=== PATIENT | male | born 1935 | race African-American/Black ===

== ENCOUNTER 2019-03-04 23:53 | Inpatient (IN) | payer MEDICARE, OTHER ==
[~2019-03-04] VITALS: Ht 188 cm; Wt 93.5 kg
[2019-03-05] VITALS (53 sets, daily range): BP systolic 54–185; BP diastolic 21–145
--- NOTE | 2019-03-05 00:46 | Emergency Room Report ---
History of Present Illness General Chief Complaint: Dyspnea/Respdistress Source: Patient, EMS Present Illness HPI Patient presents for respiratory distress Upon arrival patient appears in acute distress short of breath tachypneic Patient is able to provide some minimal input however limited history given the distress upon arrival patient asking for water Nursing facility reported increased short of breath prior to arrival unknown regarding fever there was no reports of vomiting or diarrhea Allergies: Coded Allergies: No Known Allergies (Unverified , 03/05/19) Patient History Past Medical History: see triage record Pertinent Family History: none Reviewed Nursing Documentation: PMH: Agreed; PSxH: Agreed Nursing Documentation-PMH Hx Cardiac Problems: Yes - AORTIC VALVE STENOSDI Hx Hypertension: Yes Review of Systems All Other Systems: limited - Other than the ones mentioned in the history of present illness all others are reviewed however they do stay limited due to the patient's mental status Physical Exam Vital Signs Date Time Temp Pulse Resp B/P (MAP) Pulse Ox O2 Delivery O2 Flow Rate FiO2 03/05/19 00:00 98.8 102 20 146/114 (125) 94 Non-Rebreather Sp02 EP Interpretation: reviewed, normal General Appearance: moderate distress - Tachypneic Head: normocephalic, atraumatic Eyes: bilateral eye PERRL, bilateral eye EOMI ENT: normal pharynx, no angioedema Neck: supple Respiratory: crackles - Bilaterally Cardiovascular #1: regular rate, rhythm Gastrointestinal: normal bowel sounds, non tender Musculoskeletal: other - No obvious focal deficit Neurologic: alert, responsive Skin: other - Large decubitus ulcer specific grading to be determined however at least 3 stage Lymphatic: no adenopathy Procedures Critical Care Time Critical Care Time 90 minutes for multiple re-evaluations critical presentation with concern for cardiac, cardiopulmonary not including any procedural time Central Line Central Line : Consent: Emergent Central Line Lumen: triple Maximal Sterile Barrier Tech: yes cap, yes mask, yes sterile gown, yes sterile gloves, yes large sterile sheet, yes hand hygiene, yes chlorhexidine prep Central Line Postion: femoral (R) Anesthesia: Lidocaine cc's of anesthesia: 4 Complications: none Central Line Post Position: sutured Attempts: One Patient Tolerated: Well Complications: None CPR/Code Blue CPR/Code Blue Narrative While receiving IV hydration and resuscitation with antibiotics, I was notified of the patient's mental status had appeared to change and patient was less responsive, upon arriving to the bedside patient has agonal respirations, heart rate appears to be decreasing and patient is unresponsive CPR is initiated, patient required airway intubation Patient did show evidence of V. fib Amiodarone and magnesium were also provided Including sodium bicarbonate Patient did regain palpable pulses And is placed on a mechanical ventilator Intubation Intubation : Consent: Emergent Intubation Method: orotracheal Tube Size (cm): 8.0 Breath Sounds after Intubation: equal Intubation Complications: no complications Post Intubation Xray: Yes Attempts: One Patient Tolerated: Well Complications: None Medical Decision Making Diagnostic Impression: Primary Impression: Septic shock Additional Impressions: Cardiopulmonary arrest Decubitus ulcer ER Course Patient presents ill multiple differentials including but not limited to sepsis , severe sepsis, septic shock considered Patient had aggressive hydration initiated extensive blood work X-ray imaging shows elevated right hemidiaphragm which appears abnormal CT imaging was obtained of the abdomen which reveals evidence of questionable small bowel traction There is also evidence of erosion and 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 from an existing sacral decubitus ulcer Radiology also felt that there was some questionable gas in the gluteal area raising concern of gas-forming bacteria During the patient's ED course patient remained ill At approximately 3:30 in the morning patient was found to be less responsive Went into a bradycardic rhythm and is found to be agonal respirations ACLS initiated patient has airway intubation And we did have return of pulses Patient remains in extremely critical with poor prognosis admitting physician notified Labs Test 03/04/19 23:59 03/05/19 00:08 03/05/19 00:34 03/05/19 02:43 Arterial Blood pH 7.344 (7.350-7.450) Arterial Blood Partial Pressure CO2 31.9 mmHg (35.0-45.0) Arterial Blood Partial Pressure O2 73.3 mmHg (75.0-100.0) Arterial Blood HCO3 17.0 mmol/L (22.0-26.0) Arterial Blood Oxygen Saturation 93.5 % (95-100) Arterial Blood Base Excess -7.6 (-2-2) Parish Test Positive White Blood Count 59.5 K/UL (4.8-10.8) Red Blood Count 3.81 M/UL (4.70-6.10) Hemoglobin 11.5 G/DL (14.2-18.0) Hematocrit 35.7 % (42.0-52.0) Mean Corpuscular Volume 94 FL (80-99) Mean Corpuscular Hemoglobin 30.1 PG (27.0-31.0) Mean Corpuscular Hemoglobin Concent 32.2 G/DL (32.0-36.0) Red Cell Distribution Width 16.8 % (11.6-14.8) Platelet Count 408 K/UL (150-450) Mean Platelet Volume 5.5 FL (6.5-10.1) Neutrophils (%) (Auto) % (45.0-75.0) Lymphocytes (%) (Auto) % (20.0-45.0) Monocytes (%) (Auto) % (1.0-10.0) Eosinophils (%) (Auto) % (0.0-3.0) Basophils (%) (Auto) % (0.0-2.0) Prothrombin Time 16.1 SEC (9.30-11.50) Prothromb Time International Ratio 1.6 (0.9-1.1) Activated Partial Thromboplast Time 51 SEC (23-33) Sodium Level 130 MMOL/L (136-145) Potassium Level 4.9 MMOL/L (3.5-5.1) Chloride Level 91 MMOL/L (98-107) Carbon Dioxide Level 21 MMOL/L (21-32) Anion Gap 18 mmol/L (5-15) Blood Urea Nitrogen 26 mg/dL (7-18) Creatinine 3.1 MG/DL (0.55-1.30) Estimat Glomerular Filtration Rate mL/min (>60) Glucose Level 72 MG/DL (74-106) Lactic Acid Level 10.70 mmol/L (0.4-2.0) 8.90 mmol/L (0.66-2.22) Calcium Level 8.8 MG/DL (8.5-10.1) Total Bilirubin 0.8 MG/DL (0.2-1.0) Aspartate Amino Transf (AST/SGOT) 1507 U/L (15-37) Alanine Aminotransferase (ALT/SGPT) 483 U/L (12-78) Alkaline Phosphatase 198 U/L (46-116) Total Creatine Kinase 742 U/L (26-308) Creatine Kinase MB 6.2 NG/ML (0.0-3.6) Creatine Kinase MB Relative Index 0.8 Troponin I 0.272 ng/mL (0.000-0.056) Pro-B-Type Natriuretic Peptide > 34303 pg/mL (0-125) Total Protein 7.3 G/DL (6.4-8.2) Albumin 2.5 G/DL (3.4-5.0) Globulin 4.8 g/dL Albumin/Globulin Ratio 0.5 (1.0-2.7) Lipase 52 U/L (73-393) Urine Color Red Urine Appearance Turbid Urine pH 5 (4.5-8.0) Urine Specific [place] 1.020 (1.005-1.035) Urine Protein 4+ (NEGATIVE) Urine Glucose (UA) Negative (NEGATIVE) Urine Ketones 1+ (NEGATIVE) Urine Blood 5+ (NEGATIVE) Urine Nitrite Negative (NEGATIVE) Urine Bilirubin Negative (NEGATIVE) Urine Urobilinogen Normal MG/DL (0.0-1.0) Urine Leukocyte Esterase 3+ (NEGATIVE) Urine RBC Tntc /HPF (0 - 0) Urine WBC Tntc /HPF (0 - 0) Urine Squamous Epithelial Cells Few /LPF (NONE/OCC) Urine Bacteria Many /HPF (NONE) EKG Diagnostic Results Rate: tachycardiac Rhythm: NSR ST Segments: other - Nonspecific ST changes Rhythm Strip Diag. Results EP Interpretation: yes Rate: 90 Rhythm: NSR, no PVC's, no ectopy Chest X-Ray Diagnostic Results Chest X-Ray Diagnostic Results #1: Chest X-Ray Ordered: Yes # of Views/Limited/Complete: 1 View Indication: Chest Pain EP Interpretation: Yes Interpretation: no consolidation, no pneumothorax, other - Small left effusion, elevated right hemidiaphragm Impression: Other - As above Chest X-Ray Diagnostic Results #2: Chest X-Ray Ordered: Yes # of Views/Limited/Complete: 1 View Indication: Other - Intubation EP Interpretation: Yes Interpretation: no consolidation, no pneumothorax, other - ET tube appropriate Impression: Other - ET tube appropriate Electronically Signed by: Lincoln Hoang DO CT/MRI/US Diagnostic Results CT/MRI/US Diagnostic Results : Impression CT abdomen pelvisIMPRESSION: Mild cardiomegalyand coronaryarterial calcifications. Right basilar Polder consolidative opacitywhich mayreflect atelectasis or possible infiltrate/pneumonia. Mild bilateral pleural thickening. Moderate gaseous and fluid distention of stomach. Mild small bowel distention with findings raising possibilityof earlyor partial small bowel obstruction. Gas distended cecumin the right upper quadrant most suggestive of hypermobile cecumas discussed in bodyof report. Cholelithiasis. Foleycatheter within decompressed urinarybladder. Large deep decubitus ulcer with findings suggestive of osteomyelitis and bonyerosion involving inferior coccygeal segments. Extension of gas and ill-defined low- densityinflammatorychanges to Last Vital Signs Date Time Temp Pulse Resp B/P (MAP) Pulse Ox O2 Delivery O2 Flow Rate FiO2 03/05/19 00:00 98.8 102 20 146/114 (125) 94 Non-Rebreather Status: worsened Disposition: ADMITTED INPATIENT Condition: Critical - poor prognosis Referrals: NON PHYSICIAN (PCP) Lincoln Hoang DO Mar 05, 2019 00:46
[2019-03-05 00:49] LABS: APPEARANCE,URINE TURBID; BILIRUBIN, URINE NEGATIVE (NEGATIVE); COLOR,URINE RED; GLUCOSE, URINE (UA) NEGATIVE (NEGATIVE); KETONES,URINE 1+ (NEGATIVE); LEUKOCYTE ESTERASE ,URINE 3+ (NEGATIVE); NITRITE,URINE NEGATIVE (NEGATIVE); PH,URINE 5 (4.5-8.0); PROTEIN,URINE 4+ (NEGATIVE); UROBILINOGEN,URINE NORMAL MG/DL (0.0-1.0)
[2019-03-05 00:54] LABS: HEMATOCRIT 35.7 % (42.0-52.0); HEMOGLOBIN 11.5 G/DL (14.2-18.0); MEAN CORPUSCULAR VOLUME 94 FL (80-99); PLATELET COUNT 408 K/UL (150-450); RED BLOOD COUNT 3.81 M/UL (4.70-6.10); RED CELL DISTRIBUTION WIDTH 16.8 % (11.6-14.8)
[2019-03-05 00:55] LABS: INR 1.6 (0.9-1.1)
[2019-03-05 00:56] LABS: WHITE BLOOD COUNT 59.5 K/UL (4.8-10.8)
[2019-03-05 00:57] LABS: ANION GAP 18 mmol/L (5-15); BLOOD UREA NITROGEN 26 mg/dL (7-18); CALCIUM 8.8 MG/DL (8.5-10.1); CARBON DIOXIDE 21 MMOL/L (21-32); CHLORIDE 91 MMOL/L (98-107); CREATININE 3.1 MG/DL (0.55-1.30); POTASSIUM 4.9 MMOL/L (3.5-5.1); SODIUM 130 MMOL/L (136-145)
[2019-03-05] MEDS ORDERED: AMIODARONE HCL400 M1 ORAL (00:59)
[2019-03-05] MEDS ORDERED: ACETAMINOPHEN325 M1 ORAL (00:59)
[2019-03-05] MEDS ORDERED: ELIQUIS2.5 MG PO (01:00)
[2019-03-05] MEDS ORDERED: CILOSTAZOL100 MG PO (01:00)
[2019-03-05] MEDS ORDERED: COLACE100 MG ORAL (01:00)
[2019-03-05] MEDS ORDERED: FERROUS SULFAT325 MG ORAL (01:02)
[2019-03-05] MEDS ORDERED: FUROSEMIDE20 M1 ORAL (01:02)
[2019-03-05] MEDS ORDERED: LACTULOSE20 GM/301 ORAL (01:03)
[2019-03-05] MEDS ORDERED: ORGANIDIN100 MG/5 M PO (01:03)
[2019-03-05] MEDS ORDERED: CITRATE OF MAG296 ML PO (01:04)
[2019-03-05] MEDS ORDERED: METOPROLOL TART25 MG ORAL (01:04)
[2019-03-05] MEDS ORDERED: MULTIVITAMINS1 EAC8 ORAL (01:05)
[2019-03-05] MEDS ORDERED: POTASSIUM CHLO20 ME1 ORAL (01:05)
[2019-03-05] MEDS ORDERED: PRO-STAT LIQUID30 ML ORAL (01:06)
[2019-03-05] MEDS ORDERED: SENNA8.6 M2 PO (01:06)
[2019-03-05] MEDS ORDERED: ZOFRAN4 M3 ORAL (01:07)
[2019-03-05 01:10] LABS: ALANINE AMINOTRANSFERASE 483 U/L (12-78); ALBUMIN 2.5 G/DL (3.4-5.0); ALBUMIN/GLOBULIN RATIO 0.5 (1.0-2.7); ALKALINE PHOSPHATASE 198 U/L (46-116); ASPARTATE AMINO TRANSFERASE 1507 U/L (15-37); BILIRUBIN,TOTAL 0.8 MG/DL (0.2-1.0); CKMB 6.2 NG/ML (0.0-3.6); CREATINE KINASE 742 U/L (26-308)
[2019-03-05] MEDS ORDERED: Vancomycin 1.5gm Premix 275 ML IVPB ONE (01:15)
[2019-03-05] MEDS ORDERED: Piperacillin/Tazobactam 3.375 GM in NS 110 ML IVPB ONE (01:15)
[2019-03-05] MEDS ORDERED: Sodium Chloride 3,300 ML IVLG ONE (01:15)
[2019-03-05] MEDS ORDERED: DOPamine 400mg/250ml 250 ML IV ONE (03:15)
[2019-03-05] MEDS ORDERED: Amiodarone 900 MG in D5W 500ml 482 ML IV ONE (04:00)
[2019-03-05] MEDS ORDERED: AMIODARONE 150 MG/100 ML IV ONE (04:02)
[2019-03-05] MEDS ORDERED: Amiodarone 150mg/3ml Amp ONE (04:19)
--- NOTE | 2019-03-05 05:08 | Diagnostic Imaging Report ---
EXAM: XR Chest, 1 View CLINICAL HISTORY: TUBE PLCMT TECHNIQUE: Frontal view of the chest. COMPARISON: Early same-day chest x-ray time stamped at 00 57 hours, and abdomen CT also of earlier the same date time stamped 01:42 hours. FINDINGS: Lungs: Persistent low lung volumes with right greater than left basilar atelectasis. Left lower lobe consolidation persists. Pulmonary vascular congestion, right greater than left is present. Pleural space: Unremarkable. No pneumothorax. Heart: Cardiomegaly redemonstrated. Mediastinum: Unremarkable. Bones/joints: Unremarkable. Tubes, lines and devices: Interval endotracheal intubation with ET tube terminating 5.7 cm above the katy. Interval placement of an enteric tube, possible diaphragms. Upper abdomen: Right diaphragmatic elevation IMPRESSION: Satisfactory endotracheal intubation and enteric tube placement with persistent findings of cardiomegaly and right lower lobe consolidation/pneumonia..
[2019-03-05] MEDS: Amiodarone 900 MG in D5W 500ml 482 ML IV SCH ×2 (06:37→13:06)
[2019-03-05 07:24] LABS: HEMATOCRIT 35.1 % (42.0-52.0); HEMOGLOBIN 11.8 G/DL (14.2-18.0); MEAN CORPUSCULAR VOLUME 92 FL (80-99); PLATELET COUNT 320 K/UL (150-450)
[2019-03-05 07:25] LABS: WHITE BLOOD COUNT 49.1 K/UL (4.8-10.8)
[2019-03-05 07:30] LABS: ANION GAP 18 mmol/L (5-15); BLOOD UREA NITROGEN 28 mg/dL (7-18); CALCIUM 8.3 MG/DL (8.5-10.1); CARBON DIOXIDE 18 MMOL/L (21-32); CHLORIDE 95 MMOL/L (98-107); CREATININE 2.9 MG/DL (0.55-1.30); PHOSPHORUS 6.7 MG/DL (2.5-4.9); POTASSIUM 3.9 MMOL/L (3.5-5.1); SODIUM 131 MMOL/L (136-145)
[2019-03-05] MEDS: DOPamine 400mg/250ml 250 ML IV SCH (07:46)
--- NOTE | 2019-03-05 08:59 | Diagnostic Imaging Report ---
EXAM: XR Chest, 1 View. CLINICAL HISTORY: SOB TECHNIQUE: Frontal view of the chest. COMPARISON: 03/05/19 at 0425 hrs. FINDINGS: Lungs: Stable appearance of the chest. Again seen is asymmetric elevation of the right hemidiaphragm and associated asymmetric volume loss within the right hemithorax. Pleural spaces: Unremarkable. No pneumothorax. Heart: Cardiac silhouette is unchanged. Mediastinum: No mediastinal widening or shift. Endotracheal and enteric tubes are stable in position. Bones: No evidence of acute osseous abnormality. Again seen is severe osteoarthritis of the left glenohumeral joint. Moderate gaseous distention of the colon seen within the upper abdomen. IMPRESSION: Stable appearance of the chest.
[2019-03-05] MEDS ORDERED: Metoprolol 25mg tab ORAL SCH (09:00)
--- NOTE | 2019-03-05 09:10 | History & Physical ---
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
[2019-03-05] MEDS ORDERED: Amikacin Rx to dose MISC PRN (10:00)
[2019-03-05] MEDS: Ferrous Sulfate 300 MG/5 ML UDC NG SCH ×3 (10:30→18:00)
[2019-03-05] MEDS: D5NS 1,000 ML IV SCH ×2 (10:30→20:45)
[2019-03-05] MEDS: Meropenem 500 MG in NS 55 ML IVPB SCH ×2 (11:28→23:33)
[2019-03-05] MEDS: Amikacin 600 MG in NS 110 ML IV SCH (12:15)
--- NOTE | 2019-03-05 12:30 | Consultation ---
DATE OF CONSULTATION: 03/05/2019 CONSULTING PHYSICIAN: Mirza Gilliland M.D. REQUESTING PHYSICIAN: ER physician. REASON FOR CONSULTATION: Decubitus ulcer and septic shock. HISTORY OF PRESENT ILLNESS: This is an 83-year-old male, resident of a [place] [facility], was brought to the emergency room for shortness of breath. The patient is intubated and cannot give any history. There is no family available and all the information was obtained from the chart and the nurses. During the evaluation, it has noticed that the patient had a very large infected decubitus ulcer at the sacral area. It is not clear how long the patient has had this and there is no mention of any fever, vomiting, or any complaints. PAST MEDICAL HISTORY: Apparently, he is not allergic to any medication and the records show that he has a history of hypertension, aortic valve stenosis, CHF, atrial fibrillation, and possible MN. PAST SURGICAL HISTORY: None. MEDICATIONS: Please see the medicine reconciliation form. SOCIAL HISTORY: This is an 83-year-old male, single, resident of the [place] [facility]. REVIEW OF SYSTEMS: Unobtainable. PHYSICAL EXAMINATION: GENERAL: The patient appeared to be a well-developed, well-nourished, 83-year-old male, lying on the bed, in the ICU, intubated and opens eyes and is moving the head. EYES: He has sluggish reaction of the pupils. Mouth, he has an ET tube in place. NECK: There is no palpable thyromegaly or adenopathy. CHEST: Clear. HEART: There is no gallop or murmur. He is tachycardic, although he has diagnosis of the aortic valve stenosis, but I cannot hear any murmur. ABDOMEN: Soft and flat. Nontender. EXTREMITIES: He has poor circulation in both lower legs. BACK: He has a very large stage IV decubitus ulcer, which is severely infected and had drainage. LABORATORY DATA: The CBC on admission shown WBC of 59,500 with left shift, 27% band. Chemistry is showing creatinine of 2.9. Lactic acid of 8.9 and almost every parameter is abnormal and troponin is 0.54. Urine has shown too numerous to count wbc and rbc. ASSESSMENT: 1. Infected decubitus ulcer. 2. Septic shock. RECOMMENDATION: The patient definitely requires debridement of the decubitus ulcer. PLAN: At this time, his condition does not allow, so I took the liberty of ordering the dressing changes and when the patient is stable enough, he will required the debridement of the wound. Mirza Gilliland M.D. DR: JONATHAN JOB#: [id number] CC:
--- NOTE | 2019-03-05 13:01 | Cardiology Report ---
APPROVED REPORT EXAM: Two-dimensional and M-mode echocardiogram with Doppler and color Doppler. INDICATION Tachycardia M-Mode DIMENSIONS IVSd2.1 (0.7-1.1cm)Left Atrium (MM)3.5 (1.6-4.0cm) LVDd3.0 (3.5-5.6cm)Aortic Root2.9 (2.0-3.7cm) PWd1.9 (0.7-1.1cm)Aortic Cusp Exc.0.9 (1.5-2.0cm) LVDs2.3 (2.5-4.0cm) PWs1.8 cm Technically difficult study due to patient on ventilator. Study quality precludes accurate assessment of regional wall motion. Normal left ventricular chamber size. Global left ventricular hypokinesis. Left ventricular ejection fraction estimated to be 30-35 %. Mild left ventricular hypertrophy. Anterior Echo-free space, may be due to pericardial fat or effusion. Mild left atrial enlargement. Right cardiac chamber sizes are within normal limits. Aortic valve calcification with decreased cusp excursion c/w aortic stenosis. Heavily thickened mitral valve leaflets with reduced excursion. Heavy mitral annulus and aortic root calcification. Pulmonic valve not well visualized. Normal tricuspid valve structure. IVC is normal in size without physiological collapse, suggestive of increased RA pressure. A color flow and spectral Doppler study was performed and revealed: Trace aortic insufficiency. Peak aortic valve gradient of 38 mmHg and a mean of 21 mmHg. Aortic valve area 1.0 cm2 calculated by continuity equation. Mild mitral regurgitation. LVOT pressure gradient underestimated due to low systolic function. Mitral P1/2 time of 35 m/s is compatible with a mitral valve area of 1.2 cm2. Peak mitral valve diastolic gradient of 9 mmHg and a mean gradient of 3 mmHg. Left ventricular diastolic function could not be determined due to arrhythmia. Mild tricuspid regurgitation. Tricuspid systolic velocities suggests peak right ventricular systolic pressure of 40 mmHg, consistent with mild pulmonary hypertension. Mild pulmonic regurgitation present.
--- NOTE | 2019-03-05 13:45 | History and Physical Report ---
DATE OF ADMISSION: 03/05/2019 REASON FOR ADMISSION: Septic shock, ventilator-dependent respiratory failure. HISTORY OF PRESENT ILLNESS: This is an elderly gentleman, who was admitted from his long-term with respiratory distress, altered mental status, hypotensive and in shock. The patient was nonverbal, unable to provide any history in the emergency room. He subsequently Coded in the emergency room, was emergently intubated, started on pressors, given 4 liters of fluid, started on broad-spectrum antibiotics. He has a stage IV decubitus ulcer, was also found to have urinary tract infection and was transferred to the intensive care unit for further care. The patient has also had significant amount of diarrhea per the staff and is on multiple cathartic agents. His Code Blue note was noted and CPR was performed. Heart monitor did show the patient was in VFib. He was started on amiodarone, magnesium, and bicarbonate. Pulses were regained and as stated, the patient was intubated. PAST MEDICAL HISTORY: Includes aortic valve stenosis, hypertension, and constipation. He has atrial fibrillation on Eliquis. SOCIAL HISTORY: Un-reportable. REVIEW OF SYSTEMS: Unobtainable. MEDICATIONS: His pre-hospital medications and present medications were reviewed, reconciled, and documented in the electronic medical record by dose, frequency, and route. FAMILY HISTORY: Unavailable due to his current intubation status. PHYSICAL EXAMINATION: GENERAL: At the time of my exam, his eyes are open. He does not follow commands. He is in restraints, on the ventilator. HEENT: He is normocephalic, atraumatic. Orally intubated. LUNGS: Bilateral rhonchi. HEART: Regular rate and rhythm with an audible murmur. ABDOMEN: Soft, nontender. Positive bowel sounds. EXTREMITIES: Positive edema. NEUROLOGIC: Does not follow commands as previously stated. LABORATORY AND DIAGNOSTIC DATA: His laboratory values, his initial ABG pre-intubation was 7.34, 31, 73. This morning, is 7.41, 30, and 247. His chest x-ray shows a dense right lower lobe infiltrate with right effusion be noted. Urinalysis shows positive leukocyte esterase and ketones. Sodium is 131, potassium 3.9, chloride 95, bicarb 18, BUN 28, creatinine 2.8, glucose is 178. His initial lactate was 10.7 and it is continued at this time. His first troponin was 0.54. His CBC initially had a white count of 59.5, now down to 49.1. 11.8, and platelets are 320. Cultures are pending at this time. CT result is not available on the paper chart, on the computer, but per the emergency room note, abdomen CT was obtained revealing evidence of small bowel traction, also evidence for erosion and likely osteomyelitis of the sacrum and questionable gas in the gluteal area, raising concern of gas-forming bacteria. ASSESSMENT AND PLAN: Cardiopulmonary arrest, ventilator-dependent respiratory failure, right lower lobe pneumonia with effusion, stage IV decubitus ulcer, suspected osteomyelitis, possible gas-forming bacteria seen on CT scan, and he has atrial fibrillation. Plan for the patient to maintain airway protection with the current vent settings. ABG is stable. We will titrate O2 for saturating %. Broad-spectrum antibiotics have been initiated. ID has been consulted. Meropenem, amikacin, and vancomycin have been ordered. Surgical evaluation for debridement when the patient is stable of his decubitus ulcer. Blood pressure supportive medications to maintain mean arterial pressure greater than 65 mmHg. Currently has been transitioned to Levophed. We will continue to monitor. IV fluids have been ordered and we will monitor. 2D echo is pending. Trending cardiac troponins and Dr. Mckinney to see for Cardiology. Urinary tract infection, awaiting cultures. He is covered with broad-spectrum antibiotics. NPO at this time and aspiration precautions. We will start tube feeding with placement of NG tube. Plan for his atrial fibrillation, continue the Eliquis. At this time, monitor for any bleeding. Greater than 50 minutes critical care time spent with the patient, discussing the case with nursing staff, consultants, and we will continue to follow the patient for remainder of his hospital stay and he is critically ill requiring intensive care therapy. Dulce Lund D.O. : CRISTAL JOB#: [id number] CC:
--- NOTE | 2019-03-05 16:00 | Infectious Diseases Prog Note ---
Assessment/Plan Assessment/Plan Full consult dictated: A) 1) sepsis, shock, uti/pyelonephritis, pna, leukocytosis 2) sacral wound infection 3) pmh noted P) 1) vancomycin, amikacin and meropenem 2) check cultures, labs and chest x-ray 3) may need CT imaging 4) thank you Subjective Allergies: Coded Allergies: No Known Allergies (Unverified , 03/05/19) Objective Vital Signs Last 24 Hour Vital Signs Date Time Temp Pulse Resp B/P (MAP) Pulse Ox O2 Delivery O2 Flow Rate FiO2 03/05/19 15:12 93 23 70 03/05/19 13:00 97 18 115/42 (66) 100 03/05/19 13:00 115/42 03/05/19 12:52 96 24 70 03/05/19 12:45 54/42 03/05/19 12:45 99 18 54/42 (46) 100 03/05/19 12:30 108/28 03/05/19 12:30 101 16 108/28 (54) 100 03/05/19 12:30 101 16 108/28 (54) 100 03/05/19 12:15 101 16 115/28 (57) 100 03/05/19 12:15 115/28 03/05/19 12:00 Mechanical Ventilator 03/05/19 12:00 107/45 03/05/19 12:00 99.1 103 16 107/45 (65) 100 03/05/19 12:00 80 03/05/19 12:00 101 03/05/19 11:45 107/45 03/05/19 11:45 103 14 107/45 (65) 100 03/05/19 11:35 117/66 03/05/19 11:33 103/87 03/05/19 11:30 124/74 03/05/19 11:30 110 18 117/66 (83) 100 03/05/19 11:00 119 20 124/74 (91) 100 03/05/19 11:00 124/74 03/05/19 10:57 118 18 80 03/05/19 10:30 118 20 96/79 (85) 100 03/05/19 10:00 99.4 117 20 89/29 (49) 100 03/05/19 10:00 95/77 03/05/19 09:30 104 17 89/29 (49) 100 03/05/19 09:00 80/53 03/05/19 09:00 104 19 80/53 (62) 100 03/05/19 08:40 105 19 80 03/05/19 08:30 103 19 125/79 (94) 100 03/05/19 08:15 115/31 03/05/19 08:00 100.4 104 20 87/56 (66) 100 03/05/19 08:00 Mechanical Ventilator 03/05/19 08:00 87/56 03/05/19 08:00 104 03/05/19 08:00 80 03/05/19 07:46 69/43 03/05/19 07:23 90 22 100 03/05/19 05:47 Endotracheal Tube 03/05/19 05:31 103 27 100 03/05/19 05:31 103 27 98 Mechanical Ventilator 100 03/05/19 05:25 98.9 88 22 91/65 100 Nasal Cannula 100 03/05/19 05:10 91/65 03/05/19 04:55 102/58 03/05/19 04:40 104/65 03/05/19 04:30 98.4 76 22 185/145 100 Nasal Cannula 3.0 100 03/05/19 04:25 84/59 03/05/19 04:10 85/65 03/05/19 03:55 185/145 03/05/19 03:40 80/28 03/05/19 03:37 88 26 Endotracheal Tube 100 03/05/19 03:37 90 22 100 03/05/19 03:24 74/51 03/05/19 02:30 98.8 93 36 87/49 95 Nasal Cannula 3.0 97 03/05/19 00:30 97 26 Nasal Cannula 3.0 97 03/05/19 00:10 98.8 102 20 146/114 94 Non-Rebreather 03/05/19 00:10 102 20 Non-Rebreather 15.0 03/05/19 00:00 98.8 102 20 146/114 (125) 94 Non-Rebreather Height (Feet): 6 Height (Inches): 2.00 Weight (Pounds): 182 Microbiology Date/Time Source Procedure Growth Status 03/05/19 00:50 Rectum Received Laboratory Tests Test 03/04/19 23:59 03/05/19 00:08 03/05/19 00:34 03/05/19 02:43 Arterial Blood pH 7.344 (7.350-7.450) Arterial Blood Partial Pressure CO2 31.9 mmHg (35.0-45.0) L Arterial Blood Partial Pressure O2 73.3 mmHg (75.0-100.0) L Arterial Blood HCO3 17.0 mmol/L (22.0-26.0) *L Arterial Blood Oxygen Saturation 93.5 % (95-100) L Arterial Blood Base Excess -7.6 (-2-2) L Parish Test Positive White Blood Count 59.5 K/UL (4.8-10.8) *H Red Blood Count 3.81 M/UL (4.70-6.10) L Hemoglobin 11.5 G/DL (14.2-18.0) L Hematocrit 35.7 % (42.0-52.0) L Mean Corpuscular Volume 94 FL (80-99) Mean Corpuscular Hemoglobin 30.1 PG (27.0-31.0) Mean Corpuscular Hemoglobin Concent 32.2 G/DL (32.0-36.0) Red Cell Distribution Width 16.8 % (11.6-14.8) H Platelet Count 408 K/UL (150-450) Mean Platelet Volume 5.5 FL (6.5-10.1) L Neutrophils (%) (Auto) % (45.0-75.0) Lymphocytes (%) (Auto) % (20.0-45.0) Monocytes (%) (Auto) % (1.0-10.0) Eosinophils (%) (Auto) % (0.0-3.0) Basophils (%) (Auto) % (0.0-2.0) Differential Total Cells Counted 100 Neutrophils % (Manual) 62 % (45-75) Lymphocytes % (Manual) 4 % (20-45) L Monocytes % (Manual) 3 % (1-10) Eosinophils % (Manual) 0 % (0-3) Basophils % (Manual) 0 % (0-2) Metamyelocytes % 3 % (0-0) H Myelocytes % 1 % (0-0) H Band Neutrophils 27 % (0-8) H Platelet Estimate Adequate Platelet Morphology Normal Anisocytosis 1+ Prothrombin Time 16.1 SEC (9.30-11.50) H Prothromb Time International Ratio 1.6 (0.9-1.1) H Activated Partial Thromboplast Time 51 SEC (23-33) H Sodium Level 130 MMOL/L (136-145) L Potassium Level 4.9 MMOL/L (3.5-5.1) Chloride Level 91 MMOL/L (98-107) L Carbon Dioxide Level 21 MMOL/L (21-32) Anion Gap 18 mmol/L (5-15) H Blood Urea Nitrogen 26 mg/dL (7-18) H Creatinine 3.1 MG/DL (0.55-1.30) H Estimat Glomerular Filtration Rate mL/min (>60) Glucose Level 72 MG/DL (74-106) L Lactic Acid Level 10.70 mmol/L (0.4-2.0) H 8.90 mmol/L (0.66-2.22) H Calcium Level 8.8 MG/DL (8.5-10.1) Total Bilirubin 0.8 MG/DL (0.2-1.0) Aspartate Amino Transf (AST/SGOT) 1507 U/L (15-37) H Alanine Aminotransferase (ALT/SGPT) 483 U/L (12-78) H Alkaline Phosphatase 198 U/L (46-116) H Total Creatine Kinase 742 U/L (26-308) H Creatine Kinase MB 6.2 NG/ML (0.0-3.6) H Creatine Kinase MB Relative Index 0.8 Troponin I 0.272 ng/mL (0.000-0.056) Pro-B-Type Natriuretic Peptide > 75044 pg/mL (0-125) H Total Protein 7.3 G/DL (6.4-8.2) Albumin 2.5 G/DL (3.4-5.0) L Globulin 4.8 g/dL Albumin/Globulin Ratio 0.5 (1.0-2.7) L Lipase 52 U/L (73-393) L Urine Color Red Urine Appearance Turbid Urine pH 5 (4.5-8.0) Urine Specific [place] 1.020 (1.005-1.035) Urine Protein 4+ (NEGATIVE) H Urine Glucose (UA) Negative (NEGATIVE) Urine Ketones 1+ (NEGATIVE) H Urine Blood 5+ (NEGATIVE) H Urine Nitrite Negative (NEGATIVE) Urine Bilirubin Negative (NEGATIVE) Urine Urobilinogen Normal MG/DL (0.0-1.0) Urine Leukocyte Esterase 3+ (NEGATIVE) H Urine RBC Tntc /HPF (0 - 0) H Urine WBC Tntc /HPF (0 - 0) H Urine Squamous Epithelial Cells Few /LPF (NONE/OCC) Urine Bacteria Many /HPF (NONE) H Test 03/05/19 07:00 03/05/19 07:44 03/05/19 09:25 03/05/19 14:45 White Blood Count 49.1 K/UL (4.8-10.8) *H Red Blood Count 3.80 M/UL (4.70-6.10) L Hemoglobin 11.8 G/DL (14.2-18.0) L Hematocrit 35.1 % (42.0-52.0) L Mean Corpuscular Volume 92 FL (80-99) Mean Corpuscular Hemoglobin 31.1 PG (27.0-31.0) H Mean Corpuscular Hemoglobin Concent 33.7 G/DL (32.0-36.0) Red Cell Distribution Width 17.0 % (11.6-14.8) H Platelet Count 320 K/UL (150-450) Mean Platelet Volume 5.7 FL (6.5-10.1) L Neutrophils (%) (Auto) % (45.0-75.0) Lymphocytes (%) (Auto) % (20.0-45.0) Monocytes (%) (Auto) % (1.0-10.0) Eosinophils (%) (Auto) % (0.0-3.0) Basophils (%) (Auto) % (0.0-2.0) Differential Total Cells Counted 100 Neutrophils % (Manual) 58 % (45-75) Lymphocytes % (Manual) 6 % (20-45) L Monocytes % (Manual) 3 % (1-10) Eosinophils % (Manual) 0 % (0-3) Basophils % (Manual) 0 % (0-2) Metamyelocytes % 2 % (0-0) H Myelocytes % 2 % (0-0) H Band Neutrophils 29 % (0-8) H Platelet Estimate Adequate Platelet Morphology Normal Anisocytosis 1+ Sodium Level 131 MMOL/L (136-145) L Potassium Level 3.9 MMOL/L (3.5-5.1) Chloride Level 95 MMOL/L (98-107) L Carbon Dioxide Level 18 MMOL/L (21-32) L Anion Gap 18 mmol/L (5-15) H Blood Urea Nitrogen 28 mg/dL (7-18) H Creatinine 2.9 MG/DL (0.55-1.30) H Estimat Glomerular Filtration Rate mL/min (>60) Glucose Level 178 MG/DL (74-106) #H Lactic Acid Level 10.70 mmol/L (0.4-2.0) H 6.60 mmol/L (0.66-2.22) H 3.10 mmol/L (0.4-2.0) H Calcium Level 8.3 MG/DL (8.5-10.1) L Phosphorus Level 6.7 MG/DL (2.5-4.9) H Magnesium Level 2.1 MG/DL (1.8-2.4) Troponin I 0.540 ng/mL (0.000-0.056) Arterial Blood pH 7.415 (7.350-7.450) Arterial Blood Partial Pressure CO2 30.3 mmHg (35.0-45.0) L Arterial Blood Partial Pressure O2 247.2 mmHg (75.0-100.0) H Arterial Blood HCO3 19.0 mmol/L (22.0-26.0) L Arterial Blood Oxygen Saturation 99.2 % (95-100) Arterial Blood Base Excess -4.6 (-2-2) L Parish Test Positive Current Medications Medications (Trade) Dose Ordered Sig/Tawny Route PRN Reason Start Time Stop Time Status Last Admin Dose Admin Amikacin Protocol (Amikacin pharmacy to dose) 1 ea DAILY PRN MISC Per rx protocol 03/05/19 10:00 04/04/19 09:59 Amikacin Sulfate 600 mg/Sodium Chloride 112.4 ml @ 112.4 mls/ hr Q24H IV 03/05/19 12:00 03/12/19 11:59 03/05/19 12:15 Amiodarone HCl 900 mg/Dextrose 500 ml @ 0 mls/hr Q24H IV 03/05/19 06:31 03/06/19 06:30 03/05/19 13:06 Chlorhexidine Gluconate (Jada-Hex 2%) 1 applic DAILY@1999 TOPIC 03/05/19 20:00 04/04/19 19:59 Dextrose (Dextrose 50%) 25 ml Q30M PRN IV Hypoglycemia 03/05/19 06:15 04/04/19 06:14 Dextrose (Dextrose 50%) 50 ml Q30M PRN IV Hypoglycemia 03/05/19 06:15 04/04/19 06:14 Dextrose/Sodium Chloride 1,000 ml @ 100 mls/hr Q10H IV 03/05/19 10:05 04/04/19 10:04 03/05/19 10:30 Dopamine HCl/ Dextrose 250 ml @ 0 mls/hr Q24H IV 03/05/19 06:32 04/04/19 06:31 03/05/19 07:46 Ferrous Sulfate (Feosol) 330 mg THREE TIMES A DAY NG 03/05/19 09:00 04/04/19 08:59 03/05/19 14:03 Lorazepam (Ativan 2mg/ml 1ml) 1 mg Q2H PRN IV For Anxiety 03/05/19 15:00 03/12/19 14:59 Meropenem 500 mg/ Sodium Chloride 55 ml @ 110 mls/hr Q12HR@1100,2300 IVPB 03/05/19 11:00 03/10/19 10:59 03/05/19 11:28 Norepinephrine Bitartrate 4 mg/ Dextrose 250 ml @ 0 mls/hr Q24H IV 03/05/19 10:05 04/04/19 10:04 03/05/19 11:33 Ondansetron HCl (Zofran) 4 mg Q6H PRN IVP Nausea & Vomiting 03/05/19 06:15 04/04/19 06:14 Vancomycin HCl (Vanco rx to dose) 1 ea DAILY PRN MISC Per rx protocol 03/05/19 06:15 04/04/19 06:14 Makenzie Galeano MD Mar 05, 2019 16:00
--- NOTE | 2019-03-05 17:30 | Consultation ---
DATE OF CONSULTATION: 03/05/2019 INFECTIOUS DISEASES CONSULTATION CONSULTING PHYSICIAN: Makenzie Galeano M.D. ATTENDING PHYSICIAN: Cedric Perez M.D. REFERRING PHYSICIANS: 1. Cedric Perez M.D. 2. Dulce Lund D.O. REASON FOR CONSULTATION: Sepsis, shock, urinary tract infection, pneumonia, sacral wound infection. CHIEF COMPLAINT: The patient's chief complaint coming into the hospital is sepsis, shock, urinary tract infection, pyelonephritis, sacral wound infection, pneumonia, respiratory failure. HISTORY OF PRESENT ILLNESS: The patient is an 83-year-old male who comes in to [facility] and was noted to be short of breath and is status post Code. He is actually alert, but is intubated. The patient has multiple infections including fevers, leukocytosis, urinary tract infection, pyelonephritis, and pneumonia. He has also sacral wound infection. The patient was seen by surgery, plan for debridement of the sacral wound which is significantly infected. Infectious consultation requested for antibiotic management. The patient has been started on meropenem, amikacin, and vancomycin. Case communicated with Dr. Dulce Lund who is covering for Dr. Cedric Perez. REVIEW OF SYSTEMS: Main issue, the patient is in respiratory failure, but he is alert. He is on pressors 12 mcg Levophed. He is orally intubated. HEAD AND NECK: He is orally intubated. CARDIAC: He is on pressors, 12 mcg Levophed. GASTROINTESTINAL: no abdominal pain. No diarrhea per nursing staff. GENITOURINARY: He has a Koenig. PULMONARY: On a vent. Some secretions. SKIN: No obvious rash. He has significant sacral wound. NEUROLOGIC: No seizures. PAST MEDICAL HISTORY: The patient's past medical history includes history of the following. The patient has a past medical history of status post code. He was in VFib. He has history of aortic valve stenosis, hypertension, history of atrial fibrillation, also he is on Eliquis. No history of diabetes mentioned. No history of cancer mentioned also. ALLERGIES: No known drug allergies. FAMILY HISTORY: Noncontributory. SOCIAL HISTORY: Negative for smoking, alcohol, or drug abuse. MEDICATIONS: Upon reviewing the MAR, the patient is on the following medications. The patient is on chlorhexidine, amikacin, meropenem vancomycin, norepinephrine, ferrous sulfate, dopamine, Zofran, amiodarone. Antibiotics, vancomycin, meropenem, amikacin. Vancomycin and amikacin dosed by pharmacy. Outside medications noted and reconciliated. PHYSICAL EXAMINATION: VITAL SIGNS: Pulse rate as high as 101, temperature as high as 100.4, respiratory rate 23 as high as 24, blood pressure 115/42. He is on 12 mcg of Levophed. Saturation 100%, FiO2 70%. GENERAL: The patient is quite alert, responsive. Eye exam, no icterus. Normocephalic. HEART: regular. No obvious gallop or murmur. Occasionally irregular. ABDOMEN: Soft. Positive bowel sounds. Does not seem to be tender. He states it is not tender. LUNGS: Bilateral rhonchi, rales, and crackles. SKIN: No rash. MUSCULOSKELETAL: No effusion. Legs are without cellulitis. PERIPHERAL VASCULAR: No cyanosis. GENITOURINARY: There is a Koenig. Urine is cloudy. LINES: Line sites without phlebitis. NEUROLOGIC: Generalized weakness, responsive. SKIN: Sacral wound was noted and looks infected with slough and possible necrosis. LABORATORY DATA: Laboratory data is as follows, white count 49.1, hemoglobin 11.8. White count has been as high as 59.5 earlier today. Creatinine is 2.9. Lactic acid is 3.1 was as high as 10.7. Urinalysis had 3+ leukocyte esterase, too many to count white blood cells, many bacteria. Cultures are pending. Chest x-ray shows the following, it shows consolidation in the right lower lobe consistent with consolidation pneumonia. ASSESSMENT: 1. The patient has sepsis and shock, elevated white count, urinary tract infection, pyelonephritis, sacral wound infection, pneumonia. Continue antibiotics, vancomycin for MRSA coverage, meropenem and amikacin for gram-negative coverage and anaerobic coverage. Most likely, he has pneumonia, it is community-acquired with possible aspiration pneumonia due to status post code. Continue meropenem, vancomycin, amikacin for sepsis, shock, urinary tract infection, pyelonephritis, pneumonia, and sacral wound infection. The patient to undergo debridement. CT scan has been ordered once the patient is stable of the abdomen and pelvis. C diff is also noted, however, he has no diarrhea. Continue antibiotics. Check followup labs and chest x-ray and cultures. 2. Acute kidney injury, elevated creatinine. 3. Anemia. 4. Atrial fibrillation. The patient has been on Eliquis. 5. Status post code. 6. Sacral wound. 7. Aortic valve stenosis. 8. Hypertension. 9. At this time, I am not clear why the patient has developed decubitus. . 10. Hypertension treatment per primary but the patient currently is on pressors. 11. No known drug allergies. No antibiotic allergies. 12. Social history is negative. 13. Family history noncontributory. 14. MAR was noted. 15. Case discussed with RN. 16. Continue treatment per primary consultants. Makenzie Galeano M.D. DR: Dee JOB#: [id number] CC: CARLOS
[2019-03-05] MEDS ORDERED: DAKIN'S473 ML TP (19:51)
[2019-03-05] MEDS ORDERED: OXISTAT30 G1 TP (19:51)
[2019-03-05] MEDS ORDERED: COLLAGENASE1 EACH TP (19:51)
[2019-03-05] MEDS ORDERED: [UNRECOGNIZED DRUG - OTHER] TP (19:51)
[2019-03-05] MEDS ORDERED: AMIODARONE HCL200 MG ORAL (19:51)
[2019-03-05] MEDS ORDERED: TRIPLE ANTIBIO1 EAC1 TP (19:51)
[2019-03-05] MEDS ORDERED: CORDRAN120 ML TP (19:51)
--- NOTE | 2019-03-05 20:00 | Consultation ---
DATE OF CONSULTATION: 03/05/2019 CARDIOLOGY CONSULTATION CONSULTING PHYSICIAN: Mejia Mckinney M.D. REFERRING PHYSICIAN: Cedric Perez M.D. REASON FOR CONSULTATION: Shock. HISTORY OF PRESENT ILLNESS: This 83-year-old male residing at a [facility] facility, was transferred to the emergency room with respiratory distress and altered mentation. He arrived hypotensive and had a Code Blue in the emergency room shortly thereafter. He was emergently intubated and given four liters of saline. He required initiation of pressors and then pancultured and started on broad-spectrum antibiotics. I have been asked to assist with hemodynamic care. During the Code Blue, the patient was noted to have VFib. He had CPR performed and with shock. He was also given magnesium and bicarbonate as well as amiodarone. PAST MEDICAL HISTORY: Obtained from records includes aortic valve stenosis, paroxysmal atrial fibrillation, hypertension, cerebrovascular disease with dementia, and osteoarthritis. MEDICATIONS: Prior to admission, reviewed and reconciled. ALLERGIES: None noted. REVIEW OF SYSTEMS: Not presently obtainable. PHYSICAL EXAMINATION: VITAL SIGNS: Blood pressure 89/47, heart rate 92, respiratory rate 20, and temperature 99.1. GENERAL: The patient is orally intubated and on full ventilator support. There is a large sacral decubitus, which has dressing in place at this time. HEENT: Orally intubated. Thin trach secretions. LUNGS: Bilateral breath sounds. Rhonchi. HEART: Regular rhythm and rate. Normal S1, S2. A 1/6 systolic murmur at base. ABDOMEN: Soft and nontender. EXTREMITIES: With decreased distal pulses. Poor capillary refill. 1+ dependent edema. LABORATORY AND DIAGNOSTIC DATA: Chest x-ray, right lower lobe infiltrate and effusion. Urinalysis with positive leukocyte esterase. Sodium 131, potassium 3.9, bicarbonate 18, BUN 28, and creatinine 2.8. Glucose 178. Lactate 10.7. Troponin 0.54. White count is almost 50,000 with hemoglobin 11.8. EKG, sinus rhythm with nonspecific ST-T wave changes. IMPRESSION: 1. Severe sepsis, shock. 2. Sacral decubitus and osteomyelitis. 3. Suspected possible ischemic bowel. 4. Acute myocardial ischemia and possible non-ST elevation myocardial infarction. 5. Aspiration pneumonia. 6. Respiratory failure, status post full arrest. 7. Paroxysmal atrial fibrillation. 8. 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 9. Critical and guarded. PLAN: 1. Ventilator support. 2. Broad spectrum antimicrobials. 3. Volume resuscitation. 4. Pressors as needed. 5. DVT and stress ulcer prophylaxes. 6. Wound care. 7. Unstable for any surgical intervention at this time. 8. Ventilatory support is ongoing. The patient not presently weanable. 9. Serial troponin levels will be obtained as well. Mejia Mckinney M.D. DR: HEATHER JOB#: [id number] CC:
[2019-03-05] MEDS: Dyna-Hex 2% Top Sol 2oz TOPIC SCH (20:45)
[2019-03-05] MEDS: LORazepam Inj 2mg/ml 1ml IV PRN (20:53)
[2019-03-05] MEDS: Norepinephrine Bitartrate 8 MG in D5W 500ml 492 ML IV SCH (22:00)
[2019-03-06] VITALS (66 sets, daily range): BP systolic 75–136; BP diastolic 46–95
[2019-03-06] MEDS: Norepinephrine Bitartrate 8 MG in D5W 500ml 492 ML IV SCH ×3 (00:25→19:00)
[2019-03-06] MEDS ORDERED: Sodium Bicarbonate 8.4% 50ml Inj ONE (03:36)
[2019-03-06] MEDS ORDERED: Amiodarone 150mg/3ml Amp ONE (03:36)
[2019-03-06] MEDS ORDERED: Magnesium Sulfate 2ml Inj ONE (03:36)
[2019-03-06] MEDS ORDERED: Atropine Inj 1mg/10ml Syr ONE (03:36)
[2019-03-06] MEDS: D5NS 1,000 ML IV SCH (06:05)
[2019-03-06] MEDS: DOPamine 400mg/250ml 250 ML IV SCH (06:32)
[2019-03-06 08:09] LABS: HEMATOCRIT 26.6 % (42.0-52.0); HEMOGLOBIN 9.2 G/DL (14.2-18.0); MEAN CORPUSCULAR VOLUME 87 FL (80-99); PLATELET COUNT 218 K/UL (150-450); RED BLOOD COUNT 3.05 M/UL (4.70-6.10); RED CELL DISTRIBUTION WIDTH 16.1 % (11.6-14.8)
[2019-03-06 08:15] LABS: WHITE BLOOD COUNT 32.1 K/UL (4.8-10.8)
[2019-03-06 08:35] LABS: ANION GAP 10 mmol/L (5-15); BLOOD UREA NITROGEN 25 mg/dL (7-18); CALCIUM 7.4 MG/DL (8.5-10.1); CARBON DIOXIDE 23 MMOL/L (21-32); CHLORIDE 98 MMOL/L (98-107); CREATININE 2.1 MG/DL (0.55-1.30); POTASSIUM 2.8 MMOL/L (3.5-5.1); SODIUM 130 MMOL/L (136-145)
[2019-03-06] MEDS ORDERED: NS 275ml ONE (09:37)
[2019-03-06] MEDS ORDERED: Tubing IV Secondary IV ONE (09:37)
[2019-03-06] MEDS ORDERED: D5NS 1000ml IV ONE (09:37)
[2019-03-06] MEDS: Ferrous Sulfate 300 MG/5 ML UDC NG SCH ×3 (09:38→18:09)
[2019-03-06] MEDS ORDERED: Vancomycin 1.25gm Premix IVPB SCH (10:00)
[2019-03-06] MEDS ORDERED: D5NS w/KCl 40mEq 1000ml 1,000 ML IV SCH (11:00)
[2019-03-06] MEDS: Meropenem 500 MG in NS 55 ML IVPB SCH ×2 (11:21→23:33)
--- NOTE | 2019-03-06 11:54 | Diagnostic Imaging Report ---
Indication: Dyspnea Comparison: None A single view chest radiograph was obtained. Findings: Mild pleural thickening versus effusion on the right noted. Heart size is stable and mildly enlarged. Endotracheal tube is in good position unchanged. NG tube is present. The proximal port is near the EG junction. The tip is in the stomach. IMPRESSION: Nasogastric tube may be advanced slightly. Slightly improved congestion compared to the previous day
[2019-03-06] MEDS: Amikacin 600 MG in NS 110 ML IV SCH (12:55)
[2019-03-06] MEDS: LORazepam Inj 2mg/ml 1ml IV PRN (13:58)
--- NOTE | 2019-03-06 14:19 | General Surgery Progress Note ---
General Surgery-Progress Note Objective Last 24 Hour Vital Signs Date Time Temp Pulse Resp B/P (MAP) Pulse Ox O2 Delivery O2 Flow Rate FiO2 03/06/19 13:30 85 30 117/61 (79) 100 03/06/19 13:00 84 18 117/63 (81) 100 03/06/19 12:30 81 19 112/67 (82) 100 03/06/19 12:00 83 03/06/19 12:00 50 03/06/19 12:00 97.5 78 18 111/55 (73) 100 03/06/19 12:00 Mechanical Ventilator 03/06/19 11:30 82 18 114/59 (77) 100 03/06/19 11:00 82 19 99/53 (68) 100 03/06/19 10:40 88 18 50 03/06/19 10:30 80 19 102/54 (70) 100 03/06/19 10:00 81 17 113/60 (77) 100 03/06/19 09:30 79 18 108/58 (75) 100 03/06/19 09:00 77 18 105/52 (69) 100 03/06/19 09:00 83 20 50 03/06/19 08:30 80 19 93/49 (64) 100 03/06/19 08:00 97.9 83 18 100/54 (69) 100 03/06/19 08:00 50 03/06/19 08:00 84 03/06/19 08:00 Mechanical Ventilator 03/06/19 07:30 84 19 98/57 (71) 100 03/06/19 07:00 117/70 03/06/19 07:00 87 18 117/70 (86) 100 03/06/19 06:55 85 21 50 03/06/19 06:30 89 18 100 03/06/19 06:15 84 18 120/69 (86) 100 03/06/19 06:00 102/70 03/06/19 06:00 99.8 85 18 120/66 (84) 100 03/06/19 05:45 85 18 113/70 (84) 100 03/06/19 05:30 85 20 114/60 (78) 100 03/06/19 05:00 87 19 106/75 (85) 100 03/06/19 05:00 106/75 6/3/19 04:56 88 19 50 03/06/19 04:45 88 18 102/70 (81) 100 03/06/19 04:30 87 20 111/66 (81) 100 03/06/19 04:15 89 17 108/60 (76) 100 03/06/19 04:00 87 20 86/53 (64) 100 03/06/19 04:00 108/60 03/06/19 04:00 50 03/06/19 04:00 Mechanical Ventilator 03/06/19 04:00 88 03/06/19 03:45 87 14 95/53 (67) 100 03/06/19 03:30 90 8 109/58 (75) 100 03/06/19 03:15 89 16 95/75 (82) 100 03/06/19 03:01 92 20 50 03/06/19 03:00 99.8 92 18 86/53 (64) 100 03/06/19 03:00 86/53 03/06/19 02:45 89 18 101/53 (69) 100 03/06/19 02:30 89 18 108/57 (74) 100 03/06/19 02:15 89 18 111/62 (78) 100 03/06/19 02:00 111/62 03/06/19 02:00 89 17 106/61 (76) 100 03/06/19 01:45 90 18 104/58 (73) 100 03/06/19 01:30 90 18 110/63 (79) 100 03/06/19 01:15 89 18 94/74 (81) 100 03/06/19 01:06 93 18 60 03/06/19 01:00 94/74 03/06/19 01:00 92 18 94/58 (70) 100 03/06/19 00:30 92 18 94/56 (69) 100 03/06/19 00:25 75/55 03/06/19 00:15 90 18 75/55 (62) 100 03/06/19 00:00 83/59 03/06/19 00:00 90 17 100/66 (77) 100 03/06/19 00:00 90 03/06/19 00:00 Mechanical Ventilator 03/06/19 00:00 50 03/05/19 23:45 89 18 88/51 (63) 100 03/05/19 23:30 90 20 96/55 (69) 100 03/05/19 23:15 91 23 92/64 (73) 100 03/05/19 23:00 91 18 106/56 (73) 99 03/05/19 23:00 106/56 03/05/19 22:45 94 18 70 03/05/19 22:30 91 19 113/49 (70) 100 03/05/19 22:30 117/58 03/05/19 22:15 96 19 100/54 (69) 100 03/05/19 22:00 97 19 88/52 (64) 100 03/05/19 22:00 88/52 03/05/19 21:45 98 18 102/72 (82) 100 03/05/19 21:30 96 18 83/51 (62) 100 03/05/19 21:28 110/49 03/05/19 21:15 88 19 110/49 (69) 100 03/05/19 21:00 69/39 03/05/19 21:00 95 18 69/39 (49) 99 03/05/19 20:49 102 18 70 03/05/19 20:45 105 28 123/47 (72) 100 03/05/19 20:30 99/54 03/05/19 20:30 95 23 99/54 (69) 100 03/05/19 20:15 94 18 80/53 (62) 100 03/05/19 20:00 70 03/05/19 20:00 80/53 03/05/19 20:00 91 03/05/19 20:00 Mechanical Ventilator 03/05/19 20:00 99.8 94 28 106/53 (70) 100 03/05/19 19:45 92 23 111/41 (64) 99 03/05/19 19:30 91 20 99/76 (84) 100 03/05/19 19:27 91 24 95/54 (68) 100 03/05/19 19:22 91 19 80/46 (57) 100 03/05/19 19:15 91 18 87/45 (59) 100 03/05/19 19:12 92 18 70 03/05/19 19:00 91 22 86/32 (50) 100 03/05/19 18:30 93 20 92/22 (45) 100 03/05/19 18:00 93 20 127/63 (84) 99 6/2/19 18:00 92/22 03/05/19 17:30 93 19 90/21 (44) 100 03/05/19 17:00 72/37 03/05/19 17:00 93 19 72/37 (49) 100 03/05/19 16:36 95 20 70 03/05/19 16:30 99.1 93 20 94/30 (51) 100 03/05/19 16:25 89/47 03/05/19 16:00 70 03/05/19 16:00 92 03/05/19 16:00 89/47 03/05/19 16:00 92 20 109/58 (75) 100 03/05/19 16:00 Mechanical Ventilator 03/05/19 15:30 91 18 89/51 (64) 100 03/05/19 15:12 93 23 70 03/05/19 15:00 80/52 03/05/19 15:00 92 19 80/52 (61) 100 03/05/19 14:30 92 19 112/45 (67) 100 I&O Intake and Output 03/05/19 03/06/19 18:59 06:59 Intake Total 1474.9 ml 2134.50 ml Output Total 1200 ml 715 ml Balance 274.9 ml 1419.50 ml Intake IV Total 1324.9 ml 2134.50 ml Other 150 ml Output Urine Total 1200 ml 715 ml # Bowel Movements 1 Extremities: other - no change in wound at sacral area Laboratory Tests Test 03/05/19 14:45 03/05/19 16:30 03/06/19 07:55 03/06/19 10:06 Lactic Acid Level 3.10 mmol/L (0.4-2.0) H 3.10 mmol/L (0.66-2.22) H 2.00 mmol/L (0.4-2.0) White Blood Count 32.1 K/UL (4.8-10.8) *H Red Blood Count 3.05 M/UL (4.70-6.10) L Hemoglobin 9.2 G/DL (14.2-18.0) L Hematocrit 26.6 % (42.0-52.0) L Mean Corpuscular Volume 87 FL (80-99) Mean Corpuscular Hemoglobin 30.1 PG (27.0-31.0) Mean Corpuscular Hemoglobin Concent 34.4 G/DL (32.0-36.0) Red Cell Distribution Width 16.1 % (11.6-14.8) H Platelet Count 218 K/UL (150-450) Mean Platelet Volume 5.8 FL (6.5-10.1) L Neutrophils (%) (Auto) % (45.0-75.0) Lymphocytes (%) (Auto) % (20.0-45.0) Monocytes (%) (Auto) % (1.0-10.0) Eosinophils (%) (Auto) % (0.0-3.0) Basophils (%) (Auto) % (0.0-2.0) Differential Total Cells Counted 100 Neutrophils % (Manual) 91 % (45-75) H Lymphocytes % (Manual) 7 % (20-45) L Monocytes % (Manual) 2 % (1-10) Eosinophils % (Manual) 0 % (0-3) Basophils % (Manual) 0 % (0-2) Band Neutrophils 0 % (0-8) Platelet Estimate Adequate Platelet Morphology Normal Hypochromasia 2+ Anisocytosis 1+ Spherocytes 1+ Sodium Level 130 MMOL/L (136-145) L Potassium Level 2.8 MMOL/L (3.5-5.1) L Chloride Level 98 MMOL/L (98-107) Carbon Dioxide Level 23 MMOL/L (21-32) Anion Gap 10 mmol/L (5-15) Blood Urea Nitrogen 25 mg/dL (7-18) H Creatinine 2.1 MG/DL (0.55-1.30) H Estimat Glomerular Filtration Rate mL/min (>60) Glucose Level 151 MG/DL (74-106) H Hemoglobin A1c 5.0 % (4.3-6.0) Calcium Level 7.4 MG/DL (8.5-10.1) L Magnesium Level 1.9 MG/DL (1.8-2.4) Troponin I 0.203 ng/mL (0.000-0.056) Pro-B-Type Natriuretic Peptide > 13325 pg/mL (0-125) H Random Vancomycin Level 9.8 ug/mL Arterial Blood pH 7.588 (7.350-7.450) Arterial Blood Partial Pressure CO2 26.5 mmHg (35.0-45.0) L Arterial Blood Partial Pressure O2 149.8 mmHg (75.0-100.0) H Arterial Blood HCO3 24.7 mmol/L (22.0-26.0) Arterial Blood Oxygen Saturation 98.3 % (95-100) Arterial Blood Base Excess 3.6 (-2-2) H Parish Test Positive Assessment Additional Comments infected decubitus ulcer Plan Additional Comments requires debridement when stable enough Mirza Gilliland MD Mar 06, 2019 14:19
--- NOTE | 2019-03-06 17:31 | Diagnostic Imaging Report ---
APPROVED REPORT CPT Code: 88234 Present Symptoms Lower Extremity Edema: LEFT LEG: Imaging reveals a patent deep venous system. There is no evidence of thrombus within the femoral, popliteal or tibial segments. The greater saphenous veins are also within normal limits. Doppler indicates normal spontaneous flow within these segments. RIGHT LEG: Imaging reveals a patent deep venous system. There is no evidence of thrombus within the common femoral vein, proximal and distal femoral veins, popliteal or tibial segments. The greater saphenous veins are also within normal limits. Doppler indicates normal spontaneous flow within these segments. Noted PICC line in right common femoral vein and right proximal femoral vein. Right mid femoral vein could not assess due to PICC line bandage.
[2019-03-06] MEDS: D5NS w/KCl 40mEq 1000ml 1,000 ML IV SCH ×2 (18:48→21:48)
[2019-03-06] MEDS: Dyna-Hex 2% Top Sol 2oz TOPIC SCH (20:45)
--- NOTE | 2019-03-06 21:00 | Consultation ---
DATE OF CONSULTATION: 03/06/2019 CONSULTING PHYSICIAN: Rishi Christy M.D. REFERRING PHYSICIAN: Cedric Perez M.D. REASON FOR CONSULTATION: Acute kidney injury. HISTORY OF PRESENT ILLNESS: The patient is a resident of an [facility]. Has a history of coronary artery disease, aortic stenosis, large decubitus. He presented with septic shock and had cardiopulmonary arrest. He is currently ventilator dependent in the ICU. Apparently, there is a history of HIV positive, prior hypertension, constipation, atrial fibrillation. There is also notes he has difficulty walking, prior myocardial infarction, sequelae following cerebral vascular disease, congestive heart failure, prior UTI, hypertension, dehydration in the past, history of falls. PRIOR TO ADMISSION MEDICATIONS: Include ferrous sulfate, flurandrenolide cream and lotion, furosemide, , lactulose, Mag citrate, metoprolol, multivitamins, oxiconazole cream, potassium, ProStat, , calcium alginate, acetaminophen, amiodarone, cilostazol, Colace, Eliquis. REVIEW OF SYSTEMS: The patient is unable at this time. PERTINENT PHYSICAL FINDINGS: VITAL SIGNS: The patient is in on a ventilator. He is asleep. Blood pressure 120/95, pulse ox 100% on a 50%, heart rate 79, respirations 18. HEAD, EYES, EARS, NOSE, AND THROAT: His eyes are closed. He is orally intubated. NECK: No adenopathy. LUNGS: Few rhonchi. HEART: Rhythm is irregular. ABDOMEN: Soft. I am unable to feel liver or spleen. EXTREMITIES: No edema. There is some ecchymoses and slight cyanosis of the toes. NEUROLOGIC: The patient is obtunded at the time my exam. He was communicating with the nurses earlier and may just be asleep. PERTINENT LABORATORY DATA: On admission, BUN 26, creatinine 3.1, most recent 25 and 2.1. Sodium 130, potassium 2.8, chloride 98, CO2 is 23, glucose 151. He has had elevated lactic acid, elevated troponin, and elevated BNP. The CK total 742 and AST 1507. Albumin 2.5. Urinalysis shows too numerous to count white cells and red cells and 4+ proteinuria. IMPRESSION: 1. Septic shock. 2. Acute kidney injury. Prior creatinine at the [facility] was 0.76, likely acute kidney injury secondary to sepsis and dehydration. 3. Gram-negative bacteremia on blood culture and UTI. 4. Respiratory failure. 5. Stage IV decubitus. 6. Moderate protein-calorie malnutrition. 7. Coronary artery disease. 8. Aortic stenosis. 9. Chronic congestive heart failure. PLAN: The patient is currently on Levophed and IV fluids. In view of his acute kidney injury and possibility of worsening renal failure, I will increase his fluids for now. At a later time, he may need to be diuresed. We will get urine electrolytes and follow his renal function closely. Replace potassium. His condition is guarded and critical. Rishi Christy M.D. DR: DULCE JOB#: [id number] CC:
[2019-03-07] VITALS (61 sets, daily range): BP systolic 80–136; BP diastolic 38–83
[2019-03-07] MEDS: LORazepam Inj 2mg/ml 1ml IV PRN (02:12)
--- NOTE | 2019-03-07 03:15 | Progress Note ---
DATE: 03/06/2019 CARDIOLOGY PROGRESS NOTE SUBJECTIVE: The patient remains in the intensive care unit. Pressors have been discontinued. Vitals have improved. OBJECTIVE: VITAL SIGNS: Blood pressure 121/69, heart rate 89, and respirations 18. No fevers. Remains on ventilator support. LUNGS: Bilateral breath sounds. Scattered rhonchi. HEART: Regular rhythm and rate. Normal S1, S2. ABDOMEN: Soft. EXTREMITIES: Trace edema. LABORATORY DATA: Gram-negative bacillus in the urine. Skin exam is pictured and described in the chart. White count 32 and hemoglobin 9.2. ABG, pH 7.58, pCO2 26, and pO2 149. Lactic acid down to 2. BUN 25 and creatinine 2.1. Sodium 130, potassium 2.8, and bicarbonate 23. Troponin 0.203. Natriuretic peptide over 35,000. IMPRESSION: 1. Respiratory failure. 2. Sepsis with shock, recovered. 3. Lactic acidosis, resolved. 4. Acute myocardial ischemia. 5. Hypokalemia. 6. Hyponatremia. 7. Acute kidney injury. 8. Acute on chronic diastolic congestive heart failure. PLAN: 1. Antimicrobials. 2. Volume support. 3. No pressors. 4. Skin care. 5. Debridement on hold as the patient is not hemodynamically stable for procedure and anesthesia. 6. Check echocardiogram. 7. Cardiovascular regimen to be titrated once volume resuscitated and hemodynamically stabilized. Mejia Mckinney M.D. DR: DASHAWN JOB#: [id number] CC:
[2019-03-07] MEDS: DOPamine 400mg/250ml 250 ML IV SCH (05:09)
[2019-03-07] MEDS: D5NS w/KCl 40mEq 1000ml 1,000 ML IV SCH ×4 (05:10→18:00)
[2019-03-07 05:36] LABS: CREATINE KINASE 390 U/L (26-308)
[2019-03-07 05:39] LABS: ALANINE AMINOTRANSFERASE 635 U/L (12-78); ALBUMIN 1.7 G/DL (3.4-5.0); ALBUMIN/GLOBULIN RATIO 0.5 (1.0-2.7); ALKALINE PHOSPHATASE 160 U/L (46-116); ANION GAP 10 mmol/L (5-15); ASPARTATE AMINO TRANSFERASE 535 U/L (15-37); BILIRUBIN,TOTAL 0.7 MG/DL (0.2-1.0); BLOOD UREA NITROGEN 18 mg/dL (7-18); CARBON DIOXIDE 22 MMOL/L (21-32); CHLORIDE 101 MMOL/L (98-107); CREATININE 1.2 MG/DL (0.55-1.30); HEMATOCRIT 26.8 % (42.0-52.0); HEMOGLOBIN 9.1 G/DL (14.2-18.0); MEAN CORPUSCULAR VOLUME 89 FL (80-99); PLATELET COUNT 180 K/UL (150-450); POTASSIUM 2.9 MMOL/L (3.5-5.1); RED BLOOD COUNT 3.01 M/UL (4.70-6.10); RED CELL DISTRIBUTION WIDTH 16.2 % (11.6-14.8); SODIUM 133 MMOL/L (136-145); WHITE BLOOD COUNT 20.7 K/UL (4.8-10.8)
[2019-03-07] MEDS ORDERED: Vancomycin 1.25gm Premix IVPB SCH ×2 (07:00→09:00)
[2019-03-07] MEDS: Ferrous Sulfate 300 MG/5 ML UDC NG SCH ×3 (09:00→18:13)
[2019-03-07] MEDS: Meropenem 1gm/NS 110ml IVPB SCH ×4 (10:46→18:12)
--- NOTE | 2019-03-07 12:23 | Diagnostic Imaging Report ---
Indication: Reason For Exam: TUBE PLCMT Technique: Supine view of the upper abdomen Comparison: 03/05/[address] scan Improving small bowel distention, since prior CT scan of 03/05/2019 Findings: There is a nasogastric tube in place, tip projecting at the level gastric antrum. Considerable gas is seen in large and small bowel loops, which are upper limits of normal in caliber. These appear much less prominent than on previous CT scan There is a right groin central venous catheter noted Impression: Satisfactory nasogastric intubation Other findings as noted Findings reported to ICU nurse at the time of interpretation
--- NOTE | 2019-03-07 12:51 | General Progress Note ---
Assessment/Plan Problem List: (1) Hypokalemia ICD Codes: E87.6 - Hypokalemia SNOMED: 63299573 (2) Pyelonephritis ICD Codes: N12 - Tubulo-interstitial nephritis, not specified as acute or chronic SNOMED: 26452777 (3) CALEB (acute kidney injury) ICD Codes: N17.9 - Acute kidney failure, unspecified SNOMED: 1179518, 30086503 (4) Septic shock ICD Codes: A41.9 - Sepsis, unspecified organism; R65.21 - Severe sepsis with septic shock SNOMED: 82371763 (5) Cardiopulmonary arrest ICD Codes: I46.9 - Cardiac arrest, cause unspecified SNOMED: 727053920 (6) Decubitus ulcer ICD Codes: L89.90 - Pressure ulcer of unspecified site, unspecified stage SNOMED: 852048401 Assessment/Plan: now off pressors, caleb improving, replace K, reduce fluids Subjective ROS Limited/Unobtainable: Yes Allergies: Coded Allergies: No Known Allergies (Unverified , 03/05/19) Objective Last 24 Hour Vital Signs Date Time Temp Pulse Resp B/P (MAP) Pulse Ox O2 Delivery O2 Flow Rate FiO2 03/07/19 12:31 88 18 35 03/07/19 12:00 98.0 82 18 110/56 (74) 100 03/07/19 12:00 Mechanical Ventilator 03/07/19 12:00 35 03/07/19 11:30 83 16 97/58 (71) 100 03/07/19 11:00 82 17 106/83 (91) 100 03/07/19 10:56 100 03/07/19 10:35 84 20 35 03/07/19 10:30 84 19 90/46 (61) 100 03/07/19 10:00 82 18 93/68 (76) 100 03/07/19 09:30 82 17 104/58 (73) 99 03/07/19 09:02 83 27 35 03/07/19 09:00 97.9 87 19 97/59 (72) 100 03/07/19 08:30 84 18 94/69 (77) 99 03/07/19 08:00 Mechanical Ventilator 03/07/19 08:00 35 03/07/19 08:00 89 03/07/19 08:00 85 17 99/59 (72) 100 03/07/19 07:30 83 18 107/64 (78) 100 03/07/19 07:00 98.8 80 18 105/64 (78) 100 03/07/19 07:00 105/64 03/07/19 06:55 83 21 35 03/07/19 06:45 81 18 104/62 (76) 100 03/07/19 06:30 85 18 106/68 (81) 100 03/07/19 06:15 86 18 89/59 (69) 100 03/07/19 06:00 89/59 03/07/19 06:00 81 18 92/54 (67) 100 03/07/19 05:45 86 15 100 03/07/19 05:30 83 19 35 03/07/19 05:30 85 19 112/63 (79) 100 03/07/19 05:15 82 16 103/58 (73) 100 03/07/19 05:00 84 18 98/55 (69) 100 03/07/19 05:00 98/55 03/07/19 04:45 82 18 99/59 (72) 100 03/07/19 04:30 83 18 110/59 (76) 100 03/07/19 04:15 81 17 109/59 (76) 100 03/07/19 04:00 Mechanical Ventilator 03/07/19 04:00 35 03/07/19 04:00 85 03/07/19 04:00 111/73 03/07/19 04:00 80 19 111/73 (86) 99 03/07/19 03:45 78 18 121/66 (84) 100 03/07/19 03:30 78 17 136/62 (86) 100 03/07/19 03:15 77 18 102/61 (75) 100 03/07/19 03:03 78 18 35 03/07/19 03:00 118/65 03/07/19 03:00 78 18 118/65 (82) 100 03/07/19 02:45 81 17 111/61 (78) 100 03/07/19 02:30 84 18 100/58 (72) 100 03/07/19 02:15 84 17 97/58 (71) 100 03/07/19 02:00 85 17 101/59 (73) 100 03/07/19 02:00 100/58 03/07/19 01:45 84 19 95/55 (68) 99 03/07/19 01:30 98.8 83 17 100/59 (73) 99 03/07/19 01:04 81 18 35 03/07/19 01:00 82 18 118/68 (85) 100 03/07/19 01:00 118/68 03/07/19 00:45 87 18 114/61 (78) 100 03/07/19 00:30 89 18 121/69 (86) 100 03/07/19 00:15 82 18 131/71 (91) 100 03/07/19 00:00 Mechanical Ventilator 03/07/19 00:00 82 03/07/19 00:00 131/73 03/07/19 00:00 82 18 131/73 (92) 100 03/07/19 00:00 35 03/06/19 23:45 82 18 136/72 (93) 100 03/06/19 23:30 83 18 35 03/06/19 23:30 80 18 124/67 (86) 100 03/06/19 23:15 78 18 131/69 (89) 100 03/06/19 23:00 79 17 127/68 (87) 100 03/06/19 23:00 127/68 03/06/19 22:45 79 19 126/69 (88) 100 03/06/19 22:30 79 17 127/66 (86) 100 03/06/19 22:15 79 18 125/70 (88) 100 03/06/19 22:00 84 18 122/66 (84) 100 03/06/19 22:00 122/66 03/06/19 21:45 79 17 128/67 (87) 100 03/06/19 21:30 80 19 126/62 (83) 100 03/06/19 21:15 78 21 121/64 (83) 99 03/06/19 21:03 82 19 35 03/06/19 21:00 111/72 03/06/19 21:00 81 18 111/72 (85) 100 03/06/19 20:45 79 18 125/69 (87) 100 03/06/19 20:30 80 17 118/64 (82) 100 03/06/19 20:15 83 18 104/85 (91) 100 03/06/19 20:00 117/60 03/06/19 20:00 Mechanical Ventilator 03/06/19 20:00 98.8 82 19 117/60 (79) 100 03/06/19 20:00 35 03/06/19 20:00 80 03/06/19 19:30 82 16 119/84 (96) 100 03/06/19 19:06 83 23 35 03/06/19 19:01 118/73 03/06/19 19:00 88 19 118/73 (88) 98 03/06/19 19:00 118/66 03/06/19 18:30 89 18 127/70 (89) 100 03/06/19 18:00 90/46 03/06/19 18:00 78 18 90/46 (61) 100 03/06/19 17:30 86 18 91/55 (67) 100 03/06/19 17:00 81 18 118/60 (79) 100 03/06/19 17:00 118/60 03/06/19 16:33 80 18 35 03/06/19 16:30 78 18 116/59 (78) 100 03/06/19 16:00 77 03/06/19 16:00 Mechanical Ventilator 03/06/19 16:00 120/95 03/06/19 16:00 50 03/06/19 16:00 97.7 79 18 120/95 (103) 100 03/06/19 15:30 77 19 117/60 (79) 100 03/06/19 15:14 80 22 50 03/06/19 15:00 107/88 03/06/19 15:00 79 17 107/88 (94) 100 03/06/19 14:30 76 18 96/53 (67) 100 03/06/19 14:00 83 18 125/58 (80) 100 03/06/19 14:00 125/58 03/06/19 13:55 99 03/06/19 13:30 85 30 117/61 (79) 100 03/06/19 13:00 117/63 03/06/19 13:00 84 18 117/63 (81) 100 Intake and Output 03/06/19 03/07/19 18:59 06:59 Intake Total 1657.4 ml 2042.5 ml Output Total 625 ml 540 ml Balance 1032.4 ml 1502.5 ml Intake IV Total 1657.4 ml 2042.5 ml Output Urine Total 625 ml 540 ml Laboratory Tests 03/07/19 04:10: White Blood Count 20.7H, Red Blood Count 3.01L, Hemoglobin 9.1L, Hematocrit 26.8L, Mean Corpuscular Volume 89, Mean Corpuscular Hemoglobin 30.3, Mean Corpuscular Hemoglobin Concent 34.0, Red Cell Distribution Width 16.2H, Platelet Count 180, Mean Platelet Volume 5.7L, Neutrophils (%) (Auto) , Lymphocytes (%) (Auto) , Monocytes (%) (Auto) , Eosinophils (%) (Auto) , Basophils (%) (Auto) , Differential Total Cells Counted 100, Neutrophils % ( Manual) 96H, Lymphocytes % (Manual) 3L, Monocytes % (Manual) 1, Eosinophils % ( Manual) 0, Basophils % (Manual) 0, Band Neutrophils 0, Platelet Estimate Adequate, Platelet Morphology Normal, Hypochromasia 2+, Anisocytosis 1+, Spherocytes 2+, Sodium Level 133L, Potassium Level 2.9L, Chloride Level 101, Carbon Dioxide Level 22, Anion Gap 10, Blood Urea Nitrogen 18, Creatinine 1.2, Estimat Glomerular Filtration Rate , Glucose Level 141H, Calcium Level 7.0L, Total Bilirubin 0.7, Aspartate Amino Transf (AST/SGOT) 535H, Alanine Aminotransferase (ALT/SGPT) 635H, Alkaline Phosphatase 160H, Total Creatine Kinase 390H, Total Protein 5.3L, Albumin 1.7L, Globulin 3.6, Albumin/Globulin Ratio 0.5L, Random Vancomycin Level 11.1 03/07/19 05:15: Urine Random Sodium 79, Urine Creatinine 42.9 Height (Feet): 6 Height (Inches): 2.00 Weight (Pounds): 180 General Appearance: mild distress EENT: other - intubated Neck: normal alignment Cardiovascular: regular rhythm Respiratory/Chest: rhonchi - bilaterally Abdomen: non tender, soft Edema: no edema noted Arm (L), no edema noted Arm (R), no edema noted Leg (L), no edema noted Leg (R), no edema noted Pedal (L), no edema noted Pedal (R), no edema noted Generalized Skin: other - southub[place] Rishi Christy MD Mar 07, 2019 12:51
[2019-03-07] MEDS: Amikacin 1,200 MG in NS 275 ML IV SCH (13:36)
--- NOTE | 2019-03-07 14:41 | Infectious Diseases Prog Note ---
Assessment/Plan Assessment/Plan ASSESSMENT: 1. sepsis, shock, gram neg bacteremia, enterobacter uti, pna, sacral wound infection, leukocytosis, fevers - vancomycin, meropenem, amikacin - check cultures, labs and chest x-ray - wound care per surgery/protocol - wean off pressors and vent as tolerated - icu care - clinically improved 2. Acute kidney injury, elevated creatinine. 3. Anemia. 4. Atrial fibrillation. The patient has been on Eliquis. 5. Status post code. 6. Sacral wound. 7. Aortic valve stenosis. 8. Hypertension. 9. icu care 10. Hypertension treatment per primary but the patient currently is on pressors. 11. No known drug allergies. No antibiotic allergies. 12. Social history is negative. 13. Family history noncontributory. 14. MAR was noted. 15. Case discussed with RN. 16. Continue treatment per primary consultants. 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 Subjective Constitutional: Denies: fever HEENT: Reports: congestion Respiratory: Reports: shortness of breath Gastrointestinal/Abdominal: Denies: nausea, vomiting, diarrhea Genitourinary: Reports: other - + lemus - urine clearer Neurologic: Reports: weakness Psychiatric: Reports: other - na Skin: Denies: rash Hematologic: Denies: bleeding Musculoskeletal: Reports: other - na Allergies: Coded Allergies: No Known Allergies (Unverified , 03/05/19) Objective Vital Signs Last 24 Hour Vital Signs Date Time Temp Pulse Resp B/P (MAP) Pulse Ox O2 Delivery O2 Flow Rate FiO2 03/07/19 14:00 86 23 128/64 (85) 100 03/07/19 13:45 80 15 89/49 (62) 100 03/07/19 13:30 82 18 98/57 (71) 100 03/07/19 13:00 82 19 96/42 (60) 100 03/07/19 12:31 88 18 35 03/07/19 12:30 83 22 98/62 (74) 100 03/07/19 12:00 98.0 82 18 110/56 (74) 100 03/07/19 12:00 Mechanical Ventilator 03/07/19 12:00 35 03/07/19 12:00 85 03/07/19 11:30 83 16 97/58 (71) 100 03/07/19 11:00 82 17 106/83 (91) 100 03/07/19 10:56 100 03/07/19 10:35 84 20 35 03/07/19 10:30 84 19 90/46 (61) 100 03/07/19 10:00 82 18 93/68 (76) 100 03/07/19 09:30 82 17 104/58 (73) 99 03/07/19 09:02 83 27 35 03/07/19 09:00 97.9 87 19 97/59 (72) 100 03/07/19 08:30 84 18 94/69 (77) 99 03/07/19 08:00 Mechanical Ventilator 03/07/19 08:00 35 03/07/19 08:00 89 03/07/19 08:00 85 17 99/59 (72) 100 03/07/19 07:30 83 18 107/64 (78) 100 03/07/19 07:00 98.8 80 18 105/64 (78) 100 03/07/19 07:00 105/64 03/07/19 06:55 83 21 35 03/07/19 06:45 81 18 104/62 (76) 100 03/07/19 06:30 85 18 106/68 (81) 100 03/07/19 06:15 86 18 89/59 (69) 100 03/07/19 06:00 89/59 03/07/19 06:00 81 18 92/54 (67) 100 03/07/19 05:45 86 15 100 03/07/19 05:30 83 19 35 03/07/19 05:30 85 19 112/63 (79) 100 03/07/19 05:15 82 16 103/58 (73) 100 03/07/19 05:00 84 18 98/55 (69) 100 03/07/19 05:00 98/55 03/07/19 04:45 82 18 99/59 (72) 100 03/07/19 04:30 83 18 110/59 (76) 100 03/07/19 04:15 81 17 109/59 (76) 100 03/07/19 04:00 Mechanical Ventilator 03/07/19 04:00 35 03/07/19 04:00 85 03/07/19 04:00 111/73 03/07/19 04:00 80 19 111/73 (86) 99 03/07/19 03:45 78 18 121/66 (84) 100 03/07/19 03:30 78 17 136/62 (86) 100 03/07/19 03:15 77 18 102/61 (75) 100 03/07/19 03:03 78 18 35 03/07/19 03:00 118/65 03/07/19 03:00 78 18 118/65 (82) 100 03/07/19 02:45 81 17 111/61 (78) 100 03/07/19 02:30 84 18 100/58 (72) 100 03/07/19 02:15 84 17 97/58 (71) 100 03/07/19 02:00 85 17 101/59 (73) 100 03/07/19 02:00 100/58 03/07/19 01:45 84 19 95/55 (68) 99 03/07/19 01:30 98.8 83 17 100/59 (73) 99 03/07/19 01:04 81 18 35 03/07/19 01:00 82 18 118/68 (85) 100 03/07/19 01:00 118/68 03/07/19 00:45 87 18 114/61 (78) 100 03/07/19 00:30 89 18 121/69 (86) 100 03/07/19 00:15 82 18 131/71 (91) 100 03/07/19 00:00 Mechanical Ventilator 03/07/19 00:00 82 03/07/19 00:00 131/73 03/07/19 00:00 82 18 131/73 (92) 100 03/07/19 00:00 35 03/06/19 23:45 82 18 136/72 (93) 100 03/06/19 23:30 83 18 35 03/06/19 23:30 80 18 124/67 (86) 100 03/06/19 23:15 78 18 131/69 (89) 100 03/06/19 23:00 79 17 127/68 (87) 100 03/06/19 23:00 127/68 03/06/19 22:45 79 19 126/69 (88) 100 03/06/19 22:30 79 17 127/66 (86) 100 03/06/19 22:15 79 18 125/70 (88) 100 03/06/19 22:00 84 18 122/66 (84) 100 03/06/19 22:00 122/66 03/06/19 21:45 79 17 128/67 (87) 100 03/06/19 21:30 80 19 126/62 (83) 100 03/06/19 21:15 78 21 121/64 (83) 99 03/06/19 21:03 82 19 35 03/06/19 21:00 111/72 03/06/19 21:00 81 18 111/72 (85) 100 03/06/19 20:45 79 18 125/69 (87) 100 03/06/19 20:30 80 17 118/64 (82) 100 03/06/19 20:15 83 18 104/85 (91) 100 03/06/19 20:00 117/60 03/06/19 20:00 Mechanical Ventilator 03/06/19 20:00 98.8 82 19 117/60 (79) 100 03/06/19 20:00 35 03/06/19 20:00 80 03/06/19 19:30 82 16 119/84 (96) 100 03/06/19 19:06 83 23 35 03/06/19 19:01 118/73 03/06/19 19:00 88 19 118/73 (88) 98 03/06/19 19:00 118/66 03/06/19 18:30 89 18 127/70 (89) 100 03/06/19 18:00 90/46 03/06/19 18:00 78 18 90/46 (61) 100 03/06/19 17:30 86 18 91/55 (67) 100 03/06/19 17:00 81 18 118/60 (79) 100 03/06/19 17:00 118/60 03/06/19 16:33 80 18 35 03/06/19 16:30 78 18 116/59 (78) 100 03/06/19 16:00 77 03/06/19 16:00 Mechanical Ventilator 03/06/19 16:00 120/95 03/06/19 16:00 50 03/06/19 16:00 97.7 79 18 120/95 (103) 100 03/06/19 15:30 77 19 117/60 (79) 100 03/06/19 15:14 80 22 50 03/06/19 15:00 107/88 03/06/19 15:00 79 17 107/88 (94) 100 03/06/19 14:30 76 18 96/53 (67) 100 Height (Feet): 6 Height (Inches): 2.00 Weight (Pounds): 180 General Appearance: no acute distress, other - on vent, responsive HEENT: normocephalic, atraumatic, anicteric, no JVD, other - oral - intubated Respiratory/Chest: crackles/rales, rhonchi - bilaterally Cardiovascular: normal rate, regular rhythm, no gallop/murmur, no JVD Abdomen: normal bowel sounds, soft, non tender, no organomegaly, non distended Genitourinary: other - + lemus - urine slt cloudy Extremities: no cyanosis Skin: no rash Neurologic/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 Chest x-ray - 03/06/19 - Findings: Mild pleural thickening versus effusion on the right noted. Heart size is stable and mildly enlarged. Endotracheal tube is in good position unchanged. NG tube is present. The proximal port is near the EG junction. The tip is in the stomach. IMPRESSION: Nasogastric tube may be advanced slightly. Slightly improved congestion compared to the previous day Microbiology Date/Time Source Procedure Growth Status 03/05/19 00:08 Blood Blood Culture - Preliminary Gram Negative Bacillus 1 Resulted 03/04/19 23:50 Blood Blood Culture - Preliminary Gram Negative Bacillus 1 Resulted 03/05/19 00:50 Nasal Nares MRSA Culture - Final Staphylococcus Aureus - Mrsa Complete 03/05/19 00:34 Urine,Clean Catch Urine Culture - Preliminary Enterobacter Cloacae Complex Resulted 03/05/19 00:50 Rectum VRE Culture - Final NO VANCOMYCIN RESISTANT ENTEROCOCCUS ... Complete 03/05/19 00:50 Rectum - Final NO CARBAPENEM-RESISTANT ENTEROBACTERI... Complete Laboratory Tests Test 03/07/19 04:10 03/07/19 05:15 White Blood Count 20.7 K/UL (4.8-10.8) H Red Blood Count 3.01 M/UL (4.70-6.10) L Hemoglobin 9.1 G/DL (14.2-18.0) L Hematocrit 26.8 % (42.0-52.0) L Mean Corpuscular Volume 89 FL (80-99) Mean Corpuscular Hemoglobin 30.3 PG (27.0-31.0) Mean Corpuscular Hemoglobin Concent 34.0 G/DL (32.0-36.0) Red Cell Distribution Width 16.2 % (11.6-14.8) H Platelet Count 180 K/UL (150-450) Mean Platelet Volume 5.7 FL (6.5-10.1) L Neutrophils (%) (Auto) % (45.0-75.0) Lymphocytes (%) (Auto) % (20.0-45.0) Monocytes (%) (Auto) % (1.0-10.0) Eosinophils (%) (Auto) % (0.0-3.0) Basophils (%) (Auto) % (0.0-2.0) Differential Total Cells Counted 100 Neutrophils % (Manual) 96 % (45-75) H Lymphocytes % (Manual) 3 % (20-45) L Monocytes % (Manual) 1 % (1-10) Eosinophils % (Manual) 0 % (0-3) Basophils % (Manual) 0 % (0-2) Band Neutrophils 0 % (0-8) Platelet Estimate Adequate Platelet Morphology Normal Hypochromasia 2+ Anisocytosis 1+ Spherocytes 2+ Sodium Level 133 MMOL/L (136-145) L Potassium Level 2.9 MMOL/L (3.5-5.1) L Chloride Level 101 MMOL/L (98-107) Carbon Dioxide Level 22 MMOL/L (21-32) Anion Gap 10 mmol/L (5-15) Blood Urea Nitrogen 18 mg/dL (7-18) Creatinine 1.2 MG/DL (0.55-1.30) Estimat Glomerular Filtration Rate mL/min (>60) Glucose Level 141 MG/DL (74-106) H Calcium Level 7.0 MG/DL (8.5-10.1) L Total Bilirubin 0.7 MG/DL (0.2-1.0) Aspartate Amino Transf (AST/SGOT) 535 U/L (15-37) H Alanine Aminotransferase (ALT/SGPT) 635 U/L (12-78) H Alkaline Phosphatase 160 U/L (46-116) H Total Creatine Kinase 390 U/L (26-308) H Total Protein 5.3 G/DL (6.4-8.2) L Albumin 1.7 G/DL (3.4-5.0) L Globulin 3.6 g/dL Albumin/Globulin Ratio 0.5 (1.0-2.7) L Random Vancomycin Level 11.1 ug/mL Urine Random Sodium 79 mmol/L (20-110) Urine Creatinine 42.9 MG/DL (30.0-125.0) Current Medications Medications (Trade) Dose Ordered Sig/Tawny Route PRN Reason Start Time Stop Time Status Last Admin Dose Admin Amikacin Protocol (Amikacin pharmacy to dose) 1 ea DAILY PRN MISC Per rx protocol 03/05/19 10:00 04/04/19 09:59 Amikacin Sulfate 1200 mg/Sodium Chloride 279.8 ml @ 279.8 mls/ hr Q36H IV 03/07/19 13:00 03/14/19 12:59 03/07/19 13:36 Chlorhexidine Gluconate (Jada-Hex 2%) 1 applic DAILY@2000 TOPIC 03/05/19 20:00 04/04/19 19:59 03/06/19 20:45 Dextrose (Dextrose 50%) 25 ml Q30M PRN IV Hypoglycemia 03/05/19 06:15 04/04/19 06:14 Dextrose (Dextrose 50%) 50 ml Q30M PRN IV Hypoglycemia 03/05/19 06:15 04/04/19 06:14 Dextrose/ Electrolytes 1,000 ml @ 100 mls/hr Q10H IV 03/07/19 13:00 04/06/19 12:59 Dopamine HCl/ Dextrose 250 ml @ 0 mls/hr Q24H IV 03/05/19 06:32 04/04/19 06:31 03/05/19 07:46 Ferrous Sulfate (Feosol) 330 mg THREE TIMES A DAY NG 03/05/19 09:00 04/04/19 08:59 03/07/19 13:36 Lansoprazole (Prevacid) 30 mg DAILY NG 03/08/19 09:00 04/07/19 08:59 Lorazepam (Ativan 2mg/ml 1ml) 1 mg Q2H PRN IV For Anxiety 03/05/19 15:00 03/12/19 14:59 03/07/19 02:12 Meropenem 1 gm/ Sodium Chloride 110 ml @ 220 mls/hr Q8HR@0200,1000,1800 IVPB 03/07/19 10:00 03/12/19 09:59 03/07/19 10:46 Norepinephrine Bitartrate 8 mg/ Dextrose 500 ml @ 0 mls/hr Q24H IV 03/05/19 22:00 04/04/19 21:59 03/06/19 19:00 Ondansetron HCl (Zofran) 4 mg Q6H PRN IVP Nausea & Vomiting 03/05/19 06:15 04/04/19 06:14 Potassium Chloride (K-Dur) 40 meq ONCE NG 03/07/19 14:00 03/07/19 15:00 03/07/19 13:38 Potassium Chloride (K-Dur) 40 meq Q4HR NG 03/07/19 13:00 03/07/19 17:00 03/07/19 13:37 Vancomycin HCl (Vanco rx to dose) 1 ea DAILY PRN MISC Per rx protocol 03/05/19 06:15 04/04/19 06:14 Vancomycin HCl 750 mg/Sodium Chloride 275 ml @ 183.333 mls/hr Q12HR IVPB 03/07/19 21:00 03/12/19 20:59 Makenzie Galeano MD Mar 07, 2019 14:41
--- NOTE | 2019-03-07 15:26 | Pulmonology Progress Note ---
Assessment/Plan Assessment/Plan 1. Severe sepsis, shock 2. Sacral decubitus and osteomyelitis. 3. Gram negative bacteremia 4. Acute myocardial ischemia, possible non-ST elevation myocardial infarction. 5. Aspiration pneumonia. 6. Respiratory failure, status post full arrest. 7. Paroxysmal atrial fibrillation. 8. 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 PLAN: 1. Ventilator support. 2. Broad spectrum antimicrobials per ID 3. The patient not presently weanable. 4. Pressors, taper as tolerated 5. DVT and stress ulcer prophylaxes. 6. Wound care, surgical consult 7. Unstable for any surgical intervention at this time. 8. Prognosis guarded Subjective ROS Limited/Unobtainable: Yes Allergies: Coded Allergies: No Known Allergies (Unverified , 03/05/19) Objective Last 24 Hour Vital Signs Date Time Temp Pulse Resp B/P (MAP) Pulse Ox O2 Delivery O2 Flow Rate FiO2 03/07/19 14:51 87 18 35 03/07/19 14:30 88 18 106/57 (73) 100 03/07/19 14:00 86 23 128/64 (85) 100 03/07/19 13:45 80 15 89/49 (62) 100 03/07/19 13:30 82 18 98/57 (71) 100 03/07/19 13:00 82 19 96/42 (60) 100 03/07/19 12:31 88 18 35 03/07/19 12:30 83 22 98/62 (74) 100 03/07/19 12:00 98.0 82 18 110/56 (74) 100 03/07/19 12:00 Mechanical Ventilator 03/07/19 12:00 35 03/07/19 12:00 85 03/07/19 11:30 83 16 97/58 (71) 100 03/07/19 11:00 82 17 106/83 (91) 100 03/07/19 10:56 100 03/07/19 10:35 84 20 35 03/07/19 10:30 84 19 90/46 (61) 100 03/07/19 10:00 82 18 93/68 (76) 100 03/07/19 09:30 82 17 104/58 (73) 99 03/07/19 09:02 83 27 35 03/07/19 09:00 97.9 87 19 97/59 (72) 100 03/07/19 08:30 84 18 94/69 (77) 99 03/07/19 08:00 Mechanical Ventilator 03/07/19 08:00 35 03/07/19 08:00 89 03/07/19 08:00 85 17 99/59 (72) 100 03/07/19 07:30 83 18 107/64 (78) 100 03/07/19 07:00 98.8 80 18 105/64 (78) 100 03/07/19 07:00 105/64 03/07/19 06:55 83 21 35 03/07/19 06:45 81 18 104/62 (76) 100 03/07/19 06:30 85 18 106/68 (81) 100 03/07/19 06:15 86 18 89/59 (69) 100 03/07/19 06:00 89/59 03/07/19 06:00 81 18 92/54 (67) 100 03/07/19 05:45 86 15 100 03/07/19 05:30 83 19 35 03/07/19 05:30 85 19 112/63 (79) 100 03/07/19 05:15 82 16 103/58 (73) 100 03/07/19 05:00 84 18 98/55 (69) 100 03/07/19 05:00 98/55 03/07/19 04:45 82 18 99/59 (72) 100 03/07/19 04:30 83 18 110/59 (76) 100 03/07/19 04:15 81 17 109/59 (76) 100 03/07/19 04:00 Mechanical Ventilator 03/07/19 04:00 35 03/07/19 04:00 85 03/07/19 04:00 111/73 03/07/19 04:00 80 19 111/73 (86) 99 03/07/19 03:45 78 18 121/66 (84) 100 03/07/19 03:30 78 17 136/62 (86) 100 03/07/19 03:15 77 18 102/61 (75) 100 03/07/19 03:03 78 18 35 03/07/19 03:00 118/65 03/07/19 03:00 78 18 118/65 (82) 100 03/07/19 02:45 81 17 111/61 (78) 100 03/07/19 02:30 84 18 100/58 (72) 100 03/07/19 02:15 84 17 97/58 (71) 100 03/07/19 02:00 85 17 101/59 (73) 100 03/07/19 02:00 100/58 03/07/19 01:45 84 19 95/55 (68) 99 03/07/19 01:30 98.8 83 17 100/59 (73) 99 03/07/19 01:04 81 18 35 03/07/19 01:00 82 18 118/68 (85) 100 03/07/19 01:00 118/68 03/07/19 00:45 87 18 114/61 (78) 100 03/07/19 00:30 89 18 121/69 (86) 100 03/07/19 00:15 82 18 131/71 (91) 100 03/07/19 00:00 Mechanical Ventilator 03/07/19 00:00 82 03/07/19 00:00 131/73 03/07/19 00:00 82 18 131/73 (92) 100 03/07/19 00:00 35 03/06/19 23:45 82 18 136/72 (93) 100 03/06/19 23:30 83 18 35 03/06/19 23:30 80 18 124/67 (86) 100 03/06/19 23:15 78 18 131/69 (89) 100 03/06/19 23:00 79 17 127/68 (87) 100 03/06/19 23:00 127/68 03/06/19 22:45 79 19 126/69 (88) 100 03/06/19 22:30 79 17 127/66 (86) 100 03/06/19 22:15 79 18 125/70 (88) 100 03/06/19 22:00 84 18 122/66 (84) 100 03/06/19 22:00 122/66 03/06/19 21:45 79 17 128/67 (87) 100 03/06/19 21:30 80 19 126/62 (83) 100 03/06/19 21:15 78 21 121/64 (83) 99 03/06/19 21:03 82 19 35 03/06/19 21:00 111/72 03/06/19 21:00 81 18 111/72 (85) 100 03/06/19 20:45 79 18 125/69 (87) 100 03/06/19 20:30 80 17 118/64 (82) 100 03/06/19 20:15 83 18 104/85 (91) 100 03/06/19 20:00 117/60 03/06/19 20:00 Mechanical Ventilator 03/06/19 20:00 98.8 82 19 117/60 (79) 100 03/06/19 20:00 35 03/06/19 20:00 80 03/06/19 19:30 82 16 119/84 (96) 100 03/06/19 19:06 83 23 35 03/06/19 19:01 118/73 03/06/19 19:00 88 19 118/73 (88) 98 03/06/19 19:00 118/66 03/06/19 18:30 89 18 127/70 (89) 100 03/06/19 18:00 90/46 03/06/19 18:00 78 18 90/46 (61) 100 03/06/19 17:30 86 18 91/55 (67) 100 03/06/19 17:00 81 18 118/60 (79) 100 03/06/19 17:00 118/60 03/06/19 16:33 80 18 35 03/06/19 16:30 78 18 116/59 (78) 100 03/06/19 16:00 77 03/06/19 16:00 Mechanical Ventilator 03/06/19 16:00 120/95 03/06/19 16:00 50 03/06/19 16:00 97.7 79 18 120/95 (103) 100 03/06/19 15:30 77 19 117/60 (79) 100 Intake and Output 03/06/19 03/07/19 18:59 06:59 Intake Total 1657.4 ml 2042.5 ml Output Total 625 ml 540 ml Balance 1032.4 ml 1502.5 ml Intake IV Total 1657.4 ml 2042.5 ml Output Urine Total 625 ml 540 ml General Appearance: no acute distress Respiratory/Chest: lungs clear Cardiovascular: normal rate Microbiology Date/Time Source Procedure Growth Status 03/05/19 00:08 Blood Blood Culture - Preliminary Gram Negative Bacillus 1 Resulted 03/04/19 23:50 Blood Blood Culture - Preliminary Gram Negative Bacillus 1 Resulted 03/05/19 00:50 Nasal Nares MRSA Culture - Final Staphylococcus Aureus - Mrsa Complete 03/05/19 00:34 Urine,Clean Catch Urine Culture - Preliminary Enterobacter Cloacae Complex Resulted 03/05/19 00:50 Rectum VRE Culture - Final NO VANCOMYCIN RESISTANT ENTEROCOCCUS ... Complete 03/05/19 00:50 Rectum - Final NO CARBAPENEM-RESISTANT ENTEROBACTERI... Complete Laboratory Tests 03/07/19 04:10: White Blood Count 20.7H, Red Blood Count 3.01L, Hemoglobin 9.1L, Hematocrit 26.8L, Mean Corpuscular Volume 89, Mean Corpuscular Hemoglobin 30.3, Mean Corpuscular Hemoglobin Concent 34.0, Red Cell Distribution Width 16.2H, Platelet Count 180, Mean Platelet Volume 5.7L, Neutrophils (%) (Auto) , Lymphocytes (%) (Auto) , Monocytes (%) (Auto) , Eosinophils (%) (Auto) , Basophils (%) (Auto) , Differential Total Cells Counted 100, Neutrophils % ( Manual) 96H, Lymphocytes % (Manual) 3L, Monocytes % (Manual) 1, Eosinophils % ( Manual) 0, Basophils % (Manual) 0, Band Neutrophils 0, Platelet Estimate Adequate, Platelet Morphology Normal, Hypochromasia 2+, Anisocytosis 1+, Spherocytes 2+, Sodium Level 133L, Potassium Level 2.9L, Chloride Level 101, Carbon Dioxide Level 22, Anion Gap 10, Blood Urea Nitrogen 18, Creatinine 1.2, Estimat Glomerular Filtration Rate , Glucose Level 141H, Calcium Level 7.0L, Total Bilirubin 0.7, Aspartate Amino Transf (AST/SGOT) 535H, Alanine Aminotransferase (ALT/SGPT) 635H, Alkaline Phosphatase 160H, Total Creatine Kinase 390H, Total Protein 5.3L, Albumin 1.7L, Globulin 3.6, Albumin/Globulin Ratio 0.5L, Random Vancomycin Level 11.1 03/07/19 05:15: Urine Random Sodium 79, Urine Creatinine 42.9 Current Medications Medications (Trade) Dose Ordered Sig/Tawny Route PRN Reason Start Time Stop Time Status Last Admin Dose Admin Amikacin Protocol (Amikacin pharmacy to dose) 1 ea DAILY PRN MISC Per rx protocol 03/05/19 10:00 04/04/19 09:59 Amikacin Sulfate 1200 mg/Sodium Chloride 279.8 ml @ 279.8 mls/ hr Q36H IV 03/07/19 13:00 03/14/19 12:59 03/07/19 13:36 Chlorhexidine Gluconate (Jada-Hex 2%) 1 applic DAILY@2000 TOPIC 03/05/19 20:00 04/04/19 19:59 03/06/19 20:45 Dextrose (Dextrose 50%) 25 ml Q30M PRN IV Hypoglycemia 03/05/19 06:15 04/04/19 06:14 Dextrose (Dextrose 50%) 50 ml Q30M PRN IV Hypoglycemia 03/05/19 06:15 04/04/19 06:14 Dextrose/ Electrolytes 1,000 ml @ 100 mls/hr Q10H IV 03/07/19 13:00 04/06/19 12:59 Dopamine HCl/ Dextrose 250 ml @ 0 mls/hr Q24H IV 03/05/19 06:32 04/04/19 06:31 03/05/19 07:46 Ferrous Sulfate (Feosol) 330 mg THREE TIMES A DAY NG 03/05/19 09:00 04/04/19 08:59 03/07/19 13:36 Lansoprazole (Prevacid) 30 mg DAILY NG 03/08/19 09:00 04/07/19 08:59 Lorazepam (Ativan 2mg/ml 1ml) 1 mg Q2H PRN IV For Anxiety 03/05/19 15:00 03/12/19 14:59 03/07/19 02:12 Meropenem 1 gm/ Sodium Chloride 110 ml @ 220 mls/hr Q8HR@0200,1000,1800 IVPB 03/07/19 10:00 03/12/19 09:59 03/07/19 10:46 Norepinephrine Bitartrate 8 mg/ Dextrose 500 ml @ 0 mls/hr Q24H IV 03/05/19 22:00 04/04/19 21:59 03/06/19 19:00 Ondansetron HCl (Zofran) 4 mg Q6H PRN IVP Nausea & Vomiting 03/05/19 06:15 04/04/19 06:14 Potassium Chloride (K-Dur) 40 meq Q4HR NG 03/07/19 13:00 03/07/19 17:00 03/07/19 13:37 Vancomycin HCl (Vanco rx to dose) 1 ea DAILY PRN MISC Per rx protocol 03/05/19 06:15 04/04/19 06:14 Vancomycin HCl 750 mg/Sodium Chloride 275 ml @ 183.333 mls/hr Q12HR IVPB 03/07/19 21:00 03/12/19 20:59 Cedric Perez MD Mar 07, 2019 15:26
--- NOTE | 2019-03-07 15:28 | General Surgery Progress Note ---
General Surgery-Progress Note Objective Last 24 Hour Vital Signs Date Time Temp Pulse Resp B/P (MAP) Pulse Ox O2 Delivery O2 Flow Rate FiO2 03/07/19 14:51 87 18 35 03/07/19 14:30 88 18 106/57 (73) 100 03/07/19 14:00 86 23 128/64 (85) 100 03/07/19 13:45 80 15 89/49 (62) 100 03/07/19 13:30 82 18 98/57 (71) 100 03/07/19 13:00 82 19 96/42 (60) 100 03/07/19 12:31 88 18 35 03/07/19 12:30 83 22 98/62 (74) 100 03/07/19 12:00 98.0 82 18 110/56 (74) 100 03/07/19 12:00 Mechanical Ventilator 03/07/19 12:00 35 03/07/19 12:00 85 03/07/19 11:30 83 16 97/58 (71) 100 03/07/19 11:00 82 17 106/83 (91) 100 03/07/19 10:56 100 03/07/19 10:35 84 20 35 03/07/19 10:30 84 19 90/46 (61) 100 03/07/19 10:00 82 18 93/68 (76) 100 03/07/19 09:30 82 17 104/58 (73) 99 03/07/19 09:02 83 27 35 03/07/19 09:00 97.9 87 19 97/59 (72) 100 03/07/19 08:30 84 18 94/69 (77) 99 03/07/19 08:00 Mechanical Ventilator 03/07/19 08:00 35 03/07/19 08:00 89 03/07/19 08:00 85 17 99/59 (72) 100 03/07/19 07:30 83 18 107/64 (78) 100 03/07/19 07:00 98.8 80 18 105/64 (78) 100 03/07/19 07:00 105/64 03/07/19 06:55 83 21 35 03/07/19 06:45 81 18 104/62 (76) 100 03/07/19 06:30 85 18 106/68 (81) 100 03/07/19 06:15 86 18 89/59 (69) 100 03/07/19 06:00 89/59 03/07/19 06:00 81 18 92/54 (67) 100 03/07/19 05:45 86 15 100 03/07/19 05:30 83 19 35 03/07/19 05:30 85 19 112/63 (79) 100 03/07/19 05:15 82 16 103/58 (73) 100 03/07/19 05:00 84 18 98/55 (69) 100 03/07/19 05:00 98/55 03/07/19 04:45 82 18 99/59 (72) 100 03/07/19 04:30 83 18 110/59 (76) 100 03/07/19 04:15 81 17 109/59 (76) 100 03/07/19 04:00 Mechanical Ventilator 03/07/19 04:00 35 03/07/19 04:00 85 03/07/19 04:00 111/73 03/07/19 04:00 80 19 111/73 (86) 99 03/07/19 03:45 78 18 121/66 (84) 100 03/07/19 03:30 78 17 136/62 (86) 100 03/07/19 03:15 77 18 102/61 (75) 100 03/07/19 03:03 78 18 35 03/07/19 03:00 118/65 03/07/19 03:00 78 18 118/65 (82) 100 03/07/19 02:45 81 17 111/61 (78) 100 03/07/19 02:30 84 18 100/58 (72) 100 03/07/19 02:15 84 17 97/58 (71) 100 03/07/19 02:00 85 17 101/59 (73) 100 03/07/19 02:00 100/58 03/07/19 01:45 84 19 95/55 (68) 99 03/07/19 01:30 98.8 83 17 100/59 (73) 99 03/07/19 01:04 81 18 35 03/07/19 01:00 82 18 118/68 (85) 100 03/07/19 01:00 118/68 03/07/19 00:45 87 18 114/61 (78) 100 03/07/19 00:30 89 18 121/69 (86) 100 03/07/19 00:15 82 18 131/71 (91) 100 03/07/19 00:00 Mechanical Ventilator 03/07/19 00:00 82 03/07/19 00:00 131/73 03/07/19 00:00 82 18 131/73 (92) 100 03/07/19 00:00 35 03/06/19 23:45 82 18 136/72 (93) 100 03/06/19 23:30 83 18 35 03/06/19 23:30 80 18 124/67 (86) 100 03/06/19 23:15 78 18 131/69 (89) 100 03/06/19 23:00 79 17 127/68 (87) 100 03/06/19 23:00 127/68 03/06/19 22:45 79 19 126/69 (88) 100 03/06/19 22:30 79 17 127/66 (86) 100 03/06/19 22:15 79 18 125/70 (88) 100 03/06/19 22:00 84 18 122/66 (84) 100 03/06/19 22:00 122/66 03/06/19 21:45 79 17 128/67 (87) 100 03/06/19 21:30 80 19 126/62 (83) 100 03/06/19 21:15 78 21 121/64 (83) 99 03/06/19 21:03 82 19 35 03/06/19 21:00 111/72 03/06/19 21:00 81 18 111/72 (85) 100 03/06/19 20:45 79 18 125/69 (87) 100 03/06/19 20:30 80 17 118/64 (82) 100 03/06/19 20:15 83 18 104/85 (91) 100 03/06/19 20:00 117/60 03/06/19 20:00 Mechanical Ventilator 03/06/19 20:00 98.8 82 19 117/60 (79) 100 03/06/19 20:00 35 03/06/19 20:00 80 03/06/19 19:30 82 16 119/84 (96) 100 03/06/19 19:06 83 23 35 03/06/19 19:01 118/73 03/06/19 19:00 88 19 118/73 (88) 98 03/06/19 19:00 118/66 03/06/19 18:30 89 18 127/70 (89) 100 03/06/19 18:00 90/46 03/06/19 18:00 78 18 90/46 (61) 100 03/06/19 17:30 86 18 91/55 (67) 100 03/06/19 17:00 81 18 118/60 (79) 100 03/06/19 17:00 118/60 03/06/19 16:33 80 18 35 03/06/19 16:30 78 18 116/59 (78) 100 03/06/19 16:00 77 03/06/19 16:00 Mechanical Ventilator 03/06/19 16:00 120/95 03/06/19 16:00 50 03/06/19 16:00 97.7 79 18 120/95 (103) 100 03/06/19 15:30 77 19 117/60 (79) 100 I&O Intake and Output 03/06/19 03/07/19 18:59 06:59 Intake Total 1657.4 ml 2042.5 ml Output Total 625 ml 540 ml Balance 1032.4 ml 1502.5 ml Intake IV Total 1657.4 ml 2042.5 ml Output Urine Total 625 ml 540 ml Extremities: other - wound at sacrom severe infected necrotic tissue Laboratory Tests Test 03/07/19 04:10 03/07/19 05:15 White Blood Count 20.7 K/UL (4.8-10.8) H Red Blood Count 3.01 M/UL (4.70-6.10) L Hemoglobin 9.1 G/DL (14.2-18.0) L Hematocrit 26.8 % (42.0-52.0) L Mean Corpuscular Volume 89 FL (80-99) Mean Corpuscular Hemoglobin 30.3 PG (27.0-31.0) Mean Corpuscular Hemoglobin Concent 34.0 G/DL (32.0-36.0) Red Cell Distribution Width 16.2 % (11.6-14.8) H Platelet Count 180 K/UL (150-450) Mean Platelet Volume 5.7 FL (6.5-10.1) L Neutrophils (%) (Auto) % (45.0-75.0) Lymphocytes (%) (Auto) % (20.0-45.0) Monocytes (%) (Auto) % (1.0-10.0) Eosinophils (%) (Auto) % (0.0-3.0) Basophils (%) (Auto) % (0.0-2.0) Differential Total Cells Counted 100 Neutrophils % (Manual) 96 % (45-75) H Lymphocytes % (Manual) 3 % (20-45) L Monocytes % (Manual) 1 % (1-10) Eosinophils % (Manual) 0 % (0-3) Basophils % (Manual) 0 % (0-2) Band Neutrophils 0 % (0-8) Platelet Estimate Adequate Platelet Morphology Normal Hypochromasia 2+ Anisocytosis 1+ Spherocytes 2+ Sodium Level 133 MMOL/L (136-145) L Potassium Level 2.9 MMOL/L (3.5-5.1) L Chloride Level 101 MMOL/L (98-107) Carbon Dioxide Level 22 MMOL/L (21-32) Anion Gap 10 mmol/L (5-15) Blood Urea Nitrogen 18 mg/dL (7-18) Creatinine 1.2 MG/DL (0.55-1.30) Estimat Glomerular Filtration Rate mL/min (>60) Glucose Level 141 MG/DL (74-106) H Calcium Level 7.0 MG/DL (8.5-10.1) L Total Bilirubin 0.7 MG/DL (0.2-1.0) Aspartate Amino Transf (AST/SGOT) 535 U/L (15-37) H Alanine Aminotransferase (ALT/SGPT) 635 U/L (12-78) H Alkaline Phosphatase 160 U/L (46-116) H Total Creatine Kinase 390 U/L (26-308) H Total Protein 5.3 G/DL (6.4-8.2) L Albumin 1.7 G/DL (3.4-5.0) L Globulin 3.6 g/dL Albumin/Globulin Ratio 0.5 (1.0-2.7) L Random Vancomycin Level 11.1 ug/mL Urine Random Sodium 79 mmol/L (20-110) Urine Creatinine 42.9 MG/DL (30.0-125.0) Assessment Additional Comments decubitus ulcer infected Plan Additional Comments scheduled for debridement tomorrow Mirza Gilliland MD Mar 07, 2019 15:28
--- NOTE | 2019-03-07 17:59 | Anethesia Preoperative Eval ---
Anesthesia Pre-op PMH/ROS General Date of Evaluation: Mar 07, 2019 Time of Evaluation: 17:51 Anesthesiologist: Lori ASA Score: ASA 4 Mallampati Score Class I : Soft palate, uvula, fauces, pillars visible Class II: Soft palate, uvula, fauces visible Class III: Soft palate, base of uvula visible Class IV: Only hard plate visible Mallampati Classification: Class III - Intubated on vent Surgeon: Darshana Diagnosis: St 4 decubitus ulcer Surgical Procedure: Debridement of decubitus ulcer Anesthesia History: none Family History: no anesthesia problems Allergies: Coded Allergies: No Known Allergies (Unverified , 03/05/19) Medications: see eMAR Patient NPO?: Yes Past Medical History Cardiovascular: Reports: HTN, CAD, valve dz - possible aortic stenosis, arrhythmia - A fib. Pulmonary: Reports: other - respiratory failure on vent; Denies: asthma, COPD, FITO Gastrointestinal/Genitourinary: Reports: GERD, CRI, other - H/o recurrent UTI; Denies: ESRD Neurologic/Psychiatric: Reports: dementia, CVA; Denies: depression/anxiety, TIA, other Endocrine: Reports: hypothyroidism; Denies: DM, steroids, other HEENT: Denies: cataract (L), cataract (R), glaucoma, [place] (L), [place] (R), other Hematology/Immune: Reports: anemia; Denies: DVT, bleeding disorder, other Musculoskeletal/Integumentary: Reports: DJD, other - contracted; Denies: OA, RA, DDD, edema Other: other - malnourished PMH Narrative: as above PSxH Narrative: see H&P Anesthesia Pre-op Phys. Exam Physician Exam Last Vital Signs Date Time Temp Pulse Resp B/P (MAP) Pulse Ox O2 Delivery O2 Flow Rate FiO2 03/07/19 16:42 83 18 35 03/07/19 16:00 Mechanical Ventilator 03/07/19 16:00 97.9 100/62 (75) 100 03/05/19 04:30 3.0 Constitutional: NAD Neurologic: other - unable to obtaine Cardiovascular: other - IIR Respiratory: other - diminished breath sounnds bilaterally, some rhonchi Gastrointestinal: S/NT/ND Airway Exam Mallampati Score: Class III MO: limited Neck: stiff ROM: limited Teeth: missing Dentures: no upper, no lower Anesthesia Pre-op A/P Labs Hematology Test 03/07/19 04:10 White Blood Count 20.7 K/UL (4.8-10.8) H Red Blood Count 3.01 M/UL (4.70-6.10) L Hemoglobin 9.1 G/DL (14.2-18.0) L Hematocrit 26.8 % (42.0-52.0) L Mean Corpuscular Volume 89 FL (80-99) Mean Corpuscular Hemoglobin 30.3 PG (27.0-31.0) Mean Corpuscular Hemoglobin Concent 34.0 G/DL (32.0-36.0) Red Cell Distribution Width 16.2 % (11.6-14.8) H Platelet Count 180 K/UL (150-450) Mean Platelet Volume 5.7 FL (6.5-10.1) L Neutrophils (%) (Auto) % (45.0-75.0) Lymphocytes (%) (Auto) % (20.0-45.0) Monocytes (%) (Auto) % (1.0-10.0) Eosinophils (%) (Auto) % (0.0-3.0) Basophils (%) (Auto) % (0.0-2.0) Differential Total Cells Counted 100 Neutrophils % (Manual) 96 % (45-75) H Lymphocytes % (Manual) 3 % (20-45) L Monocytes % (Manual) 1 % (1-10) Eosinophils % (Manual) 0 % (0-3) Basophils % (Manual) 0 % (0-2) Band Neutrophils 0 % (0-8) Platelet Estimate Adequate Platelet Morphology Normal Hypochromasia 2+ Anisocytosis 1+ Spherocytes 2+ Chemistry Test 03/07/19 04:10 Sodium Level 133 MMOL/L (136-145) L Potassium Level 2.9 MMOL/L (3.5-5.1) L Chloride Level 101 MMOL/L (98-107) Carbon Dioxide Level 22 MMOL/L (21-32) Anion Gap 10 mmol/L (5-15) Blood Urea Nitrogen 18 mg/dL (7-18) Creatinine 1.2 MG/DL (0.55-1.30) Estimat Glomerular Filtration Rate mL/min (>60) Glucose Level 141 MG/DL (74-106) H Calcium Level 7.0 MG/DL (8.5-10.1) L Total Bilirubin 0.7 MG/DL (0.2-1.0) Aspartate Amino Transf (AST/SGOT) 535 U/L (15-37) H Alanine Aminotransferase (ALT/SGPT) 635 U/L (12-78) H Alkaline Phosphatase 160 U/L (46-116) H Total Creatine Kinase 390 U/L (26-308) H Total Protein 5.3 G/DL (6.4-8.2) L Albumin 1.7 G/DL (3.4-5.0) L Globulin 3.6 g/dL Albumin/Globulin Ratio 0.5 (1.0-2.7) L Risk Assessment & Plan Assessment: ASA 4 Plan: GA with ETT lateral position, argueta bag Pre-Antibiotics Drug: as scheduled Don Sandoval MD Mar 07, 2019 17:59
[2019-03-07] MEDS: Vancomycin 750mg/NS 275ml IVPB SCH ×2 (20:54)
[2019-03-07] MEDS: Dyna-Hex 2% Top Sol 2oz TOPIC SCH (20:54)
[2019-03-08] VITALS (50 sets, daily range): BP systolic 82–122; BP diastolic 49–78
--- NOTE | 2019-03-08 00:01 | Progress Note ---
DATE: 03/07/2019 CARDIOLOGY PROGRESS NOTE SUBJECTIVE: The patient's condition remains critical. Prognosis guarded. He is in the intensive care unit. He is to undergo wound debridement of the sacrum. Monitored rhythm, sinus. OBJECTIVE: VITAL SIGNS: Blood pressure 106/57, heart rate 88, and respirations 18. HEENT: Orally intubated. Mechanically ventilated. LUNGS: Bilateral breath sounds with rhonchi. Thin secretions from endotracheal tube. HEART: Regular rhythm and rate. Normal S1, S2 with a fourth heart sound. ABDOMEN: Soft. EXTREMITIES: No edema. LABORATORY DATA: White count 20.7 and hemoglobin 9.1. Potassium 2.9. BUN 18 and creatinine 1.2. Liver function tests remained elevated. Albumin 1.7. CK 390. IMPRESSION: 1. Severe sepsis. 2. Recovering shock. 3. Respiratory failure. 4. Sacral decubitus. 5. Osteomyelitis. 6. Gram-negative bacteremia. 7. Acute myocardial ischemia. 8. Respiratory failure status post full arrest. 9. Paroxysmal atrial fibrillation. 10. Degenerative aortic valve stenosis. PLAN: 1. Wound care. 2. Antimicrobials. 3. DVT and stress ulcer prophylaxis. 4. Volume resuscitation. 5. Taper off and maintain off pressors. 6. Ventilator support with weaning as able. 7. Remains high risk. Mejia Mckinney M.D. DR: DASHAWN JOB#: [id number] CC:
[2019-03-08] MEDS: Meropenem 1gm/NS 110ml IVPB SCH ×4 (04:17→09:48)
[2019-03-08] MEDS: Norepinephrine Bitartrate 8 MG in D5W 500ml 492 ML IV SCH ×2 (04:17→22:00)
[2019-03-08] MEDS: D5NS w/KCl 40mEq 1000ml 1,000 ML IV SCH (04:18)
[2019-03-08 04:29] LABS: HEMATOCRIT 26.5 % (42.0-52.0); MEAN CORPUSCULAR VOLUME 90 FL (80-99); PLATELET COUNT 148 K/UL (150-450); RED BLOOD COUNT 2.96 M/UL (4.70-6.10); RED CELL DISTRIBUTION WIDTH 16.3 % (11.6-14.8); WHITE BLOOD COUNT 14.2 K/UL (4.8-10.8)
[2019-03-08 04:59] LABS: ANION GAP 8 mmol/L (5-15); BLOOD UREA NITROGEN 12 mg/dL (7-18); CALCIUM 7.2 MG/DL (8.5-10.1); CARBON DIOXIDE 23 MMOL/L (21-32); CHLORIDE 106 MMOL/L (98-107); CREATININE 0.8 MG/DL (0.55-1.30); PHOSPHORUS 1.8 MG/DL (2.5-4.9); POTASSIUM 4.1 MMOL/L (3.5-5.1); SODIUM 136 MMOL/L (136-145)
[2019-03-08] MEDS: DOPamine 400mg/250ml 250 ML IV SCH (05:56)
[2019-03-08] MEDS ORDERED: NS 250 ML IVPB ONE (06:30)
[2019-03-08] MEDS: Ferrous Sulfate 300 MG/5 ML UDC NG SCH ×3 (08:12→17:49)
[2019-03-08] MEDS: Vancomycin 750mg/NS 275ml IVPB SCH ×4 (08:12→21:10)
--- NOTE | 2019-03-08 14:01 | Pulmonology Progress Note ---
Assessment/Plan Assessment/Plan 1. Severe sepsis, shock 2. Sacral decubitus and osteomyelitis. 3. Gram negative bacteremia 4. Acute myocardial ischemia, possible non-ST elevation myocardial infarction. 5. Aspiration pneumonia. 6. Respiratory failure, status post full arrest. 7. Paroxysmal atrial fibrillation. 8. 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 PLAN: 1. Ventilator support. 2. Broad spectrum antimicrobials per ID; note mold in sputum 3. The patient not presently weanable. 4. Pressors, taper as tolerated 5. DVT and stress ulcer prophylaxes. 6. Wound care, surgical consult 7. Planned surgical intervention today 8. Prognosis guarded Subjective ROS Limited/Unobtainable: Yes Allergies: Coded Allergies: No Known Allergies (Unverified , 03/05/19) Objective Last 24 Hour Vital Signs Date Time Temp Pulse Resp B/P (MAP) Pulse Ox O2 Delivery O2 Flow Rate FiO2 03/08/19 12:31 89 24 30 35 03/08/19 12:00 79 03/08/19 12:00 Mechanical Ventilator 03/08/19 12:00 35 03/08/19 11:00 83 17 98/51 (67) 100 03/08/19 10:33 91 21 30 35 03/08/19 10:30 83 17 90/54 (66) 100 03/08/19 10:00 82 17 108/64 (79) 100 03/08/19 09:30 80 17 88/52 (64) 100 03/08/19 09:20 88 20 30 35 03/08/19 09:00 81 17 90/50 (63) 98 03/08/19 08:30 81 17 88/51 (63) 100 03/08/19 08:00 87 17 91/54 (66) 100 03/08/19 08:00 Mechanical Ventilator 03/08/19 08:00 74 03/08/19 08:00 35 03/08/19 07:47 92 23 30 35 03/08/19 07:30 100.0 84 18 96/53 (67) 100 03/08/19 07:00 87 17 82/68 (73) 100 03/08/19 06:46 94/46 03/08/19 06:30 87 17 82/68 (73) 100 03/08/19 06:00 90 19 98/54 (69) 99 6/5/19 05:56 96/50 03/08/19 05:30 87 18 99/54 (69) 100 03/08/19 05:13 91 22 30 35 03/08/19 05:00 98.0 82 18 107/60 (76) 100 03/08/19 05:00 96/58 03/08/19 04:32 35 03/08/19 04:30 85 18 100/59 (73) 100 03/08/19 04:17 90/56 03/08/19 04:00 86 18 98/56 (70) 100 03/08/19 04:00 82 03/08/19 04:00 Mechanical Ventilator 03/08/19 03:30 86 18 100/63 (75) 100 03/08/19 03:00 82 18 94/49 (64) 100 03/08/19 03:00 83 18 30 35 03/08/19 02:30 85 18 96/60 (72) 99 03/08/19 02:10 95/56 03/08/19 02:00 89 18 95/56 (69) 99 03/08/19 01:45 91 18 95/55 (68) 100 03/08/19 01:30 87 18 95/57 (70) 99 03/08/19 01:00 87 18 97/56 (70) 100 03/08/19 01:00 97/56 03/08/19 00:52 84 18 30 35 03/08/19 00:30 82 18 102/55 (71) 100 03/08/19 00:30 Mechanical Ventilator 03/08/19 00:00 98.1 85 18 91/55 (67) 100 03/08/19 00:00 91/55 03/08/19 00:00 35 03/08/19 00:00 90 03/07/19 23:30 90 18 90/54 (66) 100 03/07/19 23:00 82 18 80/38 (52) 100 03/07/19 23:00 80/38 03/07/19 22:52 85 18 30 35 03/07/19 22:30 84 19 90/53 (65) 100 03/07/19 22:00 88 20 87/50 (62) 100 03/07/19 22:00 87/52 03/07/19 21:30 85 18 81/44 (56) 100 03/07/19 21:10 82 18 30 35 03/07/19 21:00 82 18 80/46 (57) 100 03/07/19 21:00 80/46 03/07/19 20:30 88 18 81/50 (60) 100 03/07/19 20:00 98.5 84 18 90/51 (64) 100 03/07/19 20:00 85 03/07/19 20:00 90/51 03/07/19 20:00 35 03/07/19 20:00 Mechanical Ventilator 03/07/19 19:30 82 18 90/54 (66) 100 03/07/19 19:00 93/54 03/07/19 19:00 84 17 88/49 (62) 100 03/07/19 18:54 83 18 30 35 03/07/19 18:30 85 20 94/51 (65) 100 03/07/19 18:00 81 18 101/53 (69) 100 03/07/19 18:00 89/55 03/07/19 17:30 80 17 96/56 (69) 100 03/07/19 17:00 95/57 03/07/19 17:00 88 18 92/54 (67) 100 03/07/19 16:42 83 18 35 03/07/19 16:30 83 22 93/60 (71) 100 03/07/19 16:00 Mechanical Ventilator 03/07/19 16:00 79 03/07/19 16:00 126/72 03/07/19 16:00 97.9 86 17 100/62 (75) 100 03/07/19 16:00 35 03/07/19 15:30 82 20 98/53 (68) 100 03/07/19 15:00 84 18 99/55 (70) 100 03/07/19 15:00 90/58 03/07/19 14:51 87 18 35 03/07/19 14:30 88 18 106/57 (73) 100 Intake and Output 03/07/19 03/08/19 19:00 07:00 Intake Total 1826.466 ml 1542.500 ml Output Total 510 ml 690 ml Balance 1316.466 ml 852.500 ml IV Total 1826.466 ml 1542.500 ml Output Urine Total 510 ml 690 ml General Appearance: no acute distress HEENT: atraumatic Respiratory/Chest: lungs clear, decreased breath sounds Cardiovascular: normal rate Abdomen: soft, non tender Microbiology Date/Time Source Procedure Growth Status 03/06/19 05:00 Sputum Induced Gram Stain - Final Resulted 03/06/19 05:00 Sputum Culture - Preliminary MOLD Resulted Laboratory Tests 03/08/19 00:50: Random Amikacin Level 11.2 03/08/19 03:50: White Blood Count 14.2H, Red Blood Count 2.96L, Hemoglobin 9.0L, Hematocrit 26.5L, Mean Corpuscular Volume 90, Mean Corpuscular Hemoglobin 30.3, Mean Corpuscular Hemoglobin Concent 33.8, Red Cell Distribution Width 16.3H, Platelet Count 148L, Mean Platelet Volume 6.1L, Neutrophils (%) (Auto) , Lymphocytes (%) (Auto) , Monocytes (%) (Auto) , Eosinophils (%) (Auto) , Basophils (%) (Auto) , Sodium Level 136, Potassium Level 4.1, Chloride Level 106 , Carbon Dioxide Level 23, Anion Gap 8, Blood Urea Nitrogen 12, Creatinine 0.8, Estimat Glomerular Filtration Rate , Glucose Level 118H, Calcium Level 7.2L, Phosphorus Level 1.8L, Magnesium Level 1.4L Current Medications Medications (Trade) Dose Ordered Sig/Tawny Route PRN Reason Start Time Stop Time Status Last Admin Dose Admin Amikacin Protocol (Amikacin pharmacy to dose) 1 ea DAILY PRN MISC Per rx protocol 03/05/19 10:00 04/04/19 09:59 Amikacin Sulfate 1200 mg/Sodium Chloride 279.8 ml @ 279.8 mls/ hr Q36H IV 03/07/19 13:00 03/14/19 12:59 03/07/19 13:36 Chlorhexidine Gluconate (Jada-Hex 2%) 1 applic DAILY@2000 TOPIC 03/05/19 20:00 04/04/19 19:59 03/07/19 20:54 Ciprofloxacin 200 ml @ 200 mls/hr Q12HR IV 03/08/19 18:00 03/15/19 17:59 Dextrose (Dextrose 50%) 25 ml Q30M PRN IV Hypoglycemia 03/05/19 06:15 04/04/19 06:14 Dextrose (Dextrose 50%) 50 ml Q30M PRN IV Hypoglycemia 03/05/19 06:15 04/04/19 06:14 Dextrose/ Electrolytes 1,000 ml @ 100 mls/hr Q10H IV 03/07/19 13:00 04/06/19 12:59 03/08/19 04:18 Dopamine HCl/ Dextrose 250 ml @ 0 mls/hr Q24H IV 03/05/19 06:32 04/04/19 06:31 03/05/19 07:46 Ferrous Sulfate (Feosol) 330 mg THREE TIMES A DAY NG 03/05/19 09:00 04/04/19 08:59 03/08/19 13:43 Lansoprazole (Prevacid) 30 mg DAILY NG 03/08/19 09:00 04/07/19 08:59 03/08/19 08:12 Lorazepam (Ativan 2mg/ml 1ml) 1 mg Q2H PRN IV For Anxiety 03/05/19 15:00 03/12/19 14:59 03/07/19 02:12 Metronidazole 100 ml @ 100 mls/hr Q8HR IVPB 03/08/19 14:00 03/15/19 13:59 03/08/19 13:43 Norepinephrine Bitartrate 8 mg/ Dextrose 500 ml @ 0 mls/hr Q24H IV 03/05/19 22:00 04/04/19 21:59 03/08/19 04:17 Ondansetron HCl (Zofran) 4 mg Q6H PRN IVP Nausea & Vomiting 03/05/19 06:15 04/04/19 06:14 Vancomycin HCl (Vanco rx to dose) 1 ea DAILY PRN MISC Per rx protocol 03/05/19 06:15 04/04/19 06:14 Vancomycin HCl 750 mg/Sodium Chloride 275 ml @ 183.333 mls/hr Q12HR IVPB 03/07/19 21:00 03/12/19 20:59 03/08/19 08:12 Cedric Perez MD Mar 08, 2019 14:01
--- NOTE | 2019-03-08 15:30 | Consultation ---
Consult Note Assessment/Plan the patient has no family to consent and is not able to give informed consent to surgery for debridement of his infected sacral wound which is a critical, life-saving procedure. Cedric Perez MD Mar 08, 2019 15:30
[2019-03-08] MEDS ORDERED: Tubing IV Secondary IV ONE (15:31)
[2019-03-08] MEDS ORDERED: NS 500ML ONE (15:31)
--- NOTE | 2019-03-08 16:24 | Nephrology Progress Note ---
Assessment/Plan Problem List: (1) Hypokalemia (2) Pyelonephritis (3) CALEB (acute kidney injury) (4) Septic shock (5) Cardiopulmonary arrest (6) Decubitus ulcer (7) Hypomagnesemia (8) Hypophosphatemia Assessment replace mg, phos, avoid fluid overload Subjective ROS Limited/Unobtainable: Yes Objective Objective Last 24 Hour Vital Signs Date Time Temp Pulse Resp B/P (MAP) Pulse Ox O2 Delivery O2 Flow Rate FiO2 03/08/19 15:30 81 17 109/78 (88) 100 03/08/19 15:00 83 17 92/53 (66) 100 03/08/19 14:32 90 22 30 35 03/08/19 14:30 78 17 92/53 (66) 100 03/08/19 14:00 80 17 95/57 (70) 100 03/08/19 13:30 83 17 102/55 (71) 100 03/08/19 13:00 79 18 92/53 (66) 100 03/08/19 12:31 89 24 30 35 03/08/19 12:30 81 17 92/54 (67) 100 03/08/19 12:00 99.6 80 18 87/50 (62) 100 03/08/19 12:00 79 03/08/19 12:00 Mechanical Ventilator 03/08/19 12:00 35 03/08/19 11:30 83 17 98/51 (67) 100 03/08/19 11:00 83 17 98/51 (67) 100 03/08/19 10:33 91 21 30 35 03/08/19 10:30 83 17 90/54 (66) 100 03/08/19 10:00 82 17 108/64 (79) 100 03/08/19 09:30 80 17 88/52 (64) 100 03/08/19 09:20 88 20 30 35 03/08/19 09:00 81 17 90/50 (63) 98 03/08/19 08:30 81 17 88/51 (63) 100 03/08/19 08:00 87 17 91/54 (66) 100 03/08/19 08:00 Mechanical Ventilator 03/08/19 08:00 74 03/08/19 08:00 35 03/08/19 07:47 92 23 30 35 03/08/19 07:30 100.0 84 18 96/53 (67) 100 03/08/19 07:00 87 17 82/68 (73) 100 03/08/19 06:46 94/46 03/08/19 06:30 87 17 82/68 (73) 100 03/08/19 06:00 90 19 98/54 (69) 99 03/08/19 05:56 96/50 03/08/19 05:30 87 18 99/54 (69) 100 03/08/19 05:13 91 22 30 35 03/08/19 05:00 98.0 82 18 107/60 (76) 100 03/08/19 05:00 96/58 03/08/19 04:32 35 03/08/19 04:30 85 18 100/59 (73) 100 03/08/19 04:17 90/56 03/08/19 04:00 86 18 98/56 (70) 100 03/08/19 04:00 82 03/08/19 04:00 Mechanical Ventilator 03/08/19 03:30 86 18 100/63 (75) 100 03/08/19 03:00 82 18 94/49 (64) 100 03/08/19 03:00 83 18 30 35 03/08/19 02:30 85 18 96/60 (72) 99 03/08/19 02:10 95/56 03/08/19 02:00 89 18 95/56 (69) 99 03/08/19 01:45 91 18 95/55 (68) 100 03/08/19 01:30 87 18 95/57 (70) 99 03/08/19 01:00 87 18 97/56 (70) 100 03/08/19 01:00 97/56 03/08/19 00:52 84 18 30 35 03/08/19 00:30 82 18 102/55 (71) 100 03/08/19 00:30 Mechanical Ventilator 03/08/19 00:00 98.1 85 18 91/55 (67) 100 03/08/19 00:00 91/55 03/08/19 00:00 35 03/08/19 00:00 90 03/07/19 23:30 90 18 90/54 (66) 100 03/07/19 23:00 82 18 80/38 (52) 100 03/07/19 23:00 80/38 03/07/19 22:52 85 18 30 35 03/07/19 22:30 84 19 90/53 (65) 100 03/07/19 22:00 88 20 87/50 (62) 100 03/07/19 22:00 87/52 03/07/19 21:30 85 18 81/44 (56) 100 03/07/19 21:10 82 18 30 35 03/07/19 21:00 82 18 80/46 (57) 100 03/07/19 21:00 80/46 03/07/19 20:30 88 18 81/50 (60) 100 03/07/19 20:00 98.5 84 18 90/51 (64) 100 03/07/19 20:00 85 03/07/19 20:00 90/51 03/07/19 20:00 35 03/07/19 20:00 Mechanical Ventilator 03/07/19 19:30 82 18 90/54 (66) 100 03/07/19 19:00 93/54 03/07/19 19:00 84 17 88/49 (62) 100 03/07/19 18:54 83 18 30 35 03/07/19 18:30 85 20 94/51 (65) 100 03/07/19 18:00 81 18 101/53 (69) 100 03/07/19 18:00 89/55 03/07/19 17:30 80 17 96/56 (69) 100 03/07/19 17:00 95/57 03/07/19 17:00 88 18 92/54 (67) 100 03/07/19 16:42 83 18 35 03/07/19 16:30 83 22 93/60 (71) 100 Intake and Output 03/07/19 03/08/19 18:59 06:59 Intake Total 1876.466 ml 1650.000 ml Output Total 515 ml 670 ml Balance 1361.466 ml 980.000 ml IV Total 1876.466 ml 1650.000 ml Output Urine Total 515 ml 670 ml Laboratory Tests 03/08/19 00:50: Random Amikacin Level 11.2 03/08/19 03:50: White Blood Count 14.2H, Red Blood Count 2.96L, Hemoglobin 9.0L, Hematocrit 26.5L, Mean Corpuscular Volume 90, Mean Corpuscular Hemoglobin 30.3, Mean Corpuscular Hemoglobin Concent 33.8, Red Cell Distribution Width 16.3H, Platelet Count 148L, Mean Platelet Volume 6.1L, Neutrophils (%) (Auto) , Lymphocytes (%) (Auto) , Monocytes (%) (Auto) , Eosinophils (%) (Auto) , Basophils (%) (Auto) , Sodium Level 136, Potassium Level 4.1, Chloride Level 106 , Carbon Dioxide Level 23, Anion Gap 8, Blood Urea Nitrogen 12, Creatinine 0.8, Estimat Glomerular Filtration Rate , Glucose Level 118H, Calcium Level 7.2L, Phosphorus Level 1.8L, Magnesium Level 1.4L Height (Feet): 6 Height (Inches): 2.00 Weight (Pounds): 182 General Appearance: other - intubated EENT: normal ENT inspection Neck: normal alignment Cardiovascular: normal rate, regular rhythm Respiratory/Chest: rhonchi - bilaterally Abdomen: non tender, soft Extremities: other - no edema Neurologic: loan assistant II-XII grossly normal Rishi Christy MD Mar 08, 2019 16:24
--- NOTE | 2019-03-08 17:25 | General Surgery Progress Note ---
General Surgery-Progress Note Subjective Symptoms: improved Objective Last 24 Hour Vital Signs Date Time Temp Pulse Resp B/P (MAP) Pulse Ox O2 Delivery O2 Flow Rate FiO2 03/08/19 16:42 88 20 30 35 03/08/19 16:00 Mechanical Ventilator 03/08/19 15:30 81 17 109/78 (88) 100 03/08/19 15:00 83 17 92/53 (66) 100 03/08/19 14:32 90 22 30 35 03/08/19 14:30 78 17 92/53 (66) 100 03/08/19 14:00 80 17 95/57 (70) 100 03/08/19 13:30 83 17 102/55 (71) 100 03/08/19 13:00 79 18 92/53 (66) 100 03/08/19 12:31 89 24 30 35 03/08/19 12:30 81 17 92/54 (67) 100 03/08/19 12:00 99.6 80 18 87/50 (62) 100 03/08/19 12:00 79 03/08/19 12:00 Mechanical Ventilator 03/08/19 12:00 35 03/08/19 11:30 83 17 98/51 (67) 100 03/08/19 11:00 83 17 98/51 (67) 100 03/08/19 10:33 91 21 30 35 03/08/19 10:30 83 17 90/54 (66) 100 03/08/19 10:00 82 17 108/64 (79) 100 03/08/19 09:30 80 17 88/52 (64) 100 03/08/19 09:20 88 20 30 35 03/08/19 09:00 81 17 90/50 (63) 98 03/08/19 08:30 81 17 88/51 (63) 100 03/08/19 08:00 87 17 91/54 (66) 100 03/08/19 08:00 Mechanical Ventilator 03/08/19 08:00 74 03/08/19 08:00 35 03/08/19 07:47 92 23 30 35 03/08/19 07:30 100.0 84 18 96/53 (67) 100 03/08/19 07:00 87 17 82/68 (73) 100 03/08/19 06:46 94/46 6/5/19 06:30 87 17 82/68 (73) 100 03/08/19 06:00 90 19 98/54 (69) 99 03/08/19 05:56 96/50 03/08/19 05:30 87 18 99/54 (69) 100 03/08/19 05:13 91 22 30 35 03/08/19 05:00 98.0 82 18 107/60 (76) 100 03/08/19 05:00 96/58 03/08/19 04:32 35 03/08/19 04:30 85 18 100/59 (73) 100 03/08/19 04:17 90/56 03/08/19 04:00 86 18 98/56 (70) 100 03/08/19 04:00 82 03/08/19 04:00 Mechanical Ventilator 03/08/19 03:30 86 18 100/63 (75) 100 03/08/19 03:00 82 18 94/49 (64) 100 03/08/19 03:00 83 18 30 35 03/08/19 02:30 85 18 96/60 (72) 99 03/08/19 02:10 95/56 03/08/19 02:00 89 18 95/56 (69) 99 03/08/19 01:45 91 18 95/55 (68) 100 03/08/19 01:30 87 18 95/57 (70) 99 03/08/19 01:00 87 18 97/56 (70) 100 03/08/19 01:00 97/56 03/08/19 00:52 84 18 30 35 03/08/19 00:30 82 18 102/55 (71) 100 03/08/19 00:30 Mechanical Ventilator 03/08/19 00:00 98.1 85 18 91/55 (67) 100 03/08/19 00:00 91/55 03/08/19 00:00 35 03/08/19 00:00 90 03/07/19 23:30 90 18 90/54 (66) 100 03/07/19 23:00 82 18 80/38 (52) 100 03/07/19 23:00 80/38 03/07/19 22:52 85 18 30 35 03/07/19 22:30 84 19 90/53 (65) 100 03/07/19 22:00 88 20 87/50 (62) 100 03/07/19 22:00 87/52 03/07/19 21:30 85 18 81/44 (56) 100 03/07/19 21:10 82 18 30 35 03/07/19 21:00 82 18 80/46 (57) 100 03/07/19 21:00 80/46 03/07/19 20:30 88 18 81/50 (60) 100 03/07/19 20:00 98.5 84 18 90/51 (64) 100 03/07/19 20:00 85 03/07/19 20:00 90/51 03/07/19 20:00 35 03/07/19 20:00 Mechanical Ventilator 03/07/19 19:30 82 18 90/54 (66) 100 03/07/19 19:00 93/54 03/07/19 19:00 84 17 88/49 (62) 100 03/07/19 18:54 83 18 30 35 03/07/19 18:30 85 20 94/51 (65) 100 03/07/19 18:00 81 18 101/53 (69) 100 03/07/19 18:00 89/55 03/07/19 17:30 80 17 96/56 (69) 100 I&O Intake and Output 03/07/19 03/08/19 19:00 07:00 Intake Total 1826.466 ml 1550.000 ml Output Total 510 ml 690 ml Balance 1316.466 ml 860.000 ml IV Total 1826.466 ml 1550.000 ml Output Urine Total 510 ml 690 ml Extremities: other - sacral wound is the same Laboratory Tests Test 03/08/19 00:50 03/08/19 03:50 Random Amikacin Level 11.2 ug/mL White Blood Count 14.2 K/UL (4.8-10.8) H Red Blood Count 2.96 M/UL (4.70-6.10) L Hemoglobin 9.0 G/DL (14.2-18.0) L Hematocrit 26.5 % (42.0-52.0) L Mean Corpuscular Volume 90 FL (80-99) Mean Corpuscular Hemoglobin 30.3 PG (27.0-31.0) Mean Corpuscular Hemoglobin Concent 33.8 G/DL (32.0-36.0) Red Cell Distribution Width 16.3 % (11.6-14.8) H Platelet Count 148 K/UL (150-450) L Mean Platelet Volume 6.1 FL (6.5-10.1) L Neutrophils (%) (Auto) % (45.0-75.0) Lymphocytes (%) (Auto) % (20.0-45.0) Monocytes (%) (Auto) % (1.0-10.0) Eosinophils (%) (Auto) % (0.0-3.0) Basophils (%) (Auto) % (0.0-2.0) Sodium Level 136 MMOL/L (136-145) Potassium Level 4.1 MMOL/L (3.5-5.1) Chloride Level 106 MMOL/L (98-107) Carbon Dioxide Level 23 MMOL/L (21-32) Anion Gap 8 mmol/L (5-15) Blood Urea Nitrogen 12 mg/dL (7-18) Creatinine 0.8 MG/DL (0.55-1.30) Estimat Glomerular Filtration Rate mL/min (>60) Glucose Level 118 MG/DL (74-106) H Calcium Level 7.2 MG/DL (8.5-10.1) L Phosphorus Level 1.8 MG/DL (2.5-4.9) L Magnesium Level 1.4 MG/DL (1.8-2.4) L Assessment Additional Comments infected decubitus ulcer Plan Additional Comments anesenthesiologist recommended to perform debridement when patient is of the pressors Mirza Gilliland MD Mar 08, 2019 17:25
[2019-03-08] MEDS: D5W IV SCH (17:30)
[2019-03-08] MEDS: POTASSIUM PHOSPHATE IV SCH (17:30)
[2019-03-08] MEDS: Dyna-Hex 2% Top Sol 2oz TOPIC SCH (20:10)
[2019-03-09] VITALS (41 sets, daily range): BP systolic 62–118; BP diastolic 32–67
[2019-03-09] MEDS: Amikacin 1,200 MG in NS 275 ML IV SCH (01:12)
--- NOTE | 2019-03-09 04:30 | Progress Note ---
DATE: 03/08/2019 SUBJECTIVE: The patient remains in the intensive care unit. He continues on pressor support. Monitored rhythm, sinus with ectopics nonsustained. Full ventilator support ongoing. OBJECTIVE: LUNGS: Bilateral breath sounds. CARDIAC: Regular rhythm and rate. Normal S1 and S2. ABDOMEN: Soft. EXTREMITIES: No edema. LABORATORY DATA: White count 14 and hemoglobin 9. Potassium 4.1, BUN 12, and creatinine 0.8. Magnesium 1.4. IMPRESSION: 1. Sepsis with shock. 2. Hypomagnesemia. 3. Acute renal failure. 4. Sacral decubitus with osteomyelitis. 5. Bacteremia with gram-negative pathogen. 6. Myocardial ischemia, recovered. 7. Degenerative aortic valve disease with stenosis. 8. Paroxysmal atrial fibrillation. 9. Respiratory failure. PLAN: 1. Antimicrobials. 2. Wound care. 3. Volume resuscitation with IV fluids. 4. Taper pressors as able. 5. Monitor for atrial arrhythmias p.r.n., antiarrhythmics will be considered. 6. We will continue DVT and stress ulcer prophylaxis. Wean as able. Mejia Mckinney M.D. DR: VINNIE JOB#: [id number] CC:
[2019-03-09 05:50] LABS: ALANINE AMINOTRANSFERASE 267 U/L (12-78); ALBUMIN 1.7 G/DL (3.4-5.0); ALBUMIN/GLOBULIN RATIO 0.5 (1.0-2.7); ALKALINE PHOSPHATASE 143 U/L (46-116); ANION GAP 10 mmol/L (5-15); ASPARTATE AMINO TRANSFERASE 86 U/L (15-37); BILIRUBIN,TOTAL 0.9 MG/DL (0.2-1.0); BLOOD UREA NITROGEN 7 mg/dL (7-18); CALCIUM 7.6 MG/DL (8.5-10.1); CARBON DIOXIDE 20 MMOL/L (21-32); CHLORIDE 103 MMOL/L (98-107); CREATININE 0.7 MG/DL (0.55-1.30); POTASSIUM 3.5 MMOL/L (3.5-5.1); SODIUM 133 MMOL/L (136-145)
[2019-03-09 05:56] LABS: BASOPHILS % (AUTO) 1.5 % (0.0-2.0); EOSINOPHILS % (AUTO) 1.6 % (0.0-3.0); HEMATOCRIT 28.8 % (42.0-52.0); HEMOGLOBIN 9.6 G/DL (14.2-18.0); LYMPHOCYTES % (AUTO) 6.5 % (20.0-45.0); MEAN CORPUSCULAR VOLUME 91 FL (80-99); MONOCYTES % (AUTO) 5.9 % (1.0-10.0); NEUTROPHILS % (AUTO) 84.5 % (45.0-75.0); PLATELET COUNT 123 K/UL (150-450); RED BLOOD COUNT 3.16 M/UL (4.70-6.10); RED CELL DISTRIBUTION WIDTH 16.5 % (11.6-14.8); WHITE BLOOD COUNT 11.1 K/UL (4.8-10.8)
[2019-03-09] MEDS: D5W IV SCH ×2 (06:00→19:40)
[2019-03-09] MEDS: POTASSIUM PHOSPHATE IV SCH ×2 (06:00→19:40)
[2019-03-09] MEDS: DOPamine 400mg/250ml 250 ML IV SCH (06:07)
[2019-03-09] MEDS: Norepinephrine Bitartrate 8 MG in D5W 500ml 492 ML IV SCH (06:46)
[2019-03-09] MEDS: Vancomycin 750mg/NS 275ml IVPB SCH ×4 (08:11→20:51)
[2019-03-09] MEDS: Ferrous Sulfate 300 MG/5 ML UDC NG SCH ×3 (08:12→18:35)
--- NOTE | 2019-03-09 14:57 | Nephrology Progress Note ---
Assessment/Plan Problem List: (1) Hypokalemia (2) Pyelonephritis (3) CALEB (acute kidney injury) (4) Septic shock (5) Cardiopulmonary arrest (6) Decubitus ulcer (7) Hypomagnesemia (8) Hypophosphatemia Assessment replace mg, phos, avoid fluid overload Subjective ROS Limited/Unobtainable: Yes Objective Objective Last 24 Hour Vital Signs Date Time Temp Pulse Resp B/P (MAP) Pulse Ox O2 Delivery O2 Flow Rate FiO2 03/09/19 14:00 78 18 105/54 (71) 99 03/09/19 13:24 78 18 30 03/09/19 13:00 78 18 97/67 (77) 99 03/09/19 12:00 Mechanical Ventilator 03/09/19 12:00 101/53 03/09/19 12:00 80 03/09/19 12:00 35 03/09/19 12:00 98.8 81 18 101/53 (69) 99 03/09/19 11:25 86 19 30 03/09/19 11:00 104/56 03/09/19 11:00 83 19 104/56 (72) 100 03/09/19 10:00 82 18 103/53 (70) 99 03/09/19 10:00 103/53 03/09/19 09:00 91/54 03/09/19 09:00 Mechanical Ventilator 03/09/19 09:00 86 24 98/52 (67) 100 03/09/19 08:55 100 03/09/19 08:50 89 21 30 03/09/19 08:00 98/54 03/09/19 08:00 35 03/09/19 08:00 98.5 86 19 98/58 (71) 100 03/09/19 08:00 88 03/09/19 06:46 65 24 62/32 (42) 100 03/09/19 06:46 62/39 03/09/19 06:33 87 18 30 03/09/19 06:30 75 22 65/38 (47) 100 03/09/19 06:15 85 18 75/48 (57) 100 03/09/19 06:00 91 16 80/51 (61) 100 03/09/19 05:27 100 21 30 03/09/19 05:00 94 18 88/49 (62) 100 03/09/19 04:00 35 03/09/19 04:00 96 03/09/19 04:00 94 18 101/42 (61) 100 03/09/19 04:00 Mechanical Ventilator 03/09/19 03:30 83 20 30 03/09/19 03:00 84 17 103/56 (72) 98 03/09/19 02:00 84 18 94/58 (70) 96 03/09/19 01:10 89 19 30 03/09/19 01:00 85 18 102/58 (73) 99 03/09/19 00:00 99.4 91 18 106/61 (76) 99 03/09/19 00:00 Mechanical Ventilator 03/08/19 23:30 87 18 97/57 (70) 100 03/08/19 23:10 86 18 30 03/08/19 23:00 97 20 119/61 (80) 80 03/08/19 22:45 77 19 104/58 (73) 99 03/08/19 22:30 81 23 105/66 (79) 83 03/08/19 22:15 77 18 102/55 (71) 88 03/08/19 22:00 98.6 78 18 114/69 (84) 92 03/08/19 22:00 104/58 03/08/19 22:00 76 19 106/58 (74) 89 03/08/19 21:30 98.6 78 18 114/69 (84) 92 03/08/19 21:16 77 18 30 03/08/19 21:00 79 16 105/59 (74) 100 03/08/19 20:30 79 17 100/56 (71) 100 03/08/19 20:00 80 03/08/19 20:00 77 17 102/67 (79) 96 03/08/19 20:00 Mechanical Ventilator 03/08/19 20:00 35 03/08/19 19:05 81 18 30 03/08/19 19:00 77 18 122/58 (79) 100 03/08/19 18:30 75 18 110/58 (75) 100 03/08/19 18:00 77 18 112/58 (76) 100 03/08/19 17:30 82 17 109/60 (76) 100 03/08/19 17:00 76 17 106/58 (74) 100 03/08/19 16:42 88 20 30 35 03/08/19 16:30 75 17 100/54 (69) 100 03/08/19 16:00 35 03/08/19 16:00 99.2 76 18 96/52 (67) 100 03/08/19 16:00 75 03/08/19 16:00 Mechanical Ventilator 03/08/19 15:30 81 17 109/78 (88) 100 03/08/19 15:00 83 17 92/53 (66) 100 Intake and Output 03/08/19 03/09/19 19:00 07:00 Intake Total 255.0 ml 1982.3 ml Output Total 1110 ml 1105 ml Balance -855.0 ml 877.3 ml Intake Free Water 180 ml 180 ml IV Total 75.0 ml 1802.3 ml Output Urine Total 1110 ml 1105 ml # Bowel Movements 2 1 Laboratory Tests 03/08/19 19:50: Vancomycin Level Trough 13.9H 03/09/19 04:30: White Blood Count 11.1H, Red Blood Count 3.16L, Hemoglobin 9.6L, Hematocrit 28.8L, Mean Corpuscular Volume 91, Mean Corpuscular Hemoglobin 30.4, Mean Corpuscular Hemoglobin Concent 33.4, Red Cell Distribution Width 16.5H, Platelet Count 123L, Mean Platelet Volume 6.1L, Neutrophils (%) (Auto) 84.5H, Lymphocytes (%) (Auto) 6.5L, Monocytes (%) (Auto) 5.9, Eosinophils (%) (Auto) 1.6, Basophils (%) (Auto) 1.5, Sodium Level 133L, Potassium Level 3.5, Chloride Level 103, Carbon Dioxide Level 20L, Anion Gap 10, Blood Urea Nitrogen 7, Creatinine 0.7, Estimat Glomerular Filtration Rate , Glucose Level 102, Calcium Level 7.6L, Phosphorus Level 2.7, Total Bilirubin 0.9, Aspartate Amino Transf ( AST/SGOT) 86H, Alanine Aminotransferase (ALT/SGPT) 267H, Alkaline Phosphatase 143H, Total Protein 5.4L, Albumin 1.7L, Globulin 3.7, Albumin/Globulin Ratio 0.5L Height (Feet): 6 Height (Inches): 2.00 Weight (Pounds): 172 General Appearance: other - intubated EENT: normal ENT inspection Neck: supple Cardiovascular: regular rhythm Respiratory/Chest: rhonchi - bilaterally Abdomen: non tender Extremities: moderate edema Rishi Christy MD Mar 09, 2019 14:57
--- NOTE | 2019-03-09 16:12 | Infectious Diseases Prog Note ---
Assessment/Plan Assessment/Plan ASSESSMENT: 1. sepsis, shock, enterobacter and streptococcus bacteremia, enterobacter uti, pna, sacral wound infection, leukocytosis, fevers - vancomycin, cipro and flagyl - check cultures, labs and chest x-ray - wound care per surgery/protocol - possible debridement - wean off pressors and vent as tolerated - icu care - clinically improved, leukocytosis much improved - d/w surgery 2. Acute kidney injury, elevated creatinine. 3. Anemia. 4. Atrial fibrillation. The patient has been on Eliquis. 5. Status post code. 6. Sacral wound. 7. Aortic valve stenosis. 8. Hypertension. 9. icu care 10. Hypertension treatment per primary but the patient currently is on pressors. 11. No known drug allergies. No antibiotic allergies. 12. Social history is negative. 13. Family history noncontributory. 14. MAR was noted. 15. Case discussed with RN. 16. Continue treatment per primary consultants. 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 Subjective Constitutional: Denies: fever HEENT: Reports: congestion Respiratory: Reports: shortness of breath Cardiovascular: Denies: chest pain Gastrointestinal/Abdominal: Denies: nausea, vomiting Genitourinary: Reports: other - + lemus Neurologic: Denies: headache Psychiatric: Denies: depression Skin: Denies: rash Hematologic: Denies: bleeding Musculoskeletal: Denies: pain Allergies: Coded Allergies: No Known Allergies (Unverified , 03/05/19) Objective Vital Signs Last 24 Hour Vital Signs Date Time Temp Pulse Resp B/P (MAP) Pulse Ox O2 Delivery O2 Flow Rate FiO2 03/09/19 15:08 80 19 30 03/09/19 14:00 78 18 105/54 (71) 99 03/09/19 13:24 78 18 30 03/09/19 13:00 78 18 97/67 (77) 99 03/09/19 12:00 Mechanical Ventilator 03/09/19 12:00 101/53 03/09/19 12:00 80 03/09/19 12:00 35 03/09/19 12:00 98.8 81 18 101/53 (69) 99 03/09/19 11:25 86 19 30 03/09/19 11:00 104/56 03/09/19 11:00 83 19 104/56 (72) 100 03/09/19 10:00 82 18 103/53 (70) 99 03/09/19 10:00 103/53 03/09/19 09:00 91/54 03/09/19 09:00 Mechanical Ventilator 03/09/19 09:00 86 24 98/52 (67) 100 03/09/19 08:55 100 03/09/19 08:50 89 21 30 03/09/19 08:00 98/54 03/09/19 08:00 35 03/09/19 08:00 98.5 86 19 98/58 (71) 100 03/09/19 08:00 88 03/09/19 06:46 65 24 62/32 (42) 100 03/09/19 06:46 62/39 03/09/19 06:33 87 18 30 03/09/19 06:30 75 22 65/38 (47) 100 03/09/19 06:15 85 18 75/48 (57) 100 03/09/19 06:00 91 16 80/51 (61) 100 03/09/19 05:27 100 21 30 03/09/19 05:00 94 18 88/49 (62) 100 03/09/19 04:00 35 03/09/19 04:00 96 03/09/19 04:00 94 18 101/42 (61) 100 03/09/19 04:00 Mechanical Ventilator 03/09/19 03:30 83 20 30 03/09/19 03:00 84 17 103/56 (72) 98 03/09/19 02:00 84 18 94/58 (70) 96 03/09/19 01:10 89 19 30 03/09/19 01:00 85 18 102/58 (73) 99 03/09/19 00:00 99.4 91 18 106/61 (76) 99 03/09/19 00:00 Mechanical Ventilator 03/08/19 23:30 87 18 97/57 (70) 100 03/08/19 23:10 86 18 30 03/08/19 23:00 97 20 119/61 (80) 80 03/08/19 22:45 77 19 104/58 (73) 99 03/08/19 22:30 81 23 105/66 (79) 83 03/08/19 22:15 77 18 102/55 (71) 88 03/08/19 22:00 98.6 78 18 114/69 (84) 92 6/5/19 22:00 104/58 03/08/19 22:00 76 19 106/58 (74) 89 03/08/19 21:30 98.6 78 18 114/69 (84) 92 03/08/19 21:16 77 18 30 03/08/19 21:00 79 16 105/59 (74) 100 03/08/19 20:30 79 17 100/56 (71) 100 03/08/19 20:00 80 03/08/19 20:00 77 17 102/67 (79) 96 03/08/19 20:00 Mechanical Ventilator 03/08/19 20:00 35 03/08/19 19:05 81 18 30 03/08/19 19:00 77 18 122/58 (79) 100 03/08/19 18:30 75 18 110/58 (75) 100 03/08/19 18:00 77 18 112/58 (76) 100 03/08/19 17:30 82 17 109/60 (76) 100 03/08/19 17:00 76 17 106/58 (74) 100 03/08/19 16:42 88 20 30 35 03/08/19 16:30 75 17 100/54 (69) 100 Height (Feet): 6 Height (Inches): 2.00 Weight (Pounds): 172 General Appearance: other - on vent HEENT: normocephalic, atraumatic, anicteric Respiratory/Chest: crackles/rales, rhonchi - bilaterally Cardiovascular: normal rate, regular rhythm, no gallop/murmur, no JVD Abdomen: normal bowel sounds, soft, non tender, no organomegaly, non distended Genitourinary: other - + lemus - urine clear Extremities: no cyanosis Skin: no rash 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 Chest x-ray - 03/06/19 - Findings: Mild pleural thickening versus effusion on the right noted. Heart size is stable and mildly enlarged. Endotracheal tube is in good position unchanged. NG tube is present. The proximal port is near the EG junction. The tip is in the stomach. IMPRESSION: Nasogastric tube may be advanced slightly. Slightly improved congestion compared to the previous day Microbiology Date/Time Source Procedure Growth Status 03/08/19 05:00 Blood Blood Culture - Preliminary NO GROWTH AFTER 24 HOURS Resulted 03/06/19 05:00 Sputum Induced Gram Stain - Final Resulted 03/06/19 05:00 Sputum Culture - Preliminary MOLD Resulted 03/05/19 00:34 Urine,Clean Catch Urine Culture - Final Enterobacter Cloacae Complex Complete 03/05/19 00:50 Rectum VRE Culture - Final NO VANCOMYCIN RESISTANT ENTEROCOCCUS ... Complete Microbiology Date/Time Source Procedure Growth Status 03/08/19 05:00 Blood Blood Culture - Preliminary NO GROWTH AFTER 24 HOURS Resulted 03/08/19 04:50 Blood Blood Culture - Preliminary NO GROWTH AFTER 24 HOURS Resulted Laboratory Tests Test 03/08/19 19:50 03/09/19 04:30 Vancomycin Level Trough 13.9 ug/mL (5.0-12.0) H White Blood Count 11.1 K/UL (4.8-10.8) H Red Blood Count 3.16 M/UL (4.70-6.10) L Hemoglobin 9.6 G/DL (14.2-18.0) L Hematocrit 28.8 % (42.0-52.0) L Mean Corpuscular Volume 91 FL (80-99) Mean Corpuscular Hemoglobin 30.4 PG (27.0-31.0) Mean Corpuscular Hemoglobin Concent 33.4 G/DL (32.0-36.0) Red Cell Distribution Width 16.5 % (11.6-14.8) H Platelet Count 123 K/UL (150-450) L Mean Platelet Volume 6.1 FL (6.5-10.1) L Neutrophils (%) (Auto) 84.5 % (45.0-75.0) H Lymphocytes (%) (Auto) 6.5 % (20.0-45.0) L Monocytes (%) (Auto) 5.9 % (1.0-10.0) Eosinophils (%) (Auto) 1.6 % (0.0-3.0) Basophils (%) (Auto) 1.5 % (0.0-2.0) Sodium Level 133 MMOL/L (136-145) L Potassium Level 3.5 MMOL/L (3.5-5.1) Chloride Level 103 MMOL/L (98-107) Carbon Dioxide Level 20 MMOL/L (21-32) L Anion Gap 10 mmol/L (5-15) Blood Urea Nitrogen 7 mg/dL (7-18) Creatinine 0.7 MG/DL (0.55-1.30) Estimat Glomerular Filtration Rate mL/min (>60) Glucose Level 102 MG/DL (74-106) Calcium Level 7.6 MG/DL (8.5-10.1) L Phosphorus Level 2.7 MG/DL (2.5-4.9) Total Bilirubin 0.9 MG/DL (0.2-1.0) Aspartate Amino Transf (AST/SGOT) 86 U/L (15-37) H Alanine Aminotransferase (ALT/SGPT) 267 U/L (12-78) H Alkaline Phosphatase 143 U/L (46-116) H Total Protein 5.4 G/DL (6.4-8.2) L Albumin 1.7 G/DL (3.4-5.0) L Globulin 3.7 g/dL Albumin/Globulin Ratio 0.5 (1.0-2.7) L Current Medications Medications (Trade) Dose Ordered Sig/Tawny Route PRN Reason Start Time Stop Time Status Last Admin Dose Admin Amikacin Protocol (Amikacin pharmacy to dose) 1 ea DAILY PRN MISC Per rx protocol 03/05/19 10:00 04/04/19 09:59 Amikacin Sulfate 1200 mg/Sodium Chloride 279.8 ml @ 279.8 mls/ hr Q36H IV 03/07/19 13:00 03/14/19 12:59 03/09/19 01:12 Chlorhexidine Gluconate (Jada-Hex 2%) 1 applic DAILY@2000 TOPIC 03/05/19 20:00 04/04/19 19:59 03/08/19 20:10 Ciprofloxacin 200 ml @ 200 mls/hr Q12HR IV 03/08/19 18:00 03/15/19 17:59 03/09/19 08:11 Dextrose (Dextrose 50%) 25 ml Q30M PRN IV Hypoglycemia 03/05/19 06:15 04/04/19 06:14 Dextrose (Dextrose 50%) 50 ml Q30M PRN IV Hypoglycemia 03/05/19 06:15 04/04/19 06:14 Dopamine HCl/ Dextrose 250 ml @ 0 mls/hr Q24H IV 03/05/19 06:32 04/04/19 06:31 03/05/19 07:46 Ferrous Sulfate (Feosol) 330 mg THREE TIMES A DAY NG 03/05/19 09:00 04/04/19 08:59 03/09/19 14:33 Lansoprazole (Prevacid) 30 mg DAILY NG 03/08/19 09:00 04/07/19 08:59 03/09/19 08:11 Lorazepam (Ativan 2mg/ml 1ml) 1 mg Q2H PRN IV For Anxiety 03/05/19 15:00 03/12/19 14:59 03/07/19 02:12 Magnesium Oxide (Mag-Ox 400mg) 400 mg THREE TIMES A DAY NG 03/09/19 18:00 04/08/19 17:59 Metronidazole 100 ml @ 100 mls/hr Q8HR IVPB 03/08/19 14:00 03/15/19 13:59 03/09/19 14:31 Norepinephrine Bitartrate 8 mg/ Dextrose 500 ml @ 0 mls/hr Q24H IV 03/05/19 22:00 04/04/19 21:59 03/09/19 06:46 Ondansetron HCl (Zofran) 4 mg Q6H PRN IVP Nausea & Vomiting 03/05/19 06:15 04/04/19 06:14 Potassium Phosphate 20 meq/ Dextrose 1,004.5455 ml @ 75 mls/hr [id number] IV 03/08/19 17:30 04/07/19 17:29 03/09/19 06:00 Vancomycin HCl (Vanco rx to dose) 1 ea DAILY PRN MISC Per rx protocol 03/05/19 06:15 04/04/19 06:14 Vancomycin HCl 750 mg/Sodium Chloride 275 ml @ 183.333 mls/hr Q12HR IVPB 03/07/19 21:00 03/12/19 20:59 03/09/19 08:11 Makenzie Galeano MD Mar 09, 2019 16:12
--- NOTE | 2019-03-09 16:41 | Pulmonology Progress Note ---
Assessment/Plan Assessment/Plan 1. Severe sepsis, shock due to enterobacter and streptococcus bacteremia 2. Sacral decubitus and osteomyelitis. 3. CALEB, improving 4. Acute myocardial ischemia, possible non-ST elevation myocardial infarction. 5. Aspiration pneumonia. 6. Respiratory failure, status post full arrest. 7. Paroxysmal atrial fibrillation. 8. 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 9. Acute liver failure, improving PLAN: 1. Ventilator support. 2. Broad spectrum antimicrobials per ID; mold in sputum (?colonized) 3. The patient not presently weanable. 4. Pressors, taper as tolerated 5. DVT and stress ulcer prophylaxes. 6. Wound care, surgical consult 7. Planned surgical intervention when off pressors 8. Prognosis guarded but improving Subjective Allergies: Coded Allergies: No Known Allergies (Unverified , 03/05/19) Objective Last 24 Hour Vital Signs Date Time Temp Pulse Resp B/P (MAP) Pulse Ox O2 Delivery O2 Flow Rate FiO2 03/09/19 16:00 35 03/09/19 16:00 78 18 92/46 (61) 97 03/09/19 16:00 84 03/09/19 15:08 80 19 30 03/09/19 15:00 78 19 86/46 (59) 99 03/09/19 14:00 78 18 105/54 (71) 99 03/09/19 13:24 78 18 30 03/09/19 13:00 78 18 97/67 (77) 99 03/09/19 12:00 Mechanical Ventilator 03/09/19 12:00 101/53 03/09/19 12:00 80 03/09/19 12:00 35 03/09/19 12:00 98.8 81 18 101/53 (69) 99 03/09/19 11:25 86 19 30 03/09/19 11:00 104/56 03/09/19 11:00 83 19 104/56 (72) 100 03/09/19 10:00 82 18 103/53 (70) 99 03/09/19 10:00 103/53 03/09/19 09:00 91/54 03/09/19 09:00 Mechanical Ventilator 03/09/19 09:00 86 24 98/52 (67) 100 03/09/19 08:55 100 03/09/19 08:50 89 21 30 03/09/19 08:00 98/54 03/09/19 08:00 35 03/09/19 08:00 98.5 86 19 98/58 (71) 100 03/09/19 08:00 88 03/09/19 06:46 65 24 62/32 (42) 100 03/09/19 06:46 62/39 03/09/19 06:33 87 18 30 03/09/19 06:30 75 22 65/38 (47) 100 03/09/19 06:15 85 18 75/48 (57) 100 03/09/19 06:00 91 16 80/51 (61) 100 03/09/19 05:27 100 21 30 03/09/19 05:00 94 18 88/49 (62) 100 03/09/19 04:00 35 03/09/19 04:00 96 03/09/19 04:00 94 18 101/42 (61) 100 03/09/19 04:00 Mechanical Ventilator 03/09/19 03:30 83 20 30 03/09/19 03:00 84 17 103/56 (72) 98 03/09/19 02:00 84 18 94/58 (70) 96 03/09/19 01:10 89 19 30 03/09/19 01:00 85 18 102/58 (73) 99 03/09/19 00:00 99.4 91 18 106/61 (76) 99 03/09/19 00:00 Mechanical Ventilator 03/08/19 23:30 87 18 97/57 (70) 100 03/08/19 23:10 86 18 30 03/08/19 23:00 97 20 119/61 (80) 80 03/08/19 22:45 77 19 104/58 (73) 99 03/08/19 22:30 81 23 105/66 (79) 83 03/08/19 22:15 77 18 102/55 (71) 88 03/08/19 22:00 98.6 78 18 114/69 (84) 92 03/08/19 22:00 104/58 03/08/19 22:00 76 19 106/58 (74) 89 03/08/19 21:30 98.6 78 18 114/69 (84) 92 03/08/19 21:16 77 18 30 03/08/19 21:00 79 16 105/59 (74) 100 03/08/19 20:30 79 17 100/56 (71) 100 03/08/19 20:00 80 03/08/19 20:00 77 17 102/67 (79) 96 03/08/19 20:00 Mechanical Ventilator 03/08/19 20:00 35 03/08/19 19:05 81 18 30 03/08/19 19:00 77 18 122/58 (79) 100 03/08/19 18:30 75 18 110/58 (75) 100 03/08/19 18:00 77 18 112/58 (76) 100 03/08/19 17:30 82 17 109/60 (76) 100 03/08/19 17:00 76 17 106/58 (74) 100 03/08/19 16:42 88 20 30 35 Intake and Output 03/08/19 03/09/19 19:00 07:00 Intake Total 255.0 ml 1982.3 ml Output Total 1110 ml 1105 ml Balance -855.0 ml 877.3 ml Intake Free Water 180 ml 180 ml IV Total 75.0 ml 1802.3 ml Output Urine Total 1110 ml 1105 ml # Bowel Movements 2 1 General Appearance: no acute distress Cardiovascular: normal rate Abdomen: non distended Microbiology Date/Time Source Procedure Growth Status 03/08/19 05:00 Blood Blood Culture - Preliminary NO GROWTH AFTER 24 HOURS Resulted 03/08/19 04:50 Blood Blood Culture - Preliminary NO GROWTH AFTER 24 HOURS Resulted Laboratory Tests 03/08/19 19:50: Vancomycin Level Trough 13.9H 03/09/19 04:30: White Blood Count 11.1H, Red Blood Count 3.16L, Hemoglobin 9.6L, Hematocrit 28.8L, Mean Corpuscular Volume 91, Mean Corpuscular Hemoglobin 30.4, Mean Corpuscular Hemoglobin Concent 33.4, Red Cell Distribution Width 16.5H, Platelet Count 123L, Mean Platelet Volume 6.1L, Neutrophils (%) (Auto) 84.5H, Lymphocytes (%) (Auto) 6.5L, Monocytes (%) (Auto) 5.9, Eosinophils (%) (Auto) 1.6, Basophils (%) (Auto) 1.5, Sodium Level 133L, Potassium Level 3.5, Chloride Level 103, Carbon Dioxide Level 20L, Anion Gap 10, Blood Urea Nitrogen 7, Creatinine 0.7, Estimat Glomerular Filtration Rate , Glucose Level 102, Calcium Level 7.6L, Phosphorus Level 2.7, Total Bilirubin 0.9, Aspartate Amino Transf ( AST/SGOT) 86H, Alanine Aminotransferase (ALT/SGPT) 267H, Alkaline Phosphatase 143H, Total Protein 5.4L, Albumin 1.7L, Globulin 3.7, Albumin/Globulin Ratio 0.5L Current Medications Medications (Trade) Dose Ordered Sig/Tawny Route PRN Reason Start Time Stop Time Status Last Admin Dose Admin Chlorhexidine Gluconate (Jada-Hex 2%) 1 applic DAILY@2000 TOPIC 03/05/19 20:00 04/04/19 19:59 03/08/19 20:10 Ciprofloxacin 200 ml @ 200 mls/hr Q12HR IV 03/08/19 18:00 03/15/19 17:59 03/09/19 08:11 Dextrose (Dextrose 50%) 25 ml Q30M PRN IV Hypoglycemia 03/05/19 06:15 04/04/19 06:14 Dextrose (Dextrose 50%) 50 ml Q30M PRN IV Hypoglycemia 03/05/19 06:15 04/04/19 06:14 Dopamine HCl/ Dextrose 250 ml @ 0 mls/hr Q24H IV 03/05/19 06:32 04/04/19 06:31 03/05/19 07:46 Ferrous Sulfate (Feosol) 330 mg THREE TIMES A DAY NG 03/05/19 09:00 04/04/19 08:59 03/09/19 14:33 Lansoprazole (Prevacid) 30 mg DAILY NG 03/08/19 09:00 04/07/19 08:59 03/09/19 08:11 Lorazepam (Ativan 2mg/ml 1ml) 1 mg Q2H PRN IV For Anxiety 03/05/19 15:00 03/12/19 14:59 03/07/19 02:12 Magnesium Oxide (Mag-Ox 400mg) 400 mg THREE TIMES A DAY NG 03/09/19 18:00 04/08/19 17:59 Metronidazole 100 ml @ 100 mls/hr Q8HR IVPB 03/08/19 14:00 03/15/19 13:59 03/09/19 14:31 Norepinephrine Bitartrate 8 mg/ Dextrose 500 ml @ 0 mls/hr Q24H IV 03/05/19 22:00 04/04/19 21:59 03/09/19 06:46 Ondansetron HCl (Zofran) 4 mg Q6H PRN IVP Nausea & Vomiting 03/05/19 06:15 04/04/19 06:14 Potassium Phosphate 20 meq/ Dextrose 1,004.5455 ml @ 75 mls/hr [id number] IV 03/08/19 17:30 04/07/19 17:29 03/09/19 06:00 Vancomycin HCl (Vanco rx to dose) 1 ea DAILY PRN MISC Per rx protocol 03/05/19 06:15 04/04/19 06:14 Vancomycin HCl 750 mg/Sodium Chloride 275 ml @ 183.333 mls/hr Q12HR IVPB 03/07/19 21:00 03/12/19 20:59 03/09/19 08:11 Cedric Perez MD Mar 09, 2019 16:41
[2019-03-09] MEDS: Magnesium Oxide 400mg tab NG SCH (18:35)
[2019-03-09] MEDS: Dyna-Hex 2% Top Sol 2oz TOPIC SCH (19:43)
[2019-03-10] VITALS (54 sets, daily range): BP systolic 84–132; BP diastolic 42–66
[2019-03-10 04:55] LABS: BASOPHILS % (AUTO) 0.4 % (0.0-2.0); EOSINOPHILS % (AUTO) 2.7 % (0.0-3.0); HEMATOCRIT 26.8 % (42.0-52.0); HEMOGLOBIN 9.1 G/DL (14.2-18.0); LYMPHOCYTES % (AUTO) 9.7 % (20.0-45.0); MEAN CORPUSCULAR VOLUME 90 FL (80-99); NEUTROPHILS % (AUTO) 80.2 % (45.0-75.0); PLATELET COUNT 141 K/UL (150-450); RED BLOOD COUNT 2.99 M/UL (4.70-6.10); RED CELL DISTRIBUTION WIDTH 15.7 % (11.6-14.8); WHITE BLOOD COUNT 10.4 K/UL (4.8-10.8)
[2019-03-10 05:26] LABS: ANION GAP 9 mmol/L (5-15); BLOOD UREA NITROGEN 5 mg/dL (7-18); CALCIUM 7.2 MG/DL (8.5-10.1); CARBON DIOXIDE 21 MMOL/L (21-32); CHLORIDE 99 MMOL/L (98-107); CREATININE 0.7 MG/DL (0.55-1.30); PHOSPHORUS 4.2 MG/DL (2.5-4.9); POTASSIUM 2.9 MMOL/L (3.5-5.1); SODIUM 129 MMOL/L (136-145)
[2019-03-10] MEDS: DOPamine 400mg/250ml 250 ML IV SCH (06:08)
[2019-03-10] MEDS ORDERED: NS 275ml ONE (06:18)
[2019-03-10] MEDS: Ferrous Sulfate 300 MG/5 ML UDC NG SCH ×3 (08:29→17:37)
[2019-03-10] MEDS: Magnesium Oxide 400mg tab NG SCH ×3 (08:39→17:37)
[2019-03-10] MEDS: Vancomycin 750mg/NS 275ml IVPB SCH ×4 (08:40→20:36)
--- NOTE | 2019-03-10 08:54 | Nephrology Progress Note ---
Assessment/Plan Problem List: (1) Hypokalemia (2) Pyelonephritis (3) CALEB (acute kidney injury) (4) Septic shock (5) Cardiopulmonary arrest (6) Decubitus ulcer (7) Hypomagnesemia (8) Hypophosphatemia (9) Hyponatremia Assessment replace mg, phos,K avoid fluid overload but still on levophed needs fluids Subjective ROS Limited/Unobtainable: Yes Objective Objective Last 24 Hour Vital Signs Date Time Temp Pulse Resp B/P (MAP) Pulse Ox O2 Delivery O2 Flow Rate FiO2 03/10/19 08:00 Mechanical Ventilator Mechanical Ventilator Mechanical Ventilator 03/10/19 08:00 30 03/10/19 08:00 98.0 79 18 90/56 (67) 98 03/10/19 07:33 80 20 30 03/10/19 07:00 79 18 85/47 (60) 98 03/10/19 07:00 85/50 03/10/19 06:45 79 18 86/46 (59) 98 03/10/19 06:30 79 18 98/47 (64) 100 03/10/19 06:15 81 18 95/54 (68) 100 03/10/19 06:08 90/48 03/10/19 06:00 83 18 90/46 (61) 98 03/10/19 06:00 95/54 03/10/19 05:45 80 18 93/46 (62) 99 03/10/19 05:30 83 17 103/53 (70) 99 03/10/19 05:15 87 19 104/54 (71) 99 03/10/19 05:00 104/54 03/10/19 05:00 88 19 113/55 (74) 100 03/10/19 04:46 89 20 30 03/10/19 04:45 77 21 132/49 (76) 98 03/10/19 04:30 74 18 94/50 (65) 100 03/10/19 04:15 77 19 95/50 (65) 99 03/10/19 04:00 75 03/10/19 04:00 98.3 76 18 98/51 (67) 100 03/10/19 04:00 95/49 03/10/19 04:00 Mechanical Ventilator Mechanical Ventilator Mechanical Ventilator 03/10/19 04:00 30 03/10/19 03:45 78 18 85/43 (57) 100 03/10/19 03:30 74 17 105/51 (69) 100 03/10/19 03:00 109/54 03/10/19 03:00 77 18 88/47 (61) 100 03/10/19 02:46 77 18 30 03/10/19 02:30 78 20 100/52 (68) 100 03/10/19 02:00 77 18 90/47 (61) 100 03/10/19 02:00 101/52 03/10/19 01:30 80 20 84/47 (59) 100 03/10/19 01:12 81 18 30 03/10/19 01:00 81 21 120/56 (77) 100 03/10/19 01:00 120/56 03/10/19 00:30 94 25 112/54 (73) 98 03/10/19 00:00 98.6 79 20 104/66 (79) 99 03/10/19 00:00 104/66 03/10/19 00:00 30 03/10/19 00:00 78 03/10/19 00:00 Mechanical Ventilator Mechanical Ventilator Mechanical Ventilator 03/09/19 23:45 76 18 91/50 (64) 100 03/09/19 23:30 76 18 92/51 (65) 99 03/09/19 23:15 76 18 99/49 (66) 100 03/09/19 23:00 78 18 97/51 (66) 100 03/09/19 23:00 99/49 03/09/19 22:45 79 18 93/50 (64) 99 03/09/19 22:30 80 21 104/53 (70) 100 03/09/19 22:30 86 20 30 03/09/19 22:15 72 18 99/50 (66) 100 03/09/19 22:00 73 18 91/47 (62) 100 03/09/19 22:00 91/47 03/09/19 21:45 75 18 102/54 (70) 100 03/09/19 21:30 84 23 116/59 (78) 100 03/09/19 21:20 75 18 30 03/09/19 21:15 76 18 103/54 (70) 100 03/09/19 21:00 76 18 104/56 (72) 100 03/09/19 21:00 103/54 03/09/19 20:45 80 18 104/53 (70) 99 03/09/19 20:30 82 19 102/53 (69) 97 03/09/19 20:19 86 19 30 03/09/19 20:15 81 21 101/56 (71) 100 03/09/19 20:00 98.2 75 18 112/63 (79) 100 03/09/19 20:00 Mechanical Ventilator Mechanical Ventilator Mechanical Ventilator 03/09/19 20:00 102/53 03/09/19 20:00 79 03/09/19 20:00 30 03/09/19 19:45 79 22 102/64 (77) 100 03/09/19 19:30 80 18 118/61 (80) 100 03/09/19 19:15 80 19 100/53 (69) 100 03/09/19 19:00 86/51 03/09/19 19:00 81 18 86/51 (63) 100 03/09/19 18:00 98.2 79 20 86/51 (63) 100 03/09/19 17:07 84 19 30 03/09/19 17:00 78 18 85/46 (59) 99 03/09/19 16:00 35 03/09/19 16:00 92/49 03/09/19 16:00 78 18 92/46 (61) 97 03/09/19 16:00 84 03/09/19 16:00 Mechanical Ventilator 03/09/19 15:08 80 19 30 03/09/19 15:00 78 19 86/46 (59) 99 03/09/19 15:00 86/46 03/09/19 14:00 111/56 03/09/19 14:00 78 18 105/54 (71) 99 03/09/19 13:24 78 18 30 03/09/19 13:00 105/54 03/09/19 13:00 78 18 97/67 (77) 99 03/09/19 12:00 Mechanical Ventilator 03/09/19 12:00 101/53 03/09/19 12:00 80 03/09/19 12:00 35 03/09/19 12:00 98.8 81 18 101/53 (69) 99 03/09/19 11:25 86 19 30 03/09/19 11:00 104/56 03/09/19 11:00 83 19 104/56 (72) 100 03/09/19 10:00 82 18 103/53 (70) 99 03/09/19 10:00 103/53 03/09/19 09:00 91/54 03/09/19 09:00 Mechanical Ventilator 03/09/19 09:00 86 24 98/52 (67) 100 03/09/19 08:55 100 Intake and Output 03/09/19 03/10/19 19:00 07:00 Intake Total 1641.666 ml 1665.000 ml Output Total 955 ml 1325 ml Balance 686.666 ml 340.000 ml IV Total 1641.666 ml 1665.000 ml Output Urine Total 755 ml 1325 ml Stool Total 200 ml 0 ml Laboratory Tests 03/10/19 03:30: White Blood Count 10.4, Red Blood Count 2.99L, Hemoglobin 9.1L, Hematocrit 26.8L , Mean Corpuscular Volume 90, Mean Corpuscular Hemoglobin 30.5, Mean Corpuscular Hemoglobin Concent 34.0, Red Cell Distribution Width 15.7H, Platelet Count 141L, Mean Platelet Volume 6.4L, Neutrophils (%) (Auto) 80.2H, Lymphocytes (%) (Auto) 9.7L, Monocytes (%) (Auto) 7.0, Eosinophils (%) (Auto) 2.7, Basophils (%) (Auto) 0.4, Sodium Level 129L, Potassium Level 2.9L, Chloride Level 99, Carbon Dioxide Level 21, Anion Gap 9, Blood Urea Nitrogen 5L , Creatinine 0.7, Estimat Glomerular Filtration Rate , Glucose Level 110H, Calcium Level 7.2L, Phosphorus Level 4.2, Magnesium Level 1.4L Height (Feet): 6 Height (Inches): 2.00 Weight (Pounds): 200 General Appearance: other - intubated EENT: normal ENT inspection Neck: normal alignment Cardiovascular: regular rhythm Respiratory/Chest: rhonchi - bilaterally Abdomen: non tender Extremities: moderate edema Rishi Christy MD Mar 10, 2019 08:54
[2019-03-10] MEDS: SODIUM CHLORIDE IV SCH ×2 (10:58→23:52)
[2019-03-10] MEDS: POTASSIUM PHOSPHATE IV SCH ×2 (10:58→23:52)
--- NOTE | 2019-03-10 13:15 | Pulmonology Progress Note ---
Assessment/Plan Assessment/Plan 1. Severe sepsis, shock due to enterobacter and streptococcus bacteremia 2. Sacral decubitus and osteomyelitis. 3. CALEB, improving 4. Acute myocardial ischemia, possible non-ST elevation myocardial infarction. 5. Aspiration pneumonia. 6. Respiratory failure, status post full arrest. 7. Paroxysmal atrial fibrillation. 8. 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 9. Acute liver failure, improving PLAN: 1. Ventilator support. 2. Broad spectrum antimicrobials per ID; mold in sputum (?colonized) 3. Not tolerating weaning; stop weaning trials until off pressors and post op 4. Pressors, taper as tolerated 5. DVT and stress ulcer prophylaxes. 6. Wound care, surgery following 7. Planned surgical intervention when off pressors 8. Prognosis guarded but improving Subjective ROS Limited/Unobtainable: Yes Allergies: Coded Allergies: No Known Allergies (Unverified , 03/05/19) Objective Last 24 Hour Vital Signs Date Time Temp Pulse Resp B/P (MAP) Pulse Ox O2 Delivery O2 Flow Rate FiO2 03/10/19 12:00 30 03/10/19 12:00 70 03/10/19 12:00 98.4 76 18 98/51 (67) 98 03/10/19 12:00 Mechanical Ventilator Mechanical Ventilator Mechanical Ventilator 03/10/19 11:00 75 18 98/49 (65) 98 03/10/19 10:57 73 18 30 03/10/19 10:00 79 18 90/47 (61) 98 03/10/19 09:00 79 18 100/62 (75) 98 03/10/19 08:54 79 18 30 03/10/19 08:00 Mechanical Ventilator Mechanical Ventilator Mechanical Ventilator 03/10/19 08:00 79 03/10/19 08:00 30 03/10/19 08:00 98.0 79 18 90/56 (67) 98 03/10/19 07:33 80 20 30 03/10/19 07:00 79 18 85/47 (60) 98 03/10/19 07:00 85/50 03/10/19 06:45 79 18 86/46 (59) 98 03/10/19 06:30 79 18 98/47 (64) 100 03/10/19 06:15 81 18 95/54 (68) 100 03/10/19 06:08 90/48 03/10/19 06:00 83 18 90/46 (61) 98 03/10/19 06:00 95/54 03/10/19 05:45 80 18 93/46 (62) 99 03/10/19 05:30 83 17 103/53 (70) 99 03/10/19 05:15 87 19 104/54 (71) 99 03/10/19 05:00 104/54 03/10/19 05:00 88 19 113/55 (74) 100 03/10/19 04:46 89 20 30 03/10/19 04:45 77 21 132/49 (76) 98 03/10/19 04:30 74 18 94/50 (65) 100 03/10/19 04:15 77 19 95/50 (65) 99 03/10/19 04:00 75 03/10/19 04:00 98.3 76 18 98/51 (67) 100 03/10/19 04:00 95/49 03/10/19 04:00 Mechanical Ventilator Mechanical Ventilator Mechanical Ventilator 03/10/19 04:00 30 03/10/19 03:45 78 18 85/43 (57) 100 03/10/19 03:30 74 17 105/51 (69) 100 03/10/19 03:00 109/54 03/10/19 03:00 77 18 88/47 (61) 100 03/10/19 02:46 77 18 30 03/10/19 02:30 78 20 100/52 (68) 100 03/10/19 02:00 77 18 90/47 (61) 100 03/10/19 02:00 101/52 03/10/19 01:30 80 20 84/47 (59) 100 03/10/19 01:12 81 18 30 03/10/19 01:00 81 21 120/56 (77) 100 03/10/19 01:00 120/56 03/10/19 00:30 94 25 112/54 (73) 98 03/10/19 00:00 98.6 79 20 104/66 (79) 99 03/10/19 00:00 104/66 03/10/19 00:00 30 03/10/19 00:00 78 03/10/19 00:00 Mechanical Ventilator Mechanical Ventilator Mechanical Ventilator 03/09/19 23:45 76 18 91/50 (64) 100 03/09/19 23:30 76 18 92/51 (65) 99 03/09/19 23:15 76 18 99/49 (66) 100 03/09/19 23:00 78 18 97/51 (66) 100 03/09/19 23:00 99/49 03/09/19 22:45 79 18 93/50 (64) 99 03/09/19 22:30 80 21 104/53 (70) 100 03/09/19 22:30 86 20 30 03/09/19 22:15 72 18 99/50 (66) 100 03/09/19 22:00 73 18 91/47 (62) 100 03/09/19 22:00 91/47 03/09/19 21:45 75 18 102/54 (70) 100 03/09/19 21:30 84 23 116/59 (78) 100 03/09/19 21:20 75 18 30 03/09/19 21:15 76 18 103/54 (70) 100 03/09/19 21:00 76 18 104/56 (72) 100 03/09/19 21:00 103/54 03/09/19 20:45 80 18 104/53 (70) 99 03/09/19 20:30 82 19 102/53 (69) 97 03/09/19 20:19 86 19 30 03/09/19 20:15 81 21 101/56 (71) 100 03/09/19 20:00 98.2 75 18 112/63 (79) 100 03/09/19 20:00 Mechanical Ventilator Mechanical Ventilator Mechanical Ventilator 03/09/19 20:00 102/53 03/09/19 20:00 79 03/09/19 20:00 30 03/09/19 19:45 79 22 102/64 (77) 100 03/09/19 19:30 80 18 118/61 (80) 100 03/09/19 19:15 80 19 100/53 (69) 100 03/09/19 19:00 86/51 03/09/19 19:00 81 18 86/51 (63) 100 03/09/19 18:00 98.2 79 20 86/51 (63) 100 03/09/19 17:07 84 19 30 03/09/19 17:00 78 18 85/46 (59) 99 03/09/19 16:00 35 03/09/19 16:00 92/49 03/09/19 16:00 78 18 92/46 (61) 97 03/09/19 16:00 84 03/09/19 16:00 Mechanical Ventilator 03/09/19 15:08 80 19 30 03/09/19 15:00 78 19 86/46 (59) 99 03/09/19 15:00 86/46 03/09/19 14:00 111/56 03/09/19 14:00 78 18 105/54 (71) 99 03/09/19 13:24 78 18 30 Intake and Output 03/09/19 03/10/19 19:00 07:00 Intake Total 1641.666 ml 1665.000 ml Output Total 955 ml 1325 ml Balance 686.666 ml 340.000 ml IV Total 1641.666 ml 1665.000 ml Output Urine Total 755 ml 1325 ml Stool Total 200 ml 0 ml General Appearance: no acute distress Respiratory/Chest: lungs clear Cardiovascular: normal rate Microbiology Date/Time Source Procedure Growth Status 03/08/19 05:00 Blood Blood Culture - Preliminary NO GROWTH AFTER 24 HOURS Resulted 03/08/19 04:50 Blood Blood Culture - Preliminary NO GROWTH AFTER 24 HOURS Resulted 03/09/19 17:00 Stool Clostridium difficile Toxin Assay - Final Complete Laboratory Tests 03/10/19 03:30: White Blood Count 10.4, Red Blood Count 2.99L, Hemoglobin 9.1L, Hematocrit 26.8L , Mean Corpuscular Volume 90, Mean Corpuscular Hemoglobin 30.5, Mean Corpuscular Hemoglobin Concent 34.0, Red Cell Distribution Width 15.7H, Platelet Count 141L, Mean Platelet Volume 6.4L, Neutrophils (%) (Auto) 80.2H, Lymphocytes (%) (Auto) 9.7L, Monocytes (%) (Auto) 7.0, Eosinophils (%) (Auto) 2.7, Basophils (%) (Auto) 0.4, Sodium Level 129L, Potassium Level 2.9L, Chloride Level 99, Carbon Dioxide Level 21, Anion Gap 9, Blood Urea Nitrogen 5L , Creatinine 0.7, Estimat Glomerular Filtration Rate , Glucose Level 110H, Calcium Level 7.2L, Phosphorus Level 4.2, Magnesium Level 1.4L Current Medications Medications (Trade) Dose Ordered Sig/Tawny Route PRN Reason Start Time Stop Time Status Last Admin Dose Admin Chlorhexidine Gluconate (Jada-Hex 2%) 1 applic DAILY@2000 TOPIC 03/05/19 20:00 04/04/19 19:59 03/09/19 19:43 Ciprofloxacin 200 ml @ 200 mls/hr Q12HR IV 03/08/19 18:00 03/15/19 17:59 03/10/19 08:29 Dextrose (Dextrose 50%) 25 ml Q30M PRN IV Hypoglycemia 03/05/19 06:15 04/04/19 06:14 Dextrose (Dextrose 50%) 50 ml Q30M PRN IV Hypoglycemia 03/05/19 06:15 04/04/19 06:14 Dopamine HCl/ Dextrose 250 ml @ 0 mls/hr Q24H IV 03/05/19 06:32 04/04/19 06:31 03/05/19 07:46 Ferrous Sulfate (Feosol) 330 mg THREE TIMES A DAY NG 03/05/19 09:00 04/04/19 08:59 03/10/19 12:40 Lansoprazole (Prevacid) 30 mg DAILY NG 03/08/19 09:00 04/07/19 08:59 03/10/19 08:40 Lorazepam (Ativan 2mg/ml 1ml) 1 mg Q2H PRN IV For Anxiety 03/05/19 15:00 03/12/19 14:59 03/07/19 02:12 Magnesium Oxide (Mag-Ox 400mg) 400 mg THREE TIMES A DAY NG 03/09/19 18:00 04/08/19 17:59 03/10/19 12:40 Metronidazole 100 ml @ 100 mls/hr Q8HR IVPB 03/08/19 14:00 03/15/19 13:59 03/10/19 12:43 Norepinephrine Bitartrate 8 mg/ Dextrose 500 ml @ 0 mls/hr Q24H IV 03/05/19 22:00 04/04/19 21:59 03/09/19 06:46 Ondansetron HCl (Zofran) 4 mg Q6H PRN IVP Nausea & Vomiting 03/05/19 06:15 04/04/19 06:14 Potassium Phosphate 20 meq/ Sodium Chloride 1,004.5455 ml @ 75 mls/hr [id number] IV 03/10/19 10:00 04/09/19 09:59 03/10/19 10:58 Potassium Chloride (K-Dur) 40 meq TWICE A DAY NG 03/10/19 09:00 04/09/19 08:59 03/10/19 10:38 Vancomycin HCl (Vanco rx to dose) 1 ea DAILY PRN MISC Per rx protocol 03/05/19 06:15 04/04/19 06:14 Vancomycin HCl 750 mg/Sodium Chloride 275 ml @ 183.333 mls/hr Q12HR IVPB 03/07/19 21:00 03/12/19 20:59 03/10/19 08:40 Cedric Perez MD Mar 10, 2019 13:15
--- NOTE | 2019-03-10 17:45 | Diagnostic Imaging Report ---
Indication: Dyspnea Comparison: 03/06/2019 A single view chest radiograph was obtained. Findings: Basilar densities likely atelectasis noted. Cardiac size is stable. Endotracheal tube position is stable and satisfactory. IMPRESSION: No significant change.
[2019-03-10] MEDS: Dyna-Hex 2% Top Sol 2oz TOPIC SCH (19:43)
[2019-03-10] MEDS: Dakin's 0.25% (Half Strength) 16oz TOPIC SCH (20:10)
[2019-03-10] MEDS: Norepinephrine Bitartrate 8 MG in D5W 500ml 492 ML IV SCH (21:43)
[2019-03-11] VITALS (75 sets, daily range): BP systolic 82–124; BP diastolic 40–74
--- NOTE | 2019-03-11 04:30 | Progress Note ---
DATE: 03/09/2019 CARDIOLOGY PROGRESS NOTE Late entry for 03/09/2019. SUBJECTIVE: The patient is seen and evaluated. Discussed case with primary care physician. The patient remains in the intensive care unit on ventilator support. OBJECTIVE: VITAL SIGNS: Blood pressure 86/46, pulse 78, and respirations 19. HEENT: Orally intubated. LUNGS: Bilateral rhonchi. HEART: Regular rhythm and rate. Normal S1, S2. ABDOMEN: Soft. EXTREMITIES: Trace edema. LABORATORY DATA: White count 11 and hemoglobin 9.6. Sodium 133, potassium 3.5, bicarbonate 20, BUN 7, and creatinine 0.7. Albumin 1.7. IMPRESSION: 1. Sepsis with shock. 2. Hypokalemia. 3. Hypomagnesemia. 4. Myocardial ischemia. 5. Paroxysmal atrial fibrillation. 6. Degenerative aortic valve stenosis. PLAN: 1. Replace electrolytes. 2. Ventilator support. 3. Weaning efforts. 4. Taper pressors as able. 5. Volume resuscitation. 6. Antimicrobials. Mejia Mckinney M.D. DR: DASHAWN JOB#: [id number] CC:
--- NOTE | 2019-03-11 04:30 | Progress Note ---
DATE: 03/10/2019 CARDIOLOGY PROGRESS NOTE SUBJECTIVE: Blood pressure remains tenuous. He remains on ventilator support. Intensive care unit care ongoing. OBJECTIVE: LUNGS: Coarse breath sounds. Few rales. HEART: Regular rhythm and rate. Normal S1, S2. A 1/6 systolic murmur at the base. ABDOMEN: Soft. EXTREMITIES: Trace edema. LABORATORY DATA: Sodium 129, potassium 2.9, bicarb 21, BUN 5, creatinine 0.7, and magnesium 1.4. White count 10 and hemoglobin 9.1. IMPRESSION: Remains critical with guarded prognosis. PLAN: 1. Taper pressors. 2. Volume support. 3. Replace magnesium and potassium. 4. Wean off ventilator as able. 5. Antimicrobials per Infectious Disease staff consultant. Mejia Mckinney M.D. DR: DASHAWN JOB#: [id number] CC:
[2019-03-11] MEDS: DOPamine 400mg/250ml 250 ML IV SCH (06:20)
[2019-03-11 06:55] LABS: ANION GAP 6 mmol/L (5-15); BLOOD UREA NITROGEN 3 mg/dL (7-18); CALCIUM 7.5 MG/DL (8.5-10.1); CARBON DIOXIDE 24 MMOL/L (21-32); CHLORIDE 104 MMOL/L (98-107); CREATININE 0.7 MG/DL (0.55-1.30); PHOSPHORUS 3.4 MG/DL (2.5-4.9); POTASSIUM 3.3 MMOL/L (3.5-5.1); SODIUM 134 MMOL/L (136-145)
[2019-03-11 07:02] LABS: BASOPHILS % (AUTO) 0.5 % (0.0-2.0); EOSINOPHILS % (AUTO) 2.5 % (0.0-3.0); HEMATOCRIT 27.4 % (42.0-52.0); HEMOGLOBIN 9.1 G/DL (14.2-18.0); LYMPHOCYTES % (AUTO) 11.5 % (20.0-45.0); MEAN CORPUSCULAR VOLUME 91 FL (80-99); MONOCYTES % (AUTO) 7.1 % (1.0-10.0); NEUTROPHILS % (AUTO) 78.3 % (45.0-75.0); PLATELET COUNT 172 K/UL (150-450); RED CELL DISTRIBUTION WIDTH 16.3 % (11.6-14.8); WHITE BLOOD COUNT 9.1 K/UL (4.8-10.8)
[2019-03-11] MEDS: Magnesium Oxide 400mg tab NG SCH ×3 (08:20→18:31)
[2019-03-11] MEDS: Ferrous Sulfate 300 MG/5 ML UDC NG SCH ×3 (08:20→18:31)
[2019-03-11] MEDS: Vancomycin 750mg/NS 275ml IVPB SCH ×4 (08:20→21:11)
[2019-03-11] MEDS: Dakin's 0.25% (Half Strength) 16oz TOPIC SCH (09:10)
--- NOTE | 2019-03-11 10:04 | Nephrology Progress Note ---
Assessment/Plan Problem List: (1) Hypokalemia (2) Pyelonephritis (3) CALEB (acute kidney injury) (4) Septic shock (5) Cardiopulmonary arrest (6) Decubitus ulcer (7) Hypomagnesemia (8) Hypophosphatemia (9) Hyponatremia Assessment replace mg, phos,K avoid fluid overload but still on levophed needs fluids Subjective ROS Limited/Unobtainable: Yes Objective Objective Last 24 Hour Vital Signs Date Time Temp Pulse Resp B/P (MAP) Pulse Ox O2 Delivery O2 Flow Rate FiO2 03/11/19 09:00 82 20 102/50 (67) 100 03/11/19 08:48 84 21 30 03/11/19 08:45 84 17 104/48 (66) 99 03/11/19 08:30 85 18 101/47 (65) 98 03/11/19 08:15 84 16 111/61 (78) 100 03/11/19 08:00 Mechanical Ventilator Mechanical Ventilator Mechanical Ventilator 03/11/19 08:00 99.4 81 17 99/47 (64) 99 03/11/19 08:00 84 03/11/19 08:00 30 03/11/19 07:00 95/41 03/11/19 06:47 18 30 03/11/19 06:45 80 17 95/41 (59) 100 03/11/19 06:30 83 18 102/46 (64) 100 03/11/19 06:20 99/47 03/11/19 06:15 83 17 99/47 (64) 100 03/11/19 06:00 82 18 99/44 (62) 100 03/11/19 06:00 99/44 03/11/19 05:45 82 17 97/47 (64) 99 03/11/19 05:30 82 18 93/44 (60) 97 03/11/19 05:15 83 17 94/46 (62) 99 03/11/19 05:01 84 18 30 03/11/19 05:00 94/48 03/11/19 05:00 85 16 95/43 (60) 100 03/11/19 04:45 84 18 82/46 (58) 100 03/11/19 04:45 82/46 03/11/19 04:39 86 18 89/45 (60) 100 03/11/19 04:30 86 18 83/40 (54) 99 03/11/19 04:15 92 19 97/47 (64) 100 03/11/19 04:00 99.5 97 19 115/52 (73) 100 03/11/19 04:00 97/47 03/11/19 04:00 30 03/11/19 04:00 Mechanical Ventilator Mechanical Ventilator Mechanical Ventilator 03/11/19 04:00 96 03/11/19 03:45 90 18 118/69 (85) 100 03/11/19 03:30 85 18 116/62 (80) 99 03/11/19 03:15 87 18 100/59 (73) 100 03/11/19 03:00 81 18 90/43 (59) 100 03/11/19 03:00 100/59 03/11/19 02:56 81 18 30 03/11/19 02:45 81 18 90/47 (61) 100 03/11/19 02:30 84 18 100/47 (64) 98 03/11/19 02:15 84 18 91/50 (64) 100 03/11/19 02:00 91/50 03/11/19 02:00 88 19 105/48 (67) 98 03/11/19 01:45 87 18 111/51 (71) 100 03/11/19 01:30 92 20 111/63 (79) 99 03/11/19 01:15 98 21 116/64 (81) 100 03/11/19 01:11 79 18 30 03/11/19 01:00 84 16 108/55 (72) 100 03/11/19 01:00 116/64 03/11/19 00:45 77 18 96/45 (62) 99 03/11/19 00:30 79 18 104/45 (64) 100 03/11/19 00:15 77 21 106/60 (75) 100 03/11/19 00:00 78 03/11/19 00:00 Mechanical Ventilator Mechanical Ventilator Mechanical Ventilator 03/11/19 00:00 103/50 03/11/19 00:00 30 03/11/19 00:00 98.6 78 15 103/50 (67) 100 03/10/19 23:45 78 15 107/48 (67) 99 03/10/19 23:30 74 12 100/47 (64) 100 03/10/19 23:15 77 18 99/50 (66) 100 03/10/19 23:00 77 16 95/48 (64) 100 03/10/19 23:00 99/50 03/10/19 22:47 77 18 30 03/10/19 22:45 75 17 91/42 (58) 100 03/10/19 22:30 76 18 96/42 (60) 100 03/10/19 22:15 78 18 95/43 (60) 100 03/10/19 22:00 96/43 03/10/19 22:00 80 18 96/43 (60) 100 03/10/19 21:45 78 18 102/50 (67) 100 03/10/19 21:43 96/46 03/10/19 21:30 77 17 96/46 (63) 99 03/10/19 21:30 97/46 03/10/19 21:15 78 18 97/46 (63) 99 03/10/19 21:08 79 18 30 03/10/19 21:04 79 10 84/45 (58) 99 03/10/19 21:00 84/45 03/10/19 21:00 78 19 88/42 (57) 99 03/10/19 20:45 81 18 93/44 (60) 99 03/10/19 20:30 84 16 93/45 (61) 99 03/10/19 20:15 84 18 99/47 (64) 99 03/10/19 20:00 78 03/10/19 20:00 115/54 03/10/19 20:00 Mechanical Ventilator Mechanical Ventilator Mechanical Ventilator 03/10/19 20:00 30 03/10/19 20:00 98.6 78 18 115/54 (74) 100 03/10/19 19:45 80 18 111/54 (73) 98 03/10/19 19:30 78 18 108/53 (71) 100 03/10/19 19:15 77 17 102/57 (72) 100 03/10/19 19:00 106/52 03/10/19 19:00 76 18 106/52 (70) 99 03/10/19 18:55 77 18 30 03/10/19 18:00 101/51 03/10/19 18:00 80 18 101/51 (68) 99 03/10/19 17:24 79 19 30 03/10/19 17:00 94/58 03/10/19 17:00 98.2 76 19 94/48 (63) 99 03/10/19 16:00 78 03/10/19 16:00 30 03/10/19 16:00 89 18 100/52 (68) 98 03/10/19 16:00 Mechanical Ventilator Mechanical Ventilator Mechanical Ventilator 03/10/19 15:02 80 18 30 03/10/19 15:00 84 18 108/52 (70) 98 03/10/19 14:00 79 18 103/51 (68) 98 03/10/19 14:00 103/51 03/10/19 13:00 97/49 03/10/19 13:00 74 18 97/49 (65) 98 03/10/19 12:43 74 22 30 03/10/19 12:00 30 03/10/19 12:00 96/52 03/10/19 12:00 70 03/10/19 12:00 98.4 76 18 98/51 (67) 98 03/10/19 12:00 Mechanical Ventilator Mechanical Ventilator Mechanical Ventilator 03/10/19 11:00 98/49 03/10/19 11:00 75 18 98/49 (65) 98 03/10/19 10:57 73 18 30 Intake and Output 03/10/19 03/11/19 19:00 07:00 Intake Total 1806.666 ml 2153.750 ml Output Total 1300 ml 1440 ml Balance 506.666 ml 713.750 ml IV Total 1806.666 ml 1913.750 ml Tube Feeding 240 ml Output Urine Total 1200 ml 1240 ml Stool Total 100 ml 200 ml Laboratory Tests 03/11/19 06:24: White Blood Count 9.1, Red Blood Count 3.00L, Hemoglobin 9.1L, Hematocrit 27.4L , Mean Corpuscular Volume 91, Mean Corpuscular Hemoglobin 30.4, Mean Corpuscular Hemoglobin Concent 33.3, Red Cell Distribution Width 16.3H, Platelet Count 172, Mean Platelet Volume 6.2L, Neutrophils (%) (Auto) 78.3H, Lymphocytes (%) (Auto) 11.5L, Monocytes (%) (Auto) 7.1, Eosinophils (%) (Auto) 2.5, Basophils (%) (Auto) 0.5, Sodium Level 134L, Potassium Level 3.3L, Chloride Level 104, Carbon Dioxide Level 24, Anion Gap 6, Blood Urea Nitrogen 3L , Creatinine 0.7, Estimat Glomerular Filtration Rate , Glucose Level 116H, Calcium Level 7.5L, Phosphorus Level 3.4, Magnesium Level 2.1 Height (Feet): 6 Height (Inches): 2.00 Weight (Pounds): 200 General Appearance: mild distress EENT: other - intubated Neck: normal alignment Cardiovascular: normal rate Respiratory/Chest: rhonchi - bilaterally Abdomen: non tender Extremities: moderate edema 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
[2019-03-11] MEDS: SODIUM CHLORIDE IV SCH (13:09)
[2019-03-11] MEDS: POTASSIUM PHOSPHATE IV SCH (13:09)
--- NOTE | 2019-03-11 14:37 | Infectious Diseases Prog Note ---
Assessment/Plan Assessment/Plan ASSESSMENT: 1. sepsis, shock, enterobacter and streptococcus bacteremia, enterobacter uti, pna, sacral wound infection, leukocytosis, fevers - vancomycin, cipro and flagyl - check cultures, labs and chest x-ray - wound care per surgery/protocol - possible debridement - wean off pressors and vent as tolerated - icu care - clinically improved, leukocytosis much improved - d/w surgery 2. Acute kidney injury, elevated creatinine. 3. Anemia. 4. Atrial fibrillation. The patient has been on Eliquis. 5. Status post code. 6. Sacral wound. 7. Aortic valve stenosis. 8. Hypertension. 9. icu care 10. Hypertension treatment per primary but the patient currently is on pressors. 11. No known drug allergies. No antibiotic allergies. 12. Social history is negative. 13. Family history noncontributory. 14. MAR was noted. 15. Case discussed with RN. 16. Continue treatment per primary consultants. 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 Subjective Constitutional: Reports: fever - lgt, other - on vennt, no pressors HEENT: Reports: congestion Respiratory: Reports: shortness of breath Cardiovascular: Denies: chest pain Gastrointestinal/Abdominal: Denies: nausea, vomiting, diarrhea Genitourinary: Reports: other - + lemus Neurologic: Reports: other - weak, on vent Psychiatric: Reports: other - na Skin: Denies: rash Hematologic: Denies: bleeding Musculoskeletal: Reports: pain - na Allergies: Coded Allergies: No Known Allergies (Unverified , 03/05/19) Objective Vital Signs Last 24 Hour Vital Signs Date Time Temp Pulse Resp B/P (MAP) Pulse Ox O2 Delivery O2 Flow Rate FiO2 03/11/19 13:30 99.6 80 17 94/44 (61) 99 03/11/19 13:15 79 18 82/51 (61) 99 03/11/19 13:04 80 18 30 03/11/19 13:00 93/42 03/11/19 13:00 99.1 80 18 93/42 (59) 100 03/11/19 12:00 30 03/11/19 12:00 79 03/11/19 12:00 91/44 03/11/19 12:00 Mechanical Ventilator Mechanical Ventilator Mechanical Ventilator 03/11/19 12:00 99.7 81 18 91/44 (60) 98 03/11/19 11:00 96/44 03/11/19 11:00 81 16 96/44 (61) 99 03/11/19 10:39 80 18 30 03/11/19 10:15 80 18 90/43 (59) 99 03/11/19 10:00 80 17 85/43 (57) 100 03/11/19 10:00 87/42 03/11/19 09:00 82 20 102/50 (67) 100 03/11/19 09:00 98/46 03/11/19 08:48 84 21 30 03/11/19 08:45 84 17 104/48 (66) 99 03/11/19 08:30 85 18 101/47 (65) 98 03/11/19 08:15 84 16 111/61 (78) 100 03/11/19 08:00 Mechanical Ventilator Mechanical Ventilator Mechanical Ventilator 03/11/19 08:00 99.4 81 17 99/47 (64) 99 03/11/19 08:00 84 03/11/19 08:00 30 03/11/19 08:00 111/61 03/11/19 07:00 95/41 03/11/19 06:47 18 30 03/11/19 06:45 80 17 95/41 (59) 100 03/11/19 06:30 83 18 102/46 (64) 100 03/11/19 06:20 99/47 03/11/19 06:15 83 17 99/47 (64) 100 03/11/19 06:00 82 18 99/44 (62) 100 03/11/19 06:00 99/44 03/11/19 05:45 82 17 97/47 (64) 99 03/11/19 05:30 82 18 93/44 (60) 97 03/11/19 05:15 83 17 94/46 (62) 99 03/11/19 05:01 84 18 30 03/11/19 05:00 94/48 03/11/19 05:00 85 16 95/43 (60) 100 03/11/19 04:45 84 18 82/46 (58) 100 03/11/19 04:45 82/46 03/11/19 04:39 86 18 89/45 (60) 100 03/11/19 04:30 86 18 83/40 (54) 99 03/11/19 04:15 92 19 97/47 (64) 100 03/11/19 04:00 99.5 97 19 115/52 (73) 100 03/11/19 04:00 97/47 03/11/19 04:00 30 03/11/19 04:00 Mechanical Ventilator Mechanical Ventilator Mechanical Ventilator 03/11/19 04:00 96 03/11/19 03:45 90 18 118/69 (85) 100 03/11/19 03:30 85 18 116/62 (80) 99 03/11/19 03:15 87 18 100/59 (73) 100 03/11/19 03:00 81 18 90/43 (59) 100 03/11/19 03:00 100/59 03/11/19 02:56 81 18 30 03/11/19 02:45 81 18 90/47 (61) 100 03/11/19 02:30 84 18 100/47 (64) 98 03/11/19 02:15 84 18 91/50 (64) 100 03/11/19 02:00 91/50 03/11/19 02:00 88 19 105/48 (67) 98 03/11/19 01:45 87 18 111/51 (71) 100 03/11/19 01:30 92 20 111/63 (79) 99 03/11/19 01:15 98 21 116/64 (81) 100 03/11/19 01:11 79 18 30 03/11/19 01:00 84 16 108/55 (72) 100 03/11/19 01:00 116/64 03/11/19 00:45 77 18 96/45 (62) 99 03/11/19 00:30 79 18 104/45 (64) 100 03/11/19 00:15 77 21 106/60 (75) 100 03/11/19 00:00 78 03/11/19 00:00 Mechanical Ventilator Mechanical Ventilator Mechanical Ventilator 03/11/19 00:00 103/50 03/11/19 00:00 30 03/11/19 00:00 98.6 78 15 103/50 (67) 100 03/10/19 23:45 78 15 107/48 (67) 99 03/10/19 23:30 74 12 100/47 (64) 100 03/10/19 23:15 77 18 99/50 (66) 100 03/10/19 23:00 77 16 95/48 (64) 100 03/10/19 23:00 99/50 03/10/19 22:47 77 18 30 03/10/19 22:45 75 17 91/42 (58) 100 03/10/19 22:30 76 18 96/42 (60) 100 03/10/19 22:15 78 18 95/43 (60) 100 03/10/19 22:00 96/43 03/10/19 22:00 80 18 96/43 (60) 100 03/10/19 21:45 78 18 102/50 (67) 100 03/10/19 21:43 96/46 03/10/19 21:30 77 17 96/46 (63) 99 03/10/19 21:30 97/46 03/10/19 21:15 78 18 97/46 (63) 99 03/10/19 21:08 79 18 30 03/10/19 21:04 79 10 84/45 (58) 99 03/10/19 21:00 84/45 03/10/19 21:00 78 19 88/42 (57) 99 03/10/19 20:45 81 18 93/44 (60) 99 03/10/19 20:30 84 16 93/45 (61) 99 03/10/19 20:15 84 18 99/47 (64) 99 03/10/19 20:00 78 03/10/19 20:00 115/54 03/10/19 20:00 Mechanical Ventilator Mechanical Ventilator Mechanical Ventilator 03/10/19 20:00 30 03/10/19 20:00 98.6 78 18 115/54 (74) 100 03/10/19 19:45 80 18 111/54 (73) 98 03/10/19 19:30 78 18 108/53 (71) 100 03/10/19 19:15 77 17 102/57 (72) 100 03/10/19 19:00 106/52 03/10/19 19:00 76 18 106/52 (70) 99 03/10/19 18:55 77 18 30 03/10/19 18:00 101/51 03/10/19 18:00 80 18 101/51 (68) 99 03/10/19 17:24 79 19 30 03/10/19 17:00 94/58 03/10/19 17:00 98.2 76 19 94/48 (63) 99 03/10/19 16:00 78 03/10/19 16:00 30 03/10/19 16:00 89 18 100/52 (68) 98 03/10/19 16:00 Mechanical Ventilator Mechanical Ventilator Mechanical Ventilator 03/10/19 15:02 80 18 30 03/10/19 15:00 84 18 108/52 (70) 98 Height (Feet): 6 Height (Inches): 2.00 Weight (Pounds): 200 General Appearance: other - on vent HEENT: normocephalic, atraumatic, anicteric Respiratory/Chest: crackles/rales, rhonchi - bilaterally Cardiovascular: normal rate, regular rhythm, no gallop/murmur Abdomen: normal bowel sounds, soft, non tender, no organomegaly, other - + rectal tube with diarrhea Genitourinary: other - + lemus - urine clear Extremities: no cyanosis Skin: no rash Neurologic/Psychiatric: senior abap 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 Chest x-ray - 03/06/19 - Findings: Mild pleural thickening versus effusion on the right noted. Heart size is stable and mildly enlarged. Endotracheal tube is in good position unchanged. NG tube is present. The proximal port is near the EG junction. The tip is in the stomach. IMPRESSION: Nasogastric tube may be advanced slightly. Slightly improved congestion compared to the previous day Chest x-ray - 03/09/19 - Procedure: XRAY Chest 1v Indication: Dyspnea Comparison: 03/06/2019 A single view chest radiograph was obtained. Findings: Basilar densities likely atelectasis noted. Cardiac size is stable. Endotracheal tube position is stable and satisfactory. IMPRESSION: No significant change. Microbiology Date/Time Source Procedure Growth Status 03/08/19 05:00 Blood Blood Culture - Preliminary NO GROWTH AFTER 48 HOURS Resulted 03/06/19 05:00 Sputum Induced Gram Stain - Final Complete 03/06/19 05:00 Sputum Culture - Final MOLD Complete 03/09/19 17:00 Stool Clostridium difficile Toxin Assay - Final Complete 03/05/19 00:34 Urine,Clean Catch Urine Culture - Final Enterobacter Cloacae Complex Complete 03/05/19 00:50 Rectum VRE Culture - Final NO VANCOMYCIN RESISTANT ENTEROCOCCUS ... Complete Microbiology Date/Time Source Procedure Growth Status 03/09/19 17:00 Stool Clostridium difficile Toxin Assay - Final Complete Laboratory Tests Test 03/11/19 06:24 White Blood Count 9.1 K/UL (4.8-10.8) Red Blood Count 3.00 M/UL (4.70-6.10) L Hemoglobin 9.1 G/DL (14.2-18.0) L Hematocrit 27.4 % (42.0-52.0) L Mean Corpuscular Volume 91 FL (80-99) Mean Corpuscular Hemoglobin 30.4 PG (27.0-31.0) Mean Corpuscular Hemoglobin Concent 33.3 G/DL (32.0-36.0) Red Cell Distribution Width 16.3 % (11.6-14.8) H Platelet Count 172 K/UL (150-450) Mean Platelet Volume 6.2 FL (6.5-10.1) L Neutrophils (%) (Auto) 78.3 % (45.0-75.0) H Lymphocytes (%) (Auto) 11.5 % (20.0-45.0) L Monocytes (%) (Auto) 7.1 % (1.0-10.0) Eosinophils (%) (Auto) 2.5 % (0.0-3.0) Basophils (%) (Auto) 0.5 % (0.0-2.0) Sodium Level 134 MMOL/L (136-145) L Potassium Level 3.3 MMOL/L (3.5-5.1) L Chloride Level 104 MMOL/L (98-107) Carbon Dioxide Level 24 MMOL/L (21-32) Anion Gap 6 mmol/L (5-15) Blood Urea Nitrogen 3 mg/dL (7-18) L Creatinine 0.7 MG/DL (0.55-1.30) Estimat Glomerular Filtration Rate mL/min (>60) Glucose Level 116 MG/DL (74-106) H Calcium Level 7.5 MG/DL (8.5-10.1) L Phosphorus Level 3.4 MG/DL (2.5-4.9) Magnesium Level 2.1 MG/DL (1.8-2.4) Current Medications Medications (Trade) Dose Ordered Sig/Tawny Route PRN Reason Start Time Stop Time Status Last Admin Dose Admin Chlorhexidine Gluconate (Jada-Hex 2%) 1 applic DAILY@2000 TOPIC 03/05/19 20:00 04/04/19 19:59 03/10/19 19:43 Ciprofloxacin 200 ml @ 200 mls/hr Q12HR IV 03/08/19 18:00 03/15/19 17:59 03/11/19 08:19 Dextrose (Dextrose 50%) 25 ml Q30M PRN IV Hypoglycemia 03/05/19 06:15 04/04/19 06:14 Dextrose (Dextrose 50%) 50 ml Q30M PRN IV Hypoglycemia 03/05/19 06:15 04/04/19 06:14 Dopamine HCl/ Dextrose 250 ml @ 0 mls/hr Q24H IV 03/05/19 06:32 04/04/19 06:31 03/05/19 07:46 Ferrous Sulfate (Feosol) 330 mg THREE TIMES A DAY NG 03/05/19 09:00 04/04/19 08:59 03/11/19 13:10 Lansoprazole (Prevacid) 30 mg DAILY NG 03/08/19 09:00 04/07/19 08:59 03/11/19 08:20 Lorazepam (Ativan 2mg/ml 1ml) 1 mg Q2H PRN IV For Anxiety 03/05/19 15:00 03/12/19 14:59 03/07/19 02:12 Magnesium Oxide (Mag-Ox 400mg) 400 mg THREE TIMES A DAY NG 03/09/19 18:00 04/08/19 17:59 03/11/19 13:10 Metronidazole 100 ml @ 100 mls/hr Q8HR IVPB 03/08/19 14:00 03/15/19 13:59 03/11/19 13:09 Norepinephrine Bitartrate 8 mg/ Dextrose 500 ml @ 0 mls/hr Q24H IV 03/05/19 22:00 04/04/19 21:59 03/10/19 21:43 Ondansetron HCl (Zofran) 4 mg Q6H PRN IVP Nausea & Vomiting 03/05/19 06:15 04/04/19 06:14 Potassium Phosphate 20 meq/ Sodium Chloride 1,004.5455 ml @ 75 mls/hr [id number] IV 03/10/19 10:00 04/09/19 09:59 03/11/19 13:09 Potassium Chloride (K-Dur) 40 meq TWICE A DAY NG 03/10/19 09:00 04/09/19 08:59 03/11/19 08:21 Sodium Hypochlorite (Dakin's Half Strength) 1 applic DAILY TOPIC 03/10/19 20:00 04/09/19 19:59 03/11/19 09:10 Vancomycin HCl (Vanco rx to dose) 1 ea DAILY PRN MISC Per rx protocol 03/05/19 06:15 04/04/19 06:14 Vancomycin HCl 750 mg/Sodium Chloride 275 ml @ 183.333 mls/hr Q12HR IVPB 03/07/19 21:00 03/14/19 20:59 03/11/19 08:20 Makenzie Galeano MD Mar 11, 2019 14:37
[2019-03-11] MEDS ORDERED: NS 275ml ONE (16:27)
[2019-03-11] MEDS ORDERED: Tubing IV Secondary IV ONE (16:27)
--- NOTE | 2019-03-11 19:24 | Pulmonolgy Critical Care Note ---
Critical Care - Asmt/Plan Assessment/Plan: 1. Severe sepsis, shock due to enterobacter and streptococcus bacteremia 2. 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 CALEB, improving 4. Acute myocardial ischemia, possible non-ST elevation myocardial infarction. 5. Aspiration pneumonia. 6. Respiratory failure, status post full arrest. 7. Paroxysmal atrial fibrillation. 8. 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 9. Acute liver failure, improving PLAN: 1. Ventilator support. 2. Broad spectrum antimicrobials per ID; mold in sputum (?colonized) 3. Not tolerating weaning; stop weaning trials until off pressors and post op 4. Pressors, taper as tolerated 5. DVT and stress ulcer prophylaxes. 6. Wound care, surgery following 7. Planned surgical intervention when off pressors 8. 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 Discussed with: nurses Critical Care - Objective Last 24 Hour Vital Signs Date Time Temp Pulse Resp B/P (MAP) Pulse Ox O2 Delivery O2 Flow Rate FiO2 03/11/19 19:00 109/54 03/11/19 19:00 86 16 109/54 (72) 98 03/11/19 18:45 88 17 113/60 (77) 99 03/11/19 18:30 86 20 109/56 (73) 99 03/11/19 18:15 85 18 106/49 (68) 99 03/11/19 18:00 84 19 105/50 (68) 98 03/11/19 18:00 105/50 03/11/19 17:15 90 23 108/56 (73) 98 03/11/19 17:07 84 20 30 03/11/19 17:00 88 17 124/59 (80) 100 03/11/19 17:00 124/59 03/11/19 16:45 86 19 115/55 (75) 100 03/11/19 16:30 90 18 109/59 (76) 99 03/11/19 16:15 85 22 89/74 (79) 99 03/11/19 16:00 75 03/11/19 16:00 103/52 03/11/19 16:00 Mechanical Ventilator Mechanical Ventilator Mechanical Ventilator 03/11/19 16:00 98.6 82 20 103/52 (69) 99 03/11/19 16:00 30 03/11/19 15:00 81 17 88/41 (57) 99 03/11/19 15:00 99/47 03/11/19 14:39 82 18 30 03/11/19 14:30 82 14 89/41 (57) 98 03/11/19 14:15 84 18 95/46 (62) 99 03/11/19 14:00 85 18 99/47 (64) 98 03/11/19 14:00 93/42 03/11/19 13:30 99.6 80 17 94/44 (61) 99 03/11/19 13:15 79 18 82/51 (61) 99 03/11/19 13:04 80 18 30 03/11/19 13:00 93/42 03/11/19 13:00 99.1 80 18 93/42 (59) 100 03/11/19 12:00 30 03/11/19 12:00 79 03/11/19 12:00 91/44 03/11/19 12:00 Mechanical Ventilator Mechanical Ventilator Mechanical Ventilator 03/11/19 12:00 99.7 81 18 91/44 (60) 98 03/11/19 11:00 96/44 03/11/19 11:00 81 16 96/44 (61) 99 03/11/19 10:39 80 18 30 03/11/19 10:15 80 18 90/43 (59) 99 03/11/19 10:00 80 17 85/43 (57) 100 03/11/19 10:00 87/42 03/11/19 09:00 82 20 102/50 (67) 100 03/11/19 09:00 98/46 03/11/19 08:48 84 21 30 03/11/19 08:45 84 17 104/48 (66) 99 03/11/19 08:30 85 18 101/47 (65) 98 03/11/19 08:15 84 16 111/61 (78) 100 03/11/19 08:00 Mechanical Ventilator Mechanical Ventilator Mechanical Ventilator 03/11/19 08:00 99.4 81 17 99/47 (64) 99 03/11/19 08:00 84 03/11/19 08:00 30 03/11/19 08:00 111/61 6/8/19 07:00 95/41 03/11/19 06:47 18 30 03/11/19 06:45 80 17 95/41 (59) 100 03/11/19 06:30 83 18 102/46 (64) 100 03/11/19 06:20 99/47 03/11/19 06:15 83 17 99/47 (64) 100 03/11/19 06:00 82 18 99/44 (62) 100 03/11/19 06:00 99/44 03/11/19 05:45 82 17 97/47 (64) 99 03/11/19 05:30 82 18 93/44 (60) 97 03/11/19 05:15 83 17 94/46 (62) 99 03/11/19 05:01 84 18 30 03/11/19 05:00 94/48 03/11/19 05:00 85 16 95/43 (60) 100 03/11/19 04:45 84 18 82/46 (58) 100 03/11/19 04:45 82/46 03/11/19 04:39 86 18 89/45 (60) 100 03/11/19 04:30 86 18 83/40 (54) 99 03/11/19 04:15 92 19 97/47 (64) 100 03/11/19 04:00 99.5 97 19 115/52 (73) 100 03/11/19 04:00 97/47 03/11/19 04:00 30 03/11/19 04:00 Mechanical Ventilator Mechanical Ventilator Mechanical Ventilator 03/11/19 04:00 96 03/11/19 03:45 90 18 118/69 (85) 100 03/11/19 03:30 85 18 116/62 (80) 99 03/11/19 03:15 87 18 100/59 (73) 100 03/11/19 03:00 81 18 90/43 (59) 100 03/11/19 03:00 100/59 03/11/19 02:56 81 18 30 03/11/19 02:45 81 18 90/47 (61) 100 03/11/19 02:30 84 18 100/47 (64) 98 03/11/19 02:15 84 18 91/50 (64) 100 03/11/19 02:00 91/50 03/11/19 02:00 88 19 105/48 (67) 98 03/11/19 01:45 87 18 111/51 (71) 100 03/11/19 01:30 92 20 111/63 (79) 99 03/11/19 01:15 98 21 116/64 (81) 100 03/11/19 01:11 79 18 30 03/11/19 01:00 84 16 108/55 (72) 100 03/11/19 01:00 116/64 03/11/19 00:45 77 18 96/45 (62) 99 03/11/19 00:30 79 18 104/45 (64) 100 03/11/19 00:15 77 21 106/60 (75) 100 03/11/19 00:00 78 03/11/19 00:00 Mechanical Ventilator Mechanical Ventilator Mechanical Ventilator 03/11/19 00:00 103/50 03/11/19 00:00 30 03/11/19 00:00 98.6 78 15 103/50 (67) 100 03/10/19 23:45 78 15 107/48 (67) 99 03/10/19 23:30 74 12 100/47 (64) 100 03/10/19 23:15 77 18 99/50 (66) 100 03/10/19 23:00 77 16 95/48 (64) 100 03/10/19 23:00 99/50 03/10/19 22:47 77 18 30 03/10/19 22:45 75 17 91/42 (58) 100 03/10/19 22:30 76 18 96/42 (60) 100 03/10/19 22:15 78 18 95/43 (60) 100 03/10/19 22:00 96/43 03/10/19 22:00 80 18 96/43 (60) 100 03/10/19 21:45 78 18 102/50 (67) 100 03/10/19 21:43 96/46 03/10/19 21:30 77 17 96/46 (63) 99 03/10/19 21:30 97/46 03/10/19 21:15 78 18 97/46 (63) 99 03/10/19 21:08 79 18 30 03/10/19 21:04 79 10 84/45 (58) 99 03/10/19 21:00 84/45 03/10/19 21:00 78 19 88/42 (57) 99 03/10/19 20:45 81 18 93/44 (60) 99 03/10/19 20:30 84 16 93/45 (61) 99 03/10/19 20:15 84 18 99/47 (64) 99 03/10/19 20:00 78 03/10/19 20:00 115/54 03/10/19 20:00 Mechanical Ventilator Mechanical Ventilator Mechanical Ventilator 03/10/19 20:00 30 03/10/19 20:00 98.6 78 18 115/54 (74) 100 03/10/19 19:45 80 18 111/54 (73) 98 03/10/19 19:30 78 18 108/53 (71) 100 Status: awake Condition: critical Lungs: rhonchi Heart: HR/BP unstable Abdomen: soft, feeding tube Extremities: edema Micro: Microbiology Date/Time Source Procedure Growth Status 03/09/19 17:00 Stool Clostridium difficile Toxin Assay - Final Complete Accucheck: 106 Critical Care - Subjective ROS Limited/Unobtainable: Yes Condition: critical EKG Rhythm: Sinus Rhythm FI02: 30 Vent Support Breath Rate: 18 Vent Support Mode: AC Vent Tidal Volume: 550 Sputum Amount: Small PEEP: 5.0 PIP: 43 Tube Feeding Amount: 60 I&O: Intake and Output 03/10/19 03/11/19 19:00 07:00 Intake Total 1806.666 ml 2153.750 ml Output Total 1300 ml 1440 ml Balance 506.666 ml 713.750 ml IV Total 1806.666 ml 1913.750 ml Tube Feeding 240 ml Output Urine Total 1200 ml 1240 ml Stool Total 100 ml 200 ml Subjective: awakens on the vent no bleeding no cp nv or diarrhea positive uop no fever noted on abx surgery ntoe reviewed CXR: 03/09 reviewed ET-Tube: 8.0 ET Position: 23 Labs: Current Medications Medications (Trade) Dose Ordered Sig/Tawny Route PRN Reason Start Time Stop Time Status Last Admin Dose Admin Chlorhexidine Gluconate (Jada-Hex 2%) 1 applic DAILY@2000 TOPIC 03/05/19 20:00 04/04/19 19:59 03/10/19 19:43 Ciprofloxacin 200 ml @ 200 mls/hr Q12HR IV 03/08/19 18:00 03/15/19 17:59 03/11/19 08:19 Dextrose (Dextrose 50%) 25 ml Q30M PRN IV Hypoglycemia 03/05/19 06:15 04/04/19 06:14 Dextrose (Dextrose 50%) 50 ml Q30M PRN IV Hypoglycemia 03/05/19 06:15 04/04/19 06:14 Dopamine HCl/ Dextrose 250 ml @ 0 mls/hr Q24H IV 03/05/19 06:32 04/04/19 06:31 03/05/19 07:46 Ferrous Sulfate (Feosol) 330 mg THREE TIMES A DAY NG 03/05/19 09:00 04/04/19 08:59 03/11/19 18:31 Lansoprazole (Prevacid) 30 mg DAILY NG 03/08/19 09:00 04/07/19 08:59 03/11/19 08:20 Lorazepam (Ativan 2mg/ml 1ml) 1 mg Q2H PRN IV For Anxiety 03/05/19 15:00 03/12/19 14:59 03/07/19 02:12 Magnesium Oxide (Mag-Ox 400mg) 400 mg THREE TIMES A DAY NG 03/09/19 18:00 04/08/19 17:59 03/11/19 18:31 Metronidazole 100 ml @ 100 mls/hr Q8HR IVPB 03/08/19 14:00 03/15/19 13:59 03/11/19 13:09 Norepinephrine Bitartrate 8 mg/ Dextrose 500 ml @ 0 mls/hr Q24H IV 03/05/19 22:00 04/04/19 21:59 03/10/19 21:43 Ondansetron HCl (Zofran) 4 mg Q6H PRN IVP Nausea & Vomiting 03/05/19 06:15 04/04/19 06:14 Potassium Phosphate 20 meq/ Sodium Chloride 1,004.5455 ml @ 75 mls/hr [id number] IV 03/10/19 10:00 04/09/19 09:59 03/11/19 13:09 Potassium Chloride (K-Dur) 40 meq TWICE A DAY NG 03/10/19 09:00 04/09/19 08:59 03/11/19 18:31 Sodium Hypochlorite (Dakin's Half Strength) 1 applic DAILY TOPIC 03/10/19 20:00 04/09/19 19:59 03/11/19 09:10 Vancomycin HCl (Vanco rx to dose) 1 ea DAILY PRN MISC Per rx protocol 03/05/19 06:15 04/04/19 06:14 Vancomycin HCl 750 mg/Sodium Chloride 275 ml @ 183.333 mls/hr Q12HR IVPB 03/07/19 21:00 03/14/19 20:59 03/11/19 08:20 Laboratory Tests Test 03/11/19 06:24 White Blood Count 9.1 K/UL (4.8-10.8) Red Blood Count 3.00 M/UL (4.70-6.10) L Hemoglobin 9.1 G/DL (14.2-18.0) L Hematocrit 27.4 % (42.0-52.0) L Mean Corpuscular Volume 91 FL (80-99) Mean Corpuscular Hemoglobin 30.4 PG (27.0-31.0) Mean Corpuscular Hemoglobin Concent 33.3 G/DL (32.0-36.0) Red Cell Distribution Width 16.3 % (11.6-14.8) H Platelet Count 172 K/UL (150-450) Mean Platelet Volume 6.2 FL (6.5-10.1) L Neutrophils (%) (Auto) 78.3 % (45.0-75.0) H Lymphocytes (%) (Auto) 11.5 % (20.0-45.0) L Monocytes (%) (Auto) 7.1 % (1.0-10.0) Eosinophils (%) (Auto) 2.5 % (0.0-3.0) Basophils (%) (Auto) 0.5 % (0.0-2.0) Sodium Level 134 MMOL/L (136-145) L Potassium Level 3.3 MMOL/L (3.5-5.1) L Chloride Level 104 MMOL/L (98-107) Carbon Dioxide Level 24 MMOL/L (21-32) Anion Gap 6 mmol/L (5-15) Blood Urea Nitrogen 3 mg/dL (7-18) L Creatinine 0.7 MG/DL (0.55-1.30) Estimat Glomerular Filtration Rate mL/min (>60) Glucose Level 116 MG/DL (74-106) H Calcium Level 7.5 MG/DL (8.5-10.1) L Phosphorus Level 3.4 MG/DL (2.5-4.9) Magnesium Level 2.1 MG/DL (1.8-2.4) Dulce Lund DO Mar 11, 2019 19:24
[2019-03-11] MEDS: Dyna-Hex 2% Top Sol 2oz TOPIC SCH (20:24)
[2019-03-11] MEDS: Norepinephrine Bitartrate 8 MG in D5W 500ml 492 ML IV SCH (22:13)
[2019-03-12] VITALS (59 sets, daily range): BP systolic 83–120; BP diastolic 40–62
--- NOTE | 2019-03-12 00:30 | Progress Note ---
DATE: 03/11/2019 CARDIOLOGY PROGRESS NOTE SUBJECTIVE: The patient remains on ventilator support. Blood pressure parameters are better, but still tenuous. Weaning has been limited. OBJECTIVE: VITAL SIGNS: Blood pressure 109/54, pulse 86, respirations 16. Moderate secretions in endotracheal tube. LUNGS: Bilateral rhonchi. CARDIAC: Regular rhythm and rate. Normal S1, S2. ABDOMEN: Soft. EXTREMITIES: No edema. LABORATORY DATA: White count 9 and hemoglobin 9. Sodium 134, potassium 3.3, bicarb 24, BUN 3, creatinine 0.7, and magnesium 2.1. IMPRESSION: 1. Polymicrobial sepsis, bacteremia, and shock. 2. Respiratory failure. 3. Hypomagnesemia, corrected. 4. Hypokalemia. 5. Acute renal failure, improving. PLAN: 1. Replace potassium. 2. Monitor electrolytes. 3. Ventilator support with wean. 4. Antimicrobials per Infectious Disease real estate listing consultant. 5. Weaning off pressors. 6. Volume resuscitation, as needed. Mejia Mckinney M.D. DR: JOEL JOB#: [id number] CC:
[2019-03-12] MEDS: POTASSIUM PHOSPHATE IV SCH ×3 (02:04→15:37)
[2019-03-12] MEDS: SODIUM CHLORIDE IV SCH ×3 (02:04→15:37)
[2019-03-12 04:36] LABS: BASOPHILS % (AUTO) 1.4 % (0.0-2.0); EOSINOPHILS % (AUTO) 2.2 % (0.0-3.0); HEMOGLOBIN 9.4 G/DL (14.2-18.0); LYMPHOCYTES % (AUTO) 12.8 % (20.0-45.0); MEAN CORPUSCULAR VOLUME 92 FL (80-99); MONOCYTES % (AUTO) 7.4 % (1.0-10.0); NEUTROPHILS % (AUTO) 76.2 % (45.0-75.0); PLATELET COUNT 172 K/UL (150-450); RED BLOOD COUNT 3.04 M/UL (4.70-6.10); WHITE BLOOD COUNT 9.1 K/UL (4.8-10.8)
[2019-03-12 04:55] LABS: ANION GAP 6 mmol/L (5-15); BLOOD UREA NITROGEN 4 mg/dL (7-18); CALCIUM 7.6 MG/DL (8.5-10.1); CARBON DIOXIDE 24 MMOL/L (21-32); CHLORIDE 105 MMOL/L (98-107); CREATININE 0.6 MG/DL (0.55-1.30); PHOSPHORUS 3.1 MG/DL (2.5-4.9); POTASSIUM 3.6 MMOL/L (3.5-5.1); SODIUM 135 MMOL/L (136-145)
[2019-03-12] MEDS: DOPamine 400mg/250ml 250 ML IV SCH (06:19)
--- NOTE | 2019-03-12 08:27 | Pulmonolgy Critical Care Note ---
Critical Care - Asmt/Plan Assessment/Plan: 1. Severe sepsis, shock due to enterobacter and streptococcus bacteremia 2. 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 CALEB, improving 4. Acute myocardial ischemia, possible non-ST elevation myocardial infarction. 5. Aspiration pneumonia. 6. Respiratory failure, status post full arrest. 7. Paroxysmal atrial fibrillation. 8. 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 9. Acute liver failure, improving PLAN: 1. Ventilator support. 2. Broad spectrum antimicrobials per ID; mold in sputum (?colonized) 3. Not tolerating weaning; stop weaning trials until off pressors and post op 4. Pressors, taper as tolerated better today 5. DVT and stress ulcer prophylaxes. 6. Wound care, surgery following 7. Planned surgical intervention when off pressors 8. 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 Critical Care - Objective Last 24 Hour Vital Signs Date Time Temp Pulse Resp B/P (MAP) Pulse Ox O2 Delivery O2 Flow Rate FiO2 03/12/19 07:00 95 18 93/44 (60) 99 03/12/19 07:00 93/44 03/12/19 06:47 97 24 30 03/12/19 06:45 96 24 111/53 (72) 100 03/12/19 06:30 95 18 98/48 (65) 100 03/12/19 06:19 120/57 03/12/19 06:15 95 29 120/57 (78) 100 03/12/19 06:00 120/57 03/12/19 06:00 95 16 83/54 (64) 100 03/12/19 05:45 95 16 91/44 (60) 100 03/12/19 05:30 94 20 115/55 (75) 100 03/12/19 05:15 95 20 117/58 (77) 100 03/12/19 05:00 93 24 104/47 (66) 100 03/12/19 05:00 117/58 03/12/19 04:59 95 18 30 03/12/19 04:45 94 20 106/46 (66) 99 03/12/19 04:30 94 20 99/47 (64) 98 03/12/19 04:15 94 20 101/47 (65) 99 03/12/19 04:00 30 03/12/19 04:00 Mechanical Ventilator Mechanical Ventilator Mechanical Ventilator 03/12/19 04:00 99.1 95 18 113/57 (75) 99 03/12/19 04:00 101/47 03/12/19 04:00 89 03/12/19 03:45 94 21 113/60 (77) 100 03/12/19 03:30 92 18 96/47 (63) 99 03/12/19 03:29 92 18 30 03/12/19 03:15 88 18 98/42 (60) 99 03/12/19 03:00 98/42 03/12/19 03:00 88 18 94/46 (62) 98 03/12/19 02:45 90 15 99/45 (63) 99 03/12/19 02:30 89 18 104/50 (68) 98 03/12/19 02:15 94 16 104/50 (68) 100 03/12/19 02:00 104/50 03/12/19 02:00 90 18 100/45 (63) 100 03/12/19 01:45 91 18 106/47 (66) 100 03/12/19 01:30 90 21 106/47 (66) 100 03/12/19 01:15 90 25 116/52 (73) 100 03/12/19 01:00 116/52 03/12/19 01:00 94 21 114/53 (73) 100 03/12/19 00:49 87 18 30 03/12/19 00:30 99 26 116/62 (80) 99 03/12/19 00:15 92 20 106/50 (68) 98 03/12/19 00:00 89 03/12/19 00:00 106/50 03/12/19 00:00 99.7 91 19 102/54 (70) 98 03/12/19 00:00 Mechanical Ventilator Mechanical Ventilator Mechanical Ventilator 03/12/19 00:00 30 03/11/19 23:45 89 20 105/53 (70) 100 03/11/19 23:30 90 21 103/48 (66) 98 03/11/19 23:20 88 20 30 03/11/19 23:15 90 22 101/47 (65) 99 03/11/19 23:00 89 28 105/50 (68) 99 03/11/19 23:00 105/50 03/11/19 22:45 88 23 101/49 (66) 99 03/11/19 22:30 88 18 105/49 (67) 99 03/11/19 22:15 88 20 100/48 (65) 99 03/11/19 22:13 102/64 03/11/19 22:00 88 18 102/64 (77) 99 03/11/19 22:00 100/48 03/11/19 21:45 88 18 99/49 (66) 99 03/11/19 21:30 86 21 102/49 (66) 99 03/11/19 21:23 90 19 30 03/11/19 21:15 92 22 115/53 (73) 100 03/11/19 21:00 87 17 101/51 (68) 98 03/11/19 21:00 115/53 03/11/19 20:45 89 17 101/54 (70) 99 03/11/19 20:30 92 20 113/60 (77) 98 03/11/19 20:15 91 17 104/59 (74) 99 03/11/19 20:00 98.6 85 18 95/50 (65) 98 03/11/19 20:00 104/59 03/11/19 20:00 30 03/11/19 20:00 Mechanical Ventilator Mechanical Ventilator Mechanical Ventilator 03/11/19 20:00 87 03/11/19 19:45 87 16 94/60 (71) 99 03/11/19 19:39 83 18 30 03/11/19 19:30 84 18 102/46 (64) 99 03/11/19 19:15 85 19 115/51 (72) 99 03/11/19 19:00 109/54 03/11/19 19:00 86 16 109/54 (72) 98 03/11/19 18:45 88 17 113/60 (77) 99 03/11/19 18:30 86 20 109/56 (73) 99 03/11/19 18:15 85 18 106/49 (68) 99 03/11/19 18:00 84 19 105/50 (68) 98 03/11/19 18:00 105/50 03/11/19 17:15 90 23 108/56 (73) 98 03/11/19 17:07 84 20 30 03/11/19 17:00 88 17 124/59 (80) 100 03/11/19 17:00 124/59 03/11/19 16:45 86 19 115/55 (75) 100 03/11/19 16:30 90 18 109/59 (76) 99 03/11/19 16:15 85 22 89/74 (79) 99 03/11/19 16:00 75 03/11/19 16:00 103/52 03/11/19 16:00 Mechanical Ventilator Mechanical Ventilator Mechanical Ventilator 03/11/19 16:00 98.6 82 20 103/52 (69) 99 03/11/19 16:00 30 03/11/19 15:00 81 17 88/41 (57) 99 03/11/19 15:00 99/47 03/11/19 14:39 82 18 30 03/11/19 14:30 82 14 89/41 (57) 98 03/11/19 14:15 84 18 95/46 (62) 99 03/11/19 14:00 85 18 99/47 (64) 98 03/11/19 14:00 93/42 03/11/19 13:30 99.6 80 17 94/44 (61) 99 03/11/19 13:15 79 18 82/51 (61) 99 03/11/19 13:04 80 18 30 03/11/19 13:00 93/42 03/11/19 13:00 99.1 80 18 93/42 (59) 100 03/11/19 12:00 30 03/11/19 12:00 79 03/11/19 12:00 91/44 03/11/19 12:00 Mechanical Ventilator Mechanical Ventilator Mechanical Ventilator 03/11/19 12:00 99.7 81 18 91/44 (60) 98 03/11/19 11:00 96/44 03/11/19 11:00 81 16 96/44 (61) 99 03/11/19 10:39 80 18 30 03/11/19 10:15 80 18 90/43 (59) 99 03/11/19 10:00 80 17 85/43 (57) 100 03/11/19 10:00 87/42 03/11/19 09:00 82 20 102/50 (67) 100 03/11/19 09:00 98/46 03/11/19 08:48 84 21 30 03/11/19 08:45 84 17 104/48 (66) 99 03/11/19 08:30 85 18 101/47 (65) 98 Status: awake Condition: improving Lungs: clear Heart: HR/BP stable Abdomen: soft, non-tender Extremities: edema Decubiti: stage Micro: Microbiology Date/Time Source Procedure Growth Status 03/09/19 17:00 Stool Clostridium difficile Toxin Assay - Final Complete Accucheck: 106 Critical Care - Subjective ROS Limited/Unobtainable: No Condition: improving EKG Rhythm: Sinus Rhythm FI02: 30 Vent Support Breath Rate: 18 Vent Support Mode: AC Vent Tidal Volume: 550 Sputum Amount: Moderate PEEP: 5.0 PIP: 32 Tube Feeding Amount: 60 I&O: Intake and Output 03/11/19 03/12/19 18:59 06:59 Intake Total 2521.666 ml 2341.250 ml Output Total 925 ml 2120 ml Balance 1596.666 ml 221.250 ml Intake Free Water 180 ml IV Total 1801.666 ml 1621.250 ml Tube Feeding 540 ml 720 ml Output Urine Total 825 ml 1920 ml Stool Total 100 ml 200 ml Subjective: awakens on the vent pressors titrating down and bp stable no bleeding no cp nv or diarrhea positive uop no fever noted on abx surgery note reviewed ET-Tube: 8.0 ET Position: 23 Labs: Current Medications Medications (Trade) Dose Ordered Sig/Tawny Route PRN Reason Start Time Stop Time Status Last Admin Dose Admin Chlorhexidine Gluconate (Jada-Hex 2%) 1 applic DAILY@2000 TOPIC 03/05/19 20:00 04/04/19 19:59 03/11/19 20:24 Ciprofloxacin 200 ml @ 200 mls/hr Q12HR IV 03/08/19 18:00 03/15/19 17:59 03/12/19 08:30 Dextrose (Dextrose 50%) 25 ml Q30M PRN IV Hypoglycemia 03/05/19 06:15 04/04/19 06:14 Dextrose (Dextrose 50%) 50 ml Q30M PRN IV Hypoglycemia 03/05/19 06:15 04/04/19 06:14 Dopamine HCl/ Dextrose 250 ml @ 0 mls/hr Q24H IV 03/05/19 06:32 04/04/19 06:31 03/05/19 07:46 Ferrous Sulfate (Feosol) 330 mg THREE TIMES A DAY NG 03/05/19 09:00 04/04/19 08:59 03/12/19 08:30 Lansoprazole (Prevacid) 30 mg DAILY NG 03/08/19 09:00 04/07/19 08:59 03/12/19 08:31 Lorazepam (Ativan 2mg/ml 1ml) 1 mg Q2H PRN IV For Anxiety 03/05/19 15:00 03/12/19 14:59 03/07/19 02:12 Magnesium Oxide (Mag-Ox 400mg) 400 mg THREE TIMES A DAY NG 03/09/19 18:00 04/08/19 17:59 03/12/19 08:31 Metronidazole 100 ml @ 100 mls/hr Q8HR IVPB 03/08/19 14:00 03/15/19 13:59 03/12/19 06:19 Norepinephrine Bitartrate 8 mg/ Dextrose 500 ml @ 0 mls/hr Q24H IV 03/05/19 22:00 04/04/19 21:59 03/11/19 22:13 Ondansetron HCl (Zofran) 4 mg Q6H PRN IVP Nausea & Vomiting 03/05/19 06:15 04/04/19 06:14 Potassium Phosphate 20 meq/ Sodium Chloride 1,004.5455 ml @ 75 mls/hr [id number] IV 03/10/19 10:00 04/09/19 09:59 03/12/19 02:04 Potassium Chloride (K-Dur) 40 meq TWICE A DAY NG 03/10/19 09:00 04/09/19 08:59 03/12/19 08:32 Sodium Hypochlorite (Dakin's Half Strength) 1 applic DAILY TOPIC 03/10/19 20:00 04/09/19 19:59 03/12/19 08:33 Vancomycin HCl (Vanco rx to dose) 1 ea DAILY PRN MISC Per rx protocol 03/05/19 06:15 04/04/19 06:14 Vancomycin HCl 750 mg/Sodium Chloride 275 ml @ 183.333 mls/hr Q12HR IVPB 03/07/19 21:00 03/14/19 20:59 03/12/19 08:30 Laboratory Tests Test 03/12/19 04:05 White Blood Count 9.1 K/UL (4.8-10.8) Red Blood Count 3.04 M/UL (4.70-6.10) L Hemoglobin 9.4 G/DL (14.2-18.0) L Hematocrit 28.0 % (42.0-52.0) L Mean Corpuscular Volume 92 FL (80-99) Mean Corpuscular Hemoglobin 31.0 PG (27.0-31.0) Mean Corpuscular Hemoglobin Concent 33.6 G/DL (32.0-36.0) Red Cell Distribution Width 17.0 % (11.6-14.8) H Platelet Count 172 K/UL (150-450) Mean Platelet Volume 5.5 FL (6.5-10.1) L Neutrophils (%) (Auto) 76.2 % (45.0-75.0) H Lymphocytes (%) (Auto) 12.8 % (20.0-45.0) L Monocytes (%) (Auto) 7.4 % (1.0-10.0) Eosinophils (%) (Auto) 2.2 % (0.0-3.0) Basophils (%) (Auto) 1.4 % (0.0-2.0) Sodium Level 135 MMOL/L (136-145) L Potassium Level 3.6 MMOL/L (3.5-5.1) Chloride Level 105 MMOL/L (98-107) Carbon Dioxide Level 24 MMOL/L (21-32) Anion Gap 6 mmol/L (5-15) Blood Urea Nitrogen 4 mg/dL (7-18) L Creatinine 0.6 MG/DL (0.55-1.30) Estimat Glomerular Filtration Rate mL/min (>60) Glucose Level 119 MG/DL (74-106) H Calcium Level 7.6 MG/DL (8.5-10.1) L Phosphorus Level 3.1 MG/DL (2.5-4.9) Dulce Lund DO Mar 12, 2019 08:27
[2019-03-12] MEDS: Ferrous Sulfate 300 MG/5 ML UDC NG SCH ×3 (08:30→17:56)
[2019-03-12] MEDS: Vancomycin 750mg/NS 275ml IVPB SCH ×4 (08:30→20:58)
[2019-03-12] MEDS: Magnesium Oxide 400mg tab NG SCH ×3 (08:31→17:56)
[2019-03-12] MEDS: Dakin's 0.25% (Half Strength) 16oz TOPIC SCH (08:33)
--- NOTE | 2019-03-12 14:51 | Nephrology Progress Note ---
Assessment/Plan Problem List: (1) Hypokalemia (2) Pyelonephritis (3) CALEB (acute kidney injury) (4) Septic shock (5) Cardiopulmonary arrest (6) Decubitus ulcer (7) Hypomagnesemia (8) Hypophosphatemia (9) Hyponatremia Assessment replace mg, phos,K avoid fluid overload but still on levophed needs fluids Subjective ROS Limited/Unobtainable: Yes Objective Objective Last 24 Hour Vital Signs Date Time Temp Pulse Resp B/P (MAP) Pulse Ox O2 Delivery O2 Flow Rate FiO2 03/12/19 14:00 85 17 106/47 (66) 100 03/12/19 13:09 83 18 30 03/12/19 13:00 83 17 97/49 (65) 100 03/12/19 12:00 30 03/12/19 12:00 85 19 98/45 (62) 99 03/12/19 12:00 Mechanical Ventilator Mechanical Ventilator Mechanical Ventilator 03/12/19 12:00 91 03/12/19 11:21 83 18 30 03/12/19 11:15 83 18 98/46 (63) 100 03/12/19 11:00 82 18 107/53 (71) 100 03/12/19 10:45 84 18 87/40 (56) 100 03/12/19 10:30 89 19 86/47 (60) 100 03/12/19 10:15 89 15 89/45 (60) 100 03/12/19 10:00 91 18 88/46 (60) 100 03/12/19 09:10 88 19 30 03/12/19 08:45 90 17 91/43 (59) 100 03/12/19 08:34 93 18 92/44 (60) 99 03/12/19 08:15 92 18 119/48 (71) 100 03/12/19 08:00 Mechanical Ventilator Mechanical Ventilator Mechanical Ventilator 03/12/19 08:00 91 03/12/19 08:00 30 03/12/19 08:00 99.6 91 18 97/47 (64) 100 03/12/19 07:00 95 18 93/44 (60) 99 03/12/19 07:00 93/44 03/12/19 06:47 97 24 30 03/12/19 06:45 96 24 111/53 (72) 100 03/12/19 06:30 95 18 98/48 (65) 100 03/12/19 06:19 120/57 03/12/19 06:15 95 29 120/57 (78) 100 03/12/19 06:00 120/57 03/12/19 06:00 95 16 83/54 (64) 100 03/12/19 05:45 95 16 91/44 (60) 100 03/12/19 05:30 94 20 115/55 (75) 100 03/12/19 05:15 95 20 117/58 (77) 100 03/12/19 05:00 93 24 104/47 (66) 100 03/12/19 05:00 117/58 03/12/19 04:59 95 18 30 03/12/19 04:45 94 20 106/46 (66) 99 03/12/19 04:30 94 20 99/47 (64) 98 03/12/19 04:15 94 20 101/47 (65) 99 03/12/19 04:00 30 03/12/19 04:00 Mechanical Ventilator Mechanical Ventilator Mechanical Ventilator 03/12/19 04:00 99.1 95 18 113/57 (75) 99 03/12/19 04:00 101/47 03/12/19 04:00 89 03/12/19 03:45 94 21 113/60 (77) 100 03/12/19 03:30 92 18 96/47 (63) 99 03/12/19 03:29 92 18 30 03/12/19 03:15 88 18 98/42 (60) 99 03/12/19 03:00 98/42 03/12/19 03:00 88 18 94/46 (62) 98 03/12/19 02:45 90 15 99/45 (63) 99 03/12/19 02:30 89 18 104/50 (68) 98 03/12/19 02:15 94 16 104/50 (68) 100 03/12/19 02:00 104/50 03/12/19 02:00 90 18 100/45 (63) 100 03/12/19 01:45 91 18 106/47 (66) 100 03/12/19 01:30 90 21 106/47 (66) 100 03/12/19 01:15 90 25 116/52 (73) 100 6/9/19 01:00 116/52 03/12/19 01:00 94 21 114/53 (73) 100 03/12/19 00:49 87 18 30 03/12/19 00:30 99 26 116/62 (80) 99 03/12/19 00:15 92 20 106/50 (68) 98 03/12/19 00:00 89 03/12/19 00:00 106/50 03/12/19 00:00 99.7 91 19 102/54 (70) 98 03/12/19 00:00 Mechanical Ventilator Mechanical Ventilator Mechanical Ventilator 03/12/19 00:00 30 03/11/19 23:45 89 20 105/53 (70) 100 03/11/19 23:30 90 21 103/48 (66) 98 03/11/19 23:20 88 20 30 03/11/19 23:15 90 22 101/47 (65) 99 03/11/19 23:00 89 28 105/50 (68) 99 03/11/19 23:00 105/50 03/11/19 22:45 88 23 101/49 (66) 99 03/11/19 22:30 88 18 105/49 (67) 99 03/11/19 22:15 88 20 100/48 (65) 99 03/11/19 22:13 102/64 03/11/19 22:00 88 18 102/64 (77) 99 03/11/19 22:00 100/48 03/11/19 21:45 88 18 99/49 (66) 99 03/11/19 21:30 86 21 102/49 (66) 99 03/11/19 21:23 90 19 30 03/11/19 21:15 92 22 115/53 (73) 100 03/11/19 21:00 87 17 101/51 (68) 98 03/11/19 21:00 115/53 03/11/19 20:45 89 17 101/54 (70) 99 03/11/19 20:30 92 20 113/60 (77) 98 03/11/19 20:15 91 17 104/59 (74) 99 03/11/19 20:00 98.6 85 18 95/50 (65) 98 03/11/19 20:00 104/59 03/11/19 20:00 30 03/11/19 20:00 Mechanical Ventilator Mechanical Ventilator Mechanical Ventilator 03/11/19 20:00 87 03/11/19 19:45 87 16 94/60 (71) 99 03/11/19 19:39 83 18 30 03/11/19 19:30 84 18 102/46 (64) 99 03/11/19 19:15 85 19 115/51 (72) 99 03/11/19 19:00 109/54 03/11/19 19:00 86 16 109/54 (72) 98 03/11/19 18:45 88 17 113/60 (77) 99 03/11/19 18:30 86 20 109/56 (73) 99 03/11/19 18:15 85 18 106/49 (68) 99 03/11/19 18:00 84 19 105/50 (68) 98 03/11/19 18:00 105/50 03/11/19 17:15 90 23 108/56 (73) 98 03/11/19 17:07 84 20 30 03/11/19 17:00 88 17 124/59 (80) 100 03/11/19 17:00 124/59 03/11/19 16:45 86 19 115/55 (75) 100 03/11/19 16:30 90 18 109/59 (76) 99 03/11/19 16:15 85 22 89/74 (79) 99 03/11/19 16:00 75 03/11/19 16:00 103/52 03/11/19 16:00 Mechanical Ventilator Mechanical Ventilator Mechanical Ventilator 03/11/19 16:00 98.6 82 20 103/52 (69) 99 03/11/19 16:00 30 03/11/19 15:00 81 17 88/41 (57) 99 03/11/19 15:00 99/47 Intake and Output 03/11/19 03/12/19 19:00 07:00 Intake Total 2451.666 ml 3115.500 ml Output Total 850 ml 2145 ml Balance 1601.666 ml 970.500 ml Intake Free Water 180 ml IV Total 1701.666 ml 2395.500 ml Tube Feeding 570 ml 720 ml Output Urine Total 750 ml 1945 ml Stool Total 100 ml 200 ml Laboratory Tests 03/12/19 04:05: White Blood Count 9.1, Red Blood Count 3.04L, Hemoglobin 9.4L, Hematocrit 28.0L , Mean Corpuscular Volume 92, Mean Corpuscular Hemoglobin 31.0, Mean Corpuscular Hemoglobin Concent 33.6, Red Cell Distribution Width 17.0H, Platelet Count 172, Mean Platelet Volume 5.5L, Neutrophils (%) (Auto) 76.2H, Lymphocytes (%) (Auto) 12.8L, Monocytes (%) (Auto) 7.4, Eosinophils (%) (Auto) 2.2, Basophils (%) (Auto) 1.4, Sodium Level 135L, Potassium Level 3.6, Chloride Level 105, Carbon Dioxide Level 24, Anion Gap 6, Blood Urea Nitrogen 4L, Creatinine 0.6, Estimat Glomerular Filtration Rate , Glucose Level 119H, Calcium Level 7.6L, Phosphorus Level 3.1 Height (Feet): 6 Height (Inches): 2.00 Weight (Pounds): 200 General Appearance: confused EENT: other - intubated Neck: normal alignment Cardiovascular: normal rate, regular rhythm Respiratory/Chest: rhonchi - bilaterally Abdomen: non tender Extremities: moderate edema Rishi Christy MD Mar 12, 2019 14:51
[2019-03-12] MEDS: Dyna-Hex 2% Top Sol 2oz TOPIC SCH (20:24)
[2019-03-12] MEDS ORDERED: NS 275ml ONE (22:49)
[2019-03-12] MEDS: Norepinephrine Bitartrate 8 MG in D5W 500ml 492 ML IV SCH (22:53)
--- NOTE | 2019-03-12 23:30 | Progress Note ---
DATE: 03/12/2019 CARDIOLOGY PROGRESS NOTE SUBJECTIVE: The patient remains on pressors ____ unable to discontinue completely due to episodic hypotensive episodes. OBJECTIVE: VITAL SIGNS: Blood pressure 89/42, pulse 87, respiratory rate 20. Monitored rhythm sinus. HEENT: Orally intubated. Mechanically ventilated. LUNGS: Bilateral breath sounds. Rhonchi. HEART: Regular rhythm and rate. Normal S1 and S2. ABDOMEN: Soft. EXTREMITIES: 1+ dependent edema. IMPRESSION: 1. Sepsis with shock. 2. Sacral decubitus. 3. Acute myocardial ischemia and non-ST elevation infarction. 4. Paroxysmal atrial fibrillation. 5. Degenerative aortic valve disease with stenosis, status post full arrest. 6. Respiratory failure, failure to wean. 7. Remains critical and guarded. PLAN: 1. Unable to wean at this time. 2. Antimicrobials per Infectious Disease media consultant. Taper pressors as able. 3. Volume resuscitation. 4. DVT and stress ulcer prophylaxis. Mejia Mckinney M.D. DR: JUVENTINO JOB#: [id number] CC:
[2019-03-13] VITALS (57 sets, daily range): BP systolic 68–136; BP diastolic 33–61
[2019-03-13] MEDS: DOPamine 400mg/250ml 250 ML IV SCH (06:32)
[2019-03-13] MEDS: POTASSIUM PHOSPHATE IV SCH ×2 (08:00→18:45)
[2019-03-13] MEDS: SODIUM CHLORIDE IV SCH ×2 (08:00→18:45)
[2019-03-13] MEDS: Magnesium Oxide 400mg tab NG SCH ×3 (08:25→17:21)
[2019-03-13] MEDS: Ferrous Sulfate 300 MG/5 ML UDC NG SCH ×3 (08:25→17:22)
[2019-03-13] MEDS: Dakin's 0.25% (Half Strength) 16oz TOPIC SCH (08:27)
[2019-03-13] MEDS: Vancomycin 1gm/D5W 275ml IVPB SCH ×4 (09:32→20:44)
[2019-03-13] MEDS ORDERED: Lidocaine 1% Plain 30 ml INJ PRN (10:30)
[2019-03-13] MEDS ORDERED: Heparin1,000 units/500ml Premix(Conc:2 units/ml) IV PRN (10:30)
--- NOTE | 2019-03-13 12:21 | Diagnostic Imaging Report ---
Indication: Dyspnea Comparison: 03/09/2019 A single view chest radiograph was obtained. Findings: Endotracheal tube is in good position. NG tube also noted position. Heart size is stable. Pulmonary vascular congestion suspected. Small bilateral pleural effusion suspected. IMPRESSION: Mild pulmonary congestion suspected
--- NOTE | 2019-03-13 15:44 | Infectious Diseases Prog Note ---
Assessment/Plan Assessment/Plan ASSESSMENT: 1. sepsis, shock, enterobacter and enterococcus bacteremia, enterobacter uti, pna, sacral wound infection, leukocytosis, fevers sputum culture with mold - ID pending, ? colonizer - vancomycin, cipro and flagyl - monitor labs and chest x-ray - wound care per surgery/protocol - possible debridement - wean off pressors and vent as tolerated - icu care - clinically improved, leukocytosis much improved, lgt noted 2. Acute kidney injury, elevated creatinine. 3. Anemia. 4. Atrial fibrillation. The patient has been on Eliquis. 5. Status post code. 6. Sacral wound. 7. Aortic valve stenosis. 8. Hypertension. 9. icu care 10. Hypertension treatment per primary but the patient currently is on pressors. 11. No known drug allergies. No antibiotic allergies. 12. Social history is negative. 13. Family history noncontributory. 14. MAR was noted. 15. Case discussed with RN. 16. Continue treatment per primary consultants. 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 Subjective Constitutional: Reports: fever - lgt noted , other - on vent, no pressors HEENT: Reports: congestion Respiratory: Reports: shortness of breath Cardiovascular: Denies: chest pain Gastrointestinal/Abdominal: Denies: nausea, vomiting, diarrhea Genitourinary: Reports: other - + lemus Neurologic: Denies: headache Psychiatric: Denies: depression Skin: Denies: rash Hematologic: Denies: bleeding Musculoskeletal: Denies: pain Allergies: Coded Allergies: No Known Allergies (Unverified , 03/05/19) Objective Vital Signs Last 24 Hour Vital Signs Date Time Temp Pulse Resp B/P (MAP) Pulse Ox O2 Delivery O2 Flow Rate FiO2 03/13/19 15:03 83 18 30 03/13/19 15:00 83 18 105/46 (65) 100 03/13/19 14:30 86 17 136/57 (83) 99 03/13/19 14:00 84 19 106/50 (68) 99 03/13/19 13:30 86 18 105/61 (76) 98 03/13/19 13:30 85 18 102/48 (66) 98 03/13/19 13:20 83 18 30 03/13/19 13:00 78 18 99/43 (61) 99 03/13/19 13:00 90 18 102/34 (56) 98 03/13/19 12:30 82 19 88/34 (52) 99 03/13/19 12:30 85 18 92/39 (56) 98 03/13/19 12:00 Mechanical Ventilator Mechanical Ventilator Mechanical Ventilator 03/13/19 12:00 30 03/13/19 12:00 30 03/13/19 12:00 85 03/13/19 12:00 99.0 85 20 94/37 (56) 100 03/13/19 12:00 99.0 85 18 93/37 (55) 98 03/13/19 11:30 85 18 105/45 (65) 99 03/13/19 11:29 91 18 30 03/13/19 11:00 83 18 105/42 (63) 100 03/13/19 10:30 86 17 89/38 (55) 100 03/13/19 10:00 79 18 87/37 (54) 99 03/13/19 09:30 79 18 80/36 (51) 99 03/13/19 09:00 86 18 92/52 (65) 100 03/13/19 08:59 85 18 30 03/13/19 08:30 89 18 89/44 (59) 99 03/13/19 08:00 Mechanical Ventilator Mechanical Ventilator Mechanical Ventilator 03/13/19 08:00 30 03/13/19 08:00 100.0 87 18 101/43 (62) 99 03/13/19 08:00 89 03/13/19 07:00 94 8 73/33 (46) 98 03/13/19 06:40 97 17 30 03/13/19 06:32 100/60 03/13/19 06:30 97 19 79/39 (52) 100 03/13/19 06:00 93 20 94/44 (61) 100 03/13/19 05:30 97 20 91/39 (56) 100 03/13/19 05:16 92 18 30 03/13/19 05:00 97 26 117/59 (78) 99 03/13/19 04:30 86 17 75/35 (48) 97 03/13/19 04:00 Mechanical Ventilator Mechanical Ventilator Mechanical Ventilator 03/13/19 04:00 30 03/13/19 04:00 93 03/13/19 04:00 98.7 86 17 75/35 (48) 97 03/13/19 03:30 94 20 68/33 (45) 99 03/13/19 03:18 95 20 30 03/13/19 03:00 97 36 79/39 (52) 99 03/13/19 02:30 96 20 118/61 (80) 99 03/13/19 02:00 92 30 85/59 (68) 98 03/13/19 01:45 97 45 117/59 (78) 99 03/13/19 01:30 88 22 99/57 (71) 99 03/13/19 01:00 97 21 122/58 (79) 99 03/13/19 00:55 96 22 30 03/13/19 00:30 94 14 103/53 (70) 98 03/13/19 00:00 30 03/13/19 00:00 85 03/13/19 00:00 Mechanical Ventilator Mechanical Ventilator Mechanical Ventilator 03/13/19 00:00 99.3 92 18 82/48 (59) 95 03/12/19 23:09 95 18 30 03/12/19 23:00 95 18 98/56 (70) 97 03/12/19 22:53 110/63 03/12/19 22:30 96 18 110/60 (77) 97 03/12/19 22:00 88 18 107/60 (76) 97 03/12/19 21:30 82 18 99/44 (62) 100 03/12/19 21:23 82 18 30 03/12/19 21:00 84 18 94/45 (61) 100 03/12/19 20:30 87 18 100/47 (64) 100 03/12/19 20:00 30 03/12/19 20:00 98.0 87 18 105/47 (66) 100 03/12/19 20:00 Mechanical Ventilator Mechanical Ventilator Mechanical Ventilator 03/12/19 20:00 93 03/12/19 19:12 80 18 30 03/12/19 19:00 98/52 03/12/19 19:00 87 20 89/42 (58) 99 03/12/19 18:56 86 18 96/48 (64) 99 03/12/19 18:30 86 18 96/48 (64) 99 03/12/19 18:00 76 9 87/42 (57) 99 03/12/19 18:00 87/42 03/12/19 17:45 80 5 96/46 (63) 99 03/12/19 17:30 84 19 101/48 (65) 100 03/12/19 17:21 81 20 30 03/12/19 17:15 87 6 96/47 (63) 99 03/12/19 17:00 96/47 03/12/19 17:00 84 14 102/47 (65) 98 03/12/19 16:00 30 03/12/19 16:00 Mechanical Ventilator Mechanical Ventilator Mechanical Ventilator 03/12/19 16:00 87 03/12/19 16:00 99/46 03/12/19 16:00 99.6 86 18 99/49 (66) 99 Height (Feet): 6 Height (Inches): 2.00 Weight (Pounds): 200 General Appearance: other - on vent HEENT: normocephalic, atraumatic, anicteric, other - oral - intubated Respiratory/Chest: crackles/rales, rhonchi - bilaterally Cardiovascular: normal rate, regular rhythm, no gallop/murmur, no JVD Abdomen: normal bowel sounds, soft, non tender, no organomegaly, non distended Genitourinary: other - + lemus Extremities: no cyanosis Skin: no rash 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 Chest x-ray - 03/06/19 - Findings: Mild pleural thickening versus effusion on the right noted. Heart size is stable and mildly enlarged. Endotracheal tube is in good position unchanged. NG tube is present. The proximal port is near the EG junction. The tip is in the stomach. IMPRESSION: Nasogastric tube may be advanced slightly. Slightly improved congestion compared to the previous day Chest x-ray - 03/09/19 - Procedure: XRAY Chest 1v Indication: Dyspnea Comparison: 03/06/2019 A single view chest radiograph was obtained. Findings: Basilar densities likely atelectasis noted. Cardiac size is stable. Endotracheal tube position is stable and satisfactory. IMPRESSION: No significant change. Chest x-ray - 03/13/19 - A single view chest radiograph was obtained. Findings: Endotracheal tube is in good position. NG tube also noted position. Heart size is stable. Pulmonary vascular congestion suspected. Small bilateral pleural effusion suspected. IMPRESSION: Mild pulmonary congestion suspected Microbiology Date/Time Source Procedure Growth Status 03/08/19 05:00 Blood Blood Culture - Final NO GROWTH AFTER 5 DAYS Complete 03/06/19 05:00 Sputum Induced Gram Stain - Final Complete 03/06/19 05:00 Sputum Culture - Final MOLD Complete 03/09/19 17:00 Stool Clostridium difficile Toxin Assay - Final Complete 03/05/19 00:34 Urine,Clean Catch Urine Culture - Final Enterobacter Cloacae Complex Complete 03/05/19 00:50 Rectum VRE Culture - Final NO VANCOMYCIN RESISTANT ENTEROCOCCUS ... Complete Labs Test 03/11/19 06:24 03/12/19 04:05 03/13/19 08:00 White Blood Count 9.1 K/UL (4.8-10.8) 9.1 K/UL (4.8-10.8) Red Blood Count 3.00 M/UL (4.70-6.10) 3.04 M/UL (4.70-6.10) Hemoglobin 9.1 G/DL (14.2-18.0) 9.4 G/DL (14.2-18.0) Hematocrit 27.4 % (42.0-52.0) 28.0 % (42.0-52.0) Mean Corpuscular Volume 91 FL (80-99) 92 FL (80-99) Mean Corpuscular Hemoglobin 30.4 PG (27.0-31.0) 31.0 PG (27.0-31.0) Mean Corpuscular Hemoglobin Concent 33.3 G/DL (32.0-36.0) 33.6 G/DL (32.0-36.0) Red Cell Distribution Width 16.3 % (11.6-14.8) 17.0 % (11.6-14.8) Platelet Count 172 K/UL (150-450) 172 K/UL (150-450) Mean Platelet Volume 6.2 FL (6.5-10.1) 5.5 FL (6.5-10.1) Neutrophils (%) (Auto) 78.3 % (45.0-75.0) 76.2 % (45.0-75.0) Lymphocytes (%) (Auto) 11.5 % (20.0-45.0) 12.8 % (20.0-45.0) Monocytes (%) (Auto) 7.1 % (1.0-10.0) 7.4 % (1.0-10.0) Eosinophils (%) (Auto) 2.5 % (0.0-3.0) 2.2 % (0.0-3.0) Basophils (%) (Auto) 0.5 % (0.0-2.0) 1.4 % (0.0-2.0) Sodium Level 134 MMOL/L (136-145) 135 MMOL/L (136-145) Potassium Level 3.3 MMOL/L (3.5-5.1) 3.6 MMOL/L (3.5-5.1) Chloride Level 104 MMOL/L (98-107) 105 MMOL/L (98-107) Carbon Dioxide Level 24 MMOL/L (21-32) 24 MMOL/L (21-32) Anion Gap 6 mmol/L (5-15) 6 mmol/L (5-15) Blood Urea Nitrogen 3 mg/dL (7-18) 4 mg/dL (7-18) Creatinine 0.7 MG/DL (0.55-1.30) 0.6 MG/DL (0.55-1.30) Estimat Glomerular Filtration Rate mL/min (>60) mL/min (>60) Glucose Level 116 MG/DL (74-106) 119 MG/DL (74-106) Calcium Level 7.5 MG/DL (8.5-10.1) 7.6 MG/DL (8.5-10.1) Phosphorus Level 3.4 MG/DL (2.5-4.9) 3.1 MG/DL (2.5-4.9) Magnesium Level 2.1 MG/DL (1.8-2.4) Vancomycin Level Trough 12.5 ug/mL (5.0-12.0) Laboratory Tests Test 03/13/19 08:00 Vancomycin Level Trough 12.5 ug/mL (5.0-12.0) H Current Medications Medications (Trade) Dose Ordered Sig/Tawny Route PRN Reason Start Time Stop Time Status Last Admin Dose Admin Chlorhexidine Gluconate (Jada-Hex 2%) 1 applic DAILY@2000 TOPIC 03/13/19 20:00 04/12/19 19:59 Ciprofloxacin 200 ml @ 200 mls/hr Q12HR IV 03/08/19 18:00 03/15/19 17:59 03/13/19 08:26 Dextrose (Dextrose 50%) 25 ml Q30M PRN IV Hypoglycemia 03/05/19 06:15 04/04/19 06:14 Dextrose (Dextrose 50%) 50 ml Q30M PRN IV Hypoglycemia 03/05/19 06:15 04/04/19 06:14 Dopamine HCl/ Dextrose 250 ml @ 0 mls/hr Q24H IV 03/05/19 06:32 04/04/19 06:31 03/05/19 07:46 Ferrous Sulfate (Feosol) 330 mg THREE TIMES A DAY NG 03/05/19 09:00 04/04/19 08:59 03/13/19 13:46 Heparin Sodium/ Sodium Chloride (Heparin 1000 units/500ml Premix) 1,000 unit ONCE PRN IV picc 03/13/19 10:30 03/13/19 23:59 Lansoprazole (Prevacid) 30 mg DAILY NG 03/08/19 09:00 04/07/19 08:59 03/13/19 08:25 Lidocaine HCl (Xylocaine 1% 30ml) 30 ml ONCE PRN INJ picc 03/13/19 10:30 03/13/19 23:59 Magnesium Oxide (Mag-Ox 400mg) 400 mg THREE TIMES A DAY NG 03/09/19 18:00 04/08/19 17:59 03/13/19 13:46 Metronidazole 100 ml @ 100 mls/hr Q8HR IVPB 03/08/19 14:00 03/15/19 13:59 03/13/19 14:14 Norepinephrine Bitartrate 8 mg/ Dextrose 500 ml @ 0 mls/hr Q24H IV 03/05/19 22:00 04/04/19 21:59 03/12/19 22:53 Ondansetron HCl (Zofran) 4 mg Q6H PRN IVP Nausea & Vomiting 03/05/19 06:15 04/04/19 06:14 Potassium Phosphate 20 meq/ Sodium Chloride 1,004.5455 ml @ 75 mls/hr [id number] IV 03/10/19 10:00 04/09/19 09:59 03/13/19 08:00 Potassium Chloride (K-Dur) 40 meq TWICE A DAY NG 03/10/19 09:00 04/09/19 08:59 03/13/19 08:25 Sodium Hypochlorite (Dakin's Half Strength) 1 applic DAILY TOPIC 03/10/19 20:00 04/09/19 19:59 03/13/19 08:27 Vancomycin HCl (Vanco rx to dose) 1 ea DAILY PRN MISC Per rx protocol 03/05/19 06:15 04/04/19 06:14 Vancomycin HCl 1 gm/Dextrose 275 ml @ 183.708 mls/hr Q12HR@0900,2100 IVPB 03/13/19 09:00 03/18/19 08:59 03/13/19 09:32 Makenzie Galeano MD Mar 13, 2019 15:44
--- NOTE | 2019-03-13 17:06 | Pulmonology Progress Note ---
Assessment/Plan Assessment/Plan 1. Severe sepsis, shock due to enterobacter and streptococcus bacteremia 2. Sacral decubitus and osteomyelitis. 3. CALEB, improving 4. Acute myocardial ischemia, possible non-ST elevation myocardial infarction. 5. Aspiration pneumonia. 6. Respiratory failure, status post full arrest. 7. Paroxysmal atrial fibrillation. 8. 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 9. Acute liver failure, improving PLAN: Ventilator support. Broad spectrum antimicrobials per ID; mold in sputum (?colonized) Not tolerating weaning of levophed due to low BP Wound care, surgery following Planned surgical intervention when off pressors Prognosis guarded but improving Subjective ROS Limited/Unobtainable: Yes Allergies: Coded Allergies: No Known Allergies (Unverified , 03/05/19) Objective Last 24 Hour Vital Signs Date Time Temp Pulse Resp B/P (MAP) Pulse Ox O2 Delivery O2 Flow Rate FiO2 03/13/19 16:55 77 18 30 03/13/19 16:00 Mechanical Ventilator Mechanical Ventilator Mechanical Ventilator 03/13/19 16:00 79 03/13/19 16:00 98.9 80 111/43 (65) 98 03/13/19 16:00 30 03/13/19 15:30 78 99/43 (61) 98 03/13/19 15:03 83 18 30 03/13/19 15:00 83 18 105/46 (65) 100 03/13/19 14:30 86 17 136/57 (83) 99 03/13/19 14:00 84 19 106/50 (68) 99 03/13/19 13:30 86 18 105/61 (76) 98 03/13/19 13:30 85 18 102/48 (66) 98 03/13/19 13:20 83 18 30 03/13/19 13:00 78 18 99/43 (61) 99 03/13/19 13:00 90 18 102/34 (56) 98 03/13/19 12:30 82 19 88/34 (52) 99 03/13/19 12:30 85 18 92/39 (56) 98 03/13/19 12:00 Mechanical Ventilator Mechanical Ventilator Mechanical Ventilator 03/13/19 12:00 30 03/13/19 12:00 30 03/13/19 12:00 85 03/13/19 12:00 99.0 85 20 94/37 (56) 100 03/13/19 12:00 99.0 85 18 93/37 (55) 98 03/13/19 11:30 85 18 105/45 (65) 99 03/13/19 11:29 91 18 30 03/13/19 11:00 83 18 105/42 (63) 100 03/13/19 10:30 86 17 89/38 (55) 100 03/13/19 10:00 79 18 87/37 (54) 99 03/13/19 09:30 79 18 80/36 (51) 99 03/13/19 09:00 86 18 92/52 (65) 100 03/13/19 08:59 85 18 30 03/13/19 08:30 89 18 89/44 (59) 99 03/13/19 08:00 Mechanical Ventilator Mechanical Ventilator Mechanical Ventilator 03/13/19 08:00 30 03/13/19 08:00 100.0 87 18 101/43 (62) 99 03/13/19 08:00 89 03/13/19 07:00 94 8 73/33 (46) 98 03/13/19 06:40 97 17 30 03/13/19 06:32 100/60 03/13/19 06:30 97 19 79/39 (52) 100 03/13/19 06:00 93 20 94/44 (61) 100 03/13/19 05:30 97 20 91/39 (56) 100 03/13/19 05:16 92 18 30 03/13/19 05:00 97 26 117/59 (78) 99 03/13/19 04:30 86 17 75/35 (48) 97 03/13/19 04:00 Mechanical Ventilator Mechanical Ventilator Mechanical Ventilator 03/13/19 04:00 30 03/13/19 04:00 93 03/13/19 04:00 98.7 86 17 75/35 (48) 97 03/13/19 03:30 94 20 68/33 (45) 99 03/13/19 03:18 95 20 30 03/13/19 03:00 97 36 79/39 (52) 99 03/13/19 02:30 96 20 118/61 (80) 99 03/13/19 02:00 92 30 85/59 (68) 98 03/13/19 01:45 97 45 117/59 (78) 99 03/13/19 01:30 88 22 99/57 (71) 99 03/13/19 01:00 97 21 122/58 (79) 99 03/13/19 00:55 96 22 30 03/13/19 00:30 94 14 103/53 (70) 98 03/13/19 00:00 30 03/13/19 00:00 85 03/13/19 00:00 Mechanical Ventilator Mechanical Ventilator Mechanical Ventilator 03/13/19 00:00 99.3 92 18 82/48 (59) 95 03/12/19 23:09 95 18 30 03/12/19 23:00 95 18 98/56 (70) 97 03/12/19 22:53 110/63 03/12/19 22:30 96 18 110/60 (77) 97 03/12/19 22:00 88 18 107/60 (76) 97 03/12/19 21:30 82 18 99/44 (62) 100 03/12/19 21:23 82 18 30 03/12/19 21:00 84 18 94/45 (61) 100 03/12/19 20:30 87 18 100/47 (64) 100 03/12/19 20:00 30 03/12/19 20:00 98.0 87 18 105/47 (66) 100 03/12/19 20:00 Mechanical Ventilator Mechanical Ventilator Mechanical Ventilator 03/12/19 20:00 93 03/12/19 19:12 80 18 30 03/12/19 19:00 98/52 03/12/19 19:00 87 20 89/42 (58) 99 03/12/19 18:56 86 18 96/48 (64) 99 03/12/19 18:30 86 18 96/48 (64) 99 03/12/19 18:00 76 9 87/42 (57) 99 03/12/19 18:00 87/42 03/12/19 17:45 80 5 96/46 (63) 99 03/12/19 17:30 84 19 101/48 (65) 100 03/12/19 17:21 81 20 30 03/12/19 17:15 87 6 96/47 (63) 99 Intake and Output 03/12/19 03/13/19 19:00 07:00 Intake Total 2556.666 ml 2551.25 ml Output Total 870 ml 1270 ml Balance 1686.666 ml 1281.25 ml Intake Free Water 190 ml 120 ml IV Total 1646.666 ml 1411.25 ml Tube Feeding 720 ml 1020 ml Output Urine Total 670 ml 1010 ml Stool Total 200 ml 260 ml General Appearance: no acute distress Respiratory/Chest: lungs clear, decreased breath sounds Cardiovascular: normal rate Abdomen: soft, non tender Laboratory Tests 03/13/19 08:00: Vancomycin Level Trough 12.5H Current Medications Medications (Trade) Dose Ordered Sig/Tawny Route PRN Reason Start Time Stop Time Status Last Admin Dose Admin Chlorhexidine Gluconate (Jada-Hex 2%) 1 applic DAILY@2000 TOPIC 03/13/19 20:00 04/12/19 19:59 Ciprofloxacin 200 ml @ 200 mls/hr Q12HR IV 03/13/19 21:00 03/20/19 20:59 Dextrose (Dextrose 50%) 25 ml Q30M PRN IV Hypoglycemia 03/05/19 06:15 04/04/19 06:14 Dextrose (Dextrose 50%) 50 ml Q30M PRN IV Hypoglycemia 03/05/19 06:15 04/04/19 06:14 Dopamine HCl/ Dextrose 250 ml @ 0 mls/hr Q24H IV 03/05/19 06:32 04/04/19 06:31 03/05/19 07:46 Ferrous Sulfate (Feosol) 330 mg THREE TIMES A DAY NG 03/05/19 09:00 04/04/19 08:59 03/13/19 13:46 Heparin Sodium/ Sodium Chloride (Heparin 1000 units/500ml Premix) 1,000 unit ONCE PRN IV picc 03/13/19 10:30 03/13/19 23:59 Lansoprazole (Prevacid) 30 mg DAILY NG 03/08/19 09:00 04/07/19 08:59 03/13/19 08:25 Lidocaine HCl (Xylocaine 1% 30ml) 30 ml ONCE PRN INJ picc 03/13/19 10:30 03/13/19 23:59 Magnesium Oxide (Mag-Ox 400mg) 400 mg THREE TIMES A DAY NG 03/09/19 18:00 04/08/19 17:59 03/13/19 13:46 Metronidazole 100 ml @ 100 mls/hr Q8HR IVPB 03/13/19 22:00 03/20/19 21:59 Norepinephrine Bitartrate 8 mg/ Dextrose 500 ml @ 0 mls/hr Q24H IV 03/05/19 22:00 04/04/19 21:59 03/12/19 22:53 Ondansetron HCl (Zofran) 4 mg Q6H PRN IVP Nausea & Vomiting 03/05/19 06:15 04/04/19 06:14 Potassium Phosphate 20 meq/ Sodium Chloride 1,004.5455 ml @ 75 mls/hr [id number] IV 03/10/19 10:00 04/09/19 09:59 03/13/19 08:00 Potassium Chloride (K-Dur) 40 meq TWICE A DAY NG 03/10/19 09:00 04/09/19 08:59 03/13/19 08:25 Sodium Hypochlorite (Dakin's Half Strength) 1 applic DAILY TOPIC 03/10/19 20:00 04/09/19 19:59 03/13/19 08:27 Vancomycin HCl (Vanco rx to dose) 1 ea DAILY PRN MISC Per rx protocol 03/05/19 06:15 04/04/19 06:14 Vancomycin HCl 1 gm/Dextrose 275 ml @ 183.708 mls/hr Q12HR@0900,2100 IVPB 03/13/19 09:00 03/18/19 08:59 03/13/19 09:32 Cedric Perez MD Mar 13, 2019 17:05
--- NOTE | 2019-03-13 18:19 | Nephrology Progress Note ---
Assessment/Plan Problem List: (1) Hypokalemia (2) Pyelonephritis (3) CALEB (acute kidney injury) (4) Septic shock (5) Cardiopulmonary arrest (6) Decubitus ulcer (7) Hypomagnesemia (8) Hypophosphatemia (9) Hyponatremia Assessment replace mg, phos,K avoid fluid overload but still on levophed needs fluids, reduce rate Subjective Constitutional: Reports: weakness HEENT: Reports: no symptoms Genitourinary: Reports: no symptoms Neurologic/Psychiatric: Reports: pre-existing deficit Objective Objective Last 24 Hour Vital Signs Date Time Temp Pulse Resp B/P (MAP) Pulse Ox O2 Delivery O2 Flow Rate FiO2 03/13/19 18:00 84 18 98/45 (62) 99 03/13/19 17:00 80 22 107/46 (66) 100 03/13/19 16:55 77 18 30 03/13/19 16:00 Mechanical Ventilator Mechanical Ventilator Mechanical Ventilator 03/13/19 16:00 79 03/13/19 16:00 98.9 80 111/43 (65) 98 03/13/19 16:00 30 03/13/19 15:30 78 99/43 (61) 98 03/13/19 15:03 83 18 30 03/13/19 15:00 83 18 105/46 (65) 100 03/13/19 14:30 86 17 136/57 (83) 99 03/13/19 14:00 84 19 106/50 (68) 99 03/13/19 13:30 86 18 105/61 (76) 98 03/13/19 13:30 85 18 102/48 (66) 98 03/13/19 13:20 83 18 30 03/13/19 13:00 78 18 99/43 (61) 99 03/13/19 13:00 90 18 102/34 (56) 98 03/13/19 12:30 82 19 88/34 (52) 99 03/13/19 12:30 85 18 92/39 (56) 98 03/13/19 12:00 Mechanical Ventilator Mechanical Ventilator Mechanical Ventilator 03/13/19 12:00 30 03/13/19 12:00 30 03/13/19 12:00 85 03/13/19 12:00 99.0 85 20 94/37 (56) 100 03/13/19 12:00 99.0 85 18 93/37 (55) 98 03/13/19 11:30 85 18 105/45 (65) 99 03/13/19 11:29 91 18 30 03/13/19 11:00 83 18 105/42 (63) 100 03/13/19 10:30 86 17 89/38 (55) 100 03/13/19 10:00 79 18 87/37 (54) 99 03/13/19 09:30 79 18 80/36 (51) 99 03/13/19 09:00 86 18 92/52 (65) 100 03/13/19 08:59 85 18 30 03/13/19 08:30 89 18 89/44 (59) 99 03/13/19 08:00 Mechanical Ventilator Mechanical Ventilator Mechanical Ventilator 03/13/19 08:00 30 03/13/19 08:00 100.0 87 18 101/43 (62) 99 03/13/19 08:00 89 03/13/19 07:00 94 8 73/33 (46) 98 03/13/19 06:40 97 17 30 03/13/19 06:32 100/60 03/13/19 06:30 97 19 79/39 (52) 100 03/13/19 06:00 93 20 94/44 (61) 100 03/13/19 05:30 97 20 91/39 (56) 100 03/13/19 05:16 92 18 30 03/13/19 05:00 97 26 117/59 (78) 99 03/13/19 04:30 86 17 75/35 (48) 97 03/13/19 04:00 Mechanical Ventilator Mechanical Ventilator Mechanical Ventilator 03/13/19 04:00 30 03/13/19 04:00 93 03/13/19 04:00 98.7 86 17 75/35 (48) 97 03/13/19 03:30 94 20 68/33 (45) 99 03/13/19 03:18 95 20 30 03/13/19 03:00 97 36 79/39 (52) 99 03/13/19 02:30 96 20 118/61 (80) 99 03/13/19 02:00 92 30 85/59 (68) 98 03/13/19 01:45 97 45 117/59 (78) 99 03/13/19 01:30 88 22 99/57 (71) 99 03/13/19 01:00 97 21 122/58 (79) 99 03/13/19 00:55 96 22 30 03/13/19 00:30 94 14 103/53 (70) 98 03/13/19 00:00 30 03/13/19 00:00 85 03/13/19 00:00 Mechanical Ventilator Mechanical Ventilator Mechanical Ventilator 03/13/19 00:00 99.3 92 18 82/48 (59) 95 03/12/19 23:09 95 18 30 03/12/19 23:00 95 18 98/56 (70) 97 03/12/19 22:53 110/63 03/12/19 22:30 96 18 110/60 (77) 97 03/12/19 22:00 88 18 107/60 (76) 97 03/12/19 21:30 82 18 99/44 (62) 100 03/12/19 21:23 82 18 30 03/12/19 21:00 84 18 94/45 (61) 100 03/12/19 20:30 87 18 100/47 (64) 100 03/12/19 20:00 30 03/12/19 20:00 98.0 87 18 105/47 (66) 100 03/12/19 20:00 Mechanical Ventilator Mechanical Ventilator Mechanical Ventilator 03/12/19 20:00 93 03/12/19 19:12 80 18 30 03/12/19 19:00 98/52 03/12/19 19:00 87 20 89/42 (58) 99 03/12/19 18:56 86 18 96/48 (64) 99 03/12/19 18:30 86 18 96/48 (64) 99 Intake and Output 03/12/19 03/13/19 19:00 07:00 Intake Total 2556.666 ml 2551.25 ml Output Total 870 ml 1270 ml Balance 1686.666 ml 1281.25 ml Intake Free Water 190 ml 120 ml IV Total 1646.666 ml 1411.25 ml Tube Feeding 720 ml 1020 ml Output Urine Total 670 ml 1010 ml Stool Total 200 ml 260 ml Laboratory Tests 03/13/19 08:00: Vancomycin Level Trough 12.5H Height (Feet): 6 Height (Inches): 2.00 Weight (Pounds): 200 General Appearance: mild distress EENT: other - intubated Neck: normal alignment Cardiovascular: normal rate, regular rhythm Respiratory/Chest: rhonchi - bilaterally Abdomen: non tender, soft Extremities: moderate edema 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
[2019-03-13] MEDS: Dyna-Hex 2% Top Sol 2oz TOPIC SCH (20:44)
[2019-03-13] MEDS: Norepinephrine Bitartrate 8 MG in D5W 500ml 492 ML IV SCH (22:17)
--- NOTE | 2019-03-13 23:31 | Progress Note ---
DATE: 03/13/2019 CARDIOLOGY PROGRESS NOTE SUBJECTIVE: Condition is deteriorated. Blood pressure parameters have worsened. Pressor requirements have increased. The patient remains orally intubated and mechanically ventilated. OBJECTIVE: VITAL SIGNS: Blood pressure 91/38, pulse 86, and respirations 18. LUNGS: Bilateral breath sounds. Moderate rhonchi. HEART: Regular rhythm and rate. Normal S1, S2. A 1/6 systolic murmur at apex. EXTREMITIES: A 1+ edema. DIAGNOSTIC DATA: Chest x-ray today revealed mild pulmonary venous congestion. IMPRESSION: 1. Respiratory failure. 2. Sepsis with shock. 3. Healthcare-acquired pneumonia. 4. Anemia, multifactorial. 5. Acute diastolic congestive heart failure. PLAN: 1. Unable to diurese. 2. Needs volume support. 3. Continuing efforts to taper off pressors. 4. Check cortisol level. 5. Antimicrobials and ventilator support. Mejia Mckinney M.D. DR: DASHAWN JOB#: [id number] CC:
[2019-03-14] VITALS (52 sets, daily range): BP systolic 68–125; BP diastolic 37–71
[2019-03-14 05:56] LABS: HEMATOCRIT 27.6 % (42.0-52.0); HEMOGLOBIN 9.3 G/DL (14.2-18.0); MEAN CORPUSCULAR VOLUME 92 FL (80-99); PLATELET COUNT 279 K/UL (150-450); WHITE BLOOD COUNT 11.8 K/UL (4.8-10.8)
[2019-03-14] MEDS: DOPamine 400mg/250ml 250 ML IV SCH (06:32)
[2019-03-14 06:35] LABS: PHOSPHORUS 3.5 MG/DL (2.5-4.9)
[2019-03-14 08:13] LABS: ALANINE AMINOTRANSFERASE 66 U/L (12-78); ALBUMIN 1.7 G/DL (3.4-5.0); ALBUMIN/GLOBULIN RATIO 0.4 (1.0-2.7); ALKALINE PHOSPHATASE 125 U/L (46-116); ANION GAP 10 mmol/L (5-15); ASPARTATE AMINO TRANSFERASE 29 U/L (15-37); BILIRUBIN,TOTAL 0.6 MG/DL (0.2-1.0); BLOOD UREA NITROGEN 6 mg/dL (7-18); CALCIUM 7.4 MG/DL (8.5-10.1); CARBON DIOXIDE 23 MMOL/L (21-32); CHLORIDE 101 MMOL/L (98-107); CREATININE 0.6 MG/DL (0.55-1.30); POTASSIUM 3.4 MMOL/L (3.5-5.1); SODIUM 134 MMOL/L (136-145)
[2019-03-14] MEDS: Vancomycin 1gm/D5W 275ml IVPB SCH ×2 (08:19)
[2019-03-14] MEDS: Dakin's 0.25% (Half Strength) 16oz TOPIC SCH (08:20)
[2019-03-14] MEDS: Ferrous Sulfate 300 MG/5 ML UDC NG SCH ×3 (08:20→18:18)
[2019-03-14] MEDS: Magnesium Oxide 400mg tab NG SCH ×3 (08:20→18:18)
--- NOTE | 2019-03-14 09:48 | Diagnostic Imaging Report ---
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 The right upper extremity was prepped with alcohol. All elements of maximal sterile barrier technique were followed including usage of a cap, mask, sterile gown, sterile gloves, hand hygiene and a large sterile sheet. Sonographic evaluation of the upper extremity was performed demonstrating a patent and compressible basilic vein. Access was obtained under real-time ultrasound guidance (with utilization of sterile gel and sterile probe cover) and digital image was saved and archived. An .018 wire was introduced. Needle exchanged for a 5 [place] peel-away sheath. Measurements were obtained. A 5 [place] dual-lumen Power PICC line catheter was cut to 38 cm and introduced over the wire. Peel-away sheath and wire were removed.Catheter was secured to the skin using 2-0 Prolene suture. Both ports aspirate and flush easily. Post procedure chest x-ray demonstrates good position of the PICC line catheter within the SVC. Impression: Successful placement of an upper extremity PICC line catheter
--- NOTE | 2019-03-14 11:46 | Pulmonology Progress Note ---
Assessment/Plan Assessment/Plan 1. Severe sepsis, shock due to enterobacter and streptococcus bacteremia 2. Sacral decubitus and osteomyelitis. 3. CALEB, improving 4. Acute myocardial ischemia, possible non-ST elevation myocardial infarction. 5. Aspiration pneumonia. 6. Respiratory failure, status post full arrest. 7. Paroxysmal atrial fibrillation. 8. 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 9. Acute liver failure, improving PLAN: Ventilator support, cannot wean Broad spectrum antimicrobials per ID; mold in sputum disc w ID, will start antifungal cannot dc levophed due to low BP Wound care, surgery following Planned surgical intervention when off pressors Prognosis guarded Subjective ROS Limited/Unobtainable: Yes Allergies: Coded Allergies: No Known Allergies (Unverified , 03/05/19) Objective Last 24 Hour Vital Signs Date Time Temp Pulse Resp B/P (MAP) Pulse Ox O2 Delivery O2 Flow Rate FiO2 03/14/19 11:00 93/37 03/14/19 10:58 82 18 30 03/14/19 10:30 95 18 95/38 (57) 99 03/14/19 10:00 100/38 03/14/19 10:00 97 18 100/38 (58) 99 03/14/19 09:30 94 18 89/40 (56) 99 03/14/19 09:00 83 18 99/42 (61) 99 03/14/19 09:00 99/42 03/14/19 08:52 86 19 30 03/14/19 08:30 83 18 104/44 (64) 99 03/14/19 08:00 30 03/14/19 08:00 100.3 87 18 97/42 (60) 99 03/14/19 08:00 92 03/14/19 08:00 97/42 03/14/19 08:00 Mechanical Ventilator Mechanical Ventilator Mechanical Ventilator 03/14/19 07:30 100.6 87 18 101/46 (64) 99 03/14/19 07:00 83 18 119/71 (87) 99 03/14/19 07:00 119/71 03/14/19 06:45 83 17 103/47 (65) 100 03/14/19 06:37 84 18 30 03/14/19 06:30 83 18 102/45 (64) 100 03/14/19 06:15 87 18 100/46 (64) 99 03/14/19 06:00 100/46 03/14/19 06:00 86 18 102/44 (63) 100 03/14/19 05:45 87 18 97/44 (61) 99 03/14/19 05:30 86 18 100/44 (62) 99 03/14/19 05:28 105/43 03/14/19 05:25 86 19 30 03/14/19 05:15 86 19 105/43 (63) 99 03/14/19 05:00 85 18 103/45 (64) 99 03/14/19 05:00 105/43 03/14/19 04:45 87 18 102/44 (63) 99 03/14/19 04:34 119/53 03/14/19 04:30 88 18 119/53 (75) 99 03/14/19 04:15 86 18 115/50 (71) 100 03/14/19 04:00 85 03/14/19 04:00 30 03/14/19 04:00 115/50 03/14/19 04:00 Mechanical Ventilator Mechanical Ventilator Mechanical Ventilator 03/14/19 04:00 99.4 87 18 112/51 (71) 99 03/14/19 03:45 86 18 109/54 (72) 99 03/14/19 03:32 82 18 111/52 (71) 100 03/14/19 03:31 80 18 30 03/14/19 03:00 111/52 03/14/19 03:00 85 18 111/52 (71) 100 03/14/19 02:15 82 19 111/46 (67) 100 03/14/19 02:00 122/56 03/14/19 02:00 76 18 122/56 (78) 100 03/14/19 01:45 81 17 120/52 (74) 100 03/14/19 01:30 79 17 114/52 (72) 100 03/14/19 01:21 80 18 30 03/14/19 01:15 80 18 125/56 (79) 100 03/14/19 01:00 114/52 03/14/19 01:00 75 18 125/49 (74) 99 03/14/19 00:45 84 18 119/52 (74) 99 03/14/19 00:30 83 18 117/51 (73) 99 6/11/19 00:15 80 13 117/53 (74) 100 03/14/19 00:00 Mechanical Ventilator Mechanical Ventilator Mechanical Ventilator 03/14/19 00:00 83 03/14/19 00:00 125/54 03/14/19 00:00 30 03/14/19 00:00 99.5 83 18 125/54 (77) 99 03/13/19 23:49 89/41 03/13/19 23:43 82 18 89/41 (57) 99 03/13/19 23:30 83 18 80/43 (55) 99 03/13/19 23:15 84 18 90/36 (54) 99 03/13/19 23:00 84 18 91/39 (56) 99 03/13/19 23:00 90/36 03/13/19 22:55 86 18 30 03/13/19 22:45 85 18 90/47 (61) 99 03/13/19 22:30 82 18 93/39 (57) 99 03/13/19 22:17 89/35 03/13/19 22:15 84 18 93/39 (57) 99 03/13/19 22:00 81 18 89/35 (53) 100 03/13/19 22:00 95/38 03/13/19 21:45 81 18 94/35 (54) 100 03/13/19 21:30 82 18 87/34 (51) 99 03/13/19 21:15 82 18 93/39 (57) 99 03/13/19 21:13 83 18 95/40 (58) 99 03/13/19 21:00 86 19 89/34 (52) 99 03/13/19 21:00 95/40 03/13/19 20:58 79 20 30 03/13/19 20:45 81 18 96/38 (57) 100 03/13/19 20:30 80 18 97/37 (57) 100 03/13/19 20:15 84 18 90/36 (54) 99 03/13/19 20:00 Mechanical Ventilator Mechanical Ventilator Mechanical Ventilator 03/13/19 20:00 30 03/13/19 20:00 85 03/13/19 20:00 90/36 03/13/19 20:00 99.5 85 18 85/39 (54) 99 03/13/19 19:45 85 17 92/37 (55) 99 03/13/19 19:40 84 18 85/40 (55) 99 03/13/19 19:30 86 18 85/33 (50) 99 03/13/19 19:15 82 18 90/36 (54) 98 03/13/19 19:01 88 18 30 03/13/19 19:00 86 18 91/38 (55) 98 03/13/19 18:00 84 18 98/45 (62) 99 03/13/19 17:00 80 22 107/46 (66) 100 03/13/19 16:55 77 18 30 03/13/19 16:00 Mechanical Ventilator Mechanical Ventilator Mechanical Ventilator 03/13/19 16:00 79 03/13/19 16:00 98.9 80 111/43 (65) 98 03/13/19 16:00 30 03/13/19 15:30 78 99/43 (61) 98 03/13/19 15:03 83 18 30 03/13/19 15:00 83 18 105/46 (65) 100 03/13/19 14:30 86 17 136/57 (83) 99 03/13/19 14:00 84 19 106/50 (68) 99 03/13/19 13:30 86 18 105/61 (76) 98 03/13/19 13:30 85 18 102/48 (66) 98 03/13/19 13:20 83 18 30 03/13/19 13:00 78 18 99/43 (61) 99 03/13/19 13:00 90 18 102/34 (56) 98 03/13/19 12:30 82 19 88/34 (52) 99 03/13/19 12:30 85 18 92/39 (56) 98 03/13/19 12:00 Mechanical Ventilator Mechanical Ventilator Mechanical Ventilator 03/13/19 12:00 30 03/13/19 12:00 30 03/13/19 12:00 85 03/13/19 12:00 99.0 85 20 94/37 (56) 100 03/13/19 12:00 99.0 85 18 93/37 (55) 98 Intake and Output 03/13/19 03/14/19 18:59 06:59 Intake Total 1922.5 ml 2221.250 ml Output Total 1250 ml 2465 ml Balance 672.5 ml -243.750 ml IV Total 1202.5 ml 1501.250 ml Tube Feeding 720 ml 720 ml Output Urine Total 1250 ml 2325 ml Stool Total 140 ml # Bowel Movements 100 Objective weak, on vent via oral ETT General Appearance: no acute distress HEENT: atraumatic Respiratory/Chest: no respiratory distress, decreased breath sounds Cardiovascular: normal rate Abdomen: soft, non tender Laboratory Tests 03/14/19 04:10: White Blood Count 11.8H, Red Blood Count 3.00L, Hemoglobin 9.3L, Hematocrit 27.6L, Mean Corpuscular Volume 92, Mean Corpuscular Hemoglobin 31.0, Mean Corpuscular Hemoglobin Concent 33.7, Red Cell Distribution Width 17.0H, Platelet Count 279, Mean Platelet Volume 5.7L, Neutrophils (%) (Auto) , Lymphocytes (%) (Auto) , Monocytes (%) (Auto) , Eosinophils (%) (Auto) , Basophils (%) (Auto) , Sodium Level 134L, Potassium Level 3.4L, Chloride Level 101, Carbon Dioxide Level 23, Anion Gap 10, Blood Urea Nitrogen 6L, Creatinine 0.6, Estimat Glomerular Filtration Rate , Glucose Level 128H, Calcium Level 7.4L , Phosphorus Level 3.5, Magnesium Level 1.2L, Total Bilirubin 0.6, Aspartate Amino Transf (AST/SGOT) 29, Alanine Aminotransferase (ALT/SGPT) 66, Alkaline Phosphatase 125H, Pro-B-Type Natriuretic Peptide 5701H, Total Protein 5.5L, Albumin 1.7L, Globulin 3.8, Albumin/Globulin Ratio 0.4L, Cortisol AM Sample [ Pending] Current Medications Medications (Trade) Dose Ordered Sig/Tawny Route PRN Reason Start Time Stop Time Status Last Admin Dose Admin Chlorhexidine Gluconate (Jada-Hex 2%) 1 applic DAILY@2000 TOPIC 03/13/19 20:00 04/12/19 19:59 03/13/19 20:44 Ciprofloxacin 200 ml @ 200 mls/hr Q12HR IV 03/13/19 21:00 03/20/19 20:59 03/14/19 08:19 Dextrose (Dextrose 50%) 25 ml Q30M PRN IV Hypoglycemia 03/05/19 06:15 04/04/19 06:14 Dextrose (Dextrose 50%) 50 ml Q30M PRN IV Hypoglycemia 03/05/19 06:15 7/2/19 06:14 Dopamine HCl/ Dextrose 250 ml @ 0 mls/hr Q24H IV 03/05/19 06:32 04/04/19 06:31 03/05/19 07:46 Ferrous Sulfate (Feosol) 330 mg THREE TIMES A DAY NG 03/05/19 09:00 04/04/19 08:59 03/14/19 08:20 Lansoprazole (Prevacid) 30 mg DAILY NG 03/08/19 09:00 04/07/19 08:59 03/14/19 08:20 Magnesium Oxide (Mag-Ox 400mg) 400 mg THREE TIMES A DAY NG 03/09/19 18:00 04/08/19 17:59 03/14/19 08:20 Metronidazole 100 ml @ 100 mls/hr Q8HR IVPB 03/13/19 22:00 03/20/19 21:59 03/14/19 05:54 Norepinephrine Bitartrate 8 mg/ Dextrose 500 ml @ 0 mls/hr Q24H IV 03/05/19 22:00 04/04/19 21:59 03/13/19 22:17 Ondansetron HCl (Zofran) 4 mg Q6H PRN IVP Nausea & Vomiting 03/05/19 06:15 04/04/19 06:14 Potassium Phosphate 20 meq/ Sodium Chloride 1,004.5455 ml @ 50 mls/hr Q20H6M IV 03/13/19 18:30 04/12/19 18:29 03/13/19 18:45 Potassium Chloride (K-Dur) 40 meq TWICE A DAY NG 03/10/19 09:00 04/09/19 08:59 03/14/19 08:19 Sodium Hypochlorite (Dakin's Half Strength) 1 applic DAILY TOPIC 03/10/19 20:00 04/09/19 19:59 03/14/19 08:20 Vancomycin HCl (Vanco rx to dose) 1 ea DAILY PRN MISC Per rx protocol 03/05/19 06:15 04/04/19 06:14 Vancomycin HCl 1 gm/Dextrose 275 ml @ 183.708 mls/hr Q12HR@0900,2100 IVPB 03/13/19 09:00 03/18/19 08:59 03/14/19 08:19 Cedric Perez MD Mar 14, 2019 11:46
[2019-03-14] MEDS: Acetaminophen 650mg/20.3ml NG PRN ×3 (11:59→18:28)
--- NOTE | 2019-03-14 12:17 | Diagnostic Imaging Report ---
Indication: Line placement Comparison: 03/13/2019 A single view chest radiograph was obtained. Findings: PICC line is noted. The tip is in the SVC in good position. No change otherwise. IMPRESSION: PICC line in good position
--- NOTE | 2019-03-14 13:03 | Infectious Diseases Prog Note ---
Assessment/Plan Assessment/Plan ASSESSMENT: 1. sepsis, shock, enterobacter and enterococcus bacteremia, enterobacter uti, pna, sacral wound infection, leukocytosis, fevers sputum culture with mold - aspergillus - vancomycin, cipro and flagyl, add voriconazole since still febrile and mild leukocytosis - monitor labs and chest x-ray, recheck cultures - wound care per surgery/protocol - possible debridement - wean off pressors and vent as tolerated - icu care 2. Acute kidney injury, elevated creatinine. 3. Anemia. 4. Atrial fibrillation. The patient has been on Eliquis. 5. Status post code. 6. Sacral wound. 7. Aortic valve stenosis. 8. Hypertension. 9. icu care 10. Hypertension treatment per primary but the patient currently is on pressors. 11. No known drug allergies. No antibiotic allergies. 12. Social history is negative. 13. Family history noncontributory. 14. MAR was noted. 15. Case discussed with RN. 16. Continue treatment per primary consultants. 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 Subjective Constitutional: Reports: other - on vent ; Denies: fever HEENT: Reports: congestion Respiratory: Reports: shortness of breath Cardiovascular: Reports: other - on pressors Gastrointestinal/Abdominal: Denies: nausea, vomiting, diarrhea Genitourinary: Reports: other - + lemus Allergies: Coded Allergies: No Known Allergies (Unverified , 03/05/19) Objective Vital Signs Last 24 Hour Vital Signs Date Time Temp Pulse Resp B/P (MAP) Pulse Ox O2 Delivery O2 Flow Rate FiO2 03/14/19 12:29 99.2 03/14/19 12:00 Mechanical Ventilator Mechanical Ventilator Mechanical Ventilator 03/14/19 12:00 30 03/14/19 12:00 100.0 80 18 99/42 (61) 100 03/14/19 12:00 95 03/14/19 11:00 82 18 94/39 (57) 99 03/14/19 11:00 93/37 03/14/19 10:58 82 18 30 03/14/19 10:30 95 18 95/38 (57) 99 03/14/19 10:00 100/38 03/14/19 10:00 97 18 100/38 (58) 99 03/14/19 09:30 94 18 89/40 (56) 99 03/14/19 09:00 83 18 99/42 (61) 99 03/14/19 09:00 99/42 03/14/19 08:52 86 19 30 03/14/19 08:30 83 18 104/44 (64) 99 03/14/19 08:00 30 03/14/19 08:00 100.3 87 18 97/42 (60) 99 03/14/19 08:00 92 03/14/19 08:00 97/42 03/14/19 08:00 Mechanical Ventilator Mechanical Ventilator Mechanical Ventilator 03/14/19 07:30 100.6 87 18 101/46 (64) 99 03/14/19 07:00 83 18 119/71 (87) 99 03/14/19 07:00 119/71 03/14/19 06:45 83 17 103/47 (65) 100 03/14/19 06:37 84 18 30 03/14/19 06:30 83 18 102/45 (64) 100 03/14/19 06:15 87 18 100/46 (64) 99 03/14/19 06:00 100/46 03/14/19 06:00 86 18 102/44 (63) 100 03/14/19 05:45 87 18 97/44 (61) 99 03/14/19 05:30 86 18 100/44 (62) 99 03/14/19 05:28 105/43 03/14/19 05:25 86 19 30 03/14/19 05:15 86 19 105/43 (63) 99 03/14/19 05:00 85 18 103/45 (64) 99 03/14/19 05:00 105/43 03/14/19 04:45 87 18 102/44 (63) 99 03/14/19 04:34 119/53 03/14/19 04:30 88 18 119/53 (75) 99 03/14/19 04:15 86 18 115/50 (71) 100 03/14/19 04:00 85 03/14/19 04:00 30 03/14/19 04:00 115/50 03/14/19 04:00 Mechanical Ventilator Mechanical Ventilator Mechanical Ventilator 03/14/19 04:00 99.4 87 18 112/51 (71) 99 03/14/19 03:45 86 18 109/54 (72) 99 03/14/19 03:32 82 18 111/52 (71) 100 03/14/19 03:31 80 18 30 03/14/19 03:00 111/52 03/14/19 03:00 85 18 111/52 (71) 100 03/14/19 02:15 82 19 111/46 (67) 100 03/14/19 02:00 122/56 03/14/19 02:00 76 18 122/56 (78) 100 03/14/19 01:45 81 17 120/52 (74) 100 03/14/19 01:30 79 17 114/52 (72) 100 03/14/19 01:21 80 18 30 03/14/19 01:15 80 18 125/56 (79) 100 03/14/19 01:00 114/52 03/14/19 01:00 75 18 125/49 (74) 99 03/14/19 00:45 84 18 119/52 (74) 99 03/14/19 00:30 83 18 117/51 (73) 99 03/14/19 00:15 80 13 117/53 (74) 100 03/14/19 00:00 Mechanical Ventilator Mechanical Ventilator Mechanical Ventilator 03/14/19 00:00 83 03/14/19 00:00 125/54 03/14/19 00:00 30 03/14/19 00:00 99.5 83 18 125/54 (77) 99 03/13/19 23:49 89/41 03/13/19 23:43 82 18 89/41 (57) 99 03/13/19 23:30 83 18 80/43 (55) 99 03/13/19 23:15 84 18 90/36 (54) 99 03/13/19 23:00 84 18 91/39 (56) 99 03/13/19 23:00 90/36 03/13/19 22:55 86 18 30 03/13/19 22:45 85 18 90/47 (61) 99 03/13/19 22:30 82 18 93/39 (57) 99 03/13/19 22:17 89/35 03/13/19 22:15 84 18 93/39 (57) 99 03/13/19 22:00 81 18 89/35 (53) 100 03/13/19 22:00 95/38 03/13/19 21:45 81 18 94/35 (54) 100 03/13/19 21:30 82 18 87/34 (51) 99 03/13/19 21:15 82 18 93/39 (57) 99 03/13/19 21:13 83 18 95/40 (58) 99 03/13/19 21:00 86 19 89/34 (52) 99 03/13/19 21:00 95/40 03/13/19 20:58 79 20 30 03/13/19 20:45 81 18 96/38 (57) 100 03/13/19 20:30 80 18 97/37 (57) 100 03/13/19 20:15 84 18 90/36 (54) 99 03/13/19 20:00 Mechanical Ventilator Mechanical Ventilator Mechanical Ventilator 03/13/19 20:00 30 03/13/19 20:00 85 03/13/19 20:00 90/36 03/13/19 20:00 99.5 85 18 85/39 (54) 99 03/13/19 19:45 85 17 92/37 (55) 99 03/13/19 19:40 84 18 85/40 (55) 99 03/13/19 19:30 86 18 85/33 (50) 99 03/13/19 19:15 82 18 90/36 (54) 98 03/13/19 19:01 88 18 30 03/13/19 19:00 86 18 91/38 (55) 98 03/13/19 18:00 84 18 98/45 (62) 99 03/13/19 17:00 80 22 107/46 (66) 100 03/13/19 16:55 77 18 30 03/13/19 16:00 Mechanical Ventilator Mechanical Ventilator Mechanical Ventilator 03/13/19 16:00 79 03/13/19 16:00 98.9 80 111/43 (65) 98 03/13/19 16:00 30 03/13/19 15:30 78 99/43 (61) 98 03/13/19 15:03 83 18 30 03/13/19 15:00 83 18 105/46 (65) 100 03/13/19 14:30 86 17 136/57 (83) 99 03/13/19 14:00 84 19 106/50 (68) 99 03/13/19 13:30 86 18 105/61 (76) 98 03/13/19 13:30 85 18 102/48 (66) 98 03/13/19 13:20 83 18 30 03/13/19 13:00 78 18 99/43 (61) 99 03/13/19 13:00 90 18 102/34 (56) 98 Height (Feet): 6 Height (Inches): 2.00 Weight (Pounds): 200 General Appearance: other - on vent HEENT: atraumatic, anicteric Respiratory/Chest: crackles/rales, rhonchi - bilaterally Cardiovascular: normal rate, regular rhythm, no gallop/murmur Abdomen: normal bowel sounds, soft, non tender, no organomegaly Objective Comparison: None A single view chest radiograph was obtained. Chest x-ray - 03/06/19 - Findings: Mild pleural thickening versus effusion on the right noted. Heart size is stable and mildly enlarged. Endotracheal tube is in good position unchanged. NG tube is present. The proximal port is near the EG junction. The tip is in the stomach. IMPRESSION: Nasogastric tube may be advanced slightly. Slightly improved congestion compared to the previous day Chest x-ray - 03/09/19 - Procedure: XRAY Chest 1v Indication: Dyspnea Comparison: 03/06/2019 A single view chest radiograph was obtained. Findings: Basilar densities likely atelectasis noted. Cardiac size is stable. Endotracheal tube position is stable and satisfactory. IMPRESSION: No significant change. Chest x-ray - 03/13/19 - A single view chest radiograph was obtained. Findings: Endotracheal tube is in good position. NG tube also noted position. Heart size is stable. Pulmonary vascular congestion suspected. Small bilateral pleural effusion suspected. IMPRESSION: Mild pulmonary congestion suspected Laboratory Tests Test 03/14/19 04:10 White Blood Count 11.8 K/UL (4.8-10.8) H Red Blood Count 3.00 M/UL (4.70-6.10) L Hemoglobin 9.3 G/DL (14.2-18.0) L Hematocrit 27.6 % (42.0-52.0) L Mean Corpuscular Volume 92 FL (80-99) Mean Corpuscular Hemoglobin 31.0 PG (27.0-31.0) Mean Corpuscular Hemoglobin Concent 33.7 G/DL (32.0-36.0) Red Cell Distribution Width 17.0 % (11.6-14.8) H Platelet Count 279 K/UL (150-450) Mean Platelet Volume 5.7 FL (6.5-10.1) L Neutrophils (%) (Auto) % (45.0-75.0) Lymphocytes (%) (Auto) % (20.0-45.0) Monocytes (%) (Auto) % (1.0-10.0) Eosinophils (%) (Auto) % (0.0-3.0) Basophils (%) (Auto) % (0.0-2.0) Sodium Level 134 MMOL/L (136-145) L Potassium Level 3.4 MMOL/L (3.5-5.1) L Chloride Level 101 MMOL/L (98-107) Carbon Dioxide Level 23 MMOL/L (21-32) Anion Gap 10 mmol/L (5-15) Blood Urea Nitrogen 6 mg/dL (7-18) L Creatinine 0.6 MG/DL (0.55-1.30) Estimat Glomerular Filtration Rate mL/min (>60) Glucose Level 128 MG/DL (74-106) H Calcium Level 7.4 MG/DL (8.5-10.1) L Phosphorus Level 3.5 MG/DL (2.5-4.9) Magnesium Level 1.2 MG/DL (1.8-2.4) L Total Bilirubin 0.6 MG/DL (0.2-1.0) Aspartate Amino Transf (AST/SGOT) 29 U/L (15-37) Alanine Aminotransferase (ALT/SGPT) 66 U/L (12-78) Alkaline Phosphatase 125 U/L (46-116) H Pro-B-Type Natriuretic Peptide 5701 pg/mL (0-125) H Total Protein 5.5 G/DL (6.4-8.2) L Albumin 1.7 G/DL (3.4-5.0) L Globulin 3.8 g/dL Albumin/Globulin Ratio 0.4 (1.0-2.7) L Cortisol AM Sample Pending Current Medications Medications (Trade) Dose Ordered Sig/Tawny Route PRN Reason Start Time Stop Time Status Last Admin Dose Admin Acetaminophen (Tylenol) 650 mg Q4H PRN NG Mild Pain/Temp > 100.5 03/14/19 12:00 04/13/19 11:59 03/14/19 11:59 Chlorhexidine Gluconate (Jada-Hex 2%) 1 applic DAILY@2000 TOPIC 03/13/19 20:00 04/12/19 19:59 03/13/19 20:44 Ciprofloxacin 200 ml @ 200 mls/hr Q12HR IV 03/13/19 21:00 03/20/19 20:59 03/14/19 08:19 Dextrose (Dextrose 50%) 25 ml Q30M PRN IV Hypoglycemia 03/05/19 06:15 04/04/19 06:14 Dextrose (Dextrose 50%) 50 ml Q30M PRN IV Hypoglycemia 03/05/19 06:15 04/04/19 06:14 Dopamine HCl/ Dextrose 250 ml @ 0 mls/hr Q24H IV 03/05/19 06:32 04/04/19 06:31 03/05/19 07:46 Ferrous Sulfate (Feosol) 330 mg THREE TIMES A DAY NG 03/05/19 09:00 04/04/19 08:59 03/14/19 08:20 Lansoprazole (Prevacid) 30 mg DAILY NG 03/08/19 09:00 04/07/19 08:59 03/14/19 08:20 Magnesium Oxide (Mag-Ox 400mg) 400 mg THREE TIMES A DAY NG 03/09/19 18:00 04/08/19 17:59 03/14/19 08:20 Metronidazole 100 ml @ 100 mls/hr Q8HR IVPB 03/13/19 22:00 03/20/19 21:59 03/14/19 05:54 Norepinephrine Bitartrate 8 mg/ Dextrose 500 ml @ 0 mls/hr Q24H IV 03/05/19 22:00 04/04/19 21:59 03/13/19 22:17 Ondansetron HCl (Zofran) 4 mg Q6H PRN IVP Nausea & Vomiting 03/05/19 06:15 04/04/19 06:14 Potassium Phosphate 20 meq/ Sodium Chloride 1,004.5455 ml @ 50 mls/hr Q20H6M IV 03/13/19 18:30 04/12/19 18:29 03/13/19 18:45 Potassium Chloride (K-Dur) 40 meq TWICE A DAY NG 03/10/19 09:00 04/09/19 08:59 03/14/19 08:19 Sodium Hypochlorite (Dakin's Half Strength) 1 applic DAILY TOPIC 03/10/19 20:00 04/09/19 19:59 03/14/19 08:20 Vancomycin HCl (Vanco rx to dose) 1 ea DAILY PRN MISC Per rx protocol 03/05/19 06:15 04/04/19 06:14 Vancomycin HCl 1 gm/Dextrose 275 ml @ 183.708 mls/hr Q12HR@0900,2100 IVPB 03/13/19 09:00 03/18/19 08:59 03/14/19 08:19 Voriconazole (Vfend) 200 mg Q12HR ORAL 03/14/19 13:00 03/21/19 12:59 Makenzie Galeano MD Mar 14, 2019 13:03
--- NOTE | 2019-03-14 14:16 | Cardiology Report ---
APPROVED REPORT EKG Measurement Heart [id number] Sinus tachycardia Nonspecific ST abnormality Abnormal ECG
--- NOTE | 2019-03-14 14:33 | Nephrology Progress Note ---
Assessment/Plan Problem List: (1) Hypokalemia (2) Pyelonephritis (3) CALEB (acute kidney injury) (4) Septic shock (5) Cardiopulmonary arrest (6) Decubitus ulcer (7) Hypomagnesemia (8) Hypophosphatemia (9) Hyponatremia Assessment replace mg, phos,K avoid fluid overload but still on levophed needs fluids, low rate K Mg lower, replace Subjective ROS Limited/Unobtainable: Yes Objective Objective Last 24 Hour Vital Signs Date Time Temp Pulse Resp B/P (MAP) Pulse Ox O2 Delivery O2 Flow Rate FiO2 03/14/19 14:00 80 18 107/44 (65) 100 03/14/19 13:23 85 18 30 03/14/19 13:00 85 18 104/49 (67) 99 03/14/19 12:29 99.2 03/14/19 12:00 Mechanical Ventilator Mechanical Ventilator Mechanical Ventilator 03/14/19 12:00 30 03/14/19 12:00 100.0 80 18 99/42 (61) 100 03/14/19 12:00 95 03/14/19 11:00 82 18 94/39 (57) 99 03/14/19 11:00 93/37 03/14/19 10:58 82 18 30 03/14/19 10:30 95 18 95/38 (57) 99 03/14/19 10:00 100/38 03/14/19 10:00 97 18 100/38 (58) 99 03/14/19 09:30 94 18 89/40 (56) 99 03/14/19 09:00 83 18 99/42 (61) 99 03/14/19 09:00 99/42 03/14/19 08:52 86 19 30 03/14/19 08:30 83 18 104/44 (64) 99 03/14/19 08:00 30 03/14/19 08:00 100.3 87 18 97/42 (60) 99 03/14/19 08:00 92 03/14/19 08:00 97/42 03/14/19 08:00 Mechanical Ventilator Mechanical Ventilator Mechanical Ventilator 03/14/19 07:30 100.6 87 18 101/46 (64) 99 03/14/19 07:00 83 18 119/71 (87) 99 03/14/19 07:00 119/71 03/14/19 06:45 83 17 103/47 (65) 100 03/14/19 06:37 84 18 30 03/14/19 06:30 83 18 102/45 (64) 100 03/14/19 06:15 87 18 100/46 (64) 99 03/14/19 06:00 100/46 03/14/19 06:00 86 18 102/44 (63) 100 03/14/19 05:45 87 18 97/44 (61) 99 03/14/19 05:30 86 18 100/44 (62) 99 03/14/19 05:28 105/43 03/14/19 05:25 86 19 30 03/14/19 05:15 86 19 105/43 (63) 99 03/14/19 05:00 85 18 103/45 (64) 99 03/14/19 05:00 105/43 03/14/19 04:45 87 18 102/44 (63) 99 03/14/19 04:34 119/53 03/14/19 04:30 88 18 119/53 (75) 99 03/14/19 04:15 86 18 115/50 (71) 100 03/14/19 04:00 85 03/14/19 04:00 30 03/14/19 04:00 115/50 03/14/19 04:00 Mechanical Ventilator Mechanical Ventilator Mechanical Ventilator 03/14/19 04:00 99.4 87 18 112/51 (71) 99 03/14/19 03:45 86 18 109/54 (72) 99 03/14/19 03:32 82 18 111/52 (71) 100 03/14/19 03:31 80 18 30 03/14/19 03:00 111/52 03/14/19 03:00 85 18 111/52 (71) 100 03/14/19 02:15 82 19 111/46 (67) 100 03/14/19 02:00 122/56 03/14/19 02:00 76 18 122/56 (78) 100 03/14/19 01:45 81 17 120/52 (74) 100 03/14/19 01:30 79 17 114/52 (72) 100 03/14/19 01:21 80 18 30 03/14/19 01:15 80 18 125/56 (79) 100 03/14/19 01:00 114/52 03/14/19 01:00 75 18 125/49 (74) 99 03/14/19 00:45 84 18 119/52 (74) 99 03/14/19 00:30 83 18 117/51 (73) 99 03/14/19 00:15 80 13 117/53 (74) 100 03/14/19 00:00 Mechanical Ventilator Mechanical Ventilator Mechanical Ventilator 03/14/19 00:00 83 03/14/19 00:00 125/54 03/14/19 00:00 30 03/14/19 00:00 99.5 83 18 125/54 (77) 99 03/13/19 23:49 89/41 03/13/19 23:43 82 18 89/41 (57) 99 03/13/19 23:30 83 18 80/43 (55) 99 03/13/19 23:15 84 18 90/36 (54) 99 03/13/19 23:00 84 18 91/39 (56) 99 03/13/19 23:00 90/36 03/13/19 22:55 86 18 30 03/13/19 22:45 85 18 90/47 (61) 99 03/13/19 22:30 82 18 93/39 (57) 99 03/13/19 22:17 89/35 03/13/19 22:15 84 18 93/39 (57) 99 03/13/19 22:00 81 18 89/35 (53) 100 03/13/19 22:00 95/38 03/13/19 21:45 81 18 94/35 (54) 100 03/13/19 21:30 82 18 87/34 (51) 99 03/13/19 21:15 82 18 93/39 (57) 99 03/13/19 21:13 83 18 95/40 (58) 99 03/13/19 21:00 86 19 89/34 (52) 99 03/13/19 21:00 95/40 03/13/19 20:58 79 20 30 03/13/19 20:45 81 18 96/38 (57) 100 03/13/19 20:30 80 18 97/37 (57) 100 03/13/19 20:15 84 18 90/36 (54) 99 03/13/19 20:00 Mechanical Ventilator Mechanical Ventilator Mechanical Ventilator 03/13/19 20:00 30 03/13/19 20:00 85 03/13/19 20:00 90/36 03/13/19 20:00 99.5 85 18 85/39 (54) 99 03/13/19 19:45 85 17 92/37 (55) 99 03/13/19 19:40 84 18 85/40 (55) 99 03/13/19 19:30 86 18 85/33 (50) 99 03/13/19 19:15 82 18 90/36 (54) 98 03/13/19 19:01 88 18 30 03/13/19 19:00 86 18 91/38 (55) 98 03/13/19 18:00 84 18 98/45 (62) 99 03/13/19 17:00 80 22 107/46 (66) 100 03/13/19 16:55 77 18 30 03/13/19 16:00 Mechanical Ventilator Mechanical Ventilator Mechanical Ventilator 03/13/19 16:00 79 03/13/19 16:00 98.9 80 111/43 (65) 98 03/13/19 16:00 30 03/13/19 15:30 78 99/43 (61) 98 03/13/19 15:03 83 18 30 03/13/19 15:00 83 18 105/46 (65) 100 Intake and Output 03/13/19 03/14/19 18:59 06:59 Intake Total 1922.5 ml 2221.250 ml Output Total 1250 ml 2465 ml Balance 672.5 ml -243.750 ml IV Total 1202.5 ml 1501.250 ml Tube Feeding 720 ml 720 ml Output Urine Total 1250 ml 2325 ml Stool Total 140 ml # Bowel Movements 100 Laboratory Tests 03/14/19 04:10: White Blood Count 11.8H, Red Blood Count 3.00L, Hemoglobin 9.3L, Hematocrit 27.6L, Mean Corpuscular Volume 92, Mean Corpuscular Hemoglobin 31.0, Mean Corpuscular Hemoglobin Concent 33.7, Red Cell Distribution Width 17.0H, Platelet Count 279, Mean Platelet Volume 5.7L, Neutrophils (%) (Auto) , Lymphocytes (%) (Auto) , Monocytes (%) (Auto) , Eosinophils (%) (Auto) , Basophils (%) (Auto) , Sodium Level 134L, Potassium Level 3.4L, Chloride Level 101, Carbon Dioxide Level 23, Anion Gap 10, Blood Urea Nitrogen 6L, Creatinine 0.6, Estimat Glomerular Filtration Rate , Glucose Level 128H, Calcium Level 7.4L , Phosphorus Level 3.5, Magnesium Level 1.2L, Total Bilirubin 0.6, Aspartate Amino Transf (AST/SGOT) 29, Alanine Aminotransferase (ALT/SGPT) 66, Alkaline Phosphatase 125H, Pro-B-Type Natriuretic Peptide 5701H, Total Protein 5.5L, Albumin 1.7L, Globulin 3.8, Albumin/Globulin Ratio 0.4L, Cortisol AM Sample 6.0 Height (Feet): 6 Height (Inches): 2.00 Weight (Pounds): 200 General Appearance: alert, mild distress EENT: normal ENT inspection, other - intubated Neck: normal alignment Cardiovascular: regular rhythm Respiratory/Chest: rhonchi - bilaterally Abdomen: non tender, soft Extremities: moderate edema Rishi Christy MD Mar 14, 2019 14:33
[2019-03-14] MEDS: SODIUM CHLORIDE IV SCH (14:44)
[2019-03-14] MEDS: POTASSIUM PHOSPHATE IV SCH (14:44)
[2019-03-14 14:49] LABS: APPEARANCE,URINE CLEAR; BILIRUBIN, URINE NEGATIVE (NEGATIVE); COLOR,URINE PALE YELLOW; GLUCOSE, URINE (UA) NEGATIVE (NEGATIVE); KETONES,URINE NEGATIVE (NEGATIVE); LEUKOCYTE ESTERASE ,URINE 1+ (NEGATIVE); NITRITE,URINE NEGATIVE (NEGATIVE); PH,URINE 5 (4.5-8.0); PROTEIN,URINE NEGATIVE (NEGATIVE); UROBILINOGEN,URINE NORMAL MG/DL (0.0-1.0)
[2019-03-14] MEDS ORDERED: Tubing IV Secondary IV ONE (17:34)
[2019-03-14] MEDS ORDERED: NS 275ml ONE (17:34)
[2019-03-14] MEDS: Dyna-Hex 2% Top Sol 2oz TOPIC SCH (20:13)
[2019-03-14] MEDS: Vancomycin 1.25gm Premix IVPB SCH (22:54)
[2019-03-14] MEDS: Norepinephrine Bitartrate 8 MG in D5W 500ml 492 ML IV SCH (23:31)
[2019-03-15] VITALS (50 sets, daily range): BP systolic 75–117; BP diastolic 39–94
[2019-03-15] MEDS: Acetaminophen 650mg/20.3ml NG PRN ×2 (00:37→08:45)
--- NOTE | 2019-03-15 03:45 | Progress Note ---
DATE: 03/14/2019 CARDIOLOGY PROGRESS NOTE SUBJECTIVE: The patient remains on dopamine support. Blood pressure parameters are tenuous. Multiple antimicrobials in place as well as Levophed for additional blood pressure support. OBJECTIVE: VITAL SIGNS: Blood pressure 90 to 100 systolic, heart rate 92, and respiratory rate 18. LUNGS: Bilateral breath sounds. Few rhonchi. HEART: Regular rhythm and rate. Normal S1, S2 with a fourth heart sound. ABDOMEN: Soft. EXTREMITIES: Trace edema. LABORATORY DATA: White count 11.8 and hemoglobin 9.3. Potassium 3.4, magnesium 1.2, and pro-natriuretic peptide 5700. Cortisol 6. IMPRESSION: 1. Profound sepsis shock. 2. Respiratory failure. 3. Severe hypomagnesemia. 4. Acute on chronic diastolic congestive heart failure. PLAN: 1. Wean pressors as able. 2. Ventilator support. 3. Antimicrobials . 4. Magnesium replacement. 5. Potassium replacement. 6. Phosphorus replacement. 7. Poor prognosis. 8. Nutritional support by feeding tube. Mejia Mckinney M.D. DR: DASHAWN JOB#: [id number] CC:
[2019-03-15 06:18] LABS: BASOPHILS % (AUTO) 0.6 % (0.0-2.0); EOSINOPHILS % (AUTO) 3.2 % (0.0-3.0); HEMATOCRIT 26.4 % (42.0-52.0); HEMOGLOBIN 8.8 G/DL (14.2-18.0); LYMPHOCYTES % (AUTO) 11.1 % (20.0-45.0); MEAN CORPUSCULAR VOLUME 92 FL (80-99); NEUTROPHILS % (AUTO) 79.1 % (45.0-75.0); PLATELET COUNT 283 K/UL (150-450); RED BLOOD COUNT 2.85 M/UL (4.70-6.10); RED CELL DISTRIBUTION WIDTH 17.3 % (11.6-14.8); WHITE BLOOD COUNT 7.9 K/UL (4.8-10.8)
[2019-03-15] MEDS: DOPamine 400mg/250ml 250 ML IV SCH (06:32)
[2019-03-15] MEDS: Norepinephrine Bitartrate 8 MG in D5W 500ml 492 ML IV SCH (06:38)
[2019-03-15 06:55] LABS: ALANINE AMINOTRANSFERASE 49 U/L (12-78); ALBUMIN 1.8 G/DL (3.4-5.0); ALBUMIN/GLOBULIN RATIO 0.5 (1.0-2.7); ALKALINE PHOSPHATASE 131 U/L (46-116); ANION GAP 6 mmol/L (5-15); ASPARTATE AMINO TRANSFERASE 22 U/L (15-37); BILIRUBIN,TOTAL 0.4 MG/DL (0.2-1.0); BLOOD UREA NITROGEN 7 mg/dL (7-18); CALCIUM 7.7 MG/DL (8.5-10.1); CARBON DIOXIDE 26 MMOL/L (21-32); CHLORIDE 101 MMOL/L (98-107); CREATININE 0.5 MG/DL (0.55-1.30); POTASSIUM 3.5 MMOL/L (3.5-5.1); SODIUM 133 MMOL/L (136-145)
[2019-03-15] MEDS: Ferrous Sulfate 300 MG/5 ML UDC NG SCH ×3 (08:44→17:14)
[2019-03-15] MEDS: Magnesium Oxide 400mg tab NG SCH ×3 (08:44→17:15)
[2019-03-15] MEDS: Dakin's 0.25% (Half Strength) 16oz TOPIC SCH (08:46)
[2019-03-15] MEDS: Vancomycin 1.25gm Premix IVPB SCH ×2 (10:28→22:33)
[2019-03-15] MEDS: POTASSIUM PHOSPHATE IV SCH (10:47)
[2019-03-15] MEDS: SODIUM CHLORIDE IV SCH (10:47)
--- NOTE | 2019-03-15 12:08 | Infectious Diseases Prog Note ---
Assessment/Plan Assessment/Plan ASSESSMENT: 1. 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 Acute kidney injury, elevated creatinine. 3. Anemia. 4. Atrial fibrillation. The patient has been on Eliquis. 5. Status post code. 6. Sacral wound. 7. Aortic valve stenosis. 8. Hypertension. 9. icu care 10. Hypertension treatment per primary but the patient currently is on pressors. 11. No known drug allergies. No antibiotic allergies. 12. Social history is negative. 13. Family history noncontributory. 14. MAR was noted. 15. Case discussed with RN. 16. Continue treatment per primary consultants. 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 Subjective Constitutional: Reports: other - on vent, on pressors, alert; Denies: fever HEENT: Reports: congestion Respiratory: Reports: shortness of breath Cardiovascular: Denies: chest pain Gastrointestinal/Abdominal: Reports: diarrhea, other - + rectal tube ; Denies: nausea, vomiting Genitourinary: Reports: other - + lemus Neurologic: Reports: other - alert and responsive Psychiatric: Denies: depression Skin: Denies: rash Hematologic: Denies: bleeding Musculoskeletal: Denies: pain Allergies: Coded Allergies: No Known Allergies (Unverified , 03/05/19) Objective Vital Signs Last 24 Hour Vital Signs Date Time Temp Pulse Resp B/P (MAP) Pulse Ox O2 Delivery O2 Flow Rate FiO2 03/15/19 11:01 87 18 30 03/15/19 11:00 85 17 103/52 (69) 97 03/15/19 11:00 85 17 103/52 (69) 97 03/15/19 11:00 107/57 03/15/19 10:30 89 18 95/52 (66) 99 03/15/19 10:15 89 18 107/52 (70) 98 03/15/19 10:00 107/52 03/15/19 10:00 88 18 100/51 (67) 99 03/15/19 09:45 88 17 102/53 (69) 98 03/15/19 09:30 90 18 88/47 (61) 99 03/15/19 09:30 88/47 03/15/19 09:00 95/49 03/15/19 09:00 94 19 99/51 (67) 100 03/15/19 08:32 94 18 30 03/15/19 08:30 95 18 95/47 (63) 100 03/15/19 08:00 Mechanical Ventilator Mechanical Ventilator Mechanical Ventilator 03/15/19 08:00 102/51 03/15/19 08:00 99.0 93 19 112/61 (78) 100 03/15/19 08:00 30 03/15/19 07:36 94 03/15/19 07:00 89/44 03/15/19 07:00 95 18 89/44 (59) 100 03/15/19 06:45 91 18 30 03/15/19 06:38 75/41 03/15/19 06:30 93 18 75/41 (52) 100 03/15/19 06:06 100 21 30 03/15/19 06:00 95 18 77/39 (52) 100 03/15/19 05:00 95 18 102/47 (65) 100 03/15/19 04:00 100 03/15/19 04:00 98.0 95 18 93/45 (61) 98 03/15/19 04:00 Mechanical Ventilator Mechanical Ventilator Mechanical Ventilator 03/15/19 04:00 30 03/15/19 03:02 101 18 30 03/15/19 03:00 101 18 93/49 (64) 99 03/15/19 02:00 96/52 03/15/19 02:00 96 19 115/57 (76) 100 03/15/19 01:31 103/53 03/15/19 01:05 95 19 30 03/15/19 01:00 95 18 102/47 (65) 100 03/15/19 00:31 111/55 03/15/19 00:00 30 03/15/19 00:00 97.8 92 16 104/52 (69) 98 03/15/19 00:00 89 03/15/19 00:00 Mechanical Ventilator Mechanical Ventilator Mechanical Ventilator 03/14/19 23:31 106/55 03/14/19 23:30 106/55 03/14/19 23:28 91 18 30 03/14/19 23:00 92 19 92/61 (71) 100 03/14/19 23:00 92/61 03/14/19 22:00 94 18 68/37 (47) 100 03/14/19 22:00 68/37 03/14/19 21:14 89 18 30 03/14/19 21:00 91 18 96/48 (64) 100 03/14/19 20:00 92 03/14/19 20:00 99.1 93 18 121/60 (80) 100 03/14/19 20:00 Mechanical Ventilator Mechanical Ventilator Mechanical Ventilator 03/14/19 20:00 30 03/14/19 19:30 94 18 30 03/14/19 19:00 91 18 93/47 (62) 100 03/14/19 18:58 97.9 03/14/19 18:00 96 18 104/50 (68) 100 03/14/19 17:09 94 18 30 03/14/19 17:00 85 18 118/64 (82) 100 03/14/19 16:30 97.9 93 18 97/50 (66) 100 03/14/19 16:00 85 18 118/64 (82) 100 03/14/19 16:00 Mechanical Ventilator Mechanical Ventilator Mechanical Ventilator 03/14/19 16:00 92 03/14/19 16:00 30 03/14/19 15:30 80 18 115/53 (73) 100 03/14/19 15:14 78 18 30 03/14/19 15:00 76 18 109/48 (68) 100 03/14/19 15:00 99/42 03/14/19 14:30 78 18 109/48 (68) 100 03/14/19 14:00 108/47 03/14/19 14:00 80 18 107/44 (65) 100 03/14/19 13:30 84 18 100/45 (63) 99 03/14/19 13:23 85 18 30 03/14/19 13:00 85 18 104/49 (67) 99 03/14/19 12:30 85 18 98/42 (60) 99 Height (Feet): 6 Height (Inches): 2.00 Weight (Pounds): 200 General Appearance: other - on vent and pressors HEENT: normocephalic, atraumatic, anicteric, other - intubated Respiratory/Chest: crackles/rales, rhonchi - bilaterally Cardiovascular: normal rate, regular rhythm, no gallop/murmur, no JVD Abdomen: normal bowel sounds, soft, non tender, no organomegaly Genitourinary: other - + lemus Extremities: no cyanosis Skin: no rash Neurologic/Psychiatric: 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 Chest x-ray - 03/06/19 - Findings: Mild pleural thickening versus effusion on the right noted. Heart size is stable and mildly enlarged. Endotracheal tube is in good position unchanged. NG tube is present. The proximal port is near the EG junction. The tip is in the stomach. IMPRESSION: Nasogastric tube may be advanced slightly. Slightly improved congestion compared to the previous day Chest x-ray - 03/09/19 - Procedure: XRAY Chest 1v Indication: Dyspnea Comparison: 03/06/2019 A single view chest radiograph was obtained. Findings: Basilar densities likely atelectasis noted. Cardiac size is stable. Endotracheal tube position is stable and satisfactory. IMPRESSION: No significant change. Chest x-ray - 03/13/19 - A single view chest radiograph was obtained. Findings: Endotracheal tube is in good position. NG tube also noted position. Heart size is stable. Pulmonary vascular congestion suspected. Small bilateral pleural effusion suspected. IMPRESSION: Mild pulmonary congestion suspected Chest x-ray - 03/14/19 - Chest x-ray - 03/14/19 - Procedure: XRAY Chest 1v Indication: Line placement Comparison: 03/13/2019 A single view chest radiograph was obtained. Findings: PICC line is noted. The tip is in the SVC in good position. No change otherwise. IMPRESSION: PICC line in good position Microbiology Date/Time Source Procedure Growth Status 03/08/19 05:00 Blood Blood Culture - Final NO GROWTH AFTER 5 DAYS Complete 03/14/19 13:00 Sputum Induced Gram Stain Pending Resulted 03/14/19 13:00 Sputum Induced Sputum Culture - Preliminary NO GROWTH Resulted 03/09/19 17:00 Stool Clostridium difficile Toxin Assay - Final Complete 03/14/19 13:00 Indwelling Cath Urine Culture - Preliminary NO GROWTH Resulted 03/05/19 00:50 Rectum VRE Culture - Final NO VANCOMYCIN RESISTANT ENTEROCOCCUS ... Complete Microbiology Date/Time Source Procedure Growth Status 03/14/19 13:00 Sputum Induced Gram Stain Pending Resulted 03/14/19 13:00 Sputum Induced Sputum Culture - Preliminary NO GROWTH Resulted 03/14/19 13:00 Indwelling Cath Urine Culture - Preliminary NO GROWTH Resulted Laboratory Tests Test 03/14/19 13:00 03/14/19 20:00 03/15/19 04:50 Urine Color Pale yellow Urine Appearance Clear Urine pH 5 (4.5-8.0) Urine Specific [place] 1.005 (1.005-1.035) Urine Protein Negative (NEGATIVE) Urine Glucose (UA) Negative (NEGATIVE) Urine Ketones Negative (NEGATIVE) Urine Blood 3+ (NEGATIVE) H Urine Nitrite Negative (NEGATIVE) Urine Bilirubin Negative (NEGATIVE) Urine Urobilinogen Normal MG/DL (0.0-1.0) Urine Leukocyte Esterase 1+ (NEGATIVE) H Urine RBC 2-4 /HPF (0 - 0) H Urine WBC 0-2 /HPF (0 - 0) Urine Squamous Epithelial Cells None /LPF (NONE/OCC) Urine Bacteria None /HPF (NONE) Vancomycin Level Trough 12.8 ug/mL (5.0-12.0) H White Blood Count 7.9 K/UL (4.8-10.8) Red Blood Count 2.85 M/UL (4.70-6.10) L Hemoglobin 8.8 G/DL (14.2-18.0) L Hematocrit 26.4 % (42.0-52.0) L Mean Corpuscular Volume 92 FL (80-99) Mean Corpuscular Hemoglobin 31.0 PG (27.0-31.0) Mean Corpuscular Hemoglobin Concent 33.5 G/DL (32.0-36.0) Red Cell Distribution Width 17.3 % (11.6-14.8) H Platelet Count 283 K/UL (150-450) Mean Platelet Volume 5.6 FL (6.5-10.1) L Neutrophils (%) (Auto) 79.1 % (45.0-75.0) H Lymphocytes (%) (Auto) 11.1 % (20.0-45.0) L Monocytes (%) (Auto) 6.0 % (1.0-10.0) Eosinophils (%) (Auto) 3.2 % (0.0-3.0) H Basophils (%) (Auto) 0.6 % (0.0-2.0) Activated Partial Thromboplast Time 32 SEC (23-33) Sodium Level 133 MMOL/L (136-145) L Potassium Level 3.5 MMOL/L (3.5-5.1) Chloride Level 101 MMOL/L (98-107) Carbon Dioxide Level 26 MMOL/L (21-32) Anion Gap 6 mmol/L (5-15) Blood Urea Nitrogen 7 mg/dL (7-18) Creatinine 0.5 MG/DL (0.55-1.30) L Estimat Glomerular Filtration Rate mL/min (>60) Glucose Level 95 MG/DL (74-106) Calcium Level 7.7 MG/DL (8.5-10.1) L Magnesium Level 1.7 MG/DL (1.8-2.4) L Total Bilirubin 0.4 MG/DL (0.2-1.0) Aspartate Amino Transf (AST/SGOT) 22 U/L (15-37) Alanine Aminotransferase (ALT/SGPT) 49 U/L (12-78) Alkaline Phosphatase 131 U/L (46-116) H Total Protein 5.5 G/DL (6.4-8.2) L Albumin 1.8 G/DL (3.4-5.0) L Globulin 3.7 g/dL Albumin/Globulin Ratio 0.5 (1.0-2.7) L Current Medications Medications (Trade) Dose Ordered Sig/[place]y Route PRN Reason Start Time Stop Time Status Last Admin Dose Admin Acetaminophen (Tylenol) 650 mg Q4H PRN NG Mild Pain/Temp > 100.5 03/14/19 12:00 04/13/19 11:59 03/15/19 08:45 Chlorhexidine Gluconate (Jada-Hex 2%) 1 applic DAILY@2000 TOPIC 03/13/19 20:00 04/12/19 19:59 03/14/19 20:13 Ciprofloxacin 200 ml @ 200 mls/hr Q12HR IV 03/13/19 21:00 03/20/19 20:59 03/15/19 08:44 Dextrose (Dextrose 50%) 25 ml Q30M PRN IV Hypoglycemia 03/05/19 06:15 04/04/19 06:14 Dextrose (Dextrose 50%) 50 ml Q30M PRN IV Hypoglycemia 03/05/19 06:15 04/04/19 06:14 Dopamine HCl/ Dextrose 250 ml @ 0 mls/hr Q24H IV 03/05/19 06:32 04/04/19 06:31 03/05/19 07:46 Ferrous Sulfate (Feosol) 330 mg THREE TIMES A DAY NG 03/05/19 09:00 04/04/19 08:59 03/15/19 08:44 Lansoprazole (Prevacid) 30 mg DAILY NG 03/08/19 09:00 04/07/19 08:59 03/15/19 08:45 Magnesium Oxide (Mag-Ox 400mg) 400 mg THREE TIMES A DAY NG 03/09/19 18:00 04/08/19 17:59 03/15/19 08:44 Metronidazole 100 ml @ 100 mls/hr Q8HR IVPB 03/13/19 22:00 03/20/19 21:59 03/15/19 05:47 Norepinephrine Bitartrate 8 mg/ Dextrose 500 ml @ 0 mls/hr Q24H IV 03/05/19 22:00 04/04/19 21:59 03/15/19 06:38 Ondansetron HCl (Zofran) 4 mg Q6H PRN IVP Nausea & Vomiting 03/05/19 06:15 04/04/19 06:14 Potassium Phosphate 20 meq/ Sodium Chloride 1,004.5455 ml @ 50 mls/hr Q20H6M IV 03/13/19 18:30 04/12/19 18:29 03/15/19 10:47 Potassium Chloride (K-Dur) 40 meq TID NG 03/14/19 18:00 04/13/19 17:59 03/15/19 08:45 Sodium Hypochlorite (Dakin's Half Strength) 1 applic DAILY TOPIC 03/10/19 20:00 04/09/19 19:59 03/15/19 08:46 Vancomycin HCl (Vanco rx to dose) 1 ea DAILY PRN MISC Per rx protocol 03/05/19 06:15 04/04/19 06:14 Vancomycin HCl/ Dextrose 275 ml @ 183.333 mls/hr Q12H IVPB 03/14/19 22:00 03/19/19 21:59 03/15/19 10:28 Voriconazole (Vfend) 200 mg Q12HR ORAL 03/14/19 13:00 03/21/19 12:59 03/15/19 08:45 Makenzie Galeano MD Mar 15, 2019 12:08
--- NOTE | 2019-03-15 13:14 | Pulmonology Progress Note ---
Assessment/Plan Assessment/Plan 1. Severe sepsis, shock due to enterobacter and streptococcus bacteremia 2. Sacral decubitus and osteomyelitis. 3. CALEB, improving 4. Acute myocardial ischemia, possible non-ST elevation myocardial infarction. 5. Aspiration pneumonia. 6. Respiratory failure, status post full arrest. 7. Paroxysmal atrial fibrillation. 8. 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 9. Acute liver failure, improving PLAN: Ventilator support, cannot wean Broad spectrum antimicrobials, antifungal per ID cannot dc levophed due to low BP Wound care, surgery following Planned surgical intervention when off pressors Prognosis guarded Subjective ROS Limited/Unobtainable: Yes Allergies: Coded Allergies: No Known Allergies (Unverified , 03/05/19) Objective Last 24 Hour Vital Signs Date Time Temp Pulse Resp B/P (MAP) Pulse Ox O2 Delivery O2 Flow Rate FiO2 03/15/19 13:02 81 20 30 03/15/19 11:01 87 18 30 03/15/19 11:00 85 17 103/52 (69) 97 03/15/19 11:00 85 17 103/52 (69) 97 03/15/19 11:00 107/57 03/15/19 10:30 89 18 95/52 (66) 99 03/15/19 10:15 89 18 107/52 (70) 98 03/15/19 10:00 107/52 03/15/19 10:00 88 18 100/51 (67) 99 03/15/19 09:45 88 17 102/53 (69) 98 03/15/19 09:30 90 18 88/47 (61) 99 03/15/19 09:30 88/47 03/15/19 09:00 95/49 03/15/19 09:00 94 19 99/51 (67) 100 03/15/19 08:32 94 18 30 03/15/19 08:30 95 18 95/47 (63) 100 03/15/19 08:00 Mechanical Ventilator Mechanical Ventilator Mechanical Ventilator 03/15/19 08:00 102/51 03/15/19 08:00 99.0 93 19 112/61 (78) 100 03/15/19 08:00 30 03/15/19 07:36 94 03/15/19 07:00 89/44 03/15/19 07:00 95 18 89/44 (59) 100 03/15/19 06:45 91 18 30 03/15/19 06:38 75/41 03/15/19 06:30 93 18 75/41 (52) 100 03/15/19 06:06 100 21 30 03/15/19 06:00 95 18 77/39 (52) 100 03/15/19 05:00 95 18 102/47 (65) 100 03/15/19 04:00 100 03/15/19 04:00 98.0 95 18 93/45 (61) 98 03/15/19 04:00 Mechanical Ventilator Mechanical Ventilator Mechanical Ventilator 03/15/19 04:00 30 03/15/19 03:02 101 18 30 03/15/19 03:00 101 18 93/49 (64) 99 03/15/19 02:00 96/52 03/15/19 02:00 96 19 115/57 (76) 100 03/15/19 01:31 103/53 03/15/19 01:05 95 19 30 03/15/19 01:00 95 18 102/47 (65) 100 03/15/19 00:31 111/55 03/15/19 00:00 30 03/15/19 00:00 97.8 92 16 104/52 (69) 98 03/15/19 00:00 89 03/15/19 00:00 Mechanical Ventilator Mechanical Ventilator Mechanical Ventilator 03/14/19 23:31 106/55 03/14/19 23:30 106/55 03/14/19 23:28 91 18 30 03/14/19 23:00 92 19 92/61 (71) 100 03/14/19 23:00 92/61 03/14/19 22:00 94 18 68/37 (47) 100 03/14/19 22:00 68/37 03/14/19 21:14 89 18 30 03/14/19 21:00 91 18 96/48 (64) 100 03/14/19 20:00 92 03/14/19 20:00 99.1 93 18 121/60 (80) 100 03/14/19 20:00 Mechanical Ventilator Mechanical Ventilator Mechanical Ventilator 03/14/19 20:00 30 03/14/19 19:30 94 18 30 03/14/19 19:00 91 18 93/47 (62) 100 03/14/19 18:58 97.9 03/14/19 18:00 96 18 104/50 (68) 100 03/14/19 17:09 94 18 30 03/14/19 17:00 85 18 118/64 (82) 100 03/14/19 16:30 97.9 93 18 97/50 (66) 100 03/14/19 16:00 85 18 118/64 (82) 100 03/14/19 16:00 Mechanical Ventilator Mechanical Ventilator Mechanical Ventilator 03/14/19 16:00 92 03/14/19 16:00 30 03/14/19 15:30 80 18 115/53 (73) 100 03/14/19 15:14 78 18 30 03/14/19 15:00 76 18 109/48 (68) 100 03/14/19 15:00 99/42 03/14/19 14:30 78 18 109/48 (68) 100 03/14/19 14:00 108/47 03/14/19 14:00 80 18 107/44 (65) 100 03/14/19 13:30 84 18 100/45 (63) 99 03/14/19 13:23 85 18 30 Intake and Output 03/14/19 03/15/19 18:59 06:59 Intake Total 1666.25 ml 1576.566 ml Output Total 1620 ml 1505 ml Balance 46.25 ml 71.566 ml Intake Free Water 220 ml 60 ml IV Total 726.25 ml 796.566 ml Tube Feeding 720 ml 720 ml Output Urine Total 1470 ml 1505 ml Stool Total 150 ml Objective weak, on vent via oral ETT General Appearance: no acute distress HEENT: atraumatic Respiratory/Chest: rhonchi Cardiovascular: normal rate Microbiology Date/Time Source Procedure Growth Status 03/14/19 13:00 Sputum Induced Gram Stain Pending Resulted 03/14/19 13:00 Sputum Induced Sputum Culture - Preliminary NO GROWTH Resulted 03/14/19 13:00 Indwelling Cath Urine Culture - Preliminary NO GROWTH Resulted Laboratory Tests 03/14/19 20:00: Vancomycin Level Trough 12.8H 03/15/19 04:50: White Blood Count 7.9, Red Blood Count 2.85L, Hemoglobin 8.8L, Hematocrit 26.4L , Mean Corpuscular Volume 92, Mean Corpuscular Hemoglobin 31.0, Mean Corpuscular Hemoglobin Concent 33.5, Red Cell Distribution Width 17.3H, Platelet Count 283, Mean Platelet Volume 5.6L, Neutrophils (%) (Auto) 79.1H, Lymphocytes (%) (Auto) 11.1L, Monocytes (%) (Auto) 6.0, Eosinophils (%) (Auto) 3.2H, Basophils (%) (Auto) 0.6, Activated Partial Thromboplast Time 32, Sodium Level 133L, Potassium Level 3.5, Chloride Level 101, Carbon Dioxide Level 26, Anion Gap 6, Blood Urea Nitrogen 7, Creatinine 0.5L, Estimat Glomerular Filtration Rate , Glucose Level 95, Calcium Level 7.7L, Magnesium Level 1.7L, Total Bilirubin 0.4, Aspartate Amino Transf (AST/SGOT) 22, Alanine Aminotransferase (ALT/SGPT) 49, Alkaline Phosphatase 131H, Total Protein 5.5L, Albumin 1.8L, Globulin 3.7, Albumin/Globulin Ratio 0.5L Current Medications Medications (Trade) Dose Ordered Sig/Tawny Route PRN Reason Start Time Stop Time Status Last Admin Dose Admin Acetaminophen (Tylenol) 650 mg Q4H PRN NG Mild Pain/Temp > 100.5 03/14/19 12:00 04/13/19 11:59 03/15/19 08:45 Chlorhexidine Gluconate (Jada-Hex 2%) 1 applic DAILY@2000 TOPIC 03/13/19 20:00 04/12/19 19:59 03/14/19 20:13 Ciprofloxacin 200 ml @ 200 mls/hr Q12HR IV 03/13/19 21:00 03/20/19 20:59 03/15/19 08:44 Dextrose (Dextrose 50%) 25 ml Q30M PRN IV Hypoglycemia 03/05/19 06:15 04/04/19 06:14 Dextrose (Dextrose 50%) 50 ml Q30M PRN IV Hypoglycemia 03/05/19 06:15 04/04/19 06:14 Dopamine HCl/ Dextrose 250 ml @ 0 mls/hr Q24H IV 03/05/19 06:32 04/04/19 06:31 03/05/19 07:46 Ferrous Sulfate (Feosol) 330 mg THREE TIMES A DAY NG 03/05/19 09:00 04/04/19 08:59 03/15/19 08:44 Lansoprazole (Prevacid) 30 mg DAILY NG 03/08/19 09:00 04/07/19 08:59 03/15/19 08:45 Magnesium Oxide (Mag-Ox 400mg) 400 mg THREE TIMES A DAY NG 03/09/19 18:00 04/08/19 17:59 03/15/19 08:44 Metronidazole 100 ml @ 100 mls/hr Q8HR IVPB 03/13/19 22:00 03/20/19 21:59 03/15/19 05:47 Norepinephrine Bitartrate 8 mg/ Dextrose 500 ml @ 0 mls/hr Q24H IV 03/05/19 22:00 04/04/19 21:59 03/15/19 06:38 Ondansetron HCl (Zofran) 4 mg Q6H PRN IVP Nausea & Vomiting 03/05/19 06:15 04/04/19 06:14 Potassium Phosphate 20 meq/ Sodium Chloride 1,004.5455 ml @ 50 mls/hr Q20H6M IV 03/13/19 18:30 04/12/19 18:29 03/15/19 10:47 Potassium Chloride (K-Dur) 40 meq TID NG 03/14/19 18:00 04/13/19 17:59 03/15/19 08:45 Sodium Hypochlorite (Dakin's Half Strength) 1 applic DAILY TOPIC 03/10/19 20:00 04/09/19 19:59 03/15/19 08:46 Vancomycin HCl (Vanco rx to dose) 1 ea DAILY PRN MISC Per rx protocol 03/05/19 06:15 04/04/19 06:14 Vancomycin HCl/ Dextrose 275 ml @ 183.333 mls/hr Q12H IVPB 03/14/19 22:00 03/19/19 21:59 03/15/19 10:28 Voriconazole (Vfend) 200 mg Q12HR ORAL 03/14/19 13:00 03/21/19 12:59 03/15/19 08:45 Cedric Perez MD Mar 15, 2019 13:14
--- NOTE | 2019-03-15 13:24 | Diagnostic Imaging Report ---
Indication: Dyspnea Technique: One view of the chest Comparison: 03/14/2019 Findings: Stable satisfactory positions of endotracheal and nasogastric tubes, right arm PICC. Hazy left basilar opacity persists, likely combination of pleural fluid and hazy infiltrate. This may be less prominent than on the prior study. The heart size is normal. Impression: Possibly slightly improving left pleural and/or parenchymal disease. 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
[2019-03-15] MEDS ORDERED: Phytonadione 10 mg/mL 1ml amp SUBQ SCH (14:00)
--- NOTE | 2019-03-15 14:15 | Anethesia Preoperative Eval ---
Anesthesia Pre-op PMH/ROS General Date of Evaluation: Mar 15, 2019 Time of Evaluation: 14:08 Anesthesiologist: Farooq ASA Score: ASA 4 Mallampati Score Class I : Soft palate, uvula, fauces, pillars visible Class II: Soft palate, uvula, fauces visible Class III: Soft palate, base of uvula visible Class IV: Only hard plate visible Mallampati Classification: Class III - Intubated on vent Surgeon: Darshana Diagnosis: Decubitus Ulcer Surgical Procedure: Debride DDecubitus Ulcer Anesthesia History: none Family History: no anesthesia problems Allergies: Coded Allergies: No Known Allergies (Unverified , 03/05/19) Medications: see eMAR Patient NPO?: Yes NPO Date: Mar 05, 2019 NPO Time: 0000 Past Medical History Cardiovascular: Reports: HTN, CAD, valve dz - Aortic Stenosis, arrhythmia - Afib Gastrointestinal/Genitourinary: Reports: GERD, CRI, other - Acute Liver Failure Neurologic/Psychiatric: Reports: dementia, CVA Endocrine: Reports: hypothyroidism Hematology/Immune: Reports: anemia, other - Severe Sepsis Musculoskeletal/Integumentary: Reports: DJD, other - Malnourished Anesthesia Pre-op Phys. Exam Physician Exam Last Vital Signs Date Time Temp Pulse Resp B/P (MAP) Pulse Ox O2 Delivery O2 Flow Rate FiO2 03/15/19 13:02 81 20 30 03/15/19 13:00 104/53 (70) 100 03/15/19 12:00 Mechanical Ventilator Mechanical Ventilator Mechanical Ventilator 03/15/19 08:00 99.0 Constitutional: NAD Neurologic: CN 2-12 intact Cardiovascular: RRR Respiratory: CTA Gastrointestinal: S/NT/ND Airway Exam Mallampati Score: Class III MO: limited Neck: Intubated ROM: limited Teeth: missing, intact Anesthesia Pre-op A/P Labs Hematology Test 03/15/19 04:50 White Blood Count 7.9 K/UL (4.8-10.8) Red Blood Count 2.85 M/UL (4.70-6.10) L Hemoglobin 8.8 G/DL (14.2-18.0) L Hematocrit 26.4 % (42.0-52.0) L Mean Corpuscular Volume 92 FL (80-99) Mean Corpuscular Hemoglobin 31.0 PG (27.0-31.0) Mean Corpuscular Hemoglobin Concent 33.5 G/DL (32.0-36.0) Red Cell Distribution Width 17.3 % (11.6-14.8) H Platelet Count 283 K/UL (150-450) Mean Platelet Volume 5.6 FL (6.5-10.1) L Neutrophils (%) (Auto) 79.1 % (45.0-75.0) H Lymphocytes (%) (Auto) 11.1 % (20.0-45.0) L Monocytes (%) (Auto) 6.0 % (1.0-10.0) Eosinophils (%) (Auto) 3.2 % (0.0-3.0) H Basophils (%) (Auto) 0.6 % (0.0-2.0) Coagulation Test 03/15/19 04:50 Activated Partial Thromboplast Time 32 SEC (23-33) Chemistry Test 03/15/19 04:50 Sodium Level 133 MMOL/L (136-145) L Potassium Level 3.5 MMOL/L (3.5-5.1) Chloride Level 101 MMOL/L (98-107) Carbon Dioxide Level 26 MMOL/L (21-32) Anion Gap 6 mmol/L (5-15) Blood Urea Nitrogen 7 mg/dL (7-18) Creatinine 0.5 MG/DL (0.55-1.30) L Estimat Glomerular Filtration Rate mL/min (>60) Glucose Level 95 MG/DL (74-106) Calcium Level 7.7 MG/DL (8.5-10.1) L Magnesium Level 1.7 MG/DL (1.8-2.4) L Total Bilirubin 0.4 MG/DL (0.2-1.0) Aspartate Amino Transf (AST/SGOT) 22 U/L (15-37) Alanine Aminotransferase (ALT/SGPT) 49 U/L (12-78) Alkaline Phosphatase 131 U/L (46-116) H Total Protein 5.5 G/DL (6.4-8.2) L Albumin 1.8 G/DL (3.4-5.0) L Globulin 3.7 g/dL Albumin/Globulin Ratio 0.5 (1.0-2.7) L Risk Assessment & Plan Assessment: ASA 4 Plan: Patient should be done at bedside. Pt should not come to the OR. Pt remains on Levophed. Status Change Before Surgery: No Pre-Antibiotics Drug: Hilton Bui MD Mar 15, 2019 14:15
--- NOTE | 2019-03-15 19:20 | Nephrology Progress Note ---
Assessment/Plan Problem List: (1) Hypokalemia (2) Pyelonephritis (3) CALEB (acute kidney injury) (4) Septic shock (5) Cardiopulmonary arrest (6) Decubitus ulcer (7) Hypomagnesemia (8) Hypophosphatemia (9) Hyponatremia Assessment replace mg, phos,K avoid fluid overload but still on levophed needs fluids, low rate K Mg lower, replace, try adding midodrine Subjective ROS Limited/Unobtainable: Yes Objective Objective Last 24 Hour Vital Signs Date Time Temp Pulse Resp B/P (MAP) Pulse Ox O2 Delivery O2 Flow Rate FiO2 03/15/19 19:02 88 19 30 03/15/19 19:00 86 17 109/61 (77) 100 03/15/19 18:30 99.9 85 16 116/87 (97) 100 03/15/19 18:00 89 18 113/51 (71) 100 03/15/19 17:30 86 19 117/47 (70) 99 03/15/19 17:00 86 18 109/51 (70) 100 03/15/19 16:32 86 18 30 03/15/19 16:30 87 18 109/56 (73) 100 03/15/19 16:00 30 03/15/19 16:00 85 18 104/48 (66) 98 03/15/19 16:00 Mechanical Ventilator Mechanical Ventilator Mechanical Ventilator 03/15/19 16:00 103/51 03/15/19 15:42 86 03/15/19 15:30 86 19 94/79 (84) 100 03/15/19 15:00 110/60 03/15/19 15:00 90 20 117/55 (75) 100 03/15/19 14:36 89 19 30 03/15/19 14:30 82 19 101/60 (74) 98 03/15/19 14:00 83 20 109/55 (73) 100 03/15/19 14:00 103/53 03/15/19 14:00 83 20 109/55 (73) 100 03/15/19 13:30 80 18 104/46 (65) 100 03/15/19 13:02 81 20 30 03/15/19 13:00 106/53 03/15/19 13:00 83 19 104/53 (70) 100 03/15/19 12:30 84 19 102/55 (71) 100 03/15/19 12:00 30 03/15/19 12:00 105/51 03/15/19 12:00 Mechanical Ventilator Mechanical Ventilator Mechanical Ventilator 03/15/19 12:00 85 17 103/52 (69) 97 03/15/19 11:49 87 03/15/19 11:30 84 20 101/51 (68) 95 03/15/19 11:01 87 18 30 03/15/19 11:00 85 17 103/52 (69) 97 03/15/19 11:00 85 17 103/52 (69) 97 03/15/19 11:00 107/57 03/15/19 10:30 89 18 95/52 (66) 99 03/15/19 10:15 89 18 107/52 (70) 98 03/15/19 10:00 107/52 03/15/19 10:00 88 18 100/51 (67) 99 03/15/19 09:45 88 17 102/53 (69) 98 03/15/19 09:30 90 18 88/47 (61) 99 03/15/19 09:30 88/47 03/15/19 09:00 95/49 03/15/19 09:00 94 19 99/51 (67) 100 03/15/19 08:32 94 18 30 03/15/19 08:30 95 18 95/47 (63) 100 03/15/19 08:00 Mechanical Ventilator Mechanical Ventilator Mechanical Ventilator 03/15/19 08:00 102/51 03/15/19 08:00 99.0 93 19 112/61 (78) 100 03/15/19 08:00 30 03/15/19 07:36 94 03/15/19 07:00 89/44 03/15/19 07:00 95 18 89/44 (59) 100 03/15/19 06:45 91 18 30 03/15/19 06:38 75/41 03/15/19 06:30 93 18 75/41 (52) 100 03/15/19 06:06 100 21 30 03/15/19 06:00 95 18 77/39 (52) 100 03/15/19 05:00 95 18 102/47 (65) 100 03/15/19 04:00 100 03/15/19 04:00 98.0 95 18 93/45 (61) 98 03/15/19 04:00 Mechanical Ventilator Mechanical Ventilator Mechanical Ventilator 03/15/19 04:00 30 03/15/19 03:02 101 18 30 03/15/19 03:00 101 18 93/49 (64) 99 03/15/19 02:00 96/52 03/15/19 02:00 96 19 115/57 (76) 100 03/15/19 01:31 103/53 03/15/19 01:05 95 19 30 03/15/19 01:00 95 18 102/47 (65) 100 03/15/19 00:31 111/55 03/15/19 00:00 30 03/15/19 00:00 97.8 92 16 104/52 (69) 98 03/15/19 00:00 89 03/15/19 00:00 Mechanical Ventilator Mechanical Ventilator Mechanical Ventilator 03/14/19 23:31 106/55 03/14/19 23:30 106/55 03/14/19 23:28 91 18 30 03/14/19 23:00 92 19 92/61 (71) 100 03/14/19 23:00 92/61 03/14/19 22:00 94 18 68/37 (47) 100 03/14/19 22:00 68/37 03/14/19 21:14 89 18 30 03/14/19 21:00 91 18 96/48 (64) 100 03/14/19 20:00 92 03/14/19 20:00 99.1 93 18 121/60 (80) 100 03/14/19 20:00 Mechanical Ventilator Mechanical Ventilator Mechanical Ventilator 03/14/19 20:00 30 03/14/19 19:30 94 18 30 Intake and Output 03/14/19 03/15/19 18:59 06:59 Intake Total 1666.25 ml 1576.566 ml Output Total 1620 ml 1505 ml Balance 46.25 ml 71.566 ml Intake Free Water 220 ml 60 ml IV Total 726.25 ml 796.566 ml Tube Feeding 720 ml 720 ml Output Urine Total 1470 ml 1505 ml Stool Total 150 ml Laboratory Tests 03/14/19 20:00: Vancomycin Level Trough 12.8H 03/15/19 04:50: White Blood Count 7.9, Red Blood Count 2.85L, Hemoglobin 8.8L, Hematocrit 26.4L , Mean Corpuscular Volume 92, Mean Corpuscular Hemoglobin 31.0, Mean Corpuscular Hemoglobin Concent 33.5, Red Cell Distribution Width 17.3H, Platelet Count 283, Mean Platelet Volume 5.6L, Neutrophils (%) (Auto) 79.1H, Lymphocytes (%) (Auto) 11.1L, Monocytes (%) (Auto) 6.0, Eosinophils (%) (Auto) 3.2H, Basophils (%) (Auto) 0.6, Activated Partial Thromboplast Time 32, Sodium Level 133L, Potassium Level 3.5, Chloride Level 101, Carbon Dioxide Level 26, Anion Gap 6, Blood Urea Nitrogen 7, Creatinine 0.5L, Estimat Glomerular Filtration Rate , Glucose Level 95, Calcium Level 7.7L, Magnesium Level 1.7L, Total Bilirubin 0.4, Aspartate Amino Transf (AST/SGOT) 22, Alanine Aminotransferase (ALT/SGPT) 49, Alkaline Phosphatase 131H, Total Protein 5.5L, Albumin 1.8L, Globulin 3.7, Albumin/Globulin Ratio 0.5L Height (Feet): 6 Height (Inches): 2.00 Weight (Pounds): 200 General Appearance: alert, mild distress EENT: other - intubated Cardiovascular: regular rhythm Respiratory/Chest: rhonchi - bilaterally Abdomen: non tender, soft Extremities: moderate edema Rishi Christy MD Mar 15, 2019 19:20
[2019-03-15] MEDS ORDERED: Midodrine 10mg tab ORAL SCH (19:30)
[2019-03-15] MEDS: Dyna-Hex 2% Top Sol 2oz TOPIC SCH (20:10)
[2019-03-16] VITALS (62 sets, daily range): BP systolic 70–122; BP diastolic 19–85
[2019-03-16] MEDS: Acetaminophen 650mg/20.3ml NG PRN (04:05)
--- NOTE | 2019-03-16 04:15 | Progress Note ---
DATE: 03/15/2019 CARDIOLOGY PROGRESS NOTE SUBJECTIVE: The patient's condition remains critical. Prognosis guarded. Failing weaning. Continuing on pressors. Unstable for wound debridement. OBJECTIVE: VITAL SIGNS: Blood pressure 95/52 to 107/52, heart rate 89, and respiratory rate 18. Monitored rhythm, sinus with atrial ectopics that are nonsustained. HEENT: Orally intubated. NG-tube in place. LUNGS: Bilateral breath sounds with rhonchi. HEART: Regular rhythm and rate. Normal S1, S2 with no new murmur. ABDOMEN: Soft. EXTREMITIES: There is 1+ dependent edema. LABORATORY DATA: White count 7.9 and hemoglobin 8.8. Potassium 3.5 and magnesium 1.7. Albumin 1.8. Cortisol level in the morning was 6. IMPRESSION: 1. Profound shock. 2. Sepsis. 3. Intravascular volume depletion. 4. Severe protein-calorie malnutrition. 5. Hypomagnesemia. 6. Respiratory failure. PLAN: 1. Continue pressors with taper as able. 2. Midodrine added and may be useful in helping to taper off intravenous pressor. 3. Replace magnesium intravenously. 4. Nutritional support by NG-tube. 5. Unable to wean off ventilator at this time. 6. Continue full support. Mejia Mckinney M.D. DR: DASHAWN JOB#: [id number] CC:
[2019-03-16 05:35] LABS: BASOPHILS % (AUTO) 1.3 % (0.0-2.0); EOSINOPHILS % (AUTO) 2.3 % (0.0-3.0); HEMATOCRIT 25.6 % (42.0-52.0); HEMOGLOBIN 8.5 G/DL (14.2-18.0); LYMPHOCYTES % (AUTO) 10.4 % (20.0-45.0); MEAN CORPUSCULAR VOLUME 93 FL (80-99); MONOCYTES % (AUTO) 6.6 % (1.0-10.0); NEUTROPHILS % (AUTO) 79.4 % (45.0-75.0); PLATELET COUNT 334 K/UL (150-450); RED BLOOD COUNT 2.76 M/UL (4.70-6.10); RED CELL DISTRIBUTION WIDTH 16.9 % (11.6-14.8); WHITE BLOOD COUNT 9.6 K/UL (4.8-10.8)
[2019-03-16 05:54] LABS: ALANINE AMINOTRANSFERASE 42 U/L (12-78); ALBUMIN 1.9 G/DL (3.4-5.0); ALBUMIN/GLOBULIN RATIO 0.6 (1.0-2.7); ALKALINE PHOSPHATASE 110 U/L (46-116); ANION GAP 7 mmol/L (5-15); ASPARTATE AMINO TRANSFERASE 20 U/L (15-37); BILIRUBIN,TOTAL 0.5 MG/DL (0.2-1.0); BLOOD UREA NITROGEN 7 mg/dL (7-18); CALCIUM 7.6 MG/DL (8.5-10.1); CARBON DIOXIDE 25 MMOL/L (21-32); CHLORIDE 102 MMOL/L (98-107); CREATININE 0.7 MG/DL (0.55-1.30); POTASSIUM 4.3 MMOL/L (3.5-5.1); SODIUM 134 MMOL/L (136-145)
[2019-03-16] MEDS: DOPamine 400mg/250ml 250 ML IV SCH (06:15)
[2019-03-16] MEDS: SODIUM CHLORIDE IV SCH ×2 (06:15→16:52)
[2019-03-16] MEDS: POTASSIUM PHOSPHATE IV SCH ×2 (06:15→16:52)
[2019-03-16 06:31] LABS: INR 1.2 (0.9-1.1)
[2019-03-16] MEDS: Ferrous Sulfate 300 MG/5 ML UDC NG SCH ×3 (08:25→18:20)
[2019-03-16] MEDS: Dakin's 0.25% (Half Strength) 16oz TOPIC SCH (08:25)
[2019-03-16] MEDS: Midodrine 10mg tab ORAL SCH ×3 (08:26→18:20)
[2019-03-16] MEDS: Magnesium Oxide 400mg tab NG SCH ×3 (08:26→18:20)
--- NOTE | 2019-03-16 09:24 | Diagnostic Imaging Report ---
Indication: Dyspnea Technique: One view of the chest Comparison: 03/15/2019 Findings: Endotracheal tube projects approximately 4 cm above the katy. Nasogastric tube projects beyond the edge of the image. Right arm PICC tip projects at the level of the innominate venous confluence. Lung volumes are lower on the current study. There may be increasing pleural fluid on the right. Small left pleural effusion and hazy basilar opacity persists. Atelectatic changes at the right lung base persist. The heart size is upper limits normal. Impression: Equivocally slightly increased pleural fluid on the right. 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
[2019-03-16] MEDS ORDERED: fentaNYL 100 mcg/2 mL IV ONE (12:07)
[2019-03-16] MEDS ORDERED: Ketamine 500mg Inj ONE (12:08)
[2019-03-16] MEDS ORDERED: Sodium Chloride 10ml vial INJ ONE (12:10)
[2019-03-16] MEDS ORDERED: ePHEDrine 50mg/ml Inj ONE (12:10)
--- NOTE | 2019-03-16 12:50 | Pre-Procedure Note/Attestation ---
Pre-Procedure Note/Attestation Complete Prior to Procedure Planned Procedure: not applicable Procedure Narrative: debridement infected decubitus ulcer sacrum Indications for Procedure Pre-Operative Diagnosis: infected decubitus ulcer sacrum Attestation I attest that I discussed the nature of the procedure; its benefits; risks and complications; and alternatives (and the risks and benefits of such alternatives ), prior to the procedure, with the patient (or the patient's legal retail service representative). I attest that, if there was a reasonable possibility of needing a blood transfusion, the patient (or the patient's legal retail service representative) was given the [facility] standardized written summary, pursuant to the Jesse Lulu Blood Safety Act ([place] Health and Safety Code # 1645, as amended). I attest that I re-evaluated the patient just prior to the surgery and that there has been no change in the patient's H&P, except as documented below: Mirza Gilliland MD Mar 16, 2019 12:50
--- NOTE | 2019-03-16 12:51 | Brief Operative Note ---
Immediate Post Operative Note Operative Note Pre-op Diagnosis: infected decubitus ulcer sacrum Post-op Diagnosis: same as pre-op Findings: consistent w/pre-op dx studies Surgeon: Kourtney Ranch Helper: none Anesthesiologist: Dr. zelaya Anesthesia: MAC Specimen: none Complications: none Condition: unstable Fluids: per anesthesiologist Estimated Blood Loss: minimal Drains: other - packing Implant(s) used?: Mirza Toledo MD Mar 16, 2019 12:51
[2019-03-16] MEDS: Vancomycin 1.25gm Premix IVPB SCH (13:05)
--- NOTE | 2019-03-16 13:07 | Immediate Post-Op Evaluation ---
Immediate Post-Op Evalulation Immediate Post-Op Evalulation Procedure: Debridement and dressing change under anesthesia of gr. 4 decubitus ulcer Date of Evaluation: Mar 16, 2019 Time of Evaluation: 13:06 IV Fluids: 250 Blood Products: none Estimated Blood Loss: min Urinary Output: n/a Blood Pressure Systolic: 104 Blood Pressure Diastolic: 56 Pulse Rate: 78 Respiratory Rate: 20 O2 Sat by Pulse Oximetry: 98 Temperature (Fahrenheit): 97.8 Pain Score (1-10): 2 Nausea: No Vomiting: No Complications none Patient Status: reacts, ventilated, none Hydration Status: adequate Don Sandoval MD Mar 16, 2019 13:07
[2019-03-16] MEDS: Norepinephrine Bitartrate 8 MG in D5W 500ml 492 ML IV SCH ×2 (14:00→22:00)
--- NOTE | 2019-03-16 14:20 | Nephrology Progress Note ---
Assessment/Plan Problem List: (1) Hypokalemia (2) Pyelonephritis (3) CALEB (acute kidney injury) (4) Septic shock (5) Cardiopulmonary arrest (6) Decubitus ulcer (7) Hypomagnesemia (8) Hypophosphatemia (9) Hyponatremia Assessment replace mg, phos,K avoid fluid overload but still on levophed needs fluids, low rate K Mg lower, replace, try adding midodrine Subjective ROS Limited/Unobtainable: Yes Objective Objective Last 24 Hour Vital Signs Date Time Temp Pulse Resp B/P (MAP) Pulse Ox O2 Delivery O2 Flow Rate FiO2 03/16/19 13:07 78 20 98 03/16/19 13:00 97 18 118/66 (83) 98 03/16/19 12:55 93 18 30 03/16/19 12:30 97 19 89/48 (62) 80 03/16/19 12:00 30 03/16/19 12:00 Mechanical Ventilator Mechanical Ventilator Mechanical Ventilator 03/16/19 12:00 80 03/16/19 12:00 99.0 80 18 122/68 (86) 100 03/16/19 11:30 78 18 99/52 (68) 99 03/16/19 11:00 77 18 107/60 (76) 100 03/16/19 10:40 79 18 30 03/16/19 10:30 80 19 105/44 (64) 99 03/16/19 10:00 77 16 120/59 (79) 99 03/16/19 09:30 77 18 120/48 (72) 99 03/16/19 09:00 79 18 115/57 (76) 99 03/16/19 08:37 81 18 30 03/16/19 08:30 81 19 119/85 (96) 100 03/16/19 08:00 Mechanical Ventilator Mechanical Ventilator Mechanical Ventilator 03/16/19 08:00 100.2 84 17 104/48 (66) 98 03/16/19 08:00 82 03/16/19 08:00 30 03/16/19 07:30 81 21 99/73 (82) 100 03/16/19 07:00 114/51 03/16/19 07:00 83 19 106/53 (70) 99 03/16/19 06:47 81 18 30 03/16/19 06:15 83 16 105/53 (70) 99 03/16/19 06:15 102/47 03/16/19 06:00 105/53 03/16/19 06:00 99.5 84 15 102/47 (65) 99 03/16/19 05:45 87 18 98/19 (45) 99 03/16/19 05:30 89 17 90/42 (58) 99 03/16/19 05:15 88 17 90/51 (64) 98 03/16/19 05:00 97/45 03/16/19 05:00 92 17 97/45 (62) 99 03/16/19 04:46 89 18 30 03/16/19 04:45 88 19 96/43 (60) 97 03/16/19 04:35 100.7 03/16/19 04:30 92 18 122/50 (74) 99 03/16/19 04:15 90 17 101/54 (70) 100 03/16/19 04:00 100.9 102 18 122/62 (82) 89 03/16/19 04:00 88 03/16/19 04:00 101/54 03/16/19 04:00 Mechanical Ventilator Mechanical Ventilator Mechanical Ventilator 03/16/19 04:00 30 03/16/19 03:45 86 18 113/47 (69) 98 03/16/19 03:30 90 19 99/47 (64) 89 03/16/19 03:15 86 18 98/78 (85) 99 03/16/19 03:00 88 18 94/49 (64) 96 03/16/19 03:00 98/78 03/16/19 02:45 89 18 106/49 (68) 98 03/16/19 02:31 90 18 30 03/16/19 02:30 91 19 93/59 (70) 96 03/16/19 02:15 90 17 99/75 (83) 99 03/16/19 02:00 94 20 97/83 (88) 93 03/16/19 02:00 97/83 03/16/19 01:45 93 22 92/41 (58) 98 03/16/19 01:30 85 17 83/53 (63) 99 03/16/19 01:15 87 12 96/42 (60) 98 03/16/19 01:00 83 19 93/50 (64) 98 03/16/19 01:00 93/50 03/16/19 00:52 84 18 30 03/16/19 00:45 85 18 96/46 (63) 99 03/16/19 00:15 88 18 101/46 (64) 99 03/16/19 00:00 92 03/16/19 00:00 101/46 03/16/19 00:00 Mechanical Ventilator Mechanical Ventilator Mechanical Ventilator 03/16/19 00:00 99.7 87 21 104/46 (65) 99 03/15/19 23:45 88 13 97/48 (64) 94 03/15/19 23:15 91 18 110/46 (67) 97 03/15/19 23:00 88 19 100/46 (64) 97 03/15/19 23:00 110/46 03/15/19 22:55 90 19 30 03/15/19 22:45 87 19 99/49 (66) 98 03/15/19 22:30 90 22 108/57 (74) 98 03/15/19 22:15 88 19 106/49 (68) 100 03/15/19 22:00 91 21 112/94 (100) 99 03/15/19 22:00 106/49 03/15/19 21:45 88 17 99/50 (66) 99 03/15/19 21:30 92 17 94/42 (59) 87 03/15/19 21:15 89 21 114/86 (95) 100 03/15/19 21:00 93 18 117/53 (74) 100 03/15/19 21:00 93 18 30 03/15/19 21:00 114/86 03/15/19 20:15 88 18 107/52 (70) 100 03/15/19 20:00 Mechanical Ventilator Mechanical Ventilator Mechanical Ventilator 03/15/19 20:00 107/52 03/15/19 20:00 99.6 85 18 104/50 (68) 100 03/15/19 20:00 30 03/15/19 20:00 86 03/15/19 19:45 84 20 103/48 (66) 100 03/15/19 19:30 86 18 100/86 (91) 88 03/15/19 19:15 87 18 98/56 (70) 98 03/15/19 19:02 88 19 30 03/15/19 19:00 86 17 109/61 (77) 100 03/15/19 19:00 98/56 03/15/19 18:30 99.9 85 16 116/87 (97) 100 03/15/19 18:00 89 18 113/51 (71) 100 03/15/19 18:00 107/50 03/15/19 17:30 86 19 117/47 (70) 99 03/15/19 17:00 86 18 109/51 (70) 100 03/15/19 17:00 103/44 03/15/19 16:32 86 18 30 03/15/19 16:30 87 18 109/56 (73) 100 03/15/19 16:00 30 03/15/19 16:00 85 18 104/48 (66) 98 03/15/19 16:00 Mechanical Ventilator Mechanical Ventilator Mechanical Ventilator 03/15/19 16:00 103/51 03/15/19 15:42 86 03/15/19 15:30 86 19 94/79 (84) 100 03/15/19 15:00 110/60 03/15/19 15:00 90 20 117/55 (75) 100 03/15/19 14:36 89 19 30 03/15/19 14:30 82 19 101/60 (74) 98 Intake and Output 03/15/19 03/16/19 19:00 07:00 Intake Total 2153.750 ml 2095.000 ml Output Total 2350 ml 3150 ml Balance -196.250 ml -1055.000 ml Intake Free Water 100 ml IV Total 1283.750 ml 1455.000 ml Tube Feeding 720 ml 540 ml Other 50 ml 100 ml Output Urine Total 2050 ml 2750 ml Stool Total 300 ml 400 ml Laboratory Tests 03/16/19 04:35: White Blood Count 9.6, Red Blood Count 2.76L, Hemoglobin 8.5L, Hematocrit 25.6L , Mean Corpuscular Volume 93, Mean Corpuscular Hemoglobin 30.8, Mean Corpuscular Hemoglobin Concent 33.2, Red Cell Distribution Width 16.9H, Platelet Count 334, Mean Platelet Volume 5.7L, Neutrophils (%) (Auto) 79.4H, Lymphocytes (%) (Auto) 10.4L, Monocytes (%) (Auto) 6.6, Eosinophils (%) (Auto) 2.3, Basophils (%) (Auto) 1.3, Prothrombin Time 13.1H, Prothromb Time International Ratio 1.2H, Activated Partial Thromboplast Time 33, Sodium Level 134L, Potassium Level 4.3, Chloride Level 102, Carbon Dioxide Level 25, Anion Gap 7, Blood Urea Nitrogen 7, Creatinine 0.7, Estimat Glomerular Filtration Rate , Glucose Level 101, Calcium Level 7.6L, Phosphorus Level 3.1, Total Bilirubin 0.5, Aspartate Amino Transf (AST/SGOT) 20, Alanine Aminotransferase ( ALT/SGPT) 42, Alkaline Phosphatase 110, Total Protein 5.0L, Albumin 1.9L, Globulin 3.1, Albumin/Globulin Ratio 0.6L 03/16/19 08:00: Vancomycin Level Trough 21.8H Height (Feet): 6 Height (Inches): 2.00 Weight (Pounds): 200 General Appearance: mild distress EENT: other - intubated Cardiovascular: regular rhythm Respiratory/Chest: rhonchi - bilaterally Abdomen: soft Extremities: moderate edema Neurologic: abnormal probate lawyer II-XII Rishi Christy MD Mar 16, 2019 14:20
[2019-03-16] MEDS ORDERED: Sterile Water Irrig 1000ml IRRIG ONE (15:50)
[2019-03-16] MEDS ORDERED: D5W 275ml ONE (15:50)
[2019-03-16] MEDS ORDERED: Tubing IV Secondary IV ONE ×2 (15:50→20:22)
[2019-03-16] MEDS ORDERED: D5W 550ml IV ONE (15:50)
[2019-03-16] MEDS ORDERED: NS 275ml ONE ×2 (15:50→20:22)
--- NOTE | 2019-03-16 19:15 | Operative Note - Dictated ---
DATE OF OPERATION: 03/16/2019 PREOPERATIVE DIAGNOSIS: Infected decubitus ulcer of the sacrum. POSTOPERATIVE DIAGNOSIS: Infected decubitus ulcer of the sacrum. OPERATION: Debridement of the infected decubitus ulcer. COMPLICATIONS: None. SURGEON: Mirza Gilliland M.D. WASTE WATER WORKER: None. ANESTHESIA: MAC. ANESTHESIOLOGIST: Don Sandoval M.D. INDICATION: This is an 83-year-old male, who presented to emergency room with sepsis, which was found to be due to the UTI and pyelonephritis and during the evaluation, it was noted that the patient had a very large severely infected decubitus ulcer in the sacrum. The patient had been in the ICU on the treatment for the sepsis and he has been on the Levophed drip. The sepsis has improved, but he continues having the low blood pressure. Twice now, he has been scheduled for debridement in the operating room, but the anesthesiologist felt that the patient was not stable for operating room, so today, the decision was made to perform the debridement at the bedside. DESCRIPTION OF PROCEDURE: At the bedside in the ICU, the patient was placed in the right decubitus position and IV sedation was performed by the anesthesiologist. The wound was explored, which showed large amounts of infected necrotic tissue. This wound is about [id number]. The infected necrotic tissue was sharply removed and this debridement reached the sacrum bone. At this area, we had an arterial bleeding, which was controlled with a [id number] suture of 2-0 nylon. The major part of the necrotic tissue was removed and then the wound was explored. There was no other bleeding. It was packed with Betadine-soaked Kerlix roll. Condition of the patient at the end of the procedure was guarded. ESTIMATED BLOOD LOSS: About 20 mL. COUNTS: Sponge and needle count correct. Mirza Gilliland M.D. DR: MIKE JOB#: [id number] CC: CARLOS
[2019-03-16] MEDS: Dyna-Hex 2% Top Sol 2oz TOPIC SCH (19:59)
[2019-03-16] MEDS ORDERED: NS Irrig 1000ml ONE (20:22)
--- NOTE | 2019-03-16 23:41 | Pulmonolgy Critical Care Note ---
Critical Care - Asmt/Plan Assessment/Plan: Pulmonary Progress Note Assessment/Plan 1. Severe sepsis, shock due to enterobacter and streptococcus bacteremia 2. Sacral decubitus and osteomyelitis. 3. CALEB, improving 4. Acute myocardial ischemia, possible non-ST elevation myocardial infarction. 5. Aspiration pneumonia. 6. Respiratory failure, status post full arrest. 7. Paroxysmal atrial fibrillation. 8. 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 9. Acute liver failure, improving PLAN: Ventilator support, cannot wean Broad spectrum antimicrobials, antifungal per ID cannot dc levophed due to low BP Wound care, surgery following Planned surgical intervention when off pressors Prognosis guarded Subjective ROS Limited/Unobtainable: Yes Allergies: Coded Allergies: No Known Allergies (Unverified , 03/05/19) Objective Vital Signs Noted Objective weak, on vent via oral ETT General Appearance: no acute distress HEENT: atraumatic Respiratory/Chest: rhonchi Cardiovascular: normal rate Microbiology Date/Time Source Procedure Growth Status 03/14/19 13:00 Sputum Induced Gram Stain Pending Resulted 03/14/19 13:00 Sputum Induced Sputum Culture - Preliminary NO GROWTH Resulted 03/14/19 13:00 Indwelling Cath Urine Culture - Preliminary NO GROWTH Resulted Laboratory Tests 03/14/19 20:00: Vancomycin Level Trough 12.8H 03/15/19 04:50: White Blood Count 7.9, Red Blood Count 2.85L, Hemoglobin 8.8L, Hematocrit 26.4L , Mean Corpuscular Volume 92, Mean Corpuscular Hemoglobin 31.0, Mean Corpuscular Hemoglobin Concent 33.5, Red Cell Distribution Width 17.3H, Platelet Count 283, Mean Platelet Volume 5.6L, Neutrophils (%) (Auto) 79.1H, Lymphocytes (%) (Auto) 11.1L, Monocytes (%) (Auto) 6.0, Eosinophils (%) (Auto) 3.2H, Basophils (%) (Auto) 0.6, Activated Partial Thromboplast Time 32, Sodium Level 133L, Potassium Level 3.5, Chloride Level 101, Carbon Dioxide Level 26, Anion Gap 6, Blood Urea Nitrogen 7, Creatinine 0.5L, Estimat Glomerular Filtration Rate , Glucose Level 95, Calcium Level 7.7L, Magnesium Level 1.7L, Total Bilirubin 0.4, Aspartate Amino Transf (AST/SGOT) 22, Alanine Aminotransferase (ALT/SGPT) 49, Alkaline Phosphatase 131H, Total Protein 5.5L, Albumin 1.8L, Globulin 3.7, Albumin/Globulin Ratio 0.5L Current Medications Medications (Trade) Dose Ordered Sig/Tawny Route PRN Reason Start Time Stop Time Status Last Admin Dose Admin Acetaminophen (Tylenol) 650 mg Q4H PRN NG Mild Pain/Temp > 100.5 03/14/19 12:00 04/13/19 11:59 03/15/19 08:45 Chlorhexidine Gluconate (Jada-Hex 2%) 1 applic DAILY@2000 TOPIC 03/13/19 20:00 04/12/19 19:59 03/14/19 20:13 Ciprofloxacin 200 ml @ 200 mls/hr Q12HR IV 03/13/19 21:00 03/20/19 20:59 03/15/19 08:44 Dextrose (Dextrose 50%) 25 ml Q30M PRN IV Hypoglycemia 03/05/19 06:15 04/04/19 06:14 Dextrose (Dextrose 50%) 50 ml Q30M PRN IV Hypoglycemia 03/05/19 06:15 04/04/19 06:14 Dopamine HCl/ Dextrose 250 ml @ 0 mls/hr Q24H IV 03/05/19 06:32 04/04/19 06:31 03/05/19 07:46 Ferrous Sulfate (Feosol) 330 mg THREE TIMES A DAY NG 03/05/19 09:00 04/04/19 08:59 03/15/19 08:44 Lansoprazole (Prevacid) 30 mg DAILY NG 03/08/19 09:00 04/07/19 08:59 03/15/19 08:45 Magnesium Oxide (Mag-Ox 400mg) 400 mg THREE TIMES A DAY NG 03/09/19 18:00 04/08/19 17:59 03/15/19 08:44 Metronidazole 100 ml @ 100 mls/hr Q8HR IVPB 03/13/19 22:00 03/20/19 21:59 03/15/19 05:47 Norepinephrine Bitartrate 8 mg/ Dextrose 500 ml @ 0 mls/hr Q24H IV 03/05/19 22:00 04/04/19 21:59 03/15/19 06:38 Ondansetron HCl (Zofran) 4 mg Q6H PRN IVP Nausea & Vomiting 03/05/19 06:15 04/04/19 06:14 Potassium Phosphate 20 meq/ Sodium Chloride 1,004.5455 ml @ 50 mls/hr Q20H6M IV 03/13/19 18:30 04/12/19 18:29 03/15/19 10:47 Potassium Chloride (K-Dur) 40 meq TID NG 03/14/19 18:00 04/13/19 17:59 03/15/19 08:45 Sodium Hypochlorite (Dakin's Half Strength) 1 applic DAILY TOPIC 03/10/19 20:00 04/09/19 19:59 03/15/19 08:46 Vancomycin HCl (Vanco rx to dose) 1 ea DAILY PRN MISC Per rx protocol 03/05/19 06:15 04/04/19 06:14 Vancomycin HCl/ Dextrose 275 ml @ 183.333 mls/hr Q12H IVPB 03/14/19 22:00 03/19/19 21:59 03/15/19 10:28 Voriconazole (Vfend) 200 mg Q12HR ORAL 03/14/19 13:00 03/21/19 12:59 03/15/19 08:45 Critical Care - Objective Last 24 Hour Vital Signs Date Time Temp Pulse Resp B/P (MAP) Pulse Ox O2 Delivery O2 Flow Rate FiO2 03/16/19 22:47 87 19 30 03/16/19 22:00 94 18 99/48 (65) 100 03/16/19 21:45 84 18 95/46 (62) 100 03/16/19 21:30 84 18 98/76 (83) 100 03/16/19 21:25 86 18 30 03/16/19 21:15 83 19 103/45 (64) 100 03/16/19 21:00 93 17 99/44 (62) 100 03/16/19 20:45 85 17 95/48 (64) 100 03/16/19 20:30 87 18 97/46 (63) 100 03/16/19 20:15 88 18 100/46 (64) 98 03/16/19 20:00 Mechanical Ventilator Mechanical Ventilator Mechanical Ventilator 03/16/19 20:00 88 03/16/19 20:00 30 03/16/19 20:00 98.8 85 18 110/53 (72) 100 03/16/19 19:00 87 18 70/54 (59) 99 03/16/19 18:52 90 19 30 03/16/19 18:00 94 18 78/48 (58) 99 03/16/19 17:30 94 18 81/38 (52) 93 03/16/19 17:00 93 21 30 03/16/19 17:00 93 18 96/66 (76) 98 03/16/19 16:30 94 18 104/46 (65) 97 03/16/19 16:00 30 03/16/19 16:00 82 03/16/19 16:00 98.9 84 18 90/43 (59) 98 03/16/19 16:00 Mechanical Ventilator Mechanical Ventilator Mechanical Ventilator 03/16/19 15:40 81 18 30 03/16/19 15:30 78 18 83/60 (68) 98 03/16/19 15:00 85 16 108/54 (72) 99 03/16/19 14:30 85 20 92/69 (77) 97 03/16/19 14:00 82 18 107/56 (73) 100 03/16/19 13:30 81 18 115/56 (75) 100 03/16/19 13:07 78 20 98 03/16/19 13:00 97 18 118/66 (83) 98 03/16/19 12:55 93 18 30 03/16/19 12:30 97 19 89/48 (62) 80 03/16/19 12:00 30 03/16/19 12:00 Mechanical Ventilator Mechanical Ventilator Mechanical Ventilator 03/16/19 12:00 80 03/16/19 12:00 99.0 80 18 122/68 (86) 100 03/16/19 11:30 78 18 99/52 (68) 99 03/16/19 11:00 77 18 107/60 (76) 100 03/16/19 10:40 79 18 30 03/16/19 10:30 80 19 105/44 (64) 99 03/16/19 10:00 77 16 120/59 (79) 99 03/16/19 09:30 77 18 120/48 (72) 99 03/16/19 09:00 79 18 115/57 (76) 99 03/16/19 08:37 81 18 30 03/16/19 08:30 81 19 119/85 (96) 100 03/16/19 08:00 Mechanical Ventilator Mechanical Ventilator Mechanical Ventilator 03/16/19 08:00 100.2 84 17 104/48 (66) 98 03/16/19 08:00 82 03/16/19 08:00 30 03/16/19 07:30 81 21 99/73 (82) 100 03/16/19 07:00 114/51 03/16/19 07:00 83 19 106/53 (70) 99 03/16/19 06:47 81 18 30 03/16/19 06:15 83 16 105/53 (70) 99 03/16/19 06:15 102/47 03/16/19 06:00 105/53 03/16/19 06:00 99.5 84 15 102/47 (65) 99 03/16/19 05:45 87 18 98/19 (45) 99 03/16/19 05:30 89 17 90/42 (58) 99 03/16/19 05:15 88 17 90/51 (64) 98 03/16/19 05:00 97/45 03/16/19 05:00 92 17 97/45 (62) 99 03/16/19 04:46 89 18 30 03/16/19 04:45 88 19 96/43 (60) 97 03/16/19 04:35 100.7 03/16/19 04:30 92 18 122/50 (74) 99 03/16/19 04:15 90 17 101/54 (70) 100 03/16/19 04:00 100.9 102 18 122/62 (82) 89 03/16/19 04:00 88 03/16/19 04:00 101/54 03/16/19 04:00 Mechanical Ventilator Mechanical Ventilator Mechanical Ventilator 03/16/19 04:00 30 03/16/19 03:45 86 18 113/47 (69) 98 03/16/19 03:30 90 19 99/47 (64) 89 03/16/19 03:15 86 18 98/78 (85) 99 03/16/19 03:00 88 18 94/49 (64) 96 03/16/19 03:00 98/78 03/16/19 02:45 89 18 106/49 (68) 98 03/16/19 02:31 90 18 30 03/16/19 02:30 91 19 93/59 (70) 96 03/16/19 02:15 90 17 99/75 (83) 99 03/16/19 02:00 94 20 97/83 (88) 93 03/16/19 02:00 97/83 03/16/19 01:45 93 22 92/41 (58) 98 03/16/19 01:30 85 17 83/53 (63) 99 03/16/19 01:15 87 12 96/42 (60) 98 03/16/19 01:00 83 19 93/50 (64) 98 03/16/19 01:00 93/50 03/16/19 00:52 84 18 30 03/16/19 00:45 85 18 96/46 (63) 99 03/16/19 00:15 88 18 101/46 (64) 99 03/16/19 00:00 92 03/16/19 00:00 101/46 03/16/19 00:00 Mechanical Ventilator Mechanical Ventilator Mechanical Ventilator 03/16/19 00:00 99.7 87 21 104/46 (65) 99 03/15/19 23:45 88 13 97/48 (64) 94 Micro: Microbiology Date/Time Source Procedure Growth Status 03/14/19 14:15 Blood Blood Culture - Preliminary Resulted 03/14/19 13:00 Sputum Induced Gram Stain - Final Complete 03/14/19 13:00 Sputum Induced Sputum Culture - Final NORMAL UPPER RESPIRATORY MAYE PRESENT Complete 03/14/19 13:00 Indwelling Cath Urine Culture - Preliminary NO GROWTH AFTER 24 HOURS Resulted Accucheck: 106 Critical Care - Subjective ROS Limited/Unobtainable: No Condition: stable FI02: 30 Vent Support Breath Rate: 18 Vent Support Mode: AC Vent Tidal Volume: 550 Sputum Amount: Small PEEP: 5.0 PIP: 24 Tube Feeding Amount: 60 I&O: Intake and Output 03/15/19 03/16/19 19:00 07:00 Intake Total 2153.750 ml 2095.000 ml Output Total 2350 ml 3150 ml Balance -196.250 ml -1055.000 ml Intake Free Water 100 ml IV Total 1283.750 ml 1455.000 ml Tube Feeding 720 ml 540 ml Other 50 ml 100 ml Output Urine Total 2050 ml 2750 ml Stool Total 300 ml 400 ml ET-Tube: 8.0 ET Position: 23 Mejia Coppola MD 13, 2019 23:41
[2019-03-17] VITALS (42 sets, daily range): BP systolic 86–128; BP diastolic 42–103
[2019-03-17] MEDS: Vancomycin 1.25gm Premix IVPB SCH ×2 (01:30→12:48)
--- NOTE | 2019-03-17 03:30 | Progress Note ---
DATE: 03/16/2019 CARDIOLOGY PROGRESS NOTE SUBJECTIVE: The patient underwent bedside wound debridement today. He remains on pressors. He is orally intubated. Mechanically ventilated. OBJECTIVE: VITAL SIGNS: Blood pressure 95/46, pulse 84, and respiratory rate 18. LUNGS: Bilateral breath sounds. Few rhonchi. Orally intubated. Mechanically ventilated. HEART: Regular rhythm and rate. Normal S1 and S2. ABDOMEN: Soft. EXTREMITIES: Trace edema. LABORATORY AND DIAGNOSTIC DATA: White count 9.6 and hemoglobin 8.5. Sodium 134, potassium 4.3, bicarbonate 25, BUN 7, and creatinine 0.7. Albumin 1.9. Chest x-ray today reveals increased pleural fluid on the right and atelectasis as well. IMPRESSION: 1. Sepsis. 2. Decubitus. 3. Shock. 4. Respiratory failure. 5. Severe protein-calorie malnutrition. 6. Hypomagnesemia. PLAN: 1. Continue midodrine. 2. Taper off pressors. 3. Recheck electrolytes and replace accordingly. 4. Nutritional support by NG tube. 5. Ventilator support with weaning as tolerated. Mejia Mckinnye M.D. DR: TASHI JOB#: [id number] CC:
[2019-03-17] MEDS: SODIUM CHLORIDE IV SCH ×2 (05:24→09:02)
[2019-03-17] MEDS: POTASSIUM PHOSPHATE IV SCH ×2 (05:24→09:02)
[2019-03-17] MEDS: Norepinephrine Bitartrate 8 MG in D5W 500ml 492 ML IV SCH (05:33)
[2019-03-17 05:46] LABS: EOSINOPHILS % (AUTO) 1.6 % (0.0-3.0); HEMATOCRIT 26.7 % (42.0-52.0); HEMOGLOBIN 8.9 G/DL (14.2-18.0); MEAN CORPUSCULAR VOLUME 93 FL (80-99); MONOCYTES % (AUTO) 8.7 % (1.0-10.0); NEUTROPHILS % (AUTO) 74.7 % (45.0-75.0); PLATELET COUNT 380 K/UL (150-450); RED BLOOD COUNT 2.86 M/UL (4.70-6.10); RED CELL DISTRIBUTION WIDTH 17.4 % (11.6-14.8); WHITE BLOOD COUNT 10.2 K/UL (4.8-10.8)
[2019-03-17 06:24] LABS: ANION GAP 6 mmol/L (5-15); BLOOD UREA NITROGEN 9 mg/dL (7-18); CALCIUM 8.2 MG/DL (8.5-10.1); CARBON DIOXIDE 25 MMOL/L (21-32); CHLORIDE 99 MMOL/L (98-107); CREATININE 0.7 MG/DL (0.55-1.30); POTASSIUM 4.8 MMOL/L (3.5-5.1); SODIUM 130 MMOL/L (136-145)
[2019-03-17] MEDS: DOPamine 400mg/250ml 250 ML IV SCH (06:32)
--- NOTE | 2019-03-17 07:45 | Nephrology Progress Note ---
Assessment/Plan Problem List: (1) Hypokalemia (2) Pyelonephritis (3) CALEB (acute kidney injury) (4) Septic shock (5) Cardiopulmonary arrest (6) Decubitus ulcer (7) Hypomagnesemia (8) Hypophosphatemia (9) Hyponatremia Assessment replace mg, phos,K avoid fluid overload but still on levophed needs fluids, low rate K Mg lower, replace, try adding midodrine , continue trying to wean off levophed, likely chronically low bp, iv fluids continue as diarrhea Subjective ROS Limited/Unobtainable: Yes Objective Objective Last 24 Hour Vital Signs Date Time Temp Pulse Resp B/P (MAP) Pulse Ox O2 Delivery O2 Flow Rate FiO2 03/17/19 07:00 95 19 101/55 (70) 99 03/17/19 06:37 94 18 30 03/17/19 06:00 97 19 90/53 (65) 99 03/17/19 05:45 98 18 94/45 (61) 99 03/17/19 05:33 103/46 03/17/19 05:30 98 18 95/55 (68) 100 03/17/19 05:15 102 18 103/46 (65) 100 03/17/19 05:00 104 18 112/49 (70) 99 03/17/19 05:00 103/46 03/17/19 04:58 106 20 30 03/17/19 04:45 105 20 119/56 (77) 99 03/17/19 04:30 105 20 110/56 (74) 99 03/17/19 04:15 91 19 101/51 (68) 100 03/17/19 04:00 93 18 92/43 (59) 100 03/17/19 04:00 Mechanical Ventilator Mechanical Ventilator Mechanical Ventilator 03/17/19 04:00 90 03/17/19 04:00 30 03/17/19 04:00 101/51 03/17/19 03:45 95 21 97/49 (65) 98 03/17/19 03:30 95 18 86/48 (61) 98 03/17/19 03:15 91 19 98/42 (60) 98 03/17/19 03:01 90 18 30 03/17/19 03:00 98/42 03/17/19 03:00 98.8 90 16 88/59 (69) 100 03/17/19 02:45 89 18 94/51 (65) 99 03/17/19 02:30 87 18 92/50 (64) 100 03/17/19 02:15 89 18 94/45 (61) 99 03/17/19 02:00 94/45 03/17/19 02:00 90 18 92/44 (60) 99 03/17/19 01:45 89 18 88/54 (65) 100 03/17/19 01:30 86 18 96/46 (63) 99 03/17/19 01:15 86 18 90/48 (62) 99 03/17/19 01:00 90/48 03/17/19 01:00 93 18 97/51 (66) 99 03/17/19 00:52 88 18 30 03/17/19 00:45 87 18 95/48 (64) 99 03/17/19 00:30 86 17 93/47 (62) 99 03/17/19 00:15 90 17 93/46 (62) 98 03/17/19 00:00 98.8 86 18 95/42 (59) 99 03/17/19 00:00 Mechanical Ventilator Mechanical Ventilator Mechanical Ventilator 03/17/19 00:00 93/46 03/16/19 23:45 87 18 95/42 (59) 98 03/16/19 23:30 96 20 97/44 (61) 98 03/16/19 23:15 87 18 96/48 (64) 99 03/16/19 23:00 96/48 03/16/19 23:00 89 18 92/42 (59) 99 03/16/19 22:47 87 19 30 03/16/19 22:00 95/42 03/16/19 22:00 94 18 99/48 (65) 100 03/16/19 21:45 84 18 95/46 (62) 100 03/16/19 21:30 84 18 98/76 (83) 100 03/16/19 21:25 86 18 30 03/16/19 21:15 83 19 103/45 (64) 100 03/16/19 21:08 99/44 03/16/19 21:00 93 17 99/44 (62) 100 03/16/19 20:45 85 17 95/48 (64) 100 6/13/19 20:30 87 18 97/46 (63) 100 03/16/19 20:15 88 18 100/46 (64) 98 03/16/19 20:00 Mechanical Ventilator Mechanical Ventilator Mechanical Ventilator 03/16/19 20:00 88 03/16/19 20:00 30 03/16/19 20:00 110/53 03/16/19 20:00 98.8 85 18 110/53 (72) 100 03/16/19 19:00 87 18 70/54 (59) 99 03/16/19 19:00 70/54 03/16/19 18:52 90 19 30 03/16/19 18:00 94 18 78/48 (58) 99 03/16/19 17:30 94 18 81/38 (52) 93 03/16/19 17:00 93 21 30 03/16/19 17:00 93 18 96/66 (76) 98 03/16/19 16:30 94 18 104/46 (65) 97 03/16/19 16:00 30 03/16/19 16:00 82 03/16/19 16:00 98.9 84 18 90/43 (59) 98 03/16/19 16:00 Mechanical Ventilator Mechanical Ventilator Mechanical Ventilator 03/16/19 15:40 81 18 30 03/16/19 15:30 78 18 83/60 (68) 98 03/16/19 15:00 85 16 108/54 (72) 99 03/16/19 14:30 85 20 92/69 (77) 97 03/16/19 14:00 82 18 107/56 (73) 100 03/16/19 14:00 92/43 03/16/19 13:30 81 18 115/56 (75) 100 03/16/19 13:07 78 20 98 03/16/19 13:00 97 18 118/66 (83) 98 03/16/19 12:55 93 18 30 03/16/19 12:30 97 19 89/48 (62) 80 03/16/19 12:00 30 03/16/19 12:00 Mechanical Ventilator Mechanical Ventilator Mechanical Ventilator 03/16/19 12:00 80 03/16/19 12:00 99.0 80 18 122/68 (86) 100 03/16/19 11:30 78 18 99/52 (68) 99 03/16/19 11:00 77 18 107/60 (76) 100 03/16/19 10:40 79 18 30 03/16/19 10:30 80 19 105/44 (64) 99 03/16/19 10:00 77 16 120/59 (79) 99 03/16/19 09:30 77 18 120/48 (72) 99 03/16/19 09:00 79 18 115/57 (76) 99 03/16/19 08:37 81 18 30 03/16/19 08:30 81 19 119/85 (96) 100 03/16/19 08:00 Mechanical Ventilator Mechanical Ventilator Mechanical Ventilator 03/16/19 08:00 100.2 84 17 104/48 (66) 98 03/16/19 08:00 82 03/16/19 08:00 30 Intake and Output 03/16/19 03/17/19 19:00 07:00 Intake Total 1325 ml 2392.5000 ml Output Total 1400 ml 1300 ml Balance -75 ml 1092.5000 ml IV Total 1145 ml 1672.5000 ml Tube Feeding 180 ml 720 ml Output Urine Total 1400 ml 1000 ml Stool Total 300 ml Laboratory Tests 03/16/19 08:00: Vancomycin Level Trough 21.8H 03/17/19 05:00: White Blood Count 10.2, Red Blood Count 2.86L, Hemoglobin 8.9L, Hematocrit 26.7L , Mean Corpuscular Volume 93, Mean Corpuscular Hemoglobin 31.3H, Mean Corpuscular Hemoglobin Concent 33.5, Red Cell Distribution Width 17.4H, Platelet Count 380, Mean Platelet Volume 5.5L, Neutrophils (%) (Auto) 74.7, Lymphocytes (%) (Auto) 14.0L, Monocytes (%) (Auto) 8.7, Eosinophils (%) (Auto) 1.6, Basophils (%) (Auto) 1.0, Sodium Level 130L, Potassium Level 4.8, Chloride Level 99, Carbon Dioxide Level 25, Anion Gap 6, Blood Urea Nitrogen 9, Creatinine 0.7, Estimat Glomerular Filtration Rate , Glucose Level 108H, Calcium Level 8.2L Height (Feet): 6 Height (Inches): 2.00 Weight (Pounds): 202 General Appearance: mild distress EENT: other - intubated Neck: normal alignment Cardiovascular: normal rate Respiratory/Chest: rhonchi - bilaterally Abdomen: soft, no organomegaly Extremities: moderate edema Neurologic: abnormal strategic marketing leader II-XII Rishi Christy MD Mar 17, 2019 07:45
[2019-03-17] MEDS: Magnesium Oxide 400mg tab NG SCH ×3 (09:00→17:42)
[2019-03-17] MEDS: Midodrine 10mg tab ORAL SCH ×3 (09:00→17:42)
[2019-03-17] MEDS: Ferrous Sulfate 300 MG/5 ML UDC NG SCH ×3 (09:00→17:42)
[2019-03-17] MEDS: Dakin's 0.25% (Half Strength) 16oz TOPIC SCH (09:02)
[2019-03-17] MEDS: Acetaminophen 650mg/20.3ml NG PRN (09:10)
--- NOTE | 2019-03-17 11:43 | 48 Hour Post Anesthesia Eval ---
Post Anesthesia Evaluation Procedure: Debridement and dressing change under anesthesia of gr. 4 decubitus ulcer Date of Evaluation: Mar 17, 2019 Time of Evaluation: 07:00 Blood Pressure Systolic: 101 0: 55 Pulse Rate: 95 Respiratory Rate: 19 O2 Sat by Pulse Oximetry: 99 Nausea: No Vomiting: No Pain Intensity: 0 Hydration Status: adequate Cardiopulmonary Status: at baseline Mental Status/LOC: patient returned to baseline Post-Anesthesia Complications: 0 Follow-up care needed: N/A - further care as per primary team Linsey Taylor MD Mar 17, 2019 11:42
--- NOTE | 2019-03-17 13:12 | Infectious Diseases Prog Note ---
Assessment/Plan Assessment/Plan ASSESSMENT: 1. 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 new infection - monitor labs and chest x-ray, recheck cultures - off pressors now - icu care 2. Acute kidney injury, elevated creatinine. 3. Anemia. 4. Atrial fibrillation. The patient has been on Eliquis. 5. Status post code. 6. Sacral wound. 7. Aortic valve stenosis. 8. Hypertension. 9. icu care 10. Hypertension treatment per primary but the patient currently is on pressors. 11. No known drug allergies. No antibiotic allergies. 12. Social history is negative. 13. Family history noncontributory. 14. MAR was noted. 15. Case discussed with RN. 16. Continue treatment per primary consultants. 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 Subjective Constitutional: Reports: fever, other - on vent HEENT: Reports: congestion Respiratory: Reports: shortness of breath Cardiovascular: Reports: other Gastrointestinal/Abdominal: Reports: diarrhea; Denies: nausea, vomiting Genitourinary: Reports: other - + lemus Neurologic: Reports: weakness, other - alert, responsive Psychiatric: Reports: other - na Skin: Denies: rash Hematologic: Denies: bleeding Musculoskeletal: Reports: other - na Allergies: Coded Allergies: No Known Allergies (Unverified , 03/05/19) Objective Vital Signs Last 24 Hour Vital Signs Date Time Temp Pulse Resp B/P (MAP) Pulse Ox O2 Delivery O2 Flow Rate FiO2 03/17/19 11:42 95 19 99 03/17/19 11:16 85 18 30 03/17/19 11:00 87 18 98/46 (63) 100 03/17/19 10:43 99.6 03/17/19 10:00 88 18 99/50 (66) 100 03/17/19 09:00 95 18 94/44 (61) 99 03/17/19 08:34 92 18 30 03/17/19 08:00 93 03/17/19 08:00 Mechanical Ventilator Mechanical Ventilator Mechanical Ventilator 03/17/19 08:00 99/47 03/17/19 08:00 30 03/17/19 08:00 100.8 94 18 99/47 (64) 100 03/17/19 07:00 95 19 101/55 (70) 99 03/17/19 06:37 94 18 30 03/17/19 06:00 97 19 90/53 (65) 99 03/17/19 05:45 98 18 94/45 (61) 99 03/17/19 05:33 103/46 03/17/19 05:30 98 18 95/55 (68) 100 03/17/19 05:15 102 18 103/46 (65) 100 03/17/19 05:00 104 18 112/49 (70) 99 03/17/19 05:00 103/46 03/17/19 04:58 106 20 30 03/17/19 04:45 105 20 119/56 (77) 99 03/17/19 04:30 105 20 110/56 (74) 99 03/17/19 04:15 91 19 101/51 (68) 100 03/17/19 04:00 93 18 92/43 (59) 100 03/17/19 04:00 Mechanical Ventilator Mechanical Ventilator Mechanical Ventilator 03/17/19 04:00 90 03/17/19 04:00 30 03/17/19 04:00 101/51 03/17/19 03:45 95 21 97/49 (65) 98 03/17/19 03:30 95 18 86/48 (61) 98 03/17/19 03:15 91 19 98/42 (60) 98 03/17/19 03:01 90 18 30 03/17/19 03:00 98/42 03/17/19 03:00 98.8 90 16 88/59 (69) 100 03/17/19 02:45 89 18 94/51 (65) 99 03/17/19 02:30 87 18 92/50 (64) 100 03/17/19 02:15 89 18 94/45 (61) 99 03/17/19 02:00 94/45 03/17/19 02:00 90 18 92/44 (60) 99 03/17/19 01:45 89 18 88/54 (65) 100 03/17/19 01:30 86 18 96/46 (63) 99 03/17/19 01:15 86 18 90/48 (62) 99 03/17/19 01:00 90/48 03/17/19 01:00 93 18 97/51 (66) 99 03/17/19 00:52 88 18 30 03/17/19 00:45 87 18 95/48 (64) 99 03/17/19 00:30 86 17 93/47 (62) 99 03/17/19 00:15 90 17 93/46 (62) 98 03/17/19 00:00 98.8 86 18 95/42 (59) 99 03/17/19 00:00 Mechanical Ventilator Mechanical Ventilator Mechanical Ventilator 03/17/19 00:00 93/46 03/16/19 23:45 87 18 95/42 (59) 98 03/16/19 23:30 96 20 97/44 (61) 98 03/16/19 23:15 87 18 96/48 (64) 99 03/16/19 23:00 96/48 03/16/19 23:00 89 18 92/42 (59) 99 03/16/19 22:47 87 19 30 03/16/19 22:00 95/42 03/16/19 22:00 94 18 99/48 (65) 100 03/16/19 21:45 84 18 95/46 (62) 100 03/16/19 21:30 84 18 98/76 (83) 100 03/16/19 21:25 86 18 30 03/16/19 21:15 83 19 103/45 (64) 100 03/16/19 21:08 99/44 03/16/19 21:00 93 17 99/44 (62) 100 03/16/19 20:45 85 17 95/48 (64) 100 03/16/19 20:30 87 18 97/46 (63) 100 03/16/19 20:15 88 18 100/46 (64) 98 03/16/19 20:00 Mechanical Ventilator Mechanical Ventilator Mechanical Ventilator 03/16/19 20:00 88 03/16/19 20:00 30 03/16/19 20:00 110/53 03/16/19 20:00 98.8 85 18 110/53 (72) 100 03/16/19 19:00 87 18 70/54 (59) 99 03/16/19 19:00 70/54 03/16/19 18:52 90 19 30 03/16/19 18:00 94 18 78/48 (58) 99 03/16/19 17:30 94 18 81/38 (52) 93 03/16/19 17:00 93 21 30 03/16/19 17:00 93 18 96/66 (76) 98 03/16/19 16:30 94 18 104/46 (65) 97 03/16/19 16:00 30 03/16/19 16:00 82 03/16/19 16:00 98.9 84 18 90/43 (59) 98 03/16/19 16:00 Mechanical Ventilator Mechanical Ventilator Mechanical Ventilator 03/16/19 15:40 81 18 30 03/16/19 15:30 78 18 83/60 (68) 98 03/16/19 15:00 85 16 108/54 (72) 99 03/16/19 14:30 85 20 92/69 (77) 97 03/16/19 14:00 82 18 107/56 (73) 100 03/16/19 14:00 92/43 03/16/19 13:30 81 18 115/56 (75) 100 03/16/19 13:07 78 20 98 03/16/19 13:00 97 18 118/66 (83) 98 03/16/19 12:55 93 18 30 Height (Feet): 6 Height (Inches): 2.00 Weight (Pounds): 202 General Appearance: other - on vent HEENT: normocephalic, atraumatic, anicteric, no JVD, other - oral - intubated Respiratory/Chest: crackles/rales, rhonchi - bilaterally Cardiovascular: normal rate, regular rhythm, no gallop/murmur, no JVD Abdomen: normal bowel sounds, soft, non tender, no organomegaly, non distended Genitourinary: other - + lemus - urine slt cloudy Extremities: no cyanosis Skin: no rash 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 Chest x-ray - 03/06/19 - Findings: Mild pleural thickening versus effusion on the right noted. Heart size is stable and mildly enlarged. Endotracheal tube is in good position unchanged. NG tube is present. The proximal port is near the EG junction. The tip is in the stomach. IMPRESSION: Nasogastric tube may be advanced slightly. Slightly improved congestion compared to the previous day Chest x-ray - 03/09/19 - Procedure: XRAY Chest 1v Indication: Dyspnea Comparison: 03/06/2019 A single view chest radiograph was obtained. Findings: Basilar densities likely atelectasis noted. Cardiac size is stable. Endotracheal tube position is stable and satisfactory. IMPRESSION: No significant change. Chest x-ray - 03/13/19 - A single view chest radiograph was obtained. Findings: Endotracheal tube is in good position. NG tube also noted position. Heart size is stable. Pulmonary vascular congestion suspected. Small bilateral pleural effusion suspected. IMPRESSION: Mild pulmonary congestion suspected Chest x-ray - 03/14/19 - Chest x-ray - 03/14/19 - Procedure: XRAY Chest 1v Indication: Line placement Comparison: 03/13/2019 A single view chest radiograph was obtained. Findings: PICC line is noted. The tip is in the SVC in good position. No change otherwise. IMPRESSION: PICC line in good position Technique: One view of the chest Comparison: 03/15/2019 Findings: Endotracheal tube projects approximately 4 cm above the katy. Nasogastric tube projects beyond the edge of the image. Right arm PICC tip projects at the level of the innominate venous confluence. Lung volumes are lower on the current study. There may be increasing pleural fluid on the right. Small left pleural effusion and hazy basilar opacity persists. Atelectatic changes at the right lung base persist. The heart size is upper limits normal. Impression: Equivocally slightly increased pleural fluid on the right. Otherwise , little bladder changer one day, allowing for differences in degree of inspiration Chest x-ray - 03/16/19 - Microbiology Date/Time Source Procedure Growth Status 03/14/19 14:16 Blood Blood Culture - Preliminary NO GROWTH AFTER 48 HOURS Resulted 03/14/19 14:15 Blood Blood Culture - Preliminary Staphylococcus Sp Coag Neg Resulted 03/14/19 13:00 Sputum Induced Gram Stain - Final Complete 03/14/19 13:00 Sputum Induced Sputum Culture - Final NORMAL UPPER RESPIRATORY MAYE PRESENT Complete 03/14/19 13:00 Indwelling Cath Urine Culture - Final NO GROWTH AFTER 48 HOURS Complete Laboratory Tests Test 03/17/19 05:00 White Blood Count 10.2 K/UL (4.8-10.8) Red Blood Count 2.86 M/UL (4.70-6.10) L Hemoglobin 8.9 G/DL (14.2-18.0) L Hematocrit 26.7 % (42.0-52.0) L Mean Corpuscular Volume 93 FL (80-99) Mean Corpuscular Hemoglobin 31.3 PG (27.0-31.0) H Mean Corpuscular Hemoglobin Concent 33.5 G/DL (32.0-36.0) Red Cell Distribution Width 17.4 % (11.6-14.8) H Platelet Count 380 K/UL (150-450) Mean Platelet Volume 5.5 FL (6.5-10.1) L Neutrophils (%) (Auto) 74.7 % (45.0-75.0) Lymphocytes (%) (Auto) 14.0 % (20.0-45.0) L Monocytes (%) (Auto) 8.7 % (1.0-10.0) Eosinophils (%) (Auto) 1.6 % (0.0-3.0) Basophils (%) (Auto) 1.0 % (0.0-2.0) Sodium Level 130 MMOL/L (136-145) L Potassium Level 4.8 MMOL/L (3.5-5.1) Chloride Level 99 MMOL/L (98-107) Carbon Dioxide Level 25 MMOL/L (21-32) Anion Gap 6 mmol/L (5-15) Blood Urea Nitrogen 9 mg/dL (7-18) Creatinine 0.7 MG/DL (0.55-1.30) Estimat Glomerular Filtration Rate mL/min (>60) Glucose Level 108 MG/DL (74-106) H Calcium Level 8.2 MG/DL (8.5-10.1) L Current Medications Medications (Trade) Dose Ordered Sig/Tawny Route PRN Reason Start Time Stop Time Status Last Admin Dose Admin Acetaminophen (Tylenol) 650 mg Q4H PRN NG Mild Pain/Temp > 100.5 03/14/19 12:00 04/13/19 11:59 03/17/19 09:10 Chlorhexidine Gluconate (Jada-Hex 2%) 1 applic DAILY@2000 TOPIC 03/13/19 20:00 04/12/19 19:59 03/16/19 19:59 Ciprofloxacin 200 ml @ 200 mls/hr Q12HR IV 03/13/19 21:00 03/20/19 20:59 03/17/19 09:01 Dextrose (Dextrose 50%) 25 ml Q30M PRN IV Hypoglycemia 03/05/19 06:15 04/04/19 06:14 Dextrose (Dextrose 50%) 50 ml Q30M PRN IV Hypoglycemia 03/05/19 06:15 04/04/19 06:14 Dopamine HCl/ Dextrose 250 ml @ 0 mls/hr Q24H IV 03/05/19 06:32 04/04/19 06:31 03/05/19 07:46 Ferrous Sulfate (Feosol) 330 mg THREE TIMES A DAY NG 03/05/19 09:00 04/04/19 08:59 03/17/19 12:48 Lansoprazole (Prevacid) 30 mg DAILY NG 03/08/19 09:00 04/07/19 08:59 03/17/19 09:00 Magnesium Oxide (Mag-Ox 400mg) 400 mg THREE TIMES A DAY NG 03/09/19 18:00 04/08/19 17:59 03/17/19 12:48 Metronidazole 100 ml @ 100 mls/hr Q8HR IVPB 03/13/19 22:00 03/20/19 21:59 03/17/19 05:32 Midodrine (Pro-Amatine) 10 mg THREE TIMES A DAY ORAL 03/16/19 09:00 04/15/19 08:59 03/17/19 12:48 Norepinephrine Bitartrate 8 mg/ Dextrose 500 ml @ 0 mls/hr Q24H IV 03/05/19 22:00 04/04/19 21:59 03/17/19 05:33 Ondansetron HCl (Zofran) 4 mg Q6H PRN IVP Nausea & Vomiting 03/05/19 06:15 04/04/19 06:14 Potassium Phosphate 20 meq/ Sodium Chloride 1,004.5455 ml @ 75 mls/hr [id number] IV 03/16/19 16:00 04/15/19 15:59 03/17/19 09:02 Potassium Chloride (K-Dur) 40 meq TID NG 03/14/19 18:00 04/13/19 17:59 03/17/19 12:48 Sodium Hypochlorite (Dakin's Half Strength) 1 applic DAILY TOPIC 03/10/19 20:00 04/09/19 19:59 03/17/19 09:02 Vancomycin HCl (Vanco rx to dose) 1 ea DAILY PRN MISC Per rx protocol 03/05/19 06:15 04/04/19 06:14 Vancomycin HCl/ Dextrose 275 ml @ 183.333 mls/hr Q12HR@0100,1300 IVPB 03/16/19 13:00 03/21/19 12:59 03/17/19 12:48 Voriconazole (Vfend) 200 mg Q12HR ORAL 03/14/19 13:00 03/21/19 12:59 03/17/19 09:01 Makenzie Galeano MD Mar 17, 2019 13:11
--- NOTE | 2019-03-17 13:32 | Pulmonolgy Critical Care Note ---
Critical Care - Asmt/Plan Assessment/Plan: Pulmonary Progress Note Assessment/Plan 1. Severe sepsis, shock due to enterobacter and streptococcus bacteremia 2. Sacral decubitus and osteomyelitis. 3. CALEB, improving 4. Acute myocardial ischemia, possible non-ST elevation myocardial infarction. 5. Aspiration pneumonia. 6. Respiratory failure, status post full arrest. 7. Paroxysmal atrial fibrillation. 8. 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 9. Acute liver failure, improving PLAN: Ventilator support, cannot wean Broad spectrum antimicrobials, antifungal per ID cannot dc levophed due to low BP Wound care, surgery following Planned surgical intervention when off pressors Prognosis guarded Subjective ROS Limited/Unobtainable: Yes Allergies: Coded Allergies: No Known Allergies (Unverified , 03/05/19) Objective Vital Signs Noted Objective weak, on vent via oral ETT General Appearance: no acute distress HEENT: atraumatic Respiratory/Chest: rhonchi Cardiovascular: normal rate Microbiology Date/Time Source Procedure Growth Status 03/14/19 13:00 Sputum Induced Gram Stain Pending Resulted 03/14/19 13:00 Sputum Induced Sputum Culture - Preliminary NO GROWTH Resulted 03/14/19 13:00 Indwelling Cath Urine Culture - Preliminary NO GROWTH Resulted Laboratory Tests 03/14/19 20:00: Vancomycin Level Trough 12.8H 03/15/19 04:50: White Blood Count 7.9, Red Blood Count 2.85L, Hemoglobin 8.8L, Hematocrit 26.4L , Mean Corpuscular Volume 92, Mean Corpuscular Hemoglobin 31.0, Mean Corpuscular Hemoglobin Concent 33.5, Red Cell Distribution Width 17.3H, Platelet Count 283, Mean Platelet Volume 5.6L, Neutrophils (%) (Auto) 79.1H, Lymphocytes (%) (Auto) 11.1L, Monocytes (%) (Auto) 6.0, Eosinophils (%) (Auto) 3.2H, Basophils (%) (Auto) 0.6, Activated Partial Thromboplast Time 32, Sodium Level 133L, Potassium Level 3.5, Chloride Level 101, Carbon Dioxide Level 26, Anion Gap 6, Blood Urea Nitrogen 7, Creatinine 0.5L, Estimat Glomerular Filtration Rate , Glucose Level 95, Calcium Level 7.7L, Magnesium Level 1.7L, Total Bilirubin 0.4, Aspartate Amino Transf (AST/SGOT) 22, Alanine Aminotransferase (ALT/SGPT) 49, Alkaline Phosphatase 131H, Total Protein 5.5L, Albumin 1.8L, Globulin 3.7, Albumin/Globulin Ratio 0.5L Current Medications Medications (Trade) Dose Ordered Sig/Tawny Route PRN Reason Start Time Stop Time Status Last Admin Dose Admin Acetaminophen (Tylenol) 650 mg Q4H PRN NG Mild Pain/Temp > 100.5 03/14/19 12:00 04/13/19 11:59 03/15/19 08:45 Chlorhexidine Gluconate (Jada-Hex 2%) 1 applic DAILY@2000 TOPIC 03/13/19 20:00 04/12/19 19:59 03/14/19 20:13 Ciprofloxacin 200 ml @ 200 mls/hr Q12HR IV 03/13/19 21:00 03/20/19 20:59 03/15/19 08:44 Dextrose (Dextrose 50%) 25 ml Q30M PRN IV Hypoglycemia 03/05/19 06:15 04/04/19 06:14 Dextrose (Dextrose 50%) 50 ml Q30M PRN IV Hypoglycemia 03/05/19 06:15 04/04/19 06:14 Dopamine HCl/ Dextrose 250 ml @ 0 mls/hr Q24H IV 03/05/19 06:32 04/04/19 06:31 03/05/19 07:46 Ferrous Sulfate (Feosol) 330 mg THREE TIMES A DAY NG 03/05/19 09:00 04/04/19 08:59 03/15/19 08:44 Lansoprazole (Prevacid) 30 mg DAILY NG 03/08/19 09:00 04/07/19 08:59 03/15/19 08:45 Magnesium Oxide (Mag-Ox 400mg) 400 mg THREE TIMES A DAY NG 03/09/19 18:00 04/08/19 17:59 03/15/19 08:44 Metronidazole 100 ml @ 100 mls/hr Q8HR IVPB 03/13/19 22:00 03/20/19 21:59 03/15/19 05:47 Norepinephrine Bitartrate 8 mg/ Dextrose 500 ml @ 0 mls/hr Q24H IV 03/05/19 22:00 04/04/19 21:59 03/15/19 06:38 Ondansetron HCl (Zofran) 4 mg Q6H PRN IVP Nausea & Vomiting 03/05/19 06:15 04/04/19 06:14 Potassium Phosphate 20 meq/ Sodium Chloride 1,004.5455 ml @ 50 mls/hr Q20H6M IV 03/13/19 18:30 04/12/19 18:29 03/15/19 10:47 Potassium Chloride (K-Dur) 40 meq TID NG 03/14/19 18:00 04/13/19 17:59 03/15/19 08:45 Sodium Hypochlorite (Dakin's Half Strength) 1 applic DAILY TOPIC 03/10/19 20:00 04/09/19 19:59 03/15/19 08:46 Vancomycin HCl (Vanco rx to dose) 1 ea DAILY PRN MISC Per rx protocol 03/05/19 06:15 04/04/19 06:14 Vancomycin HCl/ Dextrose 275 ml @ 183.333 mls/hr Q12H IVPB 03/14/19 22:00 03/19/19 21:59 03/15/19 10:28 Voriconazole (Vfend) 200 mg Q12HR ORAL 03/14/19 13:00 03/21/19 12:59 03/15/19 08:45 Critical Care - Objective Last 24 Hour Vital Signs Date Time Temp Pulse Resp B/P (MAP) Pulse Ox O2 Delivery O2 Flow Rate FiO2 03/17/19 13:00 79 18 99/44 (62) 100 03/17/19 12:34 83 18 30 03/17/19 12:00 30 03/17/19 12:00 86 03/17/19 12:00 97.7 83 18 92/47 (62) 100 03/17/19 11:42 95 19 99 03/17/19 11:16 85 18 30 03/17/19 11:00 87 18 98/46 (63) 100 03/17/19 10:43 99.6 03/17/19 10:00 88 18 99/50 (66) 100 03/17/19 09:00 95 18 94/44 (61) 99 03/17/19 08:34 92 18 30 03/17/19 08:00 93 03/17/19 08:00 Mechanical Ventilator Mechanical Ventilator Mechanical Ventilator 03/17/19 08:00 99/47 03/17/19 08:00 30 03/17/19 08:00 100.8 94 18 99/47 (64) 100 03/17/19 07:00 95 19 101/55 (70) 99 03/17/19 06:37 94 18 30 03/17/19 06:00 97 19 90/53 (65) 99 03/17/19 05:45 98 18 94/45 (61) 99 03/17/19 05:33 103/46 03/17/19 05:30 98 18 95/55 (68) 100 03/17/19 05:15 102 18 103/46 (65) 100 03/17/19 05:00 104 18 112/49 (70) 99 03/17/19 05:00 103/46 03/17/19 04:58 106 20 30 03/17/19 04:45 105 20 119/56 (77) 99 03/17/19 04:30 105 20 110/56 (74) 99 03/17/19 04:15 91 19 101/51 (68) 100 03/17/19 04:00 93 18 92/43 (59) 100 03/17/19 04:00 Mechanical Ventilator Mechanical Ventilator Mechanical Ventilator 03/17/19 04:00 90 03/17/19 04:00 30 03/17/19 04:00 101/51 03/17/19 03:45 95 21 97/49 (65) 98 03/17/19 03:30 95 18 86/48 (61) 98 03/17/19 03:15 91 19 98/42 (60) 98 03/17/19 03:01 90 18 30 03/17/19 03:00 98/42 03/17/19 03:00 98.8 90 16 88/59 (69) 100 03/17/19 02:45 89 18 94/51 (65) 99 03/17/19 02:30 87 18 92/50 (64) 100 03/17/19 02:15 89 18 94/45 (61) 99 03/17/19 02:00 94/45 03/17/19 02:00 90 18 92/44 (60) 99 03/17/19 01:45 89 18 88/54 (65) 100 03/17/19 01:30 86 18 96/46 (63) 99 03/17/19 01:15 86 18 90/48 (62) 99 03/17/19 01:00 90/48 03/17/19 01:00 93 18 97/51 (66) 99 03/17/19 00:52 88 18 30 03/17/19 00:45 87 18 95/48 (64) 99 03/17/19 00:30 86 17 93/47 (62) 99 03/17/19 00:15 90 17 93/46 (62) 98 03/17/19 00:00 98.8 86 18 95/42 (59) 99 03/17/19 00:00 Mechanical Ventilator Mechanical Ventilator Mechanical Ventilator 03/17/19 00:00 93/46 03/16/19 23:45 87 18 95/42 (59) 98 03/16/19 23:30 96 20 97/44 (61) 98 03/16/19 23:15 87 18 96/48 (64) 99 03/16/19 23:00 96/48 03/16/19 23:00 89 18 92/42 (59) 99 03/16/19 22:47 87 19 30 03/16/19 22:00 95/42 03/16/19 22:00 94 18 99/48 (65) 100 03/16/19 21:45 84 18 95/46 (62) 100 03/16/19 21:30 84 18 98/76 (83) 100 03/16/19 21:25 86 18 30 03/16/19 21:15 83 19 103/45 (64) 100 03/16/19 21:08 99/44 03/16/19 21:00 93 17 99/44 (62) 100 03/16/19 20:45 85 17 95/48 (64) 100 03/16/19 20:30 87 18 97/46 (63) 100 03/16/19 20:15 88 18 100/46 (64) 98 03/16/19 20:00 Mechanical Ventilator Mechanical Ventilator Mechanical Ventilator 03/16/19 20:00 88 03/16/19 20:00 30 03/16/19 20:00 110/53 03/16/19 20:00 98.8 85 18 110/53 (72) 100 03/16/19 19:00 87 18 70/54 (59) 99 03/16/19 19:00 70/54 03/16/19 18:52 90 19 30 03/16/19 18:00 94 18 78/48 (58) 99 03/16/19 17:30 94 18 81/38 (52) 93 03/16/19 17:00 93 21 30 03/16/19 17:00 93 18 96/66 (76) 98 03/16/19 16:30 94 18 104/46 (65) 97 03/16/19 16:00 30 03/16/19 16:00 82 03/16/19 16:00 98.9 84 18 90/43 (59) 98 03/16/19 16:00 Mechanical Ventilator Mechanical Ventilator Mechanical Ventilator 03/16/19 15:40 81 18 30 03/16/19 15:30 78 18 83/60 (68) 98 03/16/19 15:00 85 16 108/54 (72) 99 03/16/19 14:30 85 20 92/69 (77) 97 03/16/19 14:00 82 18 107/56 (73) 100 03/16/19 14:00 92/43 Micro: Microbiology Date/Time Source Procedure Growth Status 03/14/19 14:16 Blood Blood Culture - Preliminary NO GROWTH AFTER 48 HOURS Resulted 03/14/19 14:15 Blood Blood Culture - Preliminary Staphylococcus Sp Coag Neg Resulted Accucheck: 106 Critical Care - Subjective ROS Limited/Unobtainable: No FI02: 30 Vent Support Breath Rate: 18 Vent Support Mode: AC Vent Tidal Volume: 550 Sputum Amount: Scant PEEP: 5.0 PIP: 21 Tube Feeding Amount: 60 I&O: Intake and Output 03/16/19 03/17/19 19:00 07:00 Intake Total 1325 ml 2392.5000 ml Output Total 1400 ml 1300 ml Balance -75 ml 1092.5000 ml IV Total 1145 ml 1672.5000 ml Tube Feeding 180 ml 720 ml Output Urine Total 1400 ml 1000 ml Stool Total 300 ml ET-Tube: 8.0 ET Position: 23 Mejia Coppola MD Mar 17, 2019 13:32
[2019-03-17 17:13] LABS: APPEARANCE,URINE CLEAR; BILIRUBIN, URINE NEGATIVE (NEGATIVE); COLOR,URINE PALE YELLOW; GLUCOSE, URINE (UA) NEGATIVE (NEGATIVE); KETONES,URINE NEGATIVE (NEGATIVE); LEUKOCYTE ESTERASE ,URINE 1+ (NEGATIVE); NITRITE,URINE NEGATIVE (NEGATIVE); PH,URINE 5 (4.5-8.0); PROTEIN,URINE NEGATIVE (NEGATIVE); UROBILINOGEN,URINE NORMAL MG/DL (0.0-1.0)
[2019-03-17] MEDS: Dyna-Hex 2% Top Sol 2oz TOPIC SCH (20:25)
[2019-03-18] VITALS (24 sets, daily range): BP systolic 90–141; BP diastolic 39–82
[2019-03-18] MEDS: Vancomycin 1.25gm Premix IVPB SCH ×2 (00:35→13:12)
--- NOTE | 2019-03-18 03:00 | Progress Note ---
DATE: 03/17/2019 CARDIOLOGY PROGRESS NOTE SUBJECTIVE: The patient remains in the intensive care unit. Condition remains critical. Prognosis is guarded. Vitals with blood pressure in the 90 systolic and 40 diastolic range, heart rate in the 90s, and respiratory rate 20. The patient is on ventilator support via endotracheal tube. Monitored rhythm, sinus. The patient underwent debridement of wound yesterday at bedside. PHYSICAL EXAMINATION: LUNGS: Bilateral breath sounds. CARDIAC: Regular rhythm and rate. Normal S1 and S2 with no new murmur. ABDOMEN: Soft. EXTREMITIES: 1+ dependent edema. LABORATORY DATA: White count 10 and hemoglobin 8.9. Potassium 4.8, BUN 9, and creatinine 0.7. ABG, pH 7.42, pCO2 36, and pO2 105. IMPRESSION: 1. Persisting shock. 2. Sepsis. 3. Hypovolemia. 4. Respiratory failure. PLAN: 1. Recommend pressors as able. 2. Midodrine support. 3. Antimicrobials. 4. Ventilator support. 5. Consider steroid trial. Mejia Mckinney M.D. DR: TASHI JOB#: [id number] CC:
[2019-03-18] MEDS: Acetaminophen 650mg/20.3ml NG PRN ×2 (05:34→13:11)
[2019-03-18] MEDS: DOPamine 400mg/250ml 250 ML IV SCH (06:32)
[2019-03-18 08:03] LABS: BASOPHILS % (AUTO) 0.9 % (0.0-2.0); EOSINOPHILS % (AUTO) 1.8 % (0.0-3.0); HEMATOCRIT 26.5 % (42.0-52.0); HEMOGLOBIN 8.7 G/DL (14.2-18.0); LYMPHOCYTES % (AUTO) 8.1 % (20.0-45.0); MEAN CORPUSCULAR VOLUME 94 FL (80-99); MONOCYTES % (AUTO) 5.6 % (1.0-10.0); NEUTROPHILS % (AUTO) 83.6 % (45.0-75.0); PLATELET COUNT 360 K/UL (150-450); RED BLOOD COUNT 2.82 M/UL (4.70-6.10); RED CELL DISTRIBUTION WIDTH 17.7 % (11.6-14.8); WHITE BLOOD COUNT 10.4 K/UL (4.8-10.8)
[2019-03-18] MEDS: SODIUM CHLORIDE IV SCH ×3 (08:12→12:44)
[2019-03-18] MEDS: POTASSIUM PHOSPHATE IV SCH ×3 (08:12→12:44)
[2019-03-18 08:27] LABS: PHOSPHORUS 4.4 MG/DL (2.5-4.9)
[2019-03-18 08:34] LABS: ALANINE AMINOTRANSFERASE 33 U/L (12-78); ALBUMIN/GLOBULIN RATIO 0.5 (1.0-2.7); ALKALINE PHOSPHATASE 144 U/L (46-116); ANION GAP 6 mmol/L (5-15); ASPARTATE AMINO TRANSFERASE 20 U/L (15-37); BILIRUBIN,TOTAL 0.4 MG/DL (0.2-1.0); BLOOD UREA NITROGEN 10 mg/dL (7-18); CALCIUM 8.3 MG/DL (8.5-10.1); CARBON DIOXIDE 26 MMOL/L (21-32); CHLORIDE 99 MMOL/L (98-107); CREATININE 0.7 MG/DL (0.55-1.30); POTASSIUM 4.7 MMOL/L (3.5-5.1); SODIUM 131 MMOL/L (136-145)
--- NOTE | 2019-03-18 08:39 | Diagnostic Imaging Report ---
EXAM: XR Chest, 1 View CLINICAL HISTORY: INFECT TECHNIQUE: Frontal view of the chest. COMPARISON: 03/16/19. FINDINGS: The tip of the endotracheal tube is appropriately positioned, projecting approximate 4 cm above the katy. Right arm PICC again noted, tip in the SVC. Enteric tube with tip and sidehole projecting in the stomach. Stable bilateral pleural effusions with associated atelectasis and/or consolidation. No significant interval change. No pneumothorax. Degenerative changes of the shoulders and of the spine. IMPRESSION: Stable pleural effusions and associated atelectasis/consolidation. Stable life support devices.
[2019-03-18] MEDS: Ferrous Sulfate 300 MG/5 ML UDC NG SCH ×3 (08:57→17:18)
[2019-03-18] MEDS: Magnesium Oxide 400mg tab NG SCH ×3 (08:57→17:18)
[2019-03-18] MEDS: Midodrine 10mg tab ORAL SCH ×3 (08:57→17:18)
[2019-03-18] MEDS: Dakin's 0.25% (Half Strength) 16oz TOPIC SCH (09:03)
--- NOTE | 2019-03-18 10:00 | Nephrology Progress Note ---
Assessment/Plan Problem List: (1) Hypokalemia (2) Pyelonephritis (3) CALEB (acute kidney injury) (4) Septic shock (5) Cardiopulmonary arrest (6) Decubitus ulcer (7) Hypomagnesemia (8) Hypophosphatemia (9) Hyponatremia Assessment replace mg, phos,K avoid fluid overload but just weaned off levophed needs fluids, low rate K Mg lower, replace, try adding midodrine , likely chronically low bp, iv fluids continue as diarrhea Subjective HEENT: Reports: no symptoms Genitourinary: Reports: incontinence Neurologic/Psychiatric: Reports: no symptoms Objective Objective Last 24 Hour Vital Signs Date Time Temp Pulse Resp B/P (MAP) Pulse Ox O2 Delivery O2 Flow Rate FiO2 03/18/19 09:37 100 03/18/19 09:31 100 20 30 03/18/19 09:00 104 18 102/49 (66) 100 03/18/19 08:00 Mechanical Ventilator Mechanical Ventilator Mechanical Ventilator 03/18/19 08:00 30 03/18/19 08:00 98.2 108 24 90/39 (56) 100 03/18/19 07:07 115 23 30 03/18/19 07:00 107 34 104/56 (72) 98 03/18/19 06:32 110/60 03/18/19 06:00 122 34 130/80 (97) 98 03/18/19 05:00 109 34 141/80 (100) 98 03/18/19 04:38 105 20 30 03/18/19 04:00 30 03/18/19 04:00 98.4 109 33 118/71 (87) 99 03/18/19 04:00 Mechanical Ventilator Mechanical Ventilator Mechanical Ventilator 03/18/19 04:00 109 03/18/19 04:00 Mechanical Ventilator Mechanical Ventilator Mechanical Ventilator 03/18/19 03:29 109 19 30 03/18/19 03:00 104 33 95/59 (71) 99 03/18/19 03:00 104 33 95/59 (71) 99 03/18/19 02:00 100 20 97/48 (64) 100 03/18/19 01:23 101 21 30 03/18/19 01:00 98 20 100/46 (64) 100 03/18/19 00:00 99 03/18/19 00:00 Mechanical Ventilator Mechanical Ventilator Mechanical Ventilator 03/18/19 00:00 98.0 98 21 95/42 (59) 100 03/17/19 23:19 96 21 30 03/17/19 23:00 98 21 94/43 (60) 100 03/17/19 22:00 89 21 96/49 (65) 100 03/17/19 21:00 87 21 103/47 (65) 100 03/17/19 20:56 88 18 30 03/17/19 20:00 Mechanical Ventilator Mechanical Ventilator Mechanical Ventilator 03/17/19 20:00 87 03/17/19 20:00 98.2 87 21 104/51 (68) 100 03/17/19 20:00 30 03/17/19 19:06 86 21 30 03/17/19 19:00 84 22 103/51 (68) 100 03/17/19 18:00 88 22 128/103 (111) 100 03/17/19 17:00 86 20 98/45 (62) 99 03/17/19 16:55 87 18 30 03/17/19 16:00 77 03/17/19 16:00 30 03/17/19 16:00 Mechanical Ventilator Mechanical Ventilator Mechanical Ventilator 03/17/19 16:00 98.0 78 17 101/49 (66) 100 03/17/19 15:06 79 19 30 03/17/19 15:00 78 20 103/50 (67) 96 03/17/19 14:00 76 18 104/43 (63) 100 03/17/19 13:00 79 18 99/44 (62) 100 03/17/19 12:34 83 18 30 03/17/19 12:00 30 03/17/19 12:00 86 03/17/19 12:00 Mechanical Ventilator Mechanical Ventilator Mechanical Ventilator 03/17/19 12:00 97.7 83 18 92/47 (62) 100 03/17/19 11:42 95 19 99 03/17/19 11:16 85 18 30 03/17/19 11:00 87 18 98/46 (63) 100 03/17/19 11:00 98/46 03/17/19 10:43 99.6 03/17/19 10:00 88 18 99/50 (66) 100 03/17/19 10:00 99/50 Intake and Output 03/17/19 03/18/19 19:00 07:00 Intake Total 2559.75 ml 2403.333 ml Output Total 2145 ml 1920 ml Balance 414.75 ml 483.333 ml Intake Free Water 315 ml 140 ml IV Total 1564.75 ml 1483.333 ml Tube Feeding 660 ml 780 ml Other 20 ml Output Urine Total 2145 ml 1720 ml Stool Total 200 ml Laboratory Tests 03/17/19 14:45: Urine Color Pale yellow, Urine Appearance Clear, Urine pH 5, Urine Specific [place] 1.010, Urine Protein Negative, Urine Glucose (UA) Negative, Urine Ketones Negative, Urine Blood 2+H, Urine Nitrite Negative, Urine Bilirubin Negative, Urine Urobilinogen Normal, Urine Leukocyte Esterase 1+H, Urine RBC 0- 2H, Urine WBC 2-4, Urine Squamous Epithelial Cells None, Urine Bacteria Few 03/17/19 17:50: Arterial Blood pH 7.421, Arterial Blood Partial Pressure CO2 36.5, Arterial Blood Partial Pressure O2 105.2H, Arterial Blood HCO3 23.2, Arterial Blood Oxygen Saturation 97.3, Arterial Blood Base Excess -1, Parish Test Positive 03/18/19 06:30: White Blood Count 10.4, Red Blood Count 2.82L, Hemoglobin 8.7L, Hematocrit 26.5L , Mean Corpuscular Volume 94, Mean Corpuscular Hemoglobin 30.9, Mean Corpuscular Hemoglobin Concent 32.9, Red Cell Distribution Width 17.7H, Platelet Count 360, Mean Platelet Volume 5.5L, Neutrophils (%) (Auto) 83.6H, Lymphocytes (%) (Auto) 8.1L, Monocytes (%) (Auto) 5.6, Eosinophils (%) (Auto) 1.8, Basophils (%) (Auto) 0.9, Sodium Level 131L, Potassium Level 4.7, Chloride Level 99, Carbon Dioxide Level 26, Anion Gap 6, Blood Urea Nitrogen 10, Creatinine 0.7, Estimat Glomerular Filtration Rate , Glucose Level 120H, Calcium Level 8.3L, Phosphorus Level 4.4, Magnesium Level 1.3L, Total Bilirubin 0.4, Aspartate Amino Transf (AST/SGOT) 20, Alanine Aminotransferase (ALT/SGPT) 33, Alkaline Phosphatase 144H, Total Protein 6.3L, Albumin 2.0L, Globulin 4.3, Albumin/Globulin Ratio 0.5L Height (Feet): 6 Height (Inches): 2.00 Weight (Pounds): 200 General Appearance: alert EENT: other - intubated Neck: normal alignment Cardiovascular: regular rhythm Respiratory/Chest: rhonchi - bilaterally Abdomen: non tender, soft Extremities: moderate edema Neurologic: table operator II-XII grossly normal Rishi Christy MD Mar 18, 2019 10:00
[2019-03-18] MEDS: Dyna-Hex 2% Top Sol 2oz TOPIC SCH (20:37)
[2019-03-18] MEDS: Norepinephrine Bitartrate 8 MG in D5W 500ml 492 ML IV SCH (22:00)
--- NOTE | 2019-03-18 22:00 | Pulmonolgy Critical Care Note ---
Critical Care - Asmt/Plan Assessment/Plan: Assessment/Plan 1. Severe sepsis, shock due to enterobacter and streptococcus bacteremia 2. Sacral decubitus and osteomyelitis. 3. CALEB, improving 4. Acute myocardial ischemia, possible non-ST elevation myocardial infarction. 5. Aspiration pneumonia. 6. Respiratory failure, status post full arrest. 7. Paroxysmal atrial fibrillation. 8. 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 9. Acute liver failure, improving PLAN: Ventilator support weaning as tolearted Broad spectrum antimicrobials, antifungal per ID cannot dc levophed due to low BP Wound care, surgery following add pnr msor for pain control during wound care will needc thoracentsis next week Respiratory: CXR, ABG, weaning trial Cardiac: continue to monitor HR/BP Renal: F/U I&O, keep IV fluid Gastrointestinal: hold feedings Endocrine: monitor blood sugar, check TSH Neurologic: PRN Morphine Prophylaxis: Heparin Disposition: keep in ICU Time Spent (Minutes): 40 Notes Reviewed: cardio Discussed with: nurses Critical Care - Objective Last 24 Hour Vital Signs Date Time Temp Pulse Resp B/P (MAP) Pulse Ox O2 Delivery O2 Flow Rate FiO2 03/18/19 21:39 89 21 30 03/18/19 21:00 89 21 104/50 (68) 100 03/18/19 20:00 Mechanical Ventilator Mechanical Ventilator Mechanical Ventilator 03/18/19 20:00 94 03/18/19 20:00 98.5 95 29 103/76 (85) 100 03/18/19 19:55 94 24 30 03/18/19 19:00 90 21 110/81 (91) 100 03/18/19 18:00 82 21 104/49 (67) 100 03/18/19 17:00 92 25 93/46 (62) 100 03/18/19 17:00 107 24 30 03/18/19 16:00 99 03/18/19 16:00 Mechanical Ventilator Mechanical Ventilator Mechanical Ventilator 03/18/19 16:00 98.3 99 34 120/64 (82) 97 03/18/19 16:00 30 03/18/19 15:00 102 28 30 03/18/19 15:00 87 26 97/53 (68) 100 03/18/19 14:00 88 23 109/51 (70) 100 03/18/19 13:00 107 22 30 03/18/19 13:00 96 23 98/49 (65) 99 03/18/19 12:00 30 03/18/19 12:00 98.0 101 27 97/82 (87) 100 03/18/19 12:00 101 03/18/19 12:00 Mechanical Ventilator Mechanical Ventilator Mechanical Ventilator 03/18/19 11:00 113 25 30 03/18/19 11:00 95 24 101/45 (63) 99 03/18/19 10:00 103 33 124/61 (82) 99 03/18/19 09:37 100 03/18/19 09:31 100 20 30 03/18/19 09:00 104 18 102/49 (66) 100 03/18/19 08:00 Mechanical Ventilator Mechanical Ventilator Mechanical Ventilator 03/18/19 08:00 107 03/18/19 08:00 30 03/18/19 08:00 98.2 108 24 90/39 (56) 100 03/18/19 07:07 115 23 30 03/18/19 07:00 107 34 104/56 (72) 98 03/18/19 06:32 110/60 03/18/19 06:00 122 34 130/80 (97) 98 03/18/19 05:00 109 34 141/80 (100) 98 03/18/19 04:38 105 20 30 03/18/19 04:00 30 03/18/19 04:00 98.4 109 33 118/71 (87) 99 03/18/19 04:00 Mechanical Ventilator Mechanical Ventilator Mechanical Ventilator 03/18/19 04:00 109 03/18/19 04:00 Mechanical Ventilator Mechanical Ventilator Mechanical Ventilator 03/18/19 03:29 109 19 30 03/18/19 03:00 104 33 95/59 (71) 99 03/18/19 03:00 104 33 95/59 (71) 99 03/18/19 02:00 100 20 97/48 (64) 100 03/18/19 01:23 101 21 30 03/18/19 01:00 98 20 100/46 (64) 100 03/18/19 00:00 99 03/18/19 00:00 Mechanical Ventilator Mechanical Ventilator Mechanical Ventilator 03/18/19 00:00 98.0 98 21 95/42 (59) 100 03/17/19 23:19 96 21 30 03/17/19 23:00 98 21 94/43 (60) 100 03/17/19 22:00 89 21 96/49 (65) 100 Status: awake Condition: improving Lungs: rales, rhonchi Heart: HR/BP stable Abdomen: soft, non-tender Extremities: edema Decubiti: location Objective: Laboratory Tests Test 03/18/19 06:30 White Blood Count 10.4 K/UL (4.8-10.8) Red Blood Count 2.82 M/UL (4.70-6.10) L Hemoglobin 8.7 G/DL (14.2-18.0) L Hematocrit 26.5 % (42.0-52.0) L Mean Corpuscular Volume 94 FL (80-99) Mean Corpuscular Hemoglobin 30.9 PG (27.0-31.0) Mean Corpuscular Hemoglobin Concent 32.9 G/DL (32.0-36.0) Red Cell Distribution Width 17.7 % (11.6-14.8) H Platelet Count 360 K/UL (150-450) Mean Platelet Volume 5.5 FL (6.5-10.1) L Neutrophils (%) (Auto) 83.6 % (45.0-75.0) H Lymphocytes (%) (Auto) 8.1 % (20.0-45.0) L Monocytes (%) (Auto) 5.6 % (1.0-10.0) Eosinophils (%) (Auto) 1.8 % (0.0-3.0) Basophils (%) (Auto) 0.9 % (0.0-2.0) Sodium Level 131 MMOL/L (136-145) L Potassium Level 4.7 MMOL/L (3.5-5.1) Chloride Level 99 MMOL/L (98-107) Carbon Dioxide Level 26 MMOL/L (21-32) Anion Gap 6 mmol/L (5-15) Blood Urea Nitrogen 10 mg/dL (7-18) Creatinine 0.7 MG/DL (0.55-1.30) Estimat Glomerular Filtration Rate mL/min (>60) Glucose Level 120 MG/DL (74-106) H Calcium Level 8.3 MG/DL (8.5-10.1) L Phosphorus Level 4.4 MG/DL (2.5-4.9) Magnesium Level 1.3 MG/DL (1.8-2.4) L Total Bilirubin 0.4 MG/DL (0.2-1.0) Aspartate Amino Transf (AST/SGOT) 20 U/L (15-37) Alanine Aminotransferase (ALT/SGPT) 33 U/L (12-78) Alkaline Phosphatase 144 U/L (46-116) H Total Protein 6.3 G/DL (6.4-8.2) L Albumin 2.0 G/DL (3.4-5.0) L Globulin 4.3 g/dL Albumin/Globulin Ratio 0.5 (1.0-2.7) L Current Medications Medications (Trade) Dose Ordered Sig/Tawny Route PRN Reason Start Time Stop Time Status Last Admin Dose Admin Acetaminophen (Tylenol) 650 mg Q4H PRN NG Mild Pain/Temp > 100.5 03/14/19 12:00 04/13/19 11:59 03/18/19 13:11 Chlorhexidine Gluconate (Jada-Hex 2%) 1 applic DAILY@2000 TOPIC 03/13/19 20:00 04/12/19 19:59 03/18/19 20:37 Ciprofloxacin 200 ml @ 200 mls/hr Q12HR IV 03/13/19 21:00 03/20/19 20:59 03/18/19 20:37 Dextrose (Dextrose 50%) 25 ml Q30M PRN IV Hypoglycemia 03/05/19 06:15 04/04/19 06:14 Dextrose (Dextrose 50%) 50 ml Q30M PRN IV Hypoglycemia 03/05/19 06:15 04/04/19 06:14 Dopamine HCl/ Dextrose 250 ml @ 0 mls/hr Q24H IV 03/05/19 06:32 04/04/19 06:31 03/05/19 07:46 Ferrous Sulfate (Feosol) 330 mg THREE TIMES A DAY NG 03/05/19 09:00 04/04/19 08:59 03/18/19 17:18 Lansoprazole (Prevacid) 30 mg DAILY NG 03/08/19 09:00 04/07/19 08:59 03/18/19 08:58 Magnesium Oxide (Mag-Ox 400mg) 400 mg THREE TIMES A DAY NG 03/09/19 18:00 04/08/19 17:59 03/18/19 17:18 Metronidazole 100 ml @ 100 mls/hr Q8HR IVPB 03/13/19 22:00 03/20/19 21:59 03/18/19 14:47 Midodrine (Pro-Amatine) 10 mg THREE TIMES A DAY ORAL 03/16/19 09:00 04/15/19 08:59 03/18/19 17:18 Norepinephrine Bitartrate 8 mg/ Dextrose 500 ml @ 0 mls/hr Q24H IV 03/05/19 22:00 04/04/19 21:59 03/17/19 05:33 Ondansetron HCl (Zofran) 4 mg Q6H PRN IVP Nausea & Vomiting 03/05/19 06:15 04/04/19 06:14 Potassium Phosphate 20 meq/ Sodium Chloride 1,004.5455 ml @ 60 mls/hr [id number] IV 03/18/19 11:00 04/17/19 10:59 03/18/19 12:44 Potassium Chloride (K-Dur) 40 meq TID NG 03/14/19 18:00 04/13/19 17:59 03/18/19 17:19 Sodium Hypochlorite (Dakin's Half Strength) 1 applic DAILY TOPIC 03/10/19 20:00 04/09/19 19:59 03/18/19 09:03 Vancomycin HCl (Vanco rx to dose) 1 ea DAILY PRN MISC Per rx protocol 03/05/19 06:15 04/04/19 06:14 Vancomycin HCl/ Dextrose 275 ml @ 183.333 mls/hr Q12HR@0100,1300 IVPB 03/16/19 13:00 03/21/19 12:59 03/18/19 13:12 Voriconazole (Vfend) 200 mg Q12HR ORAL 03/14/19 13:00 03/21/19 12:59 03/18/19 20:37 Micro: Microbiology Date/Time Source Procedure Growth Status 03/17/19 15:00 Indwelling Cath Urine Culture - Preliminary NO GROWTH Resulted Accucheck: 106 Blood Sugars: BS controlled Critical Care - Subjective ROS Limited/Unobtainable: Yes Condition: improving FI02: 30 Vent Support Breath Rate: 16 Vent Support Mode: AC Vent Tidal Volume: 480 Sputum Amount: Small PEEP: 5.0 PIP: 40 Tube Feeding Amount: 60 I&O: Intake and Output 03/17/19 03/18/19 19:00 07:00 Intake Total 2559.75 ml 2403.333 ml Output Total 2145 ml 1920 ml Balance 414.75 ml 483.333 ml Intake Free Water 315 ml 140 ml IV Total 1564.75 ml 1483.333 ml Tube Feeding 660 ml 780 ml Other 20 ml Output Urine Total 2145 ml 1720 ml Stool Total 200 ml Subjective: awakens on the vent pressors titrating down and bp stable no bleeding no cp nv or diarrhea positive uop no fever noted on abx surgery note reviewed CXR: moderate right effusion on CXR today ET-Tube: 8.0 ET Position: 23 Labs: Laboratory Tests Test 03/18/19 06:30 White Blood Count 10.4 K/UL (4.8-10.8) Red Blood Count 2.82 M/UL (4.70-6.10) L Hemoglobin 8.7 G/DL (14.2-18.0) L Hematocrit 26.5 % (42.0-52.0) L Mean Corpuscular Volume 94 FL (80-99) Mean Corpuscular Hemoglobin 30.9 PG (27.0-31.0) Mean Corpuscular Hemoglobin Concent 32.9 G/DL (32.0-36.0) Red Cell Distribution Width 17.7 % (11.6-14.8) H Platelet Count 360 K/UL (150-450) Mean Platelet Volume 5.5 FL (6.5-10.1) L Neutrophils (%) (Auto) 83.6 % (45.0-75.0) H Lymphocytes (%) (Auto) 8.1 % (20.0-45.0) L Monocytes (%) (Auto) 5.6 % (1.0-10.0) Eosinophils (%) (Auto) 1.8 % (0.0-3.0) Basophils (%) (Auto) 0.9 % (0.0-2.0) Sodium Level 131 MMOL/L (136-145) L Potassium Level 4.7 MMOL/L (3.5-5.1) Chloride Level 99 MMOL/L (98-107) Carbon Dioxide Level 26 MMOL/L (21-32) Anion Gap 6 mmol/L (5-15) Blood Urea Nitrogen 10 mg/dL (7-18) Creatinine 0.7 MG/DL (0.55-1.30) Estimat Glomerular Filtration Rate mL/min (>60) Glucose Level 120 MG/DL (74-106) H Calcium Level 8.3 MG/DL (8.5-10.1) L Phosphorus Level 4.4 MG/DL (2.5-4.9) Magnesium Level 1.3 MG/DL (1.8-2.4) L Total Bilirubin 0.4 MG/DL (0.2-1.0) Aspartate Amino Transf (AST/SGOT) 20 U/L (15-37) Alanine Aminotransferase (ALT/SGPT) 33 U/L (12-78) Alkaline Phosphatase 144 U/L (46-116) H Total Protein 6.3 G/DL (6.4-8.2) L Albumin 2.0 G/DL (3.4-5.0) L Globulin 4.3 g/dL Albumin/Globulin Ratio 0.5 (1.0-2.7) Dulce May DO Mar 18, 2019 22:00
[2019-03-19] VITALS (37 sets, daily range): BP systolic 67–174; BP diastolic 43–83
[2019-03-19] MEDS: Vancomycin 1.25gm Premix IVPB SCH ×2 (01:22→13:21)
--- NOTE | 2019-03-19 02:30 | Progress Note ---
DATE: 03/18/2019 CARDIOLOGY PROGRESS NOTE SUBJECTIVE: The patient remains on the ventilator support. He continues antimicrobials. He remains on pressors due to low blood pressure. OBJECTIVE: VITAL SIGNS: Blood pressure 104/50, pulse 89, and respiratory rate 20. LUNGS: Scattered rhonchi. Orally intubated. HEART: Regular rhythm and rate. Normal S1 and S2. ABDOMEN: Soft. EXTREMITIES: Trace edema. IMPRESSION: 1. Enterobacter and streptococcal bacteremia, sepsis, and pneumonia. 2. Sacral decubitus. 3. Osteomyelitis. 4. Sepsis with shock. 5. Respiratory failure. 6. Myocardial ischemia. 7. Paroxysmal atrial fibrillation. 8. Degenerative aortic valve disease with stenosis. PLAN: 1. Wean pressors. 2. Continue antimicrobials. 3. Ventilator support. 4. Consider thoracentesis for pleural effusion. 5. ID to comment on stress dose steroid trial. Mejia Mckinney M.D. DR: JUVENTINO JOB#: [id number] CC:
[2019-03-19] MEDS ORDERED: Morphine Sulfate 2mg/ml Inj(IV/IM USE ONLY) IVP PRN (03:00)
[2019-03-19] MEDS: POTASSIUM PHOSPHATE IV SCH ×3 (03:45→23:39)
[2019-03-19] MEDS: SODIUM CHLORIDE IV SCH ×3 (03:45→23:39)
[2019-03-19 05:50] LABS: ANION GAP 4 mmol/L (5-15); BLOOD UREA NITROGEN 8 mg/dL (7-18); CALCIUM 8.2 MG/DL (8.5-10.1); CARBON DIOXIDE 27 MMOL/L (21-32); CHLORIDE 98 MMOL/L (98-107); CREATININE 0.6 MG/DL (0.55-1.30); POTASSIUM 4.5 MMOL/L (3.5-5.1); SODIUM 129 MMOL/L (136-145)
[2019-03-19] MEDS: DOPamine 400mg/250ml 250 ML IV SCH (06:32)
--- NOTE | 2019-03-19 07:13 | Pulmonolgy Critical Care Note ---
Critical Care - Asmt/Plan Assessment/Plan: Assessment/Plan 1. Severe sepsis, shock due to enterobacter and streptococcus bacteremia 2. Sacral decubitus and osteomyelitis. 3. CALEB, improving 4. Acute myocardial ischemia, possible non-ST elevation myocardial infarction. 5. Aspiration pneumonia. 6. Respiratory failure, status post full arrest. 7. Paroxysmal atrial fibrillation. 8. 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 9. Acute liver failure, improving 10. pleural effusion PLAN: Ventilator support weaning as tolearted Broad spectrum antimicrobials, antifungal per ID cannot dc levophed due to low BP Wound care, surgery following add pnr mso4 for pain control during wound care will need thoracentesis next week Respiratory: CXR, ABG Cardiac: continue pressors Infectious Disease: check cultures, continue antibiotics Gastrointestinal: continue feedings/current rate Neurologic: PRN Ativan, PRN Morphine Prophylaxis: Protonix, Heparin Disposition: keep in ICU Discussed with: nurses Critical Care - Objective Last 24 Hour Vital Signs Date Time Temp Pulse Resp B/P (MAP) Pulse Ox O2 Delivery O2 Flow Rate FiO2 03/19/19 07:00 111 24 30 03/19/19 07:00 98.0 111 28 94/58 (70) 99 03/19/19 06:32 94/56 03/19/19 06:00 111 28 90/58 (69) 99 03/19/19 05:19 110 26 30 03/19/19 05:00 110 21 96/46 (63) 99 03/19/19 04:00 Mechanical Ventilator Mechanical Ventilator Mechanical Ventilator 03/19/19 04:00 114 03/19/19 04:00 114 21 98/54 (69) 98 03/19/19 04:00 30 03/19/19 03:46 125 27 30 03/19/19 03:00 122 21 174/83 (113) 99 03/19/19 02:00 99 31 103/48 (66) 93 03/19/19 02:00 101 21 106/50 (68) 100 03/19/19 01:30 96 22 95/48 (64) 100 03/19/19 01:00 101 21 106/50 (68) 100 03/19/19 01:00 101 21 106/50 (68) 100 03/19/19 00:58 102 23 30 03/19/19 00:53 Mechanical Ventilator Mechanical Ventilator Mechanical Ventilator 03/19/19 00:30 101 24 105/44 (64) 95 03/19/19 00:30 101 24 105/44 (64) 95 03/19/19 00:00 101 26 111/56 (74) 100 03/19/19 00:00 30 03/19/19 00:00 98.6 95 22 100/46 (64) 100 03/19/19 00:00 101 26 111/56 (74) 100 03/19/19 00:00 101 26 111/56 (74) 100 03/19/19 00:00 Mechanical Ventilator Mechanical Ventilator Mechanical Ventilator 03/19/19 00:00 103 03/18/19 23:07 95 21 30 03/18/19 23:00 95 22 100/46 (64) 100 03/18/19 22:00 104/52 03/18/19 22:00 94 35 93/62 (72) 97 03/18/19 21:39 89 21 30 03/18/19 21:00 89 21 104/50 (68) 100 03/18/19 20:00 Mechanical Ventilator Mechanical Ventilator Mechanical Ventilator 03/18/19 20:00 94 03/18/19 20:00 98.5 95 29 103/76 (85) 100 03/18/19 20:00 30 03/18/19 19:55 94 24 30 03/18/19 19:00 90 21 110/81 (91) 100 03/18/19 18:00 82 21 104/49 (67) 100 03/18/19 17:00 92 25 93/46 (62) 100 03/18/19 17:00 107 24 30 03/18/19 16:00 99 03/18/19 16:00 Mechanical Ventilator Mechanical Ventilator Mechanical Ventilator 03/18/19 16:00 98.3 99 34 120/64 (82) 97 03/18/19 16:00 30 03/18/19 15:00 102 28 30 03/18/19 15:00 87 26 97/53 (68) 100 03/18/19 14:00 88 23 109/51 (70) 100 03/18/19 13:00 107 22 30 03/18/19 13:00 96 23 98/49 (65) 99 03/18/19 12:00 30 03/18/19 12:00 98.0 101 27 97/82 (87) 100 03/18/19 12:00 101 03/18/19 12:00 Mechanical Ventilator Mechanical Ventilator Mechanical Ventilator 03/18/19 11:00 113 25 30 03/18/19 11:00 95 24 101/45 (63) 99 03/18/19 10:00 103 33 124/61 (82) 99 03/18/19 09:37 100 03/18/19 09:31 100 20 30 03/18/19 09:00 104 18 102/49 (66) 100 03/18/19 08:00 Mechanical Ventilator Mechanical Ventilator Mechanical Ventilator 03/18/19 08:00 107 03/18/19 08:00 30 03/18/19 08:00 98.2 108 24 90/39 (56) 100 Status: awake Condition: improving Lungs: rales, rhonchi Heart: HR/BP unstable Abdomen: non-tender, active bowel sounds Extremities: edema Objective: Laboratory Tests Test 03/18/19 06:30 White Blood Count 10.4 K/UL (4.8-10.8) Red Blood Count 2.82 M/UL (4.70-6.10) L Hemoglobin 8.7 G/DL (14.2-18.0) L Hematocrit 26.5 % (42.0-52.0) L Mean Corpuscular Volume 94 FL (80-99) Mean Corpuscular Hemoglobin 30.9 PG (27.0-31.0) Mean Corpuscular Hemoglobin Concent 32.9 G/DL (32.0-36.0) Red Cell Distribution Width 17.7 % (11.6-14.8) H Platelet Count 360 K/UL (150-450) Mean Platelet Volume 5.5 FL (6.5-10.1) L Neutrophils (%) (Auto) 83.6 % (45.0-75.0) H Lymphocytes (%) (Auto) 8.1 % (20.0-45.0) L Monocytes (%) (Auto) 5.6 % (1.0-10.0) Eosinophils (%) (Auto) 1.8 % (0.0-3.0) Basophils (%) (Auto) 0.9 % (0.0-2.0) Sodium Level 131 MMOL/L (136-145) L Potassium Level 4.7 MMOL/L (3.5-5.1) Chloride Level 99 MMOL/L (98-107) Carbon Dioxide Level 26 MMOL/L (21-32) Anion Gap 6 mmol/L (5-15) Blood Urea Nitrogen 10 mg/dL (7-18) Creatinine 0.7 MG/DL (0.55-1.30) Estimat Glomerular Filtration Rate mL/min (>60) Glucose Level 120 MG/DL (74-106) H Calcium Level 8.3 MG/DL (8.5-10.1) L Phosphorus Level 4.4 MG/DL (2.5-4.9) Magnesium Level 1.3 MG/DL (1.8-2.4) L Total Bilirubin 0.4 MG/DL (0.2-1.0) Aspartate Amino Transf (AST/SGOT) 20 U/L (15-37) Alanine Aminotransferase (ALT/SGPT) 33 U/L (12-78) Alkaline Phosphatase 144 U/L (46-116) H Total Protein 6.3 G/DL (6.4-8.2) L Albumin 2.0 G/DL (3.4-5.0) L Globulin 4.3 g/dL Albumin/Globulin Ratio 0.5 (1.0-2.7) L Current Medications Medications (Trade) Dose Ordered Sig/Tawny Route PRN Reason Start Time Stop Time Status Last Admin Dose Admin Acetaminophen (Tylenol) 650 mg Q4H PRN NG Mild Pain/Temp > 100.5 03/14/19 12:00 04/13/19 11:59 03/18/19 13:11 Chlorhexidine Gluconate (Jada-Hex 2%) 1 applic DAILY@2000 TOPIC 03/13/19 20:00 04/12/19 19:59 03/18/19 20:37 Ciprofloxacin 200 ml @ 200 mls/hr Q12HR IV 03/13/19 21:00 03/20/19 20:59 03/18/19 20:37 Dextrose (Dextrose 50%) 25 ml Q30M PRN IV Hypoglycemia 03/05/19 06:15 04/04/19 06:14 Dextrose (Dextrose 50%) 50 ml Q30M PRN IV Hypoglycemia 03/05/19 06:15 04/04/19 06:14 Dopamine HCl/ Dextrose 250 ml @ 0 mls/hr Q24H IV 03/05/19 06:32 04/04/19 06:31 03/05/19 07:46 Ferrous Sulfate (Feosol) 330 mg THREE TIMES A DAY NG 03/05/19 09:00 04/04/19 08:59 03/18/19 17:18 Lansoprazole (Prevacid) 30 mg DAILY NG 03/08/19 09:00 04/07/19 08:59 03/18/19 08:58 Magnesium Oxide (Mag-Ox 400mg) 400 mg THREE TIMES A DAY NG 03/09/19 18:00 04/08/19 17:59 03/18/19 17:18 Metronidazole 100 ml @ 100 mls/hr Q8HR IVPB 03/13/19 22:00 03/20/19 21:59 03/18/19 14:47 Midodrine (Pro-Amatine) 10 mg THREE TIMES A DAY ORAL 03/16/19 09:00 04/15/19 08:59 03/18/19 17:18 Norepinephrine Bitartrate 8 mg/ Dextrose 500 ml @ 0 mls/hr Q24H IV 03/05/19 22:00 04/04/19 21:59 03/17/19 05:33 Ondansetron HCl (Zofran) 4 mg Q6H PRN IVP Nausea & Vomiting 03/05/19 06:15 04/04/19 06:14 Potassium Phosphate 20 meq/ Sodium Chloride 1,004.5455 ml @ 60 mls/hr [id number] IV 03/18/19 11:00 04/17/19 10:59 03/18/19 12:44 Potassium Chloride (K-Dur) 40 meq TID NG 03/14/19 18:00 04/13/19 17:59 03/18/19 17:19 Sodium Hypochlorite (Dakin's Half Strength) 1 applic DAILY TOPIC 03/10/19 20:00 04/09/19 19:59 03/18/19 09:03 Vancomycin HCl (Vanco rx to dose) 1 ea DAILY PRN MISC Per rx protocol 03/05/19 06:15 04/04/19 06:14 Vancomycin HCl/ Dextrose 275 ml @ 183.333 mls/hr Q12HR@0100,1300 IVPB 03/16/19 13:00 03/21/19 12:59 03/18/19 13:12 Voriconazole (Vfend) 200 mg Q12HR ORAL 03/14/19 13:00 03/21/19 12:59 03/18/19 20:37 Micro: Microbiology Date/Time Source Procedure Growth Status 03/17/19 13:45 Blood Blood Culture - Preliminary NO GROWTH AFTER 24 HOURS Resulted 03/17/19 13:35 Blood Blood Culture - Preliminary NO GROWTH AFTER 24 HOURS Resulted 03/17/19 14:45 Sputum Induced Gram Stain - Final Resulted 03/17/19 14:45 Sputum Culture - Preliminary Staphylococcus Aureus Resulted 03/17/19 15:00 Indwelling Cath Urine Culture - Preliminary NO GROWTH Resulted Accucheck: 106 Critical Care - Subjective ROS Limited/Unobtainable: Yes Condition: improving EKG Rhythm: Sinus Rhythm FI02: 30 Vent Support Breath Rate: 16 Vent Support Mode: AC Vent Tidal Volume: 480 Sputum Amount: Small PEEP: 5.0 PIP: 24 Tube Feeding Amount: 60 I&O: Intake and Output 03/18/19 03/19/19 19:00 07:00 Intake Total 2352.750 ml 2213.333 ml Output Total 1770 ml 770 ml Balance 582.750 ml 1443.333 ml Intake Free Water 300 ml 250 ml IV Total 1332.750 ml 1303.333 ml Tube Feeding 720 ml 660 ml Output Urine Total 1520 ml 770 ml Stool Total 250 ml Subjective: awakens on the vent did not tolerate weaning yesterday will try again pressors titrating down and bp stable no bleeding no cp nv or diarrhea positive uop no fever noted on abx surgery note reviewed ET-Tube: 8.0 ET Position: 23 Labs: Current Medications Medications (Trade) Dose Ordered Sig/Tawny Route PRN Reason Start Time Stop Time Status Last Admin Dose Admin Acetaminophen (Tylenol) 650 mg Q4H PRN NG Mild Pain/Temp > 100.5 03/14/19 12:00 04/13/19 11:59 03/18/19 13:11 Chlorhexidine Gluconate (Jada-Hex 2%) 1 applic DAILY@2000 TOPIC 03/13/19 20:00 04/12/19 19:59 03/18/19 20:37 Ciprofloxacin 200 ml @ 200 mls/hr Q12HR IV 03/13/19 21:00 03/20/19 20:59 03/18/19 20:37 Dextrose (Dextrose 50%) 25 ml Q30M PRN IV Hypoglycemia 03/05/19 06:15 04/04/19 06:14 Dextrose (Dextrose 50%) 50 ml Q30M PRN IV Hypoglycemia 03/05/19 06:15 04/04/19 06:14 Dopamine HCl/ Dextrose 250 ml @ 0 mls/hr Q24H IV 03/05/19 06:32 04/04/19 06:31 03/05/19 07:46 Ferrous Sulfate (Feosol) 330 mg THREE TIMES A DAY NG 03/05/19 09:00 04/04/19 08:59 03/18/19 17:18 Lansoprazole (Prevacid) 30 mg DAILY NG 03/08/19 09:00 04/07/19 08:59 03/18/19 08:58 Magnesium Oxide (Mag-Ox 400mg) 400 mg THREE TIMES A DAY NG 03/09/19 18:00 04/08/19 17:59 03/18/19 17:18 Metronidazole 100 ml @ 100 mls/hr Q8HR IVPB 03/13/19 22:00 03/20/19 21:59 03/19/19 06:00 Midodrine (Pro-Amatine) 10 mg THREE TIMES A DAY ORAL 03/16/19 09:00 04/15/19 08:59 03/18/19 17:18 Morphine Sulfate (Morphine Sulfate) 0.5 mg EVERY 6 HOURS PRN IVP For Pain 03/19/19 03:00 03/26/19 02:59 Norepinephrine Bitartrate 8 mg/ Dextrose 500 ml @ 0 mls/hr Q24H IV 03/05/19 22:00 04/04/19 21:59 03/17/19 05:33 Ondansetron HCl (Zofran) 4 mg Q6H PRN IVP Nausea & Vomiting 03/05/19 06:15 04/04/19 06:14 Potassium Phosphate 20 meq/ Sodium Chloride 1,004.5455 ml @ 60 mls/hr [id number] IV 03/18/19 11:00 04/17/19 10:59 03/19/19 03:45 Potassium Chloride (K-Dur) 40 meq TID NG 03/14/19 18:00 04/13/19 17:59 03/18/19 17:19 Sodium Hypochlorite (Dakin's Half Strength) 1 applic DAILY TOPIC 03/10/19 20:00 04/09/19 19:59 03/18/19 09:03 Vancomycin HCl (Vanco rx to dose) 1 ea DAILY PRN MISC Per rx protocol 03/05/19 06:15 04/04/19 06:14 Vancomycin HCl/ Dextrose 275 ml @ 183.333 mls/hr Q12HR@0100,1300 IVPB 03/16/19 13:00 03/21/19 12:59 03/19/19 01:22 Voriconazole (Vfend) 200 mg Q12HR ORAL 03/14/19 13:00 03/21/19 12:59 03/18/19 20:37 Laboratory Tests Test 03/19/19 05:00 Sodium Level 129 MMOL/L (136-145) L Potassium Level 4.5 MMOL/L (3.5-5.1) Chloride Level 98 MMOL/L (98-107) Carbon Dioxide Level 27 MMOL/L (21-32) Anion Gap 4 mmol/L (5-15) L Blood Urea Nitrogen 8 mg/dL (7-18) Creatinine 0.6 MG/DL (0.55-1.30) Estimat Glomerular Filtration Rate mL/min (>60) Glucose Level 109 MG/DL (74-106) H Calcium Level 8.2 MG/DL (8.5-10.1) Dulce May DO Mar 19, 2019 07:12
--- NOTE | 2019-03-19 08:49 | Infectious Diseases Prog Note ---
Assessment/Plan Assessment/Plan A; Enterococcus & Enterobacter sepsis Pneumonia with Staph aureus UTI Infected pressure ulcer Acute respiratory failure resolved Acute renal failure Anemia P; Continue Vancomycin & Cipro Will f/u cultures Subjective ROS Limited/Unobtainable: Yes Respiratory: Reports: other - failed weaning yesterday Cardiovascular: Reports: other - off of pressor Allergies: Coded Allergies: No Known Allergies (Unverified , 03/05/19) Objective Vital Signs Last 24 Hour Vital Signs Date Time Temp Pulse Resp B/P (MAP) Pulse Ox O2 Delivery O2 Flow Rate FiO2 03/19/19 08:00 115 28 103/50 (67) 100 03/19/19 08:00 Mechanical Ventilator Mechanical Ventilator Mechanical Ventilator 03/19/19 08:00 30 03/19/19 07:00 111 24 30 03/19/19 07:00 98.0 111 28 94/58 (70) 99 03/19/19 06:32 94/56 03/19/19 06:00 111 28 90/58 (69) 99 03/19/19 05:19 110 26 30 03/19/19 05:00 110 21 96/46 (63) 99 03/19/19 04:00 Mechanical Ventilator Mechanical Ventilator Mechanical Ventilator 03/19/19 04:00 114 03/19/19 04:00 114 21 98/54 (69) 98 03/19/19 04:00 30 03/19/19 03:46 125 27 30 03/19/19 03:00 122 21 174/83 (113) 99 03/19/19 02:00 99 31 103/48 (66) 93 03/19/19 02:00 101 21 106/50 (68) 100 03/19/19 01:30 96 22 95/48 (64) 100 03/19/19 01:00 101 21 106/50 (68) 100 03/19/19 01:00 101 21 106/50 (68) 100 03/19/19 00:58 102 23 30 03/19/19 00:53 Mechanical Ventilator Mechanical Ventilator Mechanical Ventilator 03/19/19 00:30 101 24 105/44 (64) 95 03/19/19 00:30 101 24 105/44 (64) 95 03/19/19 00:00 101 26 111/56 (74) 100 03/19/19 00:00 30 03/19/19 00:00 98.6 95 22 100/46 (64) 100 03/19/19 00:00 101 26 111/56 (74) 100 03/19/19 00:00 101 26 111/56 (74) 100 03/19/19 00:00 Mechanical Ventilator Mechanical Ventilator Mechanical Ventilator 03/19/19 00:00 103 03/18/19 23:07 95 21 30 03/18/19 23:00 95 22 100/46 (64) 100 03/18/19 22:00 104/52 03/18/19 22:00 94 35 93/62 (72) 97 03/18/19 21:39 89 21 30 03/18/19 21:00 89 21 104/50 (68) 100 03/18/19 20:00 Mechanical Ventilator Mechanical Ventilator Mechanical Ventilator 03/18/19 20:00 94 03/18/19 20:00 98.5 95 29 103/76 (85) 100 03/18/19 20:00 30 03/18/19 19:55 94 24 30 03/18/19 19:00 90 21 110/81 (91) 100 03/18/19 18:00 82 21 104/49 (67) 100 03/18/19 17:00 92 25 93/46 (62) 100 03/18/19 17:00 107 24 30 03/18/19 16:00 99 03/18/19 16:00 Mechanical Ventilator Mechanical Ventilator Mechanical Ventilator 03/18/19 16:00 98.3 99 34 120/64 (82) 97 03/18/19 16:00 30 03/18/19 15:00 102 28 30 03/18/19 15:00 87 26 97/53 (68) 100 03/18/19 14:00 88 23 109/51 (70) 100 03/18/19 13:00 107 22 30 03/18/19 13:00 96 23 98/49 (65) 99 03/18/19 12:00 30 03/18/19 12:00 98.0 101 27 97/82 (87) 100 03/18/19 12:00 101 03/18/19 12:00 Mechanical Ventilator Mechanical Ventilator Mechanical Ventilator 03/18/19 11:00 113 25 30 03/18/19 11:00 95 24 101/45 (63) 99 03/18/19 10:00 103 33 124/61 (82) 99 03/18/19 09:37 100 03/18/19 09:31 100 20 30 03/18/19 09:00 104 18 102/49 (66) 100 Height (Feet): 6 Height (Inches): 2.00 Weight (Pounds): 207 General Appearance: no acute distress HEENT: other - orally intubated Respiratory/Chest: rhonchi - bilaterally, other - on ventilator Cardiovascular: tachycardia, other - PICC line Abdomen: soft, non tender, other - GT feeding, rectal tube Extremities: no edema Neurologic/Psychiatric: alert, responsive Microbiology Date/Time Source Procedure Growth Status 03/17/19 13:45 Blood Blood Culture - Preliminary NO GROWTH AFTER 24 HOURS Resulted 03/17/19 13:35 Blood Blood Culture - Preliminary NO GROWTH AFTER 24 HOURS Resulted 03/17/19 14:45 Sputum Induced Gram Stain - Final Resulted 03/17/19 14:45 Sputum Culture - Preliminary Staphylococcus Aureus Resulted 03/17/19 15:00 Indwelling Cath Urine Culture - Preliminary NO GROWTH Resulted Laboratory Tests Test 03/19/19 05:00 Sodium Level 129 MMOL/L (136-145) L Potassium Level 4.5 MMOL/L (3.5-5.1) Chloride Level 98 MMOL/L (98-107) Carbon Dioxide Level 27 MMOL/L (21-32) Anion Gap 4 mmol/L (5-15) L Blood Urea Nitrogen 8 mg/dL (7-18) Creatinine 0.6 MG/DL (0.55-1.30) Estimat Glomerular Filtration Rate mL/min (>60) Glucose Level 109 MG/DL (74-106) H Calcium Level 8.2 MG/DL (8.5-10.1) L Current Medications Medications (Trade) Dose Ordered Sig/Tawny Route PRN Reason Start Time Stop Time Status Last Admin Dose Admin Acetaminophen (Tylenol) 650 mg Q4H PRN NG Mild Pain/Temp > 100.5 03/14/19 12:00 04/13/19 11:59 03/18/19 13:11 Chlorhexidine Gluconate (Jada-Hex 2%) 1 applic DAILY@1999 TOPIC 03/13/19 20:00 04/12/19 19:59 03/18/19 20:37 Ciprofloxacin 200 ml @ 200 mls/hr Q12HR IV 03/13/19 21:00 03/20/19 20:59 03/18/19 20:37 Dextrose (Dextrose 50%) 25 ml Q30M PRN IV Hypoglycemia 03/05/19 06:15 04/04/19 06:14 Dextrose (Dextrose 50%) 50 ml Q30M PRN IV Hypoglycemia 03/05/19 06:15 04/04/19 06:14 Dopamine HCl/ Dextrose 250 ml @ 0 mls/hr Q24H IV 03/05/19 06:32 04/04/19 06:31 03/05/19 07:46 Ferrous Sulfate (Feosol) 330 mg THREE TIMES A DAY NG 03/05/19 09:00 04/04/19 08:59 03/18/19 17:18 Lansoprazole (Prevacid) 30 mg DAILY NG 03/08/19 09:00 04/07/19 08:59 03/18/19 08:58 Magnesium Oxide (Mag-Ox 400mg) 400 mg THREE TIMES A DAY NG 03/09/19 18:00 04/08/19 17:59 03/18/19 17:18 Metronidazole 100 ml @ 100 mls/hr Q8HR IVPB 03/13/19 22:00 03/20/19 21:59 03/19/19 06:00 Midodrine (Pro-Amatine) 10 mg THREE TIMES A DAY ORAL 03/16/19 09:00 04/15/19 08:59 03/18/19 17:18 Morphine Sulfate (Morphine Sulfate) 0.5 mg EVERY 6 HOURS PRN IVP For Pain 03/19/19 03:00 03/26/19 02:59 Norepinephrine Bitartrate 8 mg/ Dextrose 500 ml @ 0 mls/hr Q24H IV 03/05/19 22:00 04/04/19 21:59 03/17/19 05:33 Ondansetron HCl (Zofran) 4 mg Q6H PRN IVP Nausea & Vomiting 03/05/19 06:15 04/04/19 06:14 Potassium Phosphate 20 meq/ Sodium Chloride 1,004.5455 ml @ 60 mls/hr [id number] IV 03/18/19 11:00 04/17/19 10:59 03/19/19 03:45 Potassium Chloride (K-Dur) 40 meq TID NG 03/14/19 18:00 04/13/19 17:59 03/18/19 17:19 Sodium Hypochlorite (Dakin's Half Strength) 1 applic DAILY TOPIC 03/10/19 20:00 04/09/19 19:59 03/18/19 09:03 Vancomycin HCl (Vanco rx to dose) 1 ea DAILY PRN MISC Per rx protocol 03/05/19 06:15 04/04/19 06:14 Vancomycin HCl/ Dextrose 275 ml @ 183.333 mls/hr Q12HR@0100,1300 IVPB 03/16/19 13:00 03/21/19 12:59 03/19/19 01:22 Voriconazole (Vfend) 200 mg Q12HR ORAL 03/14/19 13:00 03/21/19 12:59 03/18/19 20:37 Donis Shultz MD Mar 19, 2019 08:49
[2019-03-19] MEDS: Midodrine 10mg tab ORAL SCH ×3 (09:36→17:15)
[2019-03-19] MEDS: Magnesium Oxide 400mg tab NG SCH ×3 (09:36→17:15)
[2019-03-19] MEDS: Ferrous Sulfate 300 MG/5 ML UDC NG SCH ×3 (09:36→17:14)
[2019-03-19] MEDS: Dakin's 0.25% (Half Strength) 16oz TOPIC SCH (09:37)
[2019-03-19] MEDS ORDERED: NS 275ml ONE (09:46)
[2019-03-19] MEDS ORDERED: Tubing IV Secondary IV ONE (09:46)
--- NOTE | 2019-03-19 10:39 | Nephrology Progress Note ---
Assessment/Plan Problem List: (1) Hypokalemia (2) Pyelonephritis (3) CALEB (acute kidney injury) (4) Septic shock (5) Cardiopulmonary arrest (6) Decubitus ulcer (7) Hypomagnesemia (8) Hypophosphatemia (9) Hyponatremia Assessment replace mg, phos,K avoid fluid overload but just weaned off levophed needs fluids, low rate K Mg lower, replace, try adding midodrine , likely chronically low bp, iv fluids continue as diarrhea, hyponatremia stop free water Subjective Constitutional: Reports: weakness Genitourinary: Reports: incontinence Neurologic/Psychiatric: Reports: no symptoms Objective Objective Last 24 Hour Vital Signs Date Time Temp Pulse Resp B/P (MAP) Pulse Ox O2 Delivery O2 Flow Rate FiO2 03/19/19 10:00 108 23 92/44 (60) 99 03/19/19 09:15 108 21 30 03/19/19 09:00 107 18 88/45 (59) 100 03/19/19 08:00 115 28 103/50 (67) 100 03/19/19 08:00 Mechanical Ventilator Mechanical Ventilator Mechanical Ventilator 03/19/19 08:00 30 03/19/19 07:00 111 24 30 03/19/19 07:00 98.0 111 28 94/58 (70) 99 03/19/19 06:32 94/56 03/19/19 06:00 111 28 90/58 (69) 99 03/19/19 05:19 110 26 30 03/19/19 05:00 110 21 96/46 (63) 99 03/19/19 04:00 Mechanical Ventilator Mechanical Ventilator Mechanical Ventilator 03/19/19 04:00 114 03/19/19 04:00 114 21 98/54 (69) 98 03/19/19 04:00 30 03/19/19 03:46 125 27 30 03/19/19 03:00 122 21 174/83 (113) 99 03/19/19 02:00 99 31 103/48 (66) 93 03/19/19 02:00 101 21 106/50 (68) 100 03/19/19 01:30 96 22 95/48 (64) 100 03/19/19 01:00 101 21 106/50 (68) 100 03/19/19 01:00 101 21 106/50 (68) 100 03/19/19 00:58 102 23 30 03/19/19 00:53 Mechanical Ventilator Mechanical Ventilator Mechanical Ventilator 03/19/19 00:30 101 24 105/44 (64) 95 03/19/19 00:30 101 24 105/44 (64) 95 03/19/19 00:00 101 26 111/56 (74) 100 03/19/19 00:00 30 03/19/19 00:00 98.6 95 22 100/46 (64) 100 03/19/19 00:00 101 26 111/56 (74) 100 03/19/19 00:00 101 26 111/56 (74) 100 03/19/19 00:00 Mechanical Ventilator Mechanical Ventilator Mechanical Ventilator 03/19/19 00:00 103 03/18/19 23:07 95 21 30 03/18/19 23:00 95 22 100/46 (64) 100 03/18/19 22:00 104/52 03/18/19 22:00 94 35 93/62 (72) 97 03/18/19 21:39 89 21 30 03/18/19 21:00 89 21 104/50 (68) 100 03/18/19 20:00 Mechanical Ventilator Mechanical Ventilator Mechanical Ventilator 03/18/19 20:00 94 03/18/19 20:00 98.5 95 29 103/76 (85) 100 03/18/19 20:00 30 03/18/19 19:55 94 24 30 03/18/19 19:00 90 21 110/81 (91) 100 03/18/19 18:00 82 21 104/49 (67) 100 03/18/19 17:00 92 25 93/46 (62) 100 03/18/19 17:00 107 24 30 03/18/19 16:00 99 03/18/19 16:00 Mechanical Ventilator Mechanical Ventilator Mechanical Ventilator 03/18/19 16:00 98.3 99 34 120/64 (82) 97 03/18/19 16:00 30 03/18/19 15:00 102 28 30 03/18/19 15:00 87 26 97/53 (68) 100 03/18/19 14:00 88 23 109/51 (70) 100 03/18/19 13:00 107 22 30 03/18/19 13:00 96 23 98/49 (65) 99 03/18/19 12:00 30 03/18/19 12:00 98.0 101 27 97/82 (87) 100 03/18/19 12:00 101 03/18/19 12:00 Mechanical Ventilator Mechanical Ventilator Mechanical Ventilator 03/18/19 11:00 113 25 30 03/18/19 11:00 95 24 101/45 (63) 99 Intake and Output 03/18/19 03/19/19 19:00 07:00 Intake Total 2352.750 ml 2213.333 ml Output Total 1770 ml 770 ml Balance 582.750 ml 1443.333 ml Intake Free Water 300 ml 250 ml IV Total 1332.750 ml 1303.333 ml Tube Feeding 720 ml 660 ml Output Urine Total 1520 ml 770 ml Stool Total 250 ml Laboratory Tests 03/19/19 05:00: Sodium Level 129L, Potassium Level 4.5, Chloride Level 98, Carbon Dioxide Level 27, Anion Gap 4L, Blood Urea Nitrogen 8, Creatinine 0.6, Estimat Glomerular Filtration Rate , Glucose Level 109H, Calcium Level 8.2L Height (Feet): 6 Height (Inches): 2.00 Weight (Pounds): 207 General Appearance: mild distress EENT: other - intubated Cardiovascular: regular rhythm Respiratory/Chest: rhonchi - bilaterally Abdomen: non tender, soft Extremities: moderate edema Neurologic: liner checker II-XII grossly normal Rishi Christy MD Mar 19, 2019 10:39
--- NOTE | 2019-03-19 12:06 | Diagnostic Imaging Report ---
EXAM: XR Abdomen, 1 Views CLINICAL HISTORY: NGT TECHNIQUE: Frontal view of the abdomen/pelvis . COMPARISON: [facility], 03/07/19 FINDINGS: Lower thorax: Small left pleural effusion. Gastrointestinal tract: Gaseous distended bowel loops in the abdomen are decreased caliber and improved from prior study. Bones/joints: Unremarkable. Tubes, lines and devices: NG tube tip in the stomach, good position. IMPRESSION: 1. NG tube tip in the stomach, good position. 2. Gaseous distended bowel loops in the abdomen are decreased caliber and improved from prior study.
--- NOTE | 2019-03-19 19:27 | Emergency Room Report ---
Physical Exam Called to re-intubate patient. Patient self extubated. Sats low on BIPAP. Last 24 Hour Vital Signs Date Time Temp Pulse Resp B/P (MAP) Pulse Ox O2 Delivery O2 Flow Rate FiO2 03/19/19 17:08 102 20 30 03/19/19 17:00 98.2 104 18 103/77 (86) 96 03/19/19 16:00 30 03/19/19 16:00 Mechanical Ventilator Mechanical Ventilator Mechanical Ventilator 03/19/19 16:00 108 03/19/19 16:00 98.2 109 23 88/52 (64) 89 03/19/19 15:29 98 22 30 03/19/19 15:00 101 19 106/55 (72) 98 03/19/19 14:00 100 22 109/49 (69) 98 03/19/19 13:00 103 20 30 03/19/19 13:00 102 22 94/46 (62) 99 03/19/19 12:00 Mechanical Ventilator Mechanical Ventilator Mechanical Ventilator 03/19/19 12:00 106 03/19/19 12:00 97.8 103 22 98/50 (66) 98 03/19/19 12:00 30 03/19/19 11:00 102 20 30 03/19/19 11:00 108 23 92/44 (60) 99 03/19/19 10:00 108 23 92/44 (60) 99 03/19/19 09:15 108 21 30 03/19/19 09:00 107 18 88/45 (59) 100 03/19/19 08:00 115 28 103/50 (67) 100 03/19/19 08:00 117 03/19/19 08:00 Mechanical Ventilator Mechanical Ventilator Mechanical Ventilator 03/19/19 08:00 30 03/19/19 07:00 111 24 30 03/19/19 07:00 98.0 111 28 94/58 (70) 99 03/19/19 06:32 94/56 03/19/19 06:00 111 28 90/58 (69) 99 03/19/19 05:19 110 26 30 03/19/19 05:00 110 21 96/46 (63) 99 03/19/19 04:00 Mechanical Ventilator Mechanical Ventilator Mechanical Ventilator 03/19/19 04:00 114 03/19/19 04:00 114 21 98/54 (69) 98 03/19/19 04:00 30 03/19/19 03:46 125 27 30 03/19/19 03:00 122 21 174/83 (113) 99 03/19/19 02:00 99 31 103/48 (66) 93 03/19/19 02:00 101 21 106/50 (68) 100 03/19/19 01:30 96 22 95/48 (64) 100 03/19/19 01:00 101 21 106/50 (68) 100 03/19/19 01:00 101 21 106/50 (68) 100 03/19/19 00:58 102 23 30 03/19/19 00:53 Mechanical Ventilator Mechanical Ventilator Mechanical Ventilator 03/19/19 00:30 101 24 105/44 (64) 95 03/19/19 00:30 101 24 105/44 (64) 95 03/19/19 00:00 101 26 111/56 (74) 100 03/19/19 00:00 30 03/19/19 00:00 98.6 95 22 100/46 (64) 100 03/19/19 00:00 101 26 111/56 (74) 100 03/19/19 00:00 101 26 111/56 (74) 100 03/19/19 00:00 Mechanical Ventilator Mechanical Ventilator Mechanical Ventilator 03/19/19 00:00 103 03/18/19 23:07 95 21 30 03/18/19 23:00 95 22 100/46 (64) 100 03/18/19 22:00 104/52 03/18/19 22:00 94 35 93/62 (72) 97 03/18/19 21:39 89 21 30 03/18/19 21:00 89 21 104/50 (68) 100 03/18/19 20:00 Mechanical Ventilator Mechanical Ventilator Mechanical Ventilator 03/18/19 20:00 94 03/18/19 20:00 98.5 95 29 103/76 (85) 100 03/18/19 20:00 30 03/18/19 19:55 94 24 30 Sp02 EP Interpretation: reviewed, abnormal - interpreted as low by me General Appearance: other - BIPAP, Chronically Ill Head: normocephalic, atraumatic Eyes: bilateral eye PERRL, bilateral eye Scleral Injection ENT: moist mucus membranes - poor dentition Neck: supple Respiratory: crackles, rhonchi, other - poor tidal volume Cardiovascular #1: regular rate, rhythm Gastrointestinal: decreased bowel sounds Musculoskeletal: digits/nails normal Neurologic: responsive - to voice, motor weakness - diffuse Psychiatric: depressed affect Skin: other - seborrhea Intubation Intubation : Consent: Emergent Intubation Method: orotracheal Tube Size (cm): 8.0 - 23 Medications: Etomidate - 10 Breath Sounds after Intubation: equal Intubation Complications: no complications Post Intubation Xray: Yes Attempts: One Patient Tolerated: Well Complications: None Progress copious thick secretions post intubation Medical Decision Making Diagnostic Impression: Primary Impression: Respiratory failure Qualified Codes: J96.01 - Acute respiratory failure with hypoxia ER Course Patient in resp failure post self extubation. Reintubated. Increased secretions bilat. Tolerated well. CXR ordered and return to vent. Laboratory Tests Test 03/18/19 06:30 03/19/19 05:00 03/19/19 12:00 White Blood Count 10.4 K/UL (4.8-10.8) Red Blood Count 2.82 M/UL (4.70-6.10) L Hemoglobin 8.7 G/DL (14.2-18.0) L Hematocrit 26.5 % (42.0-52.0) L Mean Corpuscular Volume 94 FL (80-99) Mean Corpuscular Hemoglobin 30.9 PG (27.0-31.0) Mean Corpuscular Hemoglobin Concent 32.9 G/DL (32.0-36.0) Red Cell Distribution Width 17.7 % (11.6-14.8) H Platelet Count 360 K/UL (150-450) Mean Platelet Volume 5.5 FL (6.5-10.1) L Neutrophils (%) (Auto) 83.6 % (45.0-75.0) H Lymphocytes (%) (Auto) 8.1 % (20.0-45.0) L Monocytes (%) (Auto) 5.6 % (1.0-10.0) Eosinophils (%) (Auto) 1.8 % (0.0-3.0) Basophils (%) (Auto) 0.9 % (0.0-2.0) Sodium Level 131 MMOL/L (136-145) L 129 MMOL/L (136-145) L Potassium Level 4.7 MMOL/L (3.5-5.1) 4.5 MMOL/L (3.5-5.1) Chloride Level 99 MMOL/L (98-107) 98 MMOL/L (98-107) Carbon Dioxide Level 26 MMOL/L (21-32) 27 MMOL/L (21-32) Anion Gap 6 mmol/L (5-15) 4 mmol/L (5-15) L Blood Urea Nitrogen 10 mg/dL (7-18) 8 mg/dL (7-18) Creatinine 0.7 MG/DL (0.55-1.30) 0.6 MG/DL (0.55-1.30) Estimate Glomerular Filtration Rate mL/min (>60) mL/min (>60) Glucose Level 120 MG/DL (74-106) H 109 MG/DL (74-106) H Calcium Level 8.3 MG/DL (8.5-10.1) L 8.2 MG/DL (8.5-10.1) L Phosphorus Level 4.4 MG/DL (2.5-4.9) Magnesium Level 1.3 MG/DL (1.8-2.4) L Total Bilirubin 0.4 MG/DL (0.2-1.0) Aspartate Amino Transferase (AST) 20 U/L (15-37) Alanine Aminotransferase (ALT) 33 U/L (12-78) Alkaline Phosphatase 144 U/L (46-116) H Total Protein 6.3 G/DL (6.4-8.2) L Albumin 2.0 G/DL (3.4-5.0) L Globulin 4.3 g/dL Albumin/Globulin Ratio 0.5 (1.0-2.7) L Vancomycin Level Trough 19.1 ug/mL (5.0-12.0) H Rhythm Strip Diag. Results EP Interpretation: yes Rhythm: NSR, no PVC's, no ectopy Chest X-Ray Diagnostic Results Chest X-Ray Diagnostic Results : Chest X-Ray Ordered: Yes # of Views/Limited/Complete: 1 View Indication: Other EP Interpretation: Yes Interpretation: no pneumothorax, other - ET good placement, infiltrates Impression: Other Electronically Signed by: Electronically signed by Mejia Rivas MD Status: improved Disposition: ADMITTED INPATIENT Condition: Critical Referrals: NON PHYSICIAN (PCP) Mejia Rivas MD Mar 19, 2019 19:27
[2019-03-19] MEDS: Dyna-Hex 2% Top Sol 2oz TOPIC SCH (20:44)
[2019-03-19] MEDS: Norepinephrine Bitartrate 8 MG in D5W 500ml 492 ML IV SCH (22:26)
[2019-03-20] VITALS (79 sets, daily range): BP systolic 79–106; BP diastolic 35–60
[2019-03-20] MEDS: Vancomycin 1.25gm Premix IVPB SCH ×2 (01:39→12:44)
--- NOTE | 2019-03-20 03:45 | Progress Note ---
DATE: 03/19/2019 CARDIOLOGY PROGRESS NOTE SUBJECTIVE: The patient's condition remains critical with prognosis guarded. The patient self-extubated today and required reintubation. He remains on full ventilator support with oral endotracheal tube in place. OBJECTIVE: VITAL SIGNS: Blood pressure 86/46, pulse 108, respiratory rate 24, and afebrile. HEENT: Orally intubated. LUNGS: Bilateral breath sounds with rhonchi. CARDIAC: Regular rhythm and rate. Normal S1 and S2 with fourth heart sound. ABDOMEN: Soft. EXTREMITIES: 1+ dependent edema. LABORATORY DATA: Sputum is positive for Staphylococcus aureus. Sodium is 129, potassium 4.5, bicarbonate 27, BUN 8, and creatinine 0.6. There are some distended loops of bowel noted, but improved x-ray. IMPRESSION: 1. Persistent sepsis with shock. 2. Ileus. 3. Status post cardiopulmonary arrest. 4. Respiratory failure. 5. Multiple electrolyte abnormalities, improved. PLAN: 1. Volume support. 2. Taper pressors as able. 3. Antimicrobials per infectious disease customer service sales consultant. 4. Continue ventilator support, not weanable at this time. 5. Consider steroid trial. 6. Maintain midodrine. 7. DVT, and stress ulcer prophylaxis. Mejia Mckinney M.D. DR: TASHI JOB#: [id number] CC:
[2019-03-20 04:49] LABS: ANION GAP 5 mmol/L (5-15); BLOOD UREA NITROGEN 8 mg/dL (7-18); CALCIUM 7.9 MG/DL (8.5-10.1); CARBON DIOXIDE 26 MMOL/L (21-32); CHLORIDE 98 MMOL/L (98-107); CREATININE 0.7 MG/DL (0.55-1.30); PHOSPHORUS 3.4 MG/DL (2.5-4.9); POTASSIUM 4.6 MMOL/L (3.5-5.1); SODIUM 129 MMOL/L (136-145)
[2019-03-20] MEDS: DOPamine 400mg/250ml 250 ML IV SCH (05:54)
[2019-03-20] MEDS: Acetaminophen 650mg/20.3ml NG PRN (08:04)
[2019-03-20] MEDS: Ferrous Sulfate 300 MG/5 ML UDC NG SCH ×3 (09:56→17:55)
[2019-03-20] MEDS: Magnesium Oxide 400mg tab NG SCH ×3 (09:57→17:55)
[2019-03-20] MEDS: Midodrine 10mg tab ORAL SCH ×3 (09:58→17:55)
[2019-03-20] MEDS: Dakin's 0.25% (Half Strength) 16oz TOPIC SCH (09:59)
[2019-03-20 10:22] LABS: INR 1.3 (0.9-1.1)
--- NOTE | 2019-03-20 14:27 | Pulmonology Progress Note ---
Assessment/Plan Assessment/Plan 1. Severe sepsis, shock due to enterobacter and streptococcus bacteremia 2. Sacral decubitus and osteomyelitis. 3. CALEB on CKD 4. Non-ST elevation myocardial infarction. 5. Aspiration pneumonia. 6. Respiratory failure, status post full arrest. 7. Paroxysmal atrial fibrillation. 8. 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 9. Acute liver failure, improving 10. Decubitus sepsis PLAN: Ventilator support, cannot wean Self-extubated today and required reintubation Broad spectrum antimicrobials, antifungal per ID cannot dc levophed due to low BP Wound care, surgery following Planned surgical intervention when off pressors Prognosis guarded Subjective ROS Limited/Unobtainable: Yes Allergies: Coded Allergies: No Known Allergies (Unverified , 03/05/19) Objective Last 24 Hour Vital Signs Date Time Temp Pulse Resp B/P (MAP) Pulse Ox O2 Delivery O2 Flow Rate FiO2 03/20/19 12:55 86 24 30 03/20/19 11:15 88 17 90/60 (70) 99 03/20/19 11:00 87 19 94/55 (68) 100 03/20/19 10:45 89 20 103/49 (67) 100 03/20/19 10:35 88 20 30 03/20/19 10:30 89 19 96/57 (70) 100 03/20/19 10:15 89 18 106/54 (71) 100 03/20/19 10:00 91 18 100/43 (62) 100 03/20/19 09:45 90 18 92/43 (59) 100 03/20/19 09:30 91 18 87/46 (60) 99 03/20/19 09:15 99.3 91 17 79/40 (53) 99 03/20/19 09:08 100 03/20/19 09:05 94 17 30 03/20/19 09:00 99.3 97 19 94/41 (58) 99 03/20/19 08:45 94 16 79/37 (51) 97 03/20/19 08:34 99.3 03/20/19 08:30 99 19 92/42 (59) 99 03/20/19 08:15 98 26 92/41 (58) 99 03/20/19 08:00 101.1 99 19 93/45 (61) 98 03/20/19 08:00 Mechanical Ventilator Mechanical Ventilator Mechanical Ventilator 03/20/19 08:00 30 03/20/19 07:45 100 18 95/44 (61) 98 03/20/19 07:30 101 19 30 03/20/19 07:15 100 19 98/53 (68) 99 03/20/19 07:00 102 20 89/41 (57) 98 03/20/19 07:00 96/48 03/20/19 06:45 105 20 99/53 (68) 99 03/20/19 06:30 102 21 91/42 (58) 98 03/20/19 06:15 103 21 92/48 (63) 98 03/20/19 06:00 91/43 03/20/19 06:00 103 21 86/46 (59) 98 03/20/19 05:54 90/46 03/20/19 05:45 101 28 90/46 (61) 98 03/20/19 05:30 104 19 92/46 (61) 97 03/20/19 05:15 103 21 97/52 (67) 95 03/20/19 05:00 97/52 03/20/19 05:00 103 26 100/49 (66) 100 03/20/19 04:59 102 19 30 03/20/19 04:45 101 21 88/42 (57) 99 03/20/19 04:30 102 22 92/43 (59) 98 03/20/19 04:15 102 17 89/50 (63) 99 03/20/19 04:00 Mechanical Ventilator Mechanical Ventilator Mechanical Ventilator 03/20/19 04:00 102 21 90/42 (58) 99 03/20/19 04:00 96/45 03/20/19 04:00 101 03/20/19 04:00 30 03/20/19 03:45 102 23 96/45 (62) 97 03/20/19 03:30 102 20 94/44 (61) 99 03/20/19 03:15 102 18 97/52 (67) 100 03/20/19 03:00 95/44 03/20/19 03:00 101 20 91/41 (58) 100 03/20/19 02:56 101 19 30 03/20/19 02:45 102 19 97/49 (65) 100 03/20/19 02:30 104 22 93/45 (61) 98 03/20/19 02:15 103 20 95/45 (62) 99 03/20/19 02:00 96/47 03/20/19 02:00 102 17 97/49 (65) 99 03/20/19 01:52 102 17 97/49 (65) 99 03/20/19 01:45 101 17 88/48 (61) 95 03/20/19 01:30 88/48 03/20/19 01:30 104 19 92/35 (54) 100 03/20/19 01:15 103 22 96/46 (63) 98 03/20/19 01:00 95/55 03/20/19 01:00 102 22 88/43 (58) 100 03/20/19 00:45 105 21 90/39 (56) 99 03/20/19 00:42 102 19 30 03/20/19 00:30 102 19 88/44 (59) 99 03/20/19 00:15 102 18 93/43 (60) 100 03/20/19 00:15 88/44 03/20/19 00:00 30 03/20/19 00:00 106 03/20/19 00:00 98.8 103 21 92/41 (58) 100 03/20/19 00:00 Mechanical Ventilator Mechanical Ventilator Mechanical Ventilator 03/19/19 23:02 102 19 30 03/19/19 23:00 109/52 03/19/19 23:00 105 19 109/52 (71) 97 03/19/19 22:45 105 19 102/58 (73) 97 03/19/19 22:30 103 21 106/49 (68) 84 03/19/19 22:26 104/57 03/19/19 22:15 105 22 104/57 (73) 87 03/19/19 22:00 104/57 03/19/19 22:00 108 24 103/57 (72) 98 03/19/19 21:45 104 22 98/52 (67) 99 03/19/19 21:30 110 29 109/58 (75) 99 03/19/19 21:30 103 19 30 03/19/19 21:15 106 24 101/55 (70) 99 03/19/19 21:00 101/55 03/19/19 21:00 107 20 92/44 (60) 97 03/19/19 20:45 108 24 86/46 (59) 97 03/19/19 20:44 67/53 03/19/19 20:30 109 22 67/53 (58) 98 03/19/19 20:15 109 20 84/50 (61) 94 03/19/19 20:00 30 03/19/19 20:00 98.8 110 22 83/43 (56) 94 03/19/19 20:00 108 03/19/19 20:00 Mechanical Ventilator Mechanical Ventilator Mechanical Ventilator 03/19/19 19:17 113 19 92/51 (65) 100 03/19/19 19:00 109 35 106/54 (71) 80 03/19/19 18:30 117 33 130/74 (92) 90 03/19/19 18:00 105 21 93/44 (60) 03/19/19 17:08 102 20 30 03/19/19 17:00 104 18 103/77 (86) 96 03/19/19 16:00 30 03/19/19 16:00 Mechanical Ventilator Mechanical Ventilator Mechanical Ventilator 03/19/19 16:00 108 03/19/19 16:00 98.2 109 23 88/52 (64) 89 03/19/19 15:29 98 22 30 03/19/19 15:00 101 19 106/55 (72) 98 Intake and Output 03/19/19 03/20/19 19:00 07:00 Intake Total 1985.000 ml 1631.4375 ml Output Total 1710 ml 1200 ml Balance 275.000 ml 431.4375 ml Intake Free Water 210 ml IV Total 1295.000 ml 1451.4375 ml Tube Feeding 480 ml 180 ml Output Urine Total 1510 ml 1200 ml Stool Total 200 ml Objective weak, on vent via oral ETT General Appearance: no acute distress HEENT: atraumatic Respiratory/Chest: decreased breath sounds Cardiovascular: normal rate Microbiology Date/Time Source Procedure Growth Status 03/17/19 14:45 Sputum Induced Gram Stain - Final Complete 03/17/19 14:45 Sputum Culture - Final Staphylococcus Aureus - Mrsa Complete 03/17/19 15:00 Indwelling Cath Urine Culture - Final NO GROWTH AFTER 48 HOURS Complete Laboratory Tests 03/20/19 03:25: Sodium Level 129L, Potassium Level 4.6, Chloride Level 98, Carbon Dioxide Level 26, Anion Gap 5, Blood Urea Nitrogen 8, Creatinine 0.7, Estimat Glomerular Filtration Rate , Glucose Level 105, Calcium Level 7.9L, Phosphorus Level 3.4, Magnesium Level 1.4L 03/20/19 09:25: Prothrombin Time 13.7H, Prothromb Time International Ratio 1.3H Current Medications Medications (Trade) Dose Ordered Sig/Tawny Route PRN Reason Start Time Stop Time Status Last Admin Dose Admin Acetaminophen (Tylenol) 650 mg Q4H PRN NG Mild Pain/Temp > 100.5 03/14/19 12:00 04/13/19 11:59 03/20/19 08:04 Chlorhexidine Gluconate (Jada-Hex 2%) 1 applic DAILY@2000 TOPIC 03/13/19 20:00 04/12/19 19:59 03/19/19 20:44 Ciprofloxacin 200 ml @ 200 mls/hr Q12HR IV 03/13/19 21:00 03/27/19 20:59 03/20/19 09:58 Dextrose (Dextrose 50%) 25 ml Q30M PRN IV Hypoglycemia 03/05/19 06:15 04/04/19 06:14 Dextrose (Dextrose 50%) 50 ml Q30M PRN IV Hypoglycemia 03/05/19 06:15 04/04/19 06:14 Dopamine HCl/ Dextrose 250 ml @ 0 mls/hr Q24H IV 03/05/19 06:32 04/04/19 06:31 03/05/19 07:46 Ferrous Sulfate (Feosol) 330 mg THREE TIMES A DAY NG 03/05/19 09:00 04/04/19 08:59 03/20/19 12:42 Lansoprazole (Prevacid) 30 mg DAILY NG 03/08/19 09:00 04/07/19 08:59 03/20/19 09:57 Magnesium Oxide (Mag-Ox 400mg) 400 mg THREE TIMES A DAY NG 03/09/19 18:00 04/08/19 17:59 03/20/19 12:41 Metronidazole 100 ml @ 100 mls/hr Q8HR IVPB 03/13/19 22:00 03/27/19 21:59 03/20/19 13:42 Midodrine (Pro-Amatine) 10 mg THREE TIMES A DAY ORAL 03/16/19 09:00 04/15/19 08:59 03/20/19 12:41 Morphine Sulfate (Morphine Sulfate) 0.5 mg EVERY 6 HOURS PRN IVP For Pain 03/19/19 03:00 03/26/19 02:59 Norepinephrine Bitartrate 8 mg/ Dextrose 500 ml @ 0 mls/hr Q24H IV 03/05/19 22:00 04/04/19 21:59 03/19/19 22:26 Ondansetron HCl (Zofran) 4 mg Q6H PRN IVP Nausea & Vomiting 03/05/19 06:15 04/04/19 06:14 Potassium Phosphate 20 meq/ Sodium Chloride 1,004.5455 ml @ 60 mls/hr [id number] IV 03/18/19 11:00 04/17/19 10:59 03/19/19 23:39 Potassium Chloride (K-Dur) 40 meq TID NG 03/14/19 18:00 04/13/19 17:59 03/19/19 17:15 Sodium Hypochlorite (Dakin's Half Strength) 1 applic DAILY TOPIC 03/10/19 20:00 04/09/19 19:59 03/20/19 09:59 Vancomycin HCl (Vanco rx to dose) 1 ea DAILY PRN MISC Per rx protocol 03/05/19 06:15 04/04/19 06:14 Vancomycin HCl/ Dextrose 275 ml @ 183.333 mls/hr Q12HR@0100,1300 IVPB 03/16/19 13:00 03/25/19 12:59 03/20/19 12:44 Voriconazole (Vfend) 200 mg Q12HR ORAL 03/14/19 13:00 03/27/19 12:59 03/20/19 09:59 Cedric Perez MD Mar 20, 2019 14:27
--- NOTE | 2019-03-20 15:19 | Diagnostic Imaging Report ---
Indication: Post intubation Technique: One view of the chest Comparison: 03/18/2019 Findings: Endotracheal tube tip is somewhat difficult to visualize, but there is projecting approximately 6 cm above the katy. There is a nasogastric tube in place, tip projecting at the level of the gastric antrum. There is increased pleural fluid on the right. There is probably unchanged pleural fluid on the left, as well as unchanged very mild generalized interstitial congestion. Right arm PICC is again demonstrated. Impression: Satisfactory endotracheal and nasogastric intubation Increased pleural fluid and possibly airspace disease on the right. Unchanged left pleural effusion and generalized interstitial edema. This agrees with the preliminary interpretation provided overnight by [facility] teleradiology service.
--- NOTE | 2019-03-20 16:08 | Nephrology Progress Note ---
Assessment/Plan Problem List: (1) Hypokalemia (2) Pyelonephritis (3) CALEB (acute kidney injury) (4) Septic shock (5) Cardiopulmonary arrest (6) Decubitus ulcer (7) Hypomagnesemia (8) Hypophosphatemia (9) Hyponatremia Assessment replace mg, phos,K avoid fluid overload but just weaned off levophed needs fluids, low rate K Mg lower, replace, try adding midodrine , likely chronically low bp, iv fluids continue as diarrhea, hyponatremia stop free water orders updated Subjective ROS Limited/Unobtainable: Yes Objective Objective Last 24 Hour Vital Signs Date Time Temp Pulse Resp B/P (MAP) Pulse Ox O2 Delivery O2 Flow Rate FiO2 03/20/19 16:00 Mechanical Ventilator Mechanical Ventilator Mechanical Ventilator 03/20/19 15:30 84 17 97/42 (60) 100 03/20/19 15:15 80 17 95/44 (61) 100 03/20/19 15:00 82 18 90/42 (58) 100 03/20/19 14:45 83 24 99/46 (63) 100 03/20/19 14:30 80 20 96/49 (65) 100 03/20/19 14:15 83 19 104/45 (64) 100 03/20/19 14:08 83 20 101/48 (65) 100 03/20/19 13:45 85 18 100/56 (71) 100 03/20/19 13:30 83 17 99/50 (66) 100 03/20/19 13:15 83 17 105/48 (67) 100 03/20/19 13:00 85 16 102/47 (65) 100 03/20/19 12:55 86 24 30 03/20/19 12:45 85 20 106/46 (66) 100 03/20/19 12:30 85 19 105/49 (67) 100 03/20/19 12:15 85 18 103/51 (68) 100 03/20/19 12:00 98.4 84 19 101/37 (58) 100 03/20/19 12:00 Mechanical Ventilator Mechanical Ventilator Mechanical Ventilator 03/20/19 12:00 30 03/20/19 12:00 88 03/20/19 11:15 88 17 90/60 (70) 99 03/20/19 11:00 87 19 94/55 (68) 100 03/20/19 10:45 89 20 103/49 (67) 100 03/20/19 10:35 88 20 30 03/20/19 10:30 89 19 96/57 (70) 100 03/20/19 10:15 89 18 106/54 (71) 100 03/20/19 10:00 91 18 100/43 (62) 100 03/20/19 09:45 90 18 92/43 (59) 100 03/20/19 09:30 91 18 87/46 (60) 99 03/20/19 09:15 99.3 91 17 79/40 (53) 99 03/20/19 09:08 100 03/20/19 09:05 94 17 30 03/20/19 09:00 99.3 97 19 94/41 (58) 99 03/20/19 08:45 94 16 79/37 (51) 97 03/20/19 08:34 99.3 03/20/19 08:30 99 19 92/42 (59) 99 03/20/19 08:15 98 26 92/41 (58) 99 03/20/19 08:00 101.1 99 19 93/45 (61) 98 03/20/19 08:00 Mechanical Ventilator Mechanical Ventilator Mechanical Ventilator 03/20/19 08:00 30 03/20/19 08:00 100 03/20/19 07:45 100 18 95/44 (61) 98 03/20/19 07:30 101 19 30 03/20/19 07:15 100 19 98/53 (68) 99 03/20/19 07:00 102 20 89/41 (57) 98 03/20/19 07:00 96/48 03/20/19 06:45 105 20 99/53 (68) 99 03/20/19 06:30 102 21 91/42 (58) 98 03/20/19 06:15 103 21 92/48 (63) 98 03/20/19 06:00 91/43 03/20/19 06:00 103 21 86/46 (59) 98 03/20/19 05:54 90/46 03/20/19 05:45 101 28 90/46 (61) 98 03/20/19 05:30 104 19 92/46 (61) 97 03/20/19 05:15 103 21 97/52 (67) 95 03/20/19 05:00 97/52 03/20/19 05:00 103 26 100/49 (66) 100 03/20/19 04:59 102 19 30 03/20/19 04:45 101 21 88/42 (57) 99 03/20/19 04:30 102 22 92/43 (59) 98 03/20/19 04:15 102 17 89/50 (63) 99 03/20/19 04:00 Mechanical Ventilator Mechanical Ventilator Mechanical Ventilator 03/20/19 04:00 102 21 90/42 (58) 99 03/20/19 04:00 96/45 03/20/19 04:00 101 03/20/19 04:00 30 03/20/19 03:45 102 23 96/45 (62) 97 03/20/19 03:30 102 20 94/44 (61) 99 03/20/19 03:15 102 18 97/52 (67) 100 03/20/19 03:00 95/44 03/20/19 03:00 101 20 91/41 (58) 100 03/20/19 02:56 101 19 30 03/20/19 02:45 102 19 97/49 (65) 100 03/20/19 02:30 104 22 93/45 (61) 98 03/20/19 02:15 103 20 95/45 (62) 99 03/20/19 02:00 96/47 03/20/19 02:00 102 17 97/49 (65) 99 03/20/19 01:52 102 17 97/49 (65) 99 03/20/19 01:45 101 17 88/48 (61) 95 03/20/19 01:30 88/48 03/20/19 01:30 104 19 92/35 (54) 100 03/20/19 01:15 103 22 96/46 (63) 98 03/20/19 01:00 95/55 03/20/19 01:00 102 22 88/43 (58) 100 03/20/19 00:45 105 21 90/39 (56) 99 03/20/19 00:42 102 19 30 03/20/19 00:30 102 19 88/44 (59) 99 03/20/19 00:15 102 18 93/43 (60) 100 03/20/19 00:15 88/44 03/20/19 00:00 30 03/20/19 00:00 106 03/20/19 00:00 98.8 103 21 92/41 (58) 100 03/20/19 00:00 Mechanical Ventilator Mechanical Ventilator Mechanical Ventilator 03/19/19 23:02 102 19 30 03/19/19 23:00 109/52 03/19/19 23:00 105 19 109/52 (71) 97 03/19/19 22:45 105 19 102/58 (73) 97 03/19/19 22:30 103 21 106/49 (68) 84 03/19/19 22:26 104/57 03/19/19 22:15 105 22 104/57 (73) 87 03/19/19 22:00 104/57 03/19/19 22:00 108 24 103/57 (72) 98 03/19/19 21:45 104 22 98/52 (67) 99 03/19/19 21:30 110 29 109/58 (75) 99 03/19/19 21:30 103 19 30 03/19/19 21:15 106 24 101/55 (70) 99 03/19/19 21:00 101/55 03/19/19 21:00 107 20 92/44 (60) 97 03/19/19 20:45 108 24 86/46 (59) 97 03/19/19 20:44 67/53 03/19/19 20:30 109 22 67/53 (58) 98 03/19/19 20:15 109 20 84/50 (61) 94 03/19/19 20:00 30 03/19/19 20:00 98.8 110 22 83/43 (56) 94 03/19/19 20:00 108 03/19/19 20:00 Mechanical Ventilator Mechanical Ventilator Mechanical Ventilator 03/19/19 19:17 113 19 92/51 (65) 100 03/19/19 19:00 109 35 106/54 (71) 80 03/19/19 18:30 117 33 130/74 (92) 90 03/19/19 18:00 105 21 93/44 (60) 03/19/19 17:08 102 20 30 03/19/19 17:00 104 18 103/77 (86) 96 Intake and Output 03/19/19 03/20/19 19:00 07:00 Intake Total 1985.000 ml 1631.4375 ml Output Total 1710 ml 1200 ml Balance 275.000 ml 431.4375 ml Intake Free Water 210 ml IV Total 1295.000 ml 1451.4375 ml Tube Feeding 480 ml 180 ml Output Urine Total 1510 ml 1200 ml Stool Total 200 ml Laboratory Tests 03/20/19 03:25: Sodium Level 129L, Potassium Level 4.6, Chloride Level 98, Carbon Dioxide Level 26, Anion Gap 5, Blood Urea Nitrogen 8, Creatinine 0.7, Estimat Glomerular Filtration Rate , Glucose Level 105, Calcium Level 7.9L, Phosphorus Level 3.4, Magnesium Level 1.4L 03/20/19 09:25: Prothrombin Time 13.7H, Prothromb Time International Ratio 1.3H Height (Feet): 6 Height (Inches): 2.00 Weight (Pounds): 207 General Appearance: mild distress EENT: other - intubated Cardiovascular: normal rate, regular rhythm Respiratory/Chest: rhonchi - bilaterally Abdomen: non tender, soft Extremities: trace edema Rishi Christy MD Mar 20, 2019 16:08
[2019-03-20] MEDS: POTASSIUM PHOSPHATE IV SCH (19:57)
[2019-03-20] MEDS: SODIUM CHLORIDE IV SCH (19:57)
[2019-03-20] MEDS: Dyna-Hex 2% Top Sol 2oz TOPIC SCH (19:57)
[2019-03-20] MEDS: Norepinephrine Bitartrate 8 MG in D5W 500ml 492 ML IV SCH (20:51)
--- NOTE | 2019-03-20 22:30 | Progress Note ---
CARDIOLOGY PROGRESS NOTE DATE: 03/20/2019 SUBJECTIVE: The patient's condition remains tenuous. He is on low-dose pressors now, still orally intubated and mechanically ventilated. I have discussed status with staff and instructed tapering methods of pressor and concomitant volume support. Chest x-ray today reveals increased pleural fluid and airspace disease on the right as well as persistent edema and left pleural effusion. PHYSICAL EXAMINATION: GENERAL: Orally intubated. LUNGS: Bilateral rhonchi. Diminished breath sounds. CARDIAC: Regular rhythm and rate. Normal S1, S2. ABDOMEN: Soft, slightly distended. EXTREMITIES: 1+ dependent edema. LABORATORY DATA: Sodium 129, potassium 4.6, BUN 8, and creatinine 0.7. Magnesium 1.4. IMPRESSION: 1. Sepsis with shock. 2. Respiratory failure. 3. Hypomagnesemia. 4. Severe protein-calorie malnutrition. 5. Acute diastolic congestive heart failure. 6. Pleural effusions. PLAN: 1. Off pressors. 2. Antimicrobials. 3. Ventilator support. 4. Fluid challenge to remain off pressors. 5. Continue midodrine. 6. Ultimately we will need to mobilize extravascular fluid with thoracentesis and diuresis. 7. Nutritional support by NG tube. Mejia Mckinney M.D. DR: HEATHER JOB#: [id number] CC:
[2019-03-21] VITALS (24 sets, daily range): BP systolic 83–108; BP diastolic 41–86
[2019-03-21] MEDS: Vancomycin 1.25gm Premix IVPB SCH ×2 (01:43→13:03)
[2019-03-21] MEDS: DOPamine 400mg/250ml 250 ML IV SCH (06:05)
[2019-03-21 06:38] LABS: ANION GAP 8 mmol/L (5-15); BLOOD UREA NITROGEN 7 mg/dL (7-18); CALCIUM 7.8 MG/DL (8.5-10.1); CARBON DIOXIDE 26 MMOL/L (21-32); CHLORIDE 97 MMOL/L (98-107); CREATININE 0.6 MG/DL (0.55-1.30); POTASSIUM 3.7 MMOL/L (3.5-5.1); SODIUM 131 MMOL/L (136-145)
[2019-03-21] MEDS: Ferrous Sulfate 300 MG/5 ML UDC NG SCH ×3 (08:26→17:46)
[2019-03-21] MEDS: Magnesium Oxide 400mg tab NG SCH ×3 (08:27→17:47)
[2019-03-21] MEDS: Midodrine 10mg tab ORAL SCH ×2 (08:27→12:27)
[2019-03-21] MEDS: Dakin's 0.25% (Half Strength) 16oz TOPIC SCH (08:28)
[2019-03-21] MEDS: Acetaminophen 650mg/20.3ml NG PRN (08:36)
--- NOTE | 2019-03-21 12:48 | Infectious Diseases Prog Note ---
Assessment/Plan Assessment/Plan ASSESSMENT: 1. 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 Acute kidney injury, elevated creatinine. 3. Anemia. 4. Atrial fibrillation. The patient has been on Eliquis. 5. Status post code. 6. Sacral wound. 7. Aortic valve stenosis. 8. Hypertension. 9. icu care 10. Hypertension treatment per primary but the patient currently is on pressors. 11. No known drug allergies. No antibiotic allergies. 12. Social history is negative. 13. Family history noncontributory. 14. MAR was noted. 15. Case discussed with RN. 16. Continue treatment per primary consultants. 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 Subjective Constitutional: Reports: fever - no fever so far today , other - on vent HEENT: Reports: congestion Respiratory: Reports: shortness of breath Cardiovascular: Reports: other - no pressors ; Denies: chest pain Gastrointestinal/Abdominal: Reports: diarrhea, other - + rectal tube ; Denies: nausea, vomiting Genitourinary: Reports: other - + lemus Neurologic: Reports: other - alert and responsive Psychiatric: Denies: depression Skin: Denies: rash Hematologic: Denies: bleeding Musculoskeletal: Denies: pain Allergies: Coded Allergies: No Known Allergies (Unverified , 03/05/19) Objective Vital Signs Last 24 Hour Vital Signs Date Time Temp Pulse Resp B/P (MAP) Pulse Ox O2 Delivery O2 Flow Rate FiO2 03/21/19 12:00 89 19 90/45 (60) 100 03/21/19 12:00 Mechanical Ventilator Mechanical Ventilator Mechanical Ventilator 03/21/19 12:00 90 03/21/19 11:00 92 20 90/48 (62) 99 03/21/19 10:45 30 03/21/19 10:41 106 27 30 30 03/21/19 10:00 98.6 103 37 108/56 (73) 98 03/21/19 09:00 90 29 103/86 (92) 100 03/21/19 08:50 30 03/21/19 08:50 100 03/21/19 08:50 85 25 30 40 03/21/19 08:00 88 19 83/46 (58) 100 03/21/19 08:00 Mechanical Ventilator Mechanical Ventilator Mechanical Ventilator 03/21/19 08:00 30 03/21/19 08:00 88 03/21/19 07:00 90 20 88/46 (60) 100 03/21/19 06:37 88 16 30 30 03/21/19 06:00 99.4 91 20 90/49 (63) 100 03/21/19 05:00 89 19 88/45 (59) 100 03/21/19 04:53 91 16 30 30 03/21/19 04:00 88 03/21/19 04:00 30 03/21/19 04:00 Mechanical Ventilator Mechanical Ventilator Mechanical Ventilator 03/21/19 04:00 88 16 93/45 (61) 100 03/21/19 03:00 86 20 90/44 (59) 100 03/21/19 02:50 87 16 30 30 03/21/19 02:00 89 16 92/51 (65) 100 03/21/19 01:01 86 21 30 30 03/21/19 01:00 84 20 86/42 (57) 100 03/21/19 00:00 86 16 89/44 (59) 100 03/21/19 00:00 Mechanical Ventilator Mechanical Ventilator Mechanical Ventilator 03/21/19 00:00 86 03/21/19 00:00 30 03/20/19 23:06 88 21 30 30 03/20/19 23:00 85 18 102/43 (62) 100 03/20/19 22:00 83 18 92/43 (59) 100 03/20/19 21:00 88 18 96/46 (63) 100 03/20/19 20:51 91/44 03/20/19 20:39 78 17 30 30 03/20/19 20:00 30 03/20/19 20:00 86 03/20/19 20:00 Mechanical Ventilator Mechanical Ventilator Mechanical Ventilator 03/20/19 20:00 86 18 99/43 (61) 100 03/20/19 19:00 76 17 101/44 (63) 100 03/20/19 18:51 83 21 30 30 03/20/19 18:45 79 17 101/44 (63) 100 03/20/19 18:30 81 19 103/50 (67) 100 03/20/19 18:15 86 21 103/48 (66) 100 03/20/19 18:00 92/44 03/20/19 18:00 84 23 92/44 (60) 100 03/20/19 17:45 84 18 91/45 (60) 100 03/20/19 17:30 85 19 93/46 (62) 99 03/20/19 17:15 86 25 97/47 (64) 100 03/20/19 17:00 101/59 03/20/19 17:00 91 21 101/59 (73) 99 03/20/19 16:45 86 20 98/49 (65) 100 03/20/19 16:35 88 22 30 03/20/19 16:30 83 18 92/42 (59) 100 03/20/19 16:15 85 21 95/42 (59) 100 03/20/19 16:00 98.9 77 22 92/56 (68) 100 03/20/19 16:00 79 03/20/19 16:00 30 03/20/19 16:00 92/56 03/20/19 16:00 Mechanical Ventilator Mechanical Ventilator Mechanical Ventilator 03/20/19 15:45 77 17 84/48 (60) 100 03/20/19 15:30 84 17 97/42 (60) 100 03/20/19 15:15 80 17 95/44 (61) 100 03/20/19 15:02 84 20 30 03/20/19 15:00 82 18 90/42 (58) 100 03/20/19 15:00 90/42 03/20/19 14:45 83 24 99/46 (63) 100 03/20/19 14:30 80 20 96/49 (65) 100 03/20/19 14:15 83 19 104/45 (64) 100 03/20/19 14:08 83 20 101/48 (65) 100 03/20/19 14:00 96/49 03/20/19 13:45 85 18 100/56 (71) 100 03/20/19 13:30 83 17 99/50 (66) 100 03/20/19 13:15 83 17 105/48 (67) 100 03/20/19 13:00 85 16 102/47 (65) 100 03/20/19 13:00 102/47 03/20/19 12:55 86 24 30 03/20/19 12:45 85 20 106/46 (66 100 Height (Feet): 6 Height (Inches): 2.00 Weight (Pounds): 205 General Appearance: no acute distress HEENT: normocephalic, atraumatic, anicteric, no JVD, other - oral - intubated Respiratory/Chest: crackles/rales, rhonchi - bilaterally Cardiovascular: normal rate, regular rhythm, no gallop/murmur, no JVD Abdomen: normal bowel sounds, soft, non tender, no organomegaly, non distended Genitourinary: other - + lemus - urine cloudy Extremities: no cyanosis Skin: no rash Neurologic/Psychiatric: sign maintenance II-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 Chest x-ray - 03/06/19 - Findings: Mild pleural thickening versus effusion on the right noted. Heart size is stable and mildly enlarged. Endotracheal tube is in good position unchanged. NG tube is present. The proximal port is near the EG junction. The tip is in the stomach. IMPRESSION: Nasogastric tube may be advanced slightly. Slightly improved congestion compared to the previous day Chest x-ray - 03/09/19 - Procedure: XRAY Chest 1v Indication: Dyspnea Comparison: 03/06/2019 A single view chest radiograph was obtained. Findings: Basilar densities likely atelectasis noted. Cardiac size is stable. Endotracheal tube position is stable and satisfactory. IMPRESSION: No significant change. Chest x-ray - 03/13/19 - A single view chest radiograph was obtained. Findings: Endotracheal tube is in good position. NG tube also noted position. Heart size is stable. Pulmonary vascular congestion suspected. Small bilateral pleural effusion suspected. IMPRESSION: Mild pulmonary congestion suspected Chest x-ray - 03/14/19 - Chest x-ray - 03/14/19 - Procedure: XRAY Chest 1v Indication: Line placement Comparison: 03/13/2019 A single view chest radiograph was obtained. Findings: PICC line is noted. The tip is in the SVC in good position. No change otherwise. IMPRESSION: PICC line in good position Chest x-ray - 03/16/19 - Technique: One view of the chest Comparison: 03/15/2019 Findings: Endotracheal tube projects approximately 4 cm above the katy. Nasogastric tube projects beyond the edge of the image. Right arm PICC tip projects at the level of the innominate venous confluence. Lung volumes are lower on the current study. There may be increasing pleural fluid on the right. Small left pleural effusion and hazy basilar opacity persists. Atelectatic changes at the right lung base persist. The heart size is upper limits normal. Impression: Equivocally slightly increased pleural fluid on the right. 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 There is a nasogastric tube in place, tip projecting at the level of the gastric antrum. There is increased pleural fluid on the right. There is probably unchanged pleural fluid on the left, as well as unchanged very mild generalized interstitial congestion. Right arm PICC is again demonstrated. Impression: Satisfactory endotracheal and nasogastric intubation Increased pleural fluid and possibly airspace disease on the right. Unchanged left pleural effusion and generalized interstitial edema. This agrees with the preliminary interpretation provided overnight by [facility] teleradiology service. Microbiology Date/Time Source Procedure Growth Status 03/17/19 13:45 Blood Blood Culture - Preliminary NO GROWTH AFTER 72 HOURS Resulted 03/17/19 14:45 Sputum Induced Gram Stain - Final Complete 03/17/19 14:45 Sputum Culture - Final Staphylococcus Aureus - Mrsa Complete 03/09/19 17:00 Stool Clostridium difficile Toxin Assay - Final Complete 03/17/19 15:00 Indwelling Cath Urine Culture - Final NO GROWTH AFTER 48 HOURS Complete 03/05/19 00:50 Rectum VRE Culture - Final NO VANCOMYCIN RESISTANT ENTEROCOCCUS ... Complete Labs Test 03/19/19 05:00 03/19/19 12:00 03/20/19 03:25 03/20/19 09:25 Sodium Level 129 MMOL/L (136-145) 129 MMOL/L (136-145) Potassium Level 4.5 MMOL/L (3.5-5.1) 4.6 MMOL/L (3.5-5.1) Chloride Level 98 MMOL/L (98-107) 98 MMOL/L (98-107) Carbon Dioxide Level 27 MMOL/L (21-32) 26 MMOL/L (21-32) Anion Gap 4 mmol/L (5-15) 5 mmol/L (5-15) Blood Urea Nitrogen 8 mg/dL (7-18) 8 mg/dL (7-18) Creatinine 0.6 MG/DL (0.55-1.30) 0.7 MG/DL (0.55-1.30) Estimat Glomerular Filtration Rate mL/min (>60) mL/min (>60) Glucose Level 109 MG/DL (74-106) 105 MG/DL (74-106) Calcium Level 8.2 MG/DL (8.5-10.1) 7.9 MG/DL (8.5-10.1) Vancomycin Level Trough 19.1 ug/mL (5.0-12.0) Phosphorus Level 3.4 MG/DL (2.5-4.9) Magnesium Level 1.4 MG/DL (1.8-2.4) Prothrombin Time 13.7 SEC (9.30-11.50) Prothromb Time International Ratio 1.3 (0.9-1.1) Test 03/21/19 05:20 Sodium Level 131 MMOL/L (136-145) Potassium Level 3.7 MMOL/L (3.5-5.1) Chloride Level 97 MMOL/L (98-107) Carbon Dioxide Level 26 MMOL/L (21-32) Anion Gap 8 mmol/L (5-15) Blood Urea Nitrogen 7 mg/dL (7-18) Creatinine 0.6 MG/DL (0.55-1.30) Estimat Glomerular Filtration Rate mL/min (>60) Glucose Level 112 MG/DL (74-106) Calcium Level 7.8 MG/DL (8.5-10.1) Laboratory Tests Test 03/21/19 05:20 Sodium Level 131 MMOL/L (136-145) L Potassium Level 3.7 MMOL/L (3.5-5.1) Chloride Level 97 MMOL/L (98-107) L Carbon Dioxide Level 26 MMOL/L (21-32) Anion Gap 8 mmol/L (5-15) Blood Urea Nitrogen 7 mg/dL (7-18) Creatinine 0.6 MG/DL (0.55-1.30) Estimat Glomerular Filtration Rate mL/min (>60) Glucose Level 112 MG/DL (74-106) H Calcium Level 7.8 MG/DL (8.5-10.1) L Current Medications Medications (Trade) Dose Ordered Sig/Tawny Route PRN Reason Start Time Stop Time Status Last Admin Dose Admin Acetaminophen (Tylenol) 650 mg Q4H PRN NG Mild Pain/Temp > 100.5 03/14/19 12:00 04/13/19 11:59 03/21/19 08:36 Chlorhexidine Gluconate (Jada-Hex 2%) 1 applic DAILY@2000 TOPIC 03/13/19 20:00 04/12/19 19:59 03/20/19 19:57 Ciprofloxacin 200 ml @ 200 mls/hr Q12HR IV 03/13/19 21:00 03/27/19 20:59 03/21/19 08:24 Dextrose (Dextrose 50%) 25 ml Q30M PRN IV Hypoglycemia 03/05/19 06:15 04/04/19 06:14 Dextrose (Dextrose 50%) 50 ml Q30M PRN IV Hypoglycemia 03/05/19 06:15 04/04/19 06:14 Dopamine HCl/ Dextrose 250 ml @ 0 mls/hr Q24H IV 03/05/19 06:32 04/04/19 06:31 03/05/19 07:46 Ferrous Sulfate (Feosol) 330 mg THREE TIMES A DAY NG 03/05/19 09:00 04/04/19 08:59 03/21/19 12:27 Lansoprazole (Prevacid) 30 mg DAILY NG 03/08/19 09:00 04/07/19 08:59 03/21/19 08:27 Magnesium Oxide (Mag-Ox 400mg) 400 mg THREE TIMES A DAY NG 03/09/19 18:00 04/08/19 17:59 03/21/19 12:27 Metronidazole 100 ml @ 100 mls/hr Q8HR IVPB 03/13/19 22:00 03/27/19 21:59 03/21/19 06:05 Midodrine (Pro-Amatine) 10 mg THREE TIMES A DAY ORAL 03/16/19 09:00 04/15/19 08:59 03/21/19 12:27 Morphine Sulfate (Morphine Sulfate) 0.5 mg EVERY 6 HOURS PRN IVP For Pain 03/19/19 03:00 03/26/19 02:59 Norepinephrine Bitartrate 8 mg/ Dextrose 500 ml @ 0 mls/hr Q24H IV 03/05/19 22:00 04/04/19 21:59 03/19/19 22:26 Ondansetron HCl (Zofran) 4 mg Q6H PRN IVP Nausea & Vomiting 03/05/19 06:15 04/04/19 06:14 Potassium Phosphate 20 meq/ Sodium Chloride 1,004.5455 ml @ 60 mls/hr [id number] IV 03/18/19 11:00 04/17/19 10:59 03/20/19 19:57 Sodium Hypochlorite (Dakin's Half Strength) 1 applic DAILY TOPIC 03/10/19 20:00 04/09/19 19:59 03/21/19 08:28 Vancomycin HCl (Vanco rx to dose) 1 ea DAILY PRN MISC Per rx protocol 03/05/19 06:15 04/04/19 06:14 Vancomycin HCl/ Dextrose 275 ml @ 183.333 mls/hr Q12HR@0100,1300 IVPB 03/16/19 13:00 03/25/19 12:59 03/21/19 01:43 Voriconazole (Vfend) 200 mg Q12HR ORAL 03/14/19 13:00 03/27/19 12:59 03/21/19 08:27 Makenzie Galeano MD Mar 21, 2019 12:48
--- NOTE | 2019-03-21 13:15 | Pulmonology Progress Note ---
Assessment/Plan Assessment/Plan 1. Severe sepsis, shock due to enterobacter and streptococcus bacteremia 2. 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 CALEB on CKD 4. Non-ST elevation myocardial infarction. 5. Aspiration pneumonia. 6. Respiratory failure, status post full arrest. 7. Paroxysmal atrial fibrillation. 8. 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 9. Acute liver failure, improving 10. Decubitus sepsis PLAN: Ventilator support tolerating weaning w CPAP/PS8 Broad spectrum antimicrobials, antifungal per ID cannot dc levophed due to low BP Wound care, surgery following Had surgical intervention 03/16 Prognosis guarded Subjective ROS Limited/Unobtainable: Yes Allergies: Coded Allergies: No Known Allergies (Unverified , 03/05/19) Objective Last 24 Hour Vital Signs Date Time Temp Pulse Resp B/P (MAP) Pulse Ox O2 Delivery O2 Flow Rate FiO2 03/21/19 12:00 89 19 90/45 (60) 100 03/21/19 12:00 Mechanical Ventilator Mechanical Ventilator Mechanical Ventilator 03/21/19 12:00 90 03/21/19 11:00 92 20 90/48 (62) 99 03/21/19 10:45 30 03/21/19 10:41 106 27 30 30 03/21/19 10:00 98.6 103 37 108/56 (73) 98 03/21/19 09:00 90 29 103/86 (92) 100 03/21/19 08:50 30 03/21/19 08:50 100 03/21/19 08:50 85 25 30 40 03/21/19 08:00 88 19 83/46 (58) 100 03/21/19 08:00 Mechanical Ventilator Mechanical Ventilator Mechanical Ventilator 03/21/19 08:00 30 03/21/19 08:00 88 03/21/19 07:00 90 20 88/46 (60) 100 03/21/19 06:37 88 16 30 30 03/21/19 06:00 99.4 91 20 90/49 (63) 100 03/21/19 05:00 89 19 88/45 (59) 100 03/21/19 04:53 91 16 30 30 03/21/19 04:00 88 03/21/19 04:00 30 03/21/19 04:00 Mechanical Ventilator Mechanical Ventilator Mechanical Ventilator 6/18/19 04:00 88 16 93/45 (61) 100 03/21/19 03:00 86 20 90/44 (59) 100 03/21/19 02:50 87 16 30 30 03/21/19 02:00 89 16 92/51 (65) 100 03/21/19 01:01 86 21 30 30 03/21/19 01:00 84 20 86/42 (57) 100 03/21/19 00:00 86 16 89/44 (59) 100 03/21/19 00:00 Mechanical Ventilator Mechanical Ventilator Mechanical Ventilator 03/21/19 00:00 86 03/21/19 00:00 30 03/20/19 23:06 88 21 30 30 03/20/19 23:00 85 18 102/43 (62) 100 03/20/19 22:00 83 18 92/43 (59) 100 03/20/19 21:00 88 18 96/46 (63) 100 03/20/19 20:51 91/44 03/20/19 20:39 78 17 30 30 03/20/19 20:00 30 03/20/19 20:00 86 03/20/19 20:00 Mechanical Ventilator Mechanical Ventilator Mechanical Ventilator 03/20/19 20:00 86 18 99/43 (61) 100 03/20/19 19:00 76 17 101/44 (63) 100 03/20/19 18:51 83 21 30 30 03/20/19 18:45 79 17 101/44 (63) 100 03/20/19 18:30 81 19 103/50 (67) 100 03/20/19 18:15 86 21 103/48 (66) 100 03/20/19 18:00 92/44 03/20/19 18:00 84 23 92/44 (60) 100 03/20/19 17:45 84 18 91/45 (60) 100 03/20/19 17:30 85 19 93/46 (62) 99 03/20/19 17:15 86 25 97/47 (64) 100 03/20/19 17:00 101/59 03/20/19 17:00 91 21 101/59 (73) 99 03/20/19 16:45 86 20 98/49 (65) 100 03/20/19 16:35 88 22 30 03/20/19 16:30 83 18 92/42 (59) 100 03/20/19 16:15 85 21 95/42 (59) 100 03/20/19 16:00 98.9 77 22 92/56 (68) 100 03/20/19 16:00 79 03/20/19 16:00 30 03/20/19 16:00 92/56 03/20/19 16:00 Mechanical Ventilator Mechanical Ventilator Mechanical Ventilator 03/20/19 15:45 77 17 84/48 (60) 100 03/20/19 15:30 84 17 97/42 (60) 100 03/20/19 15:15 80 17 95/44 (61) 100 03/20/19 15:02 84 20 30 03/20/19 15:00 82 18 90/42 (58) 100 03/20/19 15:00 90/42 03/20/19 14:45 83 24 99/46 (63) 100 03/20/19 14:30 80 20 96/49 (65) 100 03/20/19 14:15 83 19 104/45 (64) 100 03/20/19 14:08 83 20 101/48 (65) 100 03/20/19 14:00 96/49 03/20/19 13:45 85 18 100/56 (71) 100 03/20/19 13:30 83 17 99/50 (66) 100 03/20/19 13:15 83 17 105/48 (67) 100 Intake and Output 03/20/19 03/21/19 19:00 07:00 Intake Total 2007.50 ml 2115.000 ml Output Total 1900 ml 1200 ml Balance 107.50 ml 915.000 ml Intake Free Water 60 ml IV Total 1287.50 ml 1395.000 ml Tube Feeding 660 ml 720 ml Output Urine Total 1500 ml 1200 ml Stool Total 400 ml Objective weak, on vent via oral ETT General Appearance: no acute distress HEENT: atraumatic Respiratory/Chest: lungs clear Cardiovascular: normal rate Abdomen: soft, non tender Laboratory Tests 03/21/19 05:20: Sodium Level 131L, Potassium Level 3.7, Chloride Level 97L, Carbon Dioxide Level 26, Anion Gap 8, Blood Urea Nitrogen 7, Creatinine 0.6, Estimat Glomerular Filtration Rate , Glucose Level 112H, Calcium Level 7.8L Current Medications Medications (Trade) Dose Ordered Sig/Tawny Route PRN Reason Start Time Stop Time Status Last Admin Dose Admin Acetaminophen (Tylenol) 650 mg Q4H PRN NG Mild Pain/Temp > 100.5 03/14/19 12:00 04/13/19 11:59 03/21/19 08:36 Chlorhexidine Gluconate (Jada-Hex 2%) 1 applic DAILY@2000 TOPIC 03/13/19 20:00 04/12/19 19:59 03/20/19 19:57 Ciprofloxacin 200 ml @ 200 mls/hr Q12HR IV 03/13/19 21:00 03/27/19 20:59 03/21/19 08:24 Dextrose (Dextrose 50%) 25 ml Q30M PRN IV Hypoglycemia 03/05/19 06:15 04/04/19 06:14 Dextrose (Dextrose 50%) 50 ml Q30M PRN IV Hypoglycemia 03/05/19 06:15 04/04/19 06:14 Dopamine HCl/ Dextrose 250 ml @ 0 mls/hr Q24H IV 03/05/19 06:32 04/04/19 06:31 03/05/19 07:46 Ferrous Sulfate (Feosol) 330 mg THREE TIMES A DAY NG 03/05/19 09:00 04/04/19 08:59 03/21/19 12:27 Lansoprazole (Prevacid) 30 mg DAILY NG 03/08/19 09:00 04/07/19 08:59 03/21/19 08:27 Magnesium Oxide (Mag-Ox 400mg) 400 mg THREE TIMES A DAY NG 03/09/19 18:00 04/08/19 17:59 03/21/19 12:27 Metronidazole 100 ml @ 100 mls/hr Q8HR IVPB 03/13/19 22:00 03/27/19 21:59 03/21/19 13:03 Midodrine (Pro-Amatine) 10 mg THREE TIMES A DAY ORAL 03/16/19 09:00 04/15/19 08:59 03/21/19 12:27 Morphine Sulfate (Morphine Sulfate) 0.5 mg EVERY 6 HOURS PRN IVP For Pain 03/19/19 03:00 03/26/19 02:59 Norepinephrine Bitartrate 8 mg/ Dextrose 500 ml @ 0 mls/hr Q24H IV 03/05/19 22:00 04/04/19 21:59 03/19/19 22:26 Ondansetron HCl (Zofran) 4 mg Q6H PRN IVP Nausea & Vomiting 03/05/19 06:15 04/04/19 06:14 Potassium Phosphate 20 meq/ Sodium Chloride 1,004.5455 ml @ 60 mls/hr [id number] IV 03/18/19 11:00 04/17/19 10:59 03/20/19 19:57 Sodium Hypochlorite (Dakin's Half Strength) 1 applic DAILY TOPIC 03/10/19 20:00 04/09/19 19:59 03/21/19 08:28 Vancomycin HCl (Vanco rx to dose) 1 ea DAILY PRN MISC Per rx protocol 03/05/19 06:15 04/04/19 06:14 Vancomycin HCl/ Dextrose 275 ml @ 183.333 mls/hr Q12HR@0100,1300 IVPB 03/16/19 13:00 03/25/19 12:59 03/21/19 13:03 Voriconazole (Vfend) 200 mg Q12HR ORAL 03/14/19 13:00 03/27/19 12:59 03/21/19 08:27 Cedric Perez MD Mar 21, 2019 13:15
[2019-03-21] MEDS: Midodrine 10mg tab NG SCH (17:47)
--- NOTE | 2019-03-21 19:21 | Nephrology Progress Note ---
Assessment/Plan Problem List: (1) Hypokalemia (2) Pyelonephritis (3) CALEB (acute kidney injury) (4) Septic shock (5) Cardiopulmonary arrest (6) Decubitus ulcer (7) Hypomagnesemia (8) Hypophosphatemia (9) Hyponatremia Assessment replace mg, phos,K avoid fluid overload but just weaned off levophed needs fluids, low rate K Mg lower, replace, try adding midodrine , likely chronically low bp, iv fluids continue as diarrhea, hyponatremia stop free water orders updated failed wean Subjective Constitutional: Reports: weakness Neurologic/Psychiatric: Reports: no symptoms Objective Objective Last 24 Hour Vital Signs Date Time Temp Pulse Resp B/P (MAP) Pulse Ox O2 Delivery O2 Flow Rate FiO2 03/21/19 19:00 87 19 104/51 (68) 100 03/21/19 18:00 99.0 77 18 93/41 (58) 100 03/21/19 17:00 79 16 88/44 (59) 100 03/21/19 16:51 79 16 30 03/21/19 16:00 Mechanical Ventilator Mechanical Ventilator Mechanical Ventilator 03/21/19 16:00 30 03/21/19 16:00 78 03/21/19 16:00 79 18 92/57 (69) 100 03/21/19 15:00 75 19 98/45 (62) 100 03/21/19 15:00 81 16 30 03/21/19 14:00 97.5 83 20 95/48 (64) 100 03/21/19 13:34 86 19 30 30 03/21/19 13:00 85 18 95/47 (63) 100 03/21/19 12:00 89 19 90/45 (60) 100 03/21/19 12:00 Mechanical Ventilator Mechanical Ventilator Mechanical Ventilator 03/21/19 12:00 90 03/21/19 11:00 92 20 90/48 (62) 99 03/21/19 10:45 30 03/21/19 10:41 106 27 30 30 03/21/19 10:00 98.6 103 37 108/56 (73) 98 03/21/19 09:00 90 29 103/86 (92) 100 03/21/19 08:50 30 03/21/19 08:50 100 03/21/19 08:50 85 25 30 30 03/21/19 08:00 88 19 83/46 (58) 100 03/21/19 08:00 Mechanical Ventilator Mechanical Ventilator Mechanical Ventilator 03/21/19 08:00 30 03/21/19 08:00 88 03/21/19 07:00 90 20 88/46 (60) 100 03/21/19 06:37 88 16 30 30 03/21/19 06:00 99.4 91 20 90/49 (63) 100 03/21/19 05:00 89 19 88/45 (59) 100 03/21/19 04:53 91 16 30 30 03/21/19 04:00 88 03/21/19 04:00 30 03/21/19 04:00 Mechanical Ventilator Mechanical Ventilator Mechanical Ventilator 03/21/19 04:00 88 16 93/45 (61) 100 03/21/19 03:00 86 20 90/44 (59) 100 03/21/19 02:50 87 16 30 30 03/21/19 02:00 89 16 92/51 (65) 100 03/21/19 01:01 86 21 30 30 03/21/19 01:00 84 20 86/42 (57) 100 03/21/19 00:00 86 16 89/44 (59) 100 03/21/19 00:00 Mechanical Ventilator Mechanical Ventilator Mechanical Ventilator 03/21/19 00:00 86 03/21/19 00:00 30 03/20/19 23:06 88 21 30 30 03/20/19 23:00 85 18 102/43 (62) 100 03/20/19 22:00 83 18 92/43 (59) 100 03/20/19 21:00 88 18 96/46 (63) 100 03/20/19 20:51 91/44 03/20/19 20:39 78 17 30 30 03/20/19 20:00 30 03/20/19 20:00 86 03/20/19 20:00 Mechanical Ventilator Mechanical Ventilator Mechanical Ventilator 03/20/19 20:00 86 18 99/43 (61) 100 Intake and Output 03/20/19 03/21/19 19:00 07:00 Intake Total 2007.50 ml 2115.000 ml Output Total 1900 ml 1200 ml Balance 107.50 ml 915.000 ml Intake Free Water 60 ml IV Total 1287.50 ml 1395.000 ml Tube Feeding 660 ml 720 ml Output Urine Total 1500 ml 1200 ml Stool Total 400 ml Laboratory Tests 03/21/19 05:20: Sodium Level 131L, Potassium Level 3.7, Chloride Level 97L, Carbon Dioxide Level 26, Anion Gap 8, Blood Urea Nitrogen 7, Creatinine 0.6, Estimat Glomerular Filtration Rate , Glucose Level 112H, Calcium Level 7.8L Height (Feet): 6 Height (Inches): 2.00 Weight (Pounds): 205 General Appearance: mild distress EENT: other - intubated Neck: normal alignment Cardiovascular: regular rhythm Respiratory/Chest: rhonchi - bilaterally Abdomen: non tender Extremities: moderate edema 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
[2019-03-21] MEDS: Dyna-Hex 2% Top Sol 2oz TOPIC SCH (20:11)
[2019-03-21] MEDS: Norepinephrine Bitartrate 8 MG in D5W 500ml 492 ML IV SCH (22:00)
[2019-03-21] MEDS: SODIUM CHLORIDE IV SCH (23:17)
[2019-03-21] MEDS: POTASSIUM PHOSPHATE IV SCH (23:17)
[2019-03-22] VITALS (24 sets, daily range): BP systolic 86–111; BP diastolic 36–69
[2019-03-22] MEDS ORDERED: Vancomycin 1.25gm vial IVPB ONE (00:53)
[2019-03-22] MEDS: Vancomycin 1.25gm Premix IVPB SCH ×2 (01:00→13:00)
--- NOTE | 2019-03-22 02:15 | Progress Note ---
DATE: 03/21/2019 CARDIOLOGY PROGRESS NOTE SUBJECTIVE: The patient remains in the intensive care unit. Condition remains critical. Prognosis guarded. The patient remains on pressors with tapering ongoing. OBJECTIVE: VITAL SIGNS: Blood pressure 92/43, pulse 88, respiratory rate 21, afebrile. LUNGS: Diminished breath sounds. Scattered rhonchi. Orally intubated. HEART: Regular rhythm and rate. Normal S1 and S2. ABDOMEN: Soft. EXTREMITIES: 1+ dependent edema. LABORATORY DATA: Labs noted. PICC line is new. IMPRESSION: 1. Slow progress refractory shock. 2. Sepsis. 3. Aortic valve stenosis. 4. Increased risk for endocarditis. 5. Paroxysmal atrial fibrillation. PLAN: 1. Taper pressors, cardioembolic prophylaxis, and broad-spectrum antimicrobials. 2. Ventilator support with weaning. 3. Remains critical and guarded. Mejia Mckinney M.D. DR: JUVENTINO JOB#: [id number] CC:
[2019-03-22] MEDS: DOPamine 400mg/250ml 250 ML IV SCH (05:10)
[2019-03-22 05:47] LABS: HEMATOCRIT 23.1 % (42.0-52.0); HEMOGLOBIN 7.6 G/DL (14.2-18.0); MEAN CORPUSCULAR VOLUME 94 FL (80-99); PLATELET COUNT 394 K/UL (150-450); RED BLOOD COUNT 2.46 M/UL (4.70-6.10); RED CELL DISTRIBUTION WIDTH 17.5 % (11.6-14.8); WHITE BLOOD COUNT 5.9 K/UL (4.8-10.8)
[2019-03-22 06:38] LABS: ALANINE AMINOTRANSFERASE 14 U/L (12-78); ALBUMIN 1.9 G/DL (3.4-5.0); ALBUMIN/GLOBULIN RATIO 0.5 (1.0-2.7); ALKALINE PHOSPHATASE 114 U/L (46-116); ANION GAP 5 mmol/L (5-15); ASPARTATE AMINO TRANSFERASE 19 U/L (15-37); BILIRUBIN,TOTAL 0.3 MG/DL (0.2-1.0); BLOOD UREA NITROGEN 7 mg/dL (7-18); CALCIUM 7.8 MG/DL (8.5-10.1); CARBON DIOXIDE 29 MMOL/L (21-32); CHLORIDE 96 MMOL/L (98-107); CREATININE 0.6 MG/DL (0.55-1.30); POTASSIUM 3.9 MMOL/L (3.5-5.1); SODIUM 130 MMOL/L (136-145)
[2019-03-22 06:56] LABS: PHOSPHORUS 3.5 MG/DL (2.5-4.9)
[2019-03-22] MEDS: Magnesium Oxide 400mg tab NG SCH ×3 (08:46→17:04)
[2019-03-22] MEDS: Ferrous Sulfate 300 MG/5 ML UDC NG SCH ×3 (08:46→17:04)
[2019-03-22] MEDS: Midodrine 10mg tab NG SCH ×3 (08:46→17:04)
--- NOTE | 2019-03-22 09:31 | Diagnostic Imaging Report ---
Indication: Dyspnea Technique: One view of the chest Comparison: 03/19/2019 Findings: Bilateral pleural effusions, right greater than left, are similar to prior study. Hazy airspace edema appears slightly increased from the prior exam. Stable satisfactory positions of endotracheal and nasogastric tubes. Right arm PICC remains. Extensive degenerative changes of the shoulders again noted Impression: Suggestion of slight worsening of bilateral hazy parenchymal edema versus infiltrate, over 3 days. Persistent bilateral pleural effusions
[2019-03-22] MEDS: Dakin's 0.25% (Half Strength) 16oz TOPIC SCH (09:36)
--- NOTE | 2019-03-22 13:48 | Pre-Procedure Note/Attestation ---
Pre-Procedure Note/Attestation Complete Prior to Procedure Planned Procedure: left Procedure Narrative: Thoracentesis Indications for Procedure Pre-Operative Diagnosis: pleural effusion Attestation I attest that I discussed the nature of the procedure; its benefits; risks and complications; and alternatives (and the risks and benefits of such alternatives ), prior to the procedure, with the patient (or the patient's legal senior human resources representative). I attest that, if there was a reasonable possibility of needing a blood transfusion, the patient (or the patient's legal senior human resources representative) was given the [facility] standardized written summary, pursuant to the Jesse Lulu Blood Safety Act ([place] Health and Safety Code # 1645, as amended). I attest that I re-evaluated the patient just prior to the surgery and that there has been no change in the patient's H&P, except as documented below: Emergency physician consent was on the chart Liang Trivedi MD Mar 22, 2019 13:47
--- NOTE | 2019-03-22 13:48 | Brief Operative Note ---
Immediate Post Operative Note Operative Note Pre-op Diagnosis: pleural effusion Procedure: L thoracentesis Post-op Diagnosis: same as pre-op Findings: consistent w/pre-op dx studies Surgeon: Shanon TRIVEDI Anesthesia: local Specimen: yes - yellow fluid sent to lab Complications: none Fluids: none Implant(s) used?: No Liang Trivedi MD Mar 22, 2019 13:48
--- NOTE | 2019-03-22 13:55 | Diagnostic Imaging Report ---
Indication: Postthoracentesis Technique: One view of the chest Comparison: 4 hours earlier Findings: There is decreased pleural fluid on the left, status post thoracentesis, left hemidiaphragm no apparent. There is some residual hazy opacity, however. No pneumothorax. Right sided pleural effusion again demonstrated. Right-sided Parenchymal infiltrate or edema is slightly increased. Stable satisfactory position of endotracheal tube, nasogastric tube, right arm PICC. The heart remains enlarged. Impression: Decreased left pleural effusion, status post thoracentesis. No radiographically evident complication Suggestion of slightly increased parenchymal disease on the right, over 4 hours Other stable findings as described
--- NOTE | 2019-03-22 14:33 | Diagnostic Imaging Report ---
Indications: Pleural effusion Technique: Ultrasound used to localize optimal puncture site. Sterile prepping and draping left chest. Local anesthesia with 1% lidocaine. Under real-time ultrasound guidance, puncture pleural space using thoracentesis needle. Stylet removed. Catheter placed to vacuum bottle suction. Total 400 milliliters of fluid aspirated. Patient tolerated procedure well, without immediate complication. A specimen was sent to the lab for analysis Findings: Followup sonography demonstrates a small amount of residual pleural fluid Impression: Successful ultrasound-guided thoracentesis, yielding 400 milliliters of fluid. Drainage yielded most but not all of the fluid
[2019-03-22] MEDS: SODIUM CHLORIDE IV SCH ×2 (14:50→20:00)
[2019-03-22] MEDS: POTASSIUM PHOSPHATE IV SCH ×2 (14:50→20:00)
[2019-03-22] MEDS: Vancomycin 1gm/D5W 275ml IVPB SCH ×2 (17:04)
--- NOTE | 2019-03-22 17:51 | Nephrology Progress Note ---
Assessment/Plan Problem List: (1) Hypokalemia (2) Pyelonephritis (3) CALEB (acute kidney injury) (4) Septic shock (5) Cardiopulmonary arrest (6) Decubitus ulcer (7) Hypomagnesemia (8) Hypophosphatemia (9) Hyponatremia Assessment replace mg, phos,K avoid fluid overload but just weaned off levophed needs fluids, low rate K Mg lower, replace, try adding midodrine , likely chronically low bp, iv fluids continue as diarrhea, hyponatremia stop free water orders updated failed wean, extra Mg 03/22 Subjective ROS Limited/Unobtainable: Yes Objective Objective Last 24 Hour Vital Signs Date Time Temp Pulse Resp B/P (MAP) Pulse Ox O2 Delivery O2 Flow Rate FiO2 03/22/19 17:00 93 23 30 03/22/19 17:00 91 20 90/41 (57) 100 03/22/19 16:00 98.4 93 21 86/40 (55) 100 03/22/19 16:00 30 03/22/19 15:02 100 25 30 03/22/19 15:00 99 22 102/52 (69) 98 03/22/19 14:00 95 18 102/56 (71) 100 03/22/19 13:00 98.5 96 18 96/69 (78) 100 03/22/19 12:49 97 17 30 03/22/19 12:00 102 03/22/19 12:00 Mechanical Ventilator Mechanical Ventilator Mechanical Ventilator 03/22/19 12:00 104 21 91/51 (64) 95 03/22/19 12:00 30 03/22/19 11:00 108 21 98/51 (67) 97 03/22/19 10:43 111 27 30 03/22/19 10:00 106 29 108/53 (71) 99 03/22/19 09:30 100 03/22/19 09:28 100 34 30 30 03/22/19 09:26 94 18 30 30 03/22/19 09:00 98 20 104/48 (66) 99 03/22/19 08:00 Mechanical Ventilator Mechanical Ventilator Mechanical Ventilator 03/22/19 08:00 97.8 93 20 101/50 (67) 99 03/22/19 08:00 30 03/22/19 08:00 92 03/22/19 07:11 92 18 30 03/22/19 07:00 91 18 105/53 (70) 100 03/22/19 06:00 98.9 89 20 98/51 (67) 100 03/22/19 05:24 92 18 30 03/22/19 05:00 90 18 92/54 (67) 100 03/22/19 04:00 30 03/22/19 04:00 Mechanical Ventilator Mechanical Ventilator Mechanical Ventilator 03/22/19 04:00 91 03/22/19 04:00 93 23 111/58 (75) 100 03/22/19 03:20 94 22 30 03/22/19 03:00 88 19 91/44 (60) 100 03/22/19 02:00 89 18 94/44 (61) 100 03/22/19 01:30 85 18 30 03/22/19 01:00 88 21 92/43 (59) 99 03/22/19 00:00 88 03/22/19 00:00 30 03/22/19 00:00 Mechanical Ventilator Mechanical Ventilator Mechanical Ventilator 03/22/19 00:00 98.8 88 20 97/45 (62) 100 03/21/19 23:30 92 20 30 03/21/19 23:00 87 18 95/43 (60) 100 03/21/19 22:00 83 23 96/43 (60) 100 03/21/19 21:15 79 18 30 03/21/19 21:00 98.9 84 17 95/44 (61) 100 03/21/19 20:00 30 03/21/19 20:00 Mechanical Ventilator Mechanical Ventilator Mechanical Ventilator 03/21/19 20:00 87 03/21/19 20:00 80 18 30 03/21/19 20:00 80 17 91/60 (70) 100 03/21/19 19:00 87 19 104/51 (68) 100 03/21/19 18:00 99.0 77 18 93/41 (58) 100 Intake and Output 03/21/19 03/22/19 19:00 07:00 Intake Total 1625.000 ml 1158.00 ml Output Total 1390 ml 883 ml Balance 235.000 ml 275.00 ml Intake Free Water 30 ml IV Total 875.000 ml 918.00 ml Tube Feeding 720 ml 240 ml Output Urine Total 1140 ml 883 ml Stool Total 250 ml Laboratory Tests 03/22/19 04:10: White Blood Count 5.9, Red Blood Count 2.46L, Hemoglobin 7.6L, Hematocrit 23.1L , Mean Corpuscular Volume 94, Mean Corpuscular Hemoglobin 31.1H, Mean Corpuscular Hemoglobin Concent 33.1, Red Cell Distribution Width 17.5H, Platelet Count 394, Mean Platelet Volume 5.5L, Neutrophils (%) (Auto) , Lymphocytes (%) (Auto) , Monocytes (%) (Auto) , Eosinophils (%) (Auto) , Basophils (%) (Auto) , Differential Total Cells Counted 100, Neutrophils % ( Manual) 73, Lymphocytes % (Manual) 16L, Monocytes % (Manual) 8, Eosinophils % ( Manual) 3, Basophils % (Manual) 0, Band Neutrophils 0, Platelet Estimate Adequate, Platelet Morphology Normal, Hypochromasia 1+, Anisocytosis 1+, Sodium Level 130L, Potassium Level 3.9, Chloride Level 96L, Carbon Dioxide Level 29, Anion Gap 5, Blood Urea Nitrogen 7, Creatinine 0.6, Estimat Glomerular Filtration Rate , Glucose Level 93, Calcium Level 7.8L, Phosphorus Level 3.5, Magnesium Level 1.4L, Total Bilirubin 0.3, Aspartate Amino Transf (AST/SGOT) 19 , Alanine Aminotransferase (ALT/SGPT) 14, Alkaline Phosphatase 114, Total Protein 5.9L, Albumin 1.9L, Globulin 4.0, Albumin/Globulin Ratio 0.5L 03/22/19 07:00: Stool Occult Blood Negative 03/22/19 12:00: Vancomycin Level Trough 21.8H Height (Feet): 6 Height (Inches): 2.00 Weight (Pounds): 207 General Appearance: lethargic EENT: other - intubated Neck: normal alignment Cardiovascular: regular rhythm Respiratory/Chest: rhonchi - bilaterally Abdomen: soft Extremities: moderate edema Rishi Christy MD Mar 22, 2019 17:51
--- NOTE | 2019-03-22 17:59 | Pulmonology Progress Note ---
Assessment/Plan Assessment/Plan 1. Severe sepsis, shock due to enterobacter and streptococcus bacteremia 2. 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 CALEB on CKD 4. Non-ST elevation myocardial infarction. 5. Aspiration pneumonia. 6. Respiratory failure, status post full arrest. 7. Paroxysmal atrial fibrillation. 8. 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 9. Acute liver failure, improving 10. Decubitus sepsis PLAN: Ventilator support tolerating weaning w CPAP/PS8 x few hrs Broad spectrum antimicrobials off pressors Wound care, surgery following Had surgical intervention 03/16 Prognosis guarded may transfer to [facility] Subjective ROS Limited/Unobtainable: Yes Allergies: Coded Allergies: No Known Allergies (Unverified , 03/05/19) Objective Last 24 Hour Vital Signs Date Time Temp Pulse Resp B/P (MAP) Pulse Ox O2 Delivery O2 Flow Rate FiO2 03/22/19 17:00 93 23 30 03/22/19 17:00 91 20 90/41 (57) 100 03/22/19 16:00 98.4 93 21 86/40 (55) 100 03/22/19 16:00 30 03/22/19 15:02 100 25 30 03/22/19 15:00 99 22 102/52 (69) 98 03/22/19 14:00 95 18 102/56 (71) 100 03/22/19 13:00 98.5 96 18 96/69 (78) 100 03/22/19 12:49 97 17 30 03/22/19 12:00 102 03/22/19 12:00 Mechanical Ventilator Mechanical Ventilator Mechanical Ventilator 03/22/19 12:00 104 21 91/51 (64) 95 03/22/19 12:00 30 03/22/19 11:00 108 21 98/51 (67) 97 03/22/19 10:43 111 27 30 03/22/19 10:00 106 29 108/53 (71) 99 03/22/19 09:30 100 03/22/19 09:28 100 34 30 30 03/22/19 09:26 94 18 30 30 03/22/19 09:00 98 20 104/48 (66) 99 03/22/19 08:00 Mechanical Ventilator Mechanical Ventilator Mechanical Ventilator 03/22/19 08:00 97.8 93 20 101/50 (67) 99 03/22/19 08:00 30 03/22/19 08:00 92 03/22/19 07:11 92 18 30 03/22/19 07:00 91 18 105/53 (70) 100 03/22/19 06:00 98.9 89 20 98/51 (67) 100 03/22/19 05:24 92 18 30 03/22/19 05:00 90 18 92/54 (67) 100 03/22/19 04:00 30 03/22/19 04:00 Mechanical Ventilator Mechanical Ventilator Mechanical Ventilator 03/22/19 04:00 91 03/22/19 04:00 93 23 111/58 (75) 100 03/22/19 03:20 94 22 30 03/22/19 03:00 88 19 91/44 (60) 100 03/22/19 02:00 89 18 94/44 (61) 100 03/22/19 01:30 85 18 30 03/22/19 01:00 88 21 92/43 (59) 99 03/22/19 00:00 88 03/22/19 00:00 30 03/22/19 00:00 Mechanical Ventilator Mechanical Ventilator Mechanical Ventilator 03/22/19 00:00 98.8 88 20 97/45 (62) 100 03/21/19 23:30 92 20 30 03/21/19 23:00 87 18 95/43 (60) 100 03/21/19 22:00 83 23 96/43 (60) 100 03/21/19 21:15 79 18 30 03/21/19 21:00 98.9 84 17 95/44 (61) 100 03/21/19 20:00 30 03/21/19 20:00 Mechanical Ventilator Mechanical Ventilator Mechanical Ventilator 03/21/19 20:00 87 03/21/19 20:00 80 18 30 03/21/19 20:00 80 17 91/60 (70) 100 03/21/19 19:00 87 19 104/51 (68) 100 03/21/19 18:00 99.0 77 18 93/41 (58) 100 Intake and Output 03/21/19 03/22/19 19:00 07:00 Intake Total 1625.000 ml 1158.00 ml Output Total 1390 ml 883 ml Balance 235.000 ml 275.00 ml Intake Free Water 30 ml IV Total 875.000 ml 918.00 ml Tube Feeding 720 ml 240 ml Output Urine Total 1140 ml 883 ml Stool Total 250 ml Objective weak, on vent via oral ETT General Appearance: no acute distress HEENT: atraumatic Respiratory/Chest: decreased breath sounds Cardiovascular: normal rate Laboratory Tests 03/22/19 04:10: White Blood Count 5.9, Red Blood Count 2.46L, Hemoglobin 7.6L, Hematocrit 23.1L , Mean Corpuscular Volume 94, Mean Corpuscular Hemoglobin 31.1H, Mean Corpuscular Hemoglobin Concent 33.1, Red Cell Distribution Width 17.5H, Platelet Count 394, Mean Platelet Volume 5.5L, Neutrophils (%) (Auto) , Lymphocytes (%) (Auto) , Monocytes (%) (Auto) , Eosinophils (%) (Auto) , Basophils (%) (Auto) , Differential Total Cells Counted 100, Neutrophils % ( Manual) 73, Lymphocytes % (Manual) 16L, Monocytes % (Manual) 8, Eosinophils % ( Manual) 3, Basophils % (Manual) 0, Band Neutrophils 0, Platelet Estimate Adequate, Platelet Morphology Normal, Hypochromasia 1+, Anisocytosis 1+, Sodium Level 130L, Potassium Level 3.9, Chloride Level 96L, Carbon Dioxide Level 29, Anion Gap 5, Blood Urea Nitrogen 7, Creatinine 0.6, Estimat Glomerular Filtration Rate , Glucose Level 93, Calcium Level 7.8L, Phosphorus Level 3.5, Magnesium Level 1.4L, Total Bilirubin 0.3, Aspartate Amino Transf (AST/SGOT) 19 , Alanine Aminotransferase (ALT/SGPT) 14, Alkaline Phosphatase 114, Total Protein 5.9L, Albumin 1.9L, Globulin 4.0, Albumin/Globulin Ratio 0.5L 03/22/19 07:00: Stool Occult Blood Negative 03/22/19 12:00: Vancomycin Level Trough 21.8H Current Medications Medications (Trade) Dose Ordered Sig/Tawny Route PRN Reason Start Time Stop Time Status Last Admin Dose Admin Acetaminophen (Tylenol) 650 mg Q4H PRN NG Mild Pain/Temp > 100.5 03/14/19 12:00 04/13/19 11:59 03/21/19 08:36 Chlorhexidine Gluconate (Jada-Hex 2%) 1 applic DAILY@1999 TOPIC 03/13/19 20:00 04/12/19 19:59 03/21/19 20:11 Ciprofloxacin 200 ml @ 200 mls/hr Q12HR IV 03/13/19 21:00 03/27/19 20:59 03/22/19 08:44 Dextrose (Dextrose 50%) 25 ml Q30M PRN IV Hypoglycemia 03/05/19 06:15 04/04/19 06:14 Dextrose (Dextrose 50%) 50 ml Q30M PRN IV Hypoglycemia 03/05/19 06:15 04/04/19 06:14 Dopamine HCl/ Dextrose 250 ml @ 0 mls/hr Q24H IV 03/05/19 06:32 04/04/19 06:31 03/05/19 07:46 Ferrous Sulfate (Feosol) 330 mg THREE TIMES A DAY NG 03/05/19 09:00 04/04/19 08:59 03/22/19 17:04 Lansoprazole (Prevacid) 30 mg DAILY NG 03/08/19 09:00 04/07/19 08:59 03/22/19 08:46 Magnesium Oxide (Mag-Ox 400mg) 400 mg THREE TIMES A DAY NG 03/09/19 18:00 04/08/19 17:59 03/22/19 17:04 Magnesium Sulfate 100 ml @ 100 mls/hr Q1H IVPB 03/22/19 18:00 03/22/19 21:59 Metronidazole 100 ml @ 100 mls/hr Q8HR IVPB 03/13/19 22:00 03/27/19 21:59 03/22/19 13:27 Midodrine (Pro-Amatine) 10 mg THREE TIMES A DAY NG 03/21/19 18:00 04/20/19 17:59 03/22/19 17:04 Morphine Sulfate (Morphine Sulfate) 0.5 mg EVERY 6 HOURS PRN IVP For Pain 03/19/19 03:00 03/26/19 02:59 Norepinephrine Bitartrate 8 mg/ Dextrose 500 ml @ 0 mls/hr Q24H IV 03/05/19 22:00 04/04/19 21:59 03/19/19 22:26 Ondansetron HCl (Zofran) 4 mg Q6H PRN IVP Nausea & Vomiting 03/05/19 06:15 04/04/19 06:14 Potassium Phosphate 20 meq/ Sodium Chloride 1,004.5455 ml @ 60 mls/hr [id number] IV 03/18/19 11:00 04/17/19 10:59 03/21/19 23:17 Potassium Chloride (K-Dur) 40 meq TWICE A DAY GT 03/21/19 19:30 04/20/19 19:29 03/22/19 17:05 Sodium Hypochlorite (Dakin's Half Strength) 1 applic DAILY TOPIC 03/10/19 20:00 04/09/19 19:59 03/22/19 09:36 Vancomycin HCl (Vanco rx to dose) 1 ea DAILY PRN MISC Per rx protocol 03/05/19 06:15 04/04/19 06:14 Vancomycin HCl 1 gm/Dextrose 275 ml @ 183.708 mls/hr Q12HR@0400,1600 IVPB 03/22/19 16:00 03/27/19 15:59 03/22/19 17:04 Voriconazole (Vfend) 200 mg EVERY 12 HOURS NG 03/21/19 21:00 03/28/19 20:59 03/22/19 08:46 Cedric Perez MD Mar 22, 2019 17:59
[2019-03-22] MEDS: Dyna-Hex 2% Top Sol 2oz TOPIC SCH (19:33)
[2019-03-22] MEDS: Norepinephrine Bitartrate 8 MG in D5W 500ml 492 ML IV SCH (22:00)
--- NOTE | 2019-03-22 22:38 | CDS Physician Query ---
Clarification is required for compliance, coding accuracy, and to reflect severity of illness for this patient Dear Dr. Gilliland Date: 03/22/19 CDS: Hasmukh Weeks Because there is documentation in the medical record of "Debridement," clarification is needed. Please document whether this is "Excisional" or "Nonexcisional" Debridement" of Sacral decubitus ulcer. Procedure on 03/16/19: Debridement of Sacral decubitus ulcer. According to the note, debridement reached sacrum bone. Please specify the type of debridement performed: [ ] Excisional: Please document the depth of tissue [ ] Skin [ X ] Subcutaneous tissue and Fascia [ X ] Muscle [ ] Bone [ ] Nonexcisional Physician signature Date Please also document in your Progress Notes and/or Discharge Summary and indicate if the condition was present on admission. CARLOS
[2019-03-23] VITALS (20 sets, daily range): BP systolic 82–119; BP diastolic 41–85
[2019-03-23] MEDS: Vancomycin 1gm/D5W 275ml IVPB SCH ×4 (03:42→16:46)
[2019-03-23] MEDS: DOPamine 400mg/250ml 250 ML IV SCH (06:32)
[2019-03-23 06:47] LABS: HEMATOCRIT 22.8 % (42.0-52.0); HEMOGLOBIN 7.4 G/DL (14.2-18.0); MEAN CORPUSCULAR VOLUME 94 FL (80-99); PLATELET COUNT 372 K/UL (150-450); RED BLOOD COUNT 2.41 M/UL (4.70-6.10); RED CELL DISTRIBUTION WIDTH 16.9 % (11.6-14.8); WHITE BLOOD COUNT 5.1 K/UL (4.8-10.8)
[2019-03-23 07:11] LABS: ANION GAP 5 mmol/L (5-15); BLOOD UREA NITROGEN 5 mg/dL (7-18); CALCIUM 7.8 MG/DL (8.5-10.1); CARBON DIOXIDE 27 MMOL/L (21-32); CHLORIDE 97 MMOL/L (98-107); CREATININE 0.7 MG/DL (0.55-1.30); POTASSIUM 3.6 MMOL/L (3.5-5.1); SODIUM 129 MMOL/L (136-145)
[2019-03-23] MEDS: Ferrous Sulfate 300 MG/5 ML UDC NG SCH ×3 (08:30→17:19)
[2019-03-23] MEDS: Magnesium Oxide 400mg tab NG SCH ×3 (08:30→17:19)
[2019-03-23] MEDS: Midodrine 10mg tab NG SCH ×3 (08:30→17:19)
[2019-03-23] MEDS: Dakin's 0.25% (Half Strength) 16oz TOPIC SCH (08:31)
--- NOTE | 2019-03-23 15:52 | Diagnostic Imaging Report ---
Indication: Evaluation of PICC position, PICC pulled back inadvertently Technique: One view of the chest Comparison: 03/22/2019 Findings: Interim retraction of previously demonstrated PICC, tip now projecting at the level of the axillary vein. Stable satisfactory positions of endotracheal and nasogastric tube. Bilateral pleural effusions, right greater than left, are again demonstrated. There is some suggestion of atelectasis in the right lung again demonstrated, unchanged. Impression: Interim retraction of PICC, tip now at the expected level of the right axillary vein. In this position, it is suitable for use as a midline findings discussed by phone with patient's nurse at the time of interpretation
--- NOTE | 2019-03-23 15:59 | Pulmonology Progress Note ---
Assessment/Plan Assessment/Plan 1. Severe sepsis, shock due to enterobacter and streptococcus bacteremia 2. 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 CALEB on CKD 4. Non-ST elevation myocardial infarction. 5. Aspiration pneumonia. 6. Respiratory failure, status post full arrest. 7. Paroxysmal atrial fibrillation. 8. 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 9. Acute liver failure, improving 10. Decubitus sepsis PLAN: Ventilator support Not tolerating weaning w IMV/CPAP Broad spectrum antimicrobials No pressors Wound care, surgery following Had surgical intervention 03/16 Prognosis guarded may transfer to [facility] for trach, weaning Subjective ROS Limited/Unobtainable: Yes Allergies: Coded Allergies: No Known Allergies (Unverified , 03/05/19) Objective Last 24 Hour Vital Signs Date Time Temp Pulse Resp B/P (MAP) Pulse Ox O2 Delivery O2 Flow Rate FiO2 03/23/19 15:08 95 17 30 03/23/19 15:00 96 17 111/83 (92) 99 03/23/19 14:00 96 20 115/85 (95) 98 03/23/19 13:00 98.7 99 19 89/57 (68) 97 03/23/19 12:32 99 19 30 03/23/19 12:00 96 19 95/49 (64) 98 03/23/19 12:00 Mechanical Ventilator Mechanical Ventilator Mechanical Ventilator 03/23/19 12:00 30 03/23/19 12:00 97 03/23/19 11:00 97 19 119/69 (86) 97 03/23/19 10:59 97 24 30 03/23/19 10:12 94 03/23/19 10:07 30 03/23/19 10:00 97 19 103/56 (72) 100 03/23/19 09:01 101 23 30 03/23/19 09:01 100 03/23/19 09:00 98.6 99 20 106/58 (74) 100 03/23/19 08:58 107 40 30 03/23/19 08:00 96 18 89/52 (64) 100 03/23/19 08:00 Mechanical Ventilator Mechanical Ventilator Mechanical Ventilator 03/23/19 07:00 89 17 88/46 (60) 100 03/23/19 06:34 89 17 30 03/23/19 06:32 98/47 03/23/19 06:00 90 18 82/42 (55) 99 03/23/19 05:15 93 17 30 03/23/19 05:00 94 20 100/52 (68) 100 03/23/19 04:00 30 03/23/19 04:00 88 03/23/19 04:00 Mechanical Ventilator Mechanical Ventilator Mechanical Ventilator 03/23/19 04:00 98.8 88 17 92/41 (58) 100 03/23/19 03:17 89 17 30 03/23/19 03:00 90 17 93/44 (60) 99 03/23/19 02:00 90 17 92/46 (61) 99 03/23/19 01:13 94 19 30 03/23/19 01:00 92 17 93/46 (62) 99 03/23/19 00:00 93 03/23/19 00:00 98.9 93 20 96/49 (65) 99 03/23/19 00:00 Mechanical Ventilator Mechanical Ventilator Mechanical Ventilator 03/23/19 00:00 30 03/22/19 23:05 93 18 30 03/22/19 23:00 94 21 95/50 (65) 100 03/22/19 22:00 92/46 03/22/19 22:00 91 17 92/46 (61) 100 03/22/19 21:10 90 21 30 03/22/19 21:00 90 20 90/36 (54) 99 03/22/19 20:00 30 03/22/19 20:00 99.6 91 23 98/43 (61) 99 03/22/19 20:00 91 03/22/19 20:00 Mechanical Ventilator Mechanical Ventilator Mechanical Ventilator 03/22/19 19:20 95 23 30 03/22/19 19:00 97 20 101/46 (64) 99 03/22/19 18:00 94 19 96/39 (58) 100 03/22/19 17:00 93 23 30 03/22/19 17:00 91 20 90/41 (57) 100 03/22/19 16:00 Mechanical Ventilator Mechanical Ventilator 03/22/19 16:00 98.4 93 21 86/40 (55) 100 03/22/19 16:00 96 03/22/19 16:00 30 Intake and Output 03/22/19 03/23/19 18:59 06:59 Intake Total 1775.000 ml 2105 ml Output Total 1300 ml 930 ml Balance 475.000 ml 1175 ml Intake Free Water 120 ml 150 ml IV Total 1295.000 ml 1235 ml Tube Feeding 360 ml 720 ml Output Urine Total 1250 ml 930 ml Stool Total 50 ml Objective weak, on vent via oral ETT General Appearance: no acute distress Respiratory/Chest: lungs clear, decreased breath sounds Cardiovascular: normal rate Abdomen: soft, non tender Microbiology Date/Time Source Procedure Growth Status 03/21/19 12:09 Body Fluid Other AFB Specimen Processing Tissue - Final Resulted 03/21/19 12:09 Body Fluid Other Acid Fast Bacilli Smear - Final Resulted 03/21/19 12:09 Body Fluid Other Acid Fast Bacilli Culture Pending Resulted 03/21/19 12:09 Body Fluid Gram Stain - Final Resulted 03/21/19 12:09 Body Fluid Body Fluid Culture - Preliminary NO GROWTH Resulted Laboratory Tests 03/23/19 05:35: White Blood Count 5.1, Red Blood Count 2.41L, Hemoglobin 7.4L, Hematocrit 22.8L , Mean Corpuscular Volume 94, Mean Corpuscular Hemoglobin 30.8, Mean Corpuscular Hemoglobin Concent 32.6, Red Cell Distribution Width 16.9H, Platelet Count 372, Mean Platelet Volume 5.3L, Neutrophils (%) (Auto) , Lymphocytes (%) (Auto) , Monocytes (%) (Auto) , Eosinophils (%) (Auto) , Basophils (%) (Auto) , Differential Total Cells Counted 100, Neutrophils % ( Manual) 69, Lymphocytes % (Manual) 18L, Monocytes % (Manual) 8, Eosinophils % ( Manual) 4H, Basophils % (Manual) 1, Band Neutrophils 0, Platelet Estimate Adequate, Platelet Morphology Normal, Hypochromasia 3+, Anisocytosis 1+, Spherocytes 1+, Sodium Level 129L, Potassium Level 3.6, Chloride Level 97L, Carbon Dioxide Level 27, Anion Gap 5, Blood Urea Nitrogen 5L, Creatinine 0.7, Estimat Glomerular Filtration Rate , Glucose Level 110H, Calcium Level 7.8L Current Medications Medications (Trade) Dose Ordered Sig/Tawny Route PRN Reason Start Time Stop Time Status Last Admin Dose Admin Acetaminophen (Tylenol) 650 mg Q4H PRN NG Mild Pain/Temp > 100.5 03/14/19 12:00 04/13/19 11:59 03/21/19 08:36 Chlorhexidine Gluconate (Jada-Hex 2%) 1 applic DAILY@2000 TOPIC 03/13/19 20:00 04/12/19 19:59 03/22/19 19:33 Ciprofloxacin 200 ml @ 200 mls/hr Q12HR IV 03/13/19 21:00 03/27/19 20:59 03/23/19 08:30 Dextrose (Dextrose 50%) 25 ml Q30M PRN IV Hypoglycemia 03/05/19 06:15 04/04/19 06:14 Dextrose (Dextrose 50%) 50 ml Q30M PRN IV Hypoglycemia 03/05/19 06:15 04/04/19 06:14 Dopamine HCl/ Dextrose 250 ml @ 0 mls/hr Q24H IV 03/05/19 06:32 04/04/19 06:31 03/05/19 07:46 Ferrous Sulfate (Feosol) 330 mg THREE TIMES A DAY NG 03/05/19 09:00 04/04/19 08:59 03/23/19 13:11 Lansoprazole (Prevacid) 30 mg DAILY NG 03/08/19 09:00 04/07/19 08:59 03/23/19 08:30 Magnesium Oxide (Mag-Ox 400mg) 400 mg THREE TIMES A DAY NG 03/09/19 18:00 04/08/19 17:59 03/23/19 13:11 Metronidazole 100 ml @ 100 mls/hr Q8HR IVPB 03/13/19 22:00 03/27/19 21:59 03/23/19 13:11 Midodrine (Pro-Amatine) 10 mg THREE TIMES A DAY NG 03/21/19 18:00 04/20/19 17:59 03/23/19 13:11 Morphine Sulfate (Morphine Sulfate) 0.5 mg EVERY 6 HOURS PRN IVP For Pain 03/19/19 03:00 03/26/19 02:59 Norepinephrine Bitartrate 8 mg/ Dextrose 500 ml @ 0 mls/hr Q24H IV 03/05/19 22:00 04/04/19 21:59 03/19/19 22:26 Ondansetron HCl (Zofran) 4 mg Q6H PRN IVP Nausea & Vomiting 03/05/19 06:15 04/04/19 06:14 Potassium Phosphate 20 meq/ Sodium Chloride 1,004.5455 ml @ 60 mls/hr [id number] IV 03/23/19 16:00 04/22/19 15:59 Potassium Chloride (K-Dur) 40 meq TWICE A DAY GT 03/21/19 19:30 04/20/19 19:29 03/23/19 08:30 Sodium Hypochlorite (Dakin's Half Strength) 1 applic DAILY TOPIC 03/10/19 20:00 04/09/19 19:59 03/23/19 08:31 Vancomycin HCl (Vanco rx to dose) 1 ea DAILY PRN MISC Per rx protocol 03/05/19 06:15 04/04/19 06:14 Vancomycin HCl 1 gm/Dextrose 275 ml @ 183.708 mls/hr Q12HR@0400,1600 IVPB 03/22/19 16:00 03/27/19 15:59 03/23/19 03:42 Voriconazole (Vfend) 200 mg EVERY 12 HOURS NG 03/21/19 21:00 03/28/19 20:59 03/23/19 08:30 Cedric Perez MD Mar 23, 2019 15:59
[2019-03-23] MEDS ORDERED: SODIUM CHLORIDE IV SCH (16:00)
[2019-03-23] MEDS ORDERED: POTASSIUM PHOSPHATE IV SCH (16:00)
--- NOTE | 2019-03-23 17:03 | Infectious Diseases Prog Note ---
Assessment/Plan Assessment/Plan ASSESSMENT: 1. 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 Acute kidney injury, elevated creatinine. 3. Anemia. 4. Atrial fibrillation. The patient has been on Eliquis. 5. Status post code. 6. Sacral wound. 7. Aortic valve stenosis. 8. Hypertension. 9. icu care 10. Hypertension treatment per primary but the patient currently is on pressors. 11. No known drug allergies. No antibiotic allergies. 12. Social history is negative. 13. Family history noncontributory. 14. MAR was noted. 15. Case discussed with RN. 16. Continue treatment per primary consultants. 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 Subjective Constitutional: Reports: other - on vent, no pressors ; Denies: fever Respiratory: Reports: shortness of breath Cardiovascular: Denies: chest pain Gastrointestinal/Abdominal: Reports: diarrhea, other - + rectal tube ; Denies: nausea, vomiting Genitourinary: Reports: other - + lemus Neurologic: Reports: headache Psychiatric: Denies: depression Skin: Denies: rash Hematologic: Denies: bleeding Musculoskeletal: Denies: pain Allergies: Coded Allergies: No Known Allergies (Unverified , 03/05/19) Objective Vital Signs Last 24 Hour Vital Signs Date Time Temp Pulse Resp B/P (MAP) Pulse Ox O2 Delivery O2 Flow Rate FiO2 03/23/19 16:17 96 03/23/19 16:00 30 03/23/19 16:00 98.5 96 17 94/44 (61) 99 03/23/19 16:00 Mechanical Ventilator Mechanical Ventilator Mechanical Ventilator 03/23/19 15:08 95 17 30 03/23/19 15:00 96 17 111/83 (92) 99 03/23/19 14:00 96 20 115/85 (95) 98 03/23/19 13:00 98.7 99 19 89/57 (68) 97 03/23/19 12:32 99 19 30 03/23/19 12:00 96 19 95/49 (64) 98 03/23/19 12:00 Mechanical Ventilator Mechanical Ventilator Mechanical Ventilator 03/23/19 12:00 30 03/23/19 12:00 97 03/23/19 11:00 97 19 119/69 (86) 97 03/23/19 10:59 97 24 30 03/23/19 10:07 30 03/23/19 10:00 97 19 103/56 (72) 100 03/23/19 09:01 101 23 30 03/23/19 09:01 100 03/23/19 09:00 98.6 99 20 106/58 (74) 100 03/23/19 08:58 107 40 30 03/23/19 08:00 96 18 89/52 (64) 100 03/23/19 08:00 Mechanical Ventilator Mechanical Ventilator Mechanical Ventilator 03/23/19 08:00 94 03/23/19 07:00 89 17 88/46 (60) 100 03/23/19 06:34 89 17 30 03/23/19 06:32 98/47 03/23/19 06:00 90 18 82/42 (55) 99 03/23/19 05:15 93 17 30 03/23/19 05:00 94 20 100/52 (68) 100 03/23/19 04:00 30 03/23/19 04:00 88 03/23/19 04:00 Mechanical Ventilator Mechanical Ventilator Mechanical Ventilator 03/23/19 04:00 98.8 88 17 92/41 (58) 100 03/23/19 03:17 89 17 30 03/23/19 03:00 90 17 93/44 (60) 99 03/23/19 02:00 90 17 92/46 (61) 99 03/23/19 01:13 94 19 30 03/23/19 01:00 92 17 93/46 (62) 99 03/23/19 00:00 93 03/23/19 00:00 98.9 93 20 96/49 (65) 99 03/23/19 00:00 Mechanical Ventilator Mechanical Ventilator Mechanical Ventilator 03/23/19 00:00 30 03/22/19 23:05 93 18 30 03/22/19 23:00 94 21 95/50 (65) 100 03/22/19 22:00 92/46 03/22/19 22:00 91 17 92/46 (61) 100 03/22/19 21:10 90 21 30 03/22/19 21:00 90 20 90/36 (54) 99 03/22/19 20:00 30 03/22/19 20:00 99.6 91 23 98/43 (61) 99 03/22/19 20:00 91 03/22/19 20:00 Mechanical Ventilator Mechanical Ventilator Mechanical Ventilator 03/22/19 19:20 95 23 30 03/22/19 19:00 97 20 101/46 (64) 99 03/22/19 18:00 94 19 96/39 (58) 100 03/22/19 17:00 93 23 30 03/22/19 17:00 91 20 90/41 (57) 100 Height (Feet): 6 Height (Inches): 2.00 Weight (Pounds): 206 General Appearance: other - on vent, no pressors HEENT: normocephalic, atraumatic, anicteric, no JVD, other - oral - intubated Respiratory/Chest: crackles/rales, rhonchi - bilaterally Cardiovascular: normal rate, regular rhythm, no gallop/murmur, no JVD Abdomen: normal bowel sounds, soft, non tender, no organomegaly, non distended Genitourinary: other - + lemus Extremities: no cyanosis Skin: no rash 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 Chest x-ray - 03/06/19 - Findings: Mild pleural thickening versus effusion on the right noted. Heart size is stable and mildly enlarged. Endotracheal tube is in good position unchanged. NG tube is present. The proximal port is near the EG junction. The tip is in the stomach. IMPRESSION: Nasogastric tube may be advanced slightly. Slightly improved congestion compared to the previous day Chest x-ray - 03/09/19 - Procedure: XRAY Chest 1v Indication: Dyspnea Comparison: 03/06/2019 A single view chest radiograph was obtained. Findings: Basilar densities likely atelectasis noted. Cardiac size is stable. Endotracheal tube position is stable and satisfactory. IMPRESSION: No significant change. Chest x-ray - 03/13/19 - A single view chest radiograph was obtained. Findings: Endotracheal tube is in good position. NG tube also noted position. Heart size is stable. Pulmonary vascular congestion suspected. Small bilateral pleural effusion suspected. IMPRESSION: Mild pulmonary congestion suspected Chest x-ray - 03/14/19 - Chest x-ray - 03/14/19 - Procedure: XRAY Chest 1v Indication: Line placement Comparison: 03/13/2019 A single view chest radiograph was obtained. Findings: PICC line is noted. The tip is in the SVC in good position. No change otherwise. IMPRESSION: PICC line in good position Chest x-ray - 03/16/19 - Technique: One view of the chest Comparison: 03/15/2019 Findings: Endotracheal tube projects approximately 4 cm above the katy. Nasogastric tube projects beyond the edge of the image. Right arm PICC tip projects at the level of the innominate venous confluence. Lung volumes are lower on the current study. There may be increasing pleural fluid on the right. Small left pleural effusion and hazy basilar opacity persists. Atelectatic changes at the right lung base persist. The heart size is upper limits normal. Impression: Equivocally slightly increased pleural fluid on the right. Otherwise , little change consultant one day, allowing for differences in degree of inspiration Chest x-ray - 03/20/19 - Procedure: XRAY Chest 1v Indication: Post intubation Technique: One view of the chest Comparison: 03/18/2019 Findings: Endotracheal tube tip is somewhat difficult to visualize, but there is projecting approximately 6 cm above the katy. There is a nasogastric tube in place, tip projecting at the level of the gastric antrum. There is increased pleural fluid on the right. There is probably unchanged pleural fluid on the left, as well as unchanged very mild generalized interstitial congestion. Right arm PICC is again demonstrated. Impression: Satisfactory endotracheal and nasogastric intubation Increased pleural fluid and possibly airspace disease on the right. Unchanged left pleural effusion and generalized interstitial edema. This agrees with the preliminary interpretation provided overnight by [facility]. Chest x-ray - 03/23/19 - Technique: One view of the chest Comparison: 03/22/2019 Findings: Interim retraction of previously demonstrated PICC, tip now projecting at the level of the axillary vein. Stable satisfactory positions of endotracheal and nasogastric tube. Bilateral pleural effusions, right greater than left, are again demonstrated. There is some suggestion of atelectasis in the right lung again demonstrated, unchanged. Impression: Interim retraction of PICC, tip now at the expected level of the right axillary vein. In this position, it is suitable for use as a midline findings discussed by phone with patient's nurse at the time of interpretation Microbiology Date/Time Source Procedure Growth Status 03/17/19 13:45 Blood Blood Culture - Final NO GROWTH AFTER 5 DAYS Complete 03/21/19 12:09 Body Fluid Other AFB Specimen Processing Tissue - Final Resulted 03/21/19 12:09 Body Fluid Other Acid Fast Bacilli Smear - Final Resulted 03/21/19 12:09 Body Fluid Other Acid Fast Bacilli Culture Pending Resulted 03/17/19 14:45 Sputum Induced Gram Stain - Final Complete 03/17/19 14:45 Sputum Culture - Final Staphylococcus Aureus - Mrsa Complete 03/09/19 17:00 Stool Clostridium difficile Toxin Assay - Final Complete 03/17/19 15:00 Indwelling Cath Urine Culture - Final NO GROWTH AFTER 48 HOURS Complete 03/05/19 00:50 Rectum VRE Culture - Final NO VANCOMYCIN RESISTANT ENTEROCOCCUS ... Complete Microbiology Date/Time Source Procedure Growth Status 03/21/19 12:09 Body Fluid Other AFB Specimen Processing Tissue - Final Resulted 03/21/19 12:09 Body Fluid Other Acid Fast Bacilli Smear - Final Resulted 03/21/19 12:09 Body Fluid Other Acid Fast Bacilli Culture Pending Resulted 03/21/19 12:09 Body Fluid Gram Stain - Final Resulted 03/21/19 12:09 Body Fluid Body Fluid Culture - Preliminary NO GROWTH Resulted Laboratory Tests Test 03/23/19 05:35 White Blood Count 5.1 K/UL (4.8-10.8) Red Blood Count 2.41 M/UL (4.70-6.10) L Hemoglobin 7.4 G/DL (14.2-18.0) L Hematocrit 22.8 % (42.0-52.0) L Mean Corpuscular Volume 94 FL (80-99) Mean Corpuscular Hemoglobin 30.8 PG (27.0-31.0) Mean Corpuscular Hemoglobin Concent 32.6 G/DL (32.0-36.0) Red Cell Distribution Width 16.9 % (11.6-14.8) H Platelet Count 372 K/UL (150-450) Mean Platelet Volume 5.3 FL (6.5-10.1) L Neutrophils (%) (Auto) % (45.0-75.0) Lymphocytes (%) (Auto) % (20.0-45.0) Monocytes (%) (Auto) % (1.0-10.0) Eosinophils (%) (Auto) % (0.0-3.0) Basophils (%) (Auto) % (0.0-2.0) Differential Total Cells Counted 100 Neutrophils % (Manual) 69 % (45-75) Lymphocytes % (Manual) 18 % (20-45) L Monocytes % (Manual) 8 % (1-10) Eosinophils % (Manual) 4 % (0-3) H Basophils % (Manual) 1 % (0-2) Band Neutrophils 0 % (0-8) Platelet Estimate Adequate Platelet Morphology Normal Hypochromasia 3+ Anisocytosis 1+ Spherocytes 1+ Sodium Level 129 MMOL/L (136-145) L Potassium Level 3.6 MMOL/L (3.5-5.1) Chloride Level 97 MMOL/L (98-107) L Carbon Dioxide Level 27 MMOL/L (21-32) Anion Gap 5 mmol/L (5-15) Blood Urea Nitrogen 5 mg/dL (7-18) L Creatinine 0.7 MG/DL (0.55-1.30) Estimat Glomerular Filtration Rate mL/min (>60) Glucose Level 110 MG/DL (74-106) H Calcium Level 7.8 MG/DL (8.5-10.1) L Current Medications Medications (Trade) Dose Ordered Sig/Tawny Route PRN Reason Start Time Stop Time Status Last Admin Dose Admin Acetaminophen (Tylenol) 650 mg Q4H PRN NG Mild Pain/Temp > 100.5 03/14/19 12:00 04/13/19 11:59 03/21/19 08:36 Chlorhexidine Gluconate (Jada-Hex 2%) 1 applic DAILY@2000 TOPIC 03/13/19 20:00 04/12/19 19:59 03/22/19 19:33 Ciprofloxacin 200 ml @ 200 mls/hr Q12HR IV 03/13/19 21:00 03/27/19 20:59 03/23/19 08:30 Dextrose (Dextrose 50%) 25 ml Q30M PRN IV Hypoglycemia 03/05/19 06:15 04/04/19 06:14 Dextrose (Dextrose 50%) 50 ml Q30M PRN IV Hypoglycemia 03/05/19 06:15 04/04/19 06:14 Dopamine HCl/ Dextrose 250 ml @ 0 mls/hr Q24H IV 03/05/19 06:32 04/04/19 06:31 03/05/19 07:46 Ferrous Sulfate (Feosol) 330 mg THREE TIMES A DAY NG 03/05/19 09:00 04/04/19 08:59 03/23/19 13:11 Lansoprazole (Prevacid) 30 mg DAILY NG 03/08/19 09:00 04/07/19 08:59 03/23/19 08:30 Magnesium Oxide (Mag-Ox 400mg) 400 mg THREE TIMES A DAY NG 03/09/19 18:00 04/08/19 17:59 03/23/19 13:11 Metronidazole 100 ml @ 100 mls/hr Q8HR IVPB 03/13/19 22:00 03/27/19 21:59 03/23/19 13:11 Midodrine (Pro-Amatine) 10 mg THREE TIMES A DAY NG 03/21/19 18:00 04/20/19 17:59 03/23/19 13:11 Morphine Sulfate (Morphine Sulfate) 0.5 mg EVERY 6 HOURS PRN IVP For Pain 03/19/19 03:00 03/26/19 02:59 Norepinephrine Bitartrate 8 mg/ Dextrose 500 ml @ 0 mls/hr Q24H IV 03/05/19 22:00 04/04/19 21:59 03/19/19 22:26 Ondansetron HCl (Zofran) 4 mg Q6H PRN IVP Nausea & Vomiting 03/05/19 06:15 04/04/19 06:14 Potassium Phosphate 20 meq/ Sodium Chloride 1,004.5455 ml @ 60 mls/hr [id number] IV 03/23/19 16:00 04/22/19 15:59 03/23/19 16:46 Potassium Chloride (K-Dur) 40 meq TWICE A DAY GT 03/21/19 19:30 04/20/19 19:29 03/23/19 08:30 Sodium Hypochlorite (Dakin's Half Strength) 1 applic DAILY TOPIC 03/10/19 20:00 04/09/19 19:59 03/23/19 08:31 Vancomycin HCl (Vanco rx to dose) 1 ea DAILY PRN MISC Per rx protocol 03/05/19 06:15 04/04/19 06:14 Vancomycin HCl 1 gm/Dextrose 275 ml @ 183.708 mls/hr Q12HR@0400,1600 IVPB 03/22/19 16:00 03/27/19 15:59 03/23/19 16:46 Voriconazole (Vfend) 200 mg EVERY 12 HOURS NG 03/21/19 21:00 03/28/19 20:59 03/23/19 08:30 Makenzie Galeano MD Mar 23, 2019 17:03
[2019-03-23] MEDS ORDERED: Tubing IV Secondary IV ONE ×2 (19:56)
[2019-03-23] MEDS ORDERED: NS 275ml ONE (19:56)
--- NOTE | 2019-03-23 21:16 | Nephrology Progress Note ---
Assessment/Plan Problem List: (1) Hypokalemia (2) Pyelonephritis (3) CALEB (acute kidney injury) (4) Septic shock (5) Cardiopulmonary arrest (6) Decubitus ulcer (7) Hypomagnesemia (8) Hypophosphatemia (9) Hyponatremia Assessment replace mg, phos,K avoid fluid overload but just weaned off levophed needs fluids, low rate K Mg lower, replace, try adding midodrine , likely chronically low bp, iv fluids continue as diarrhea, hyponatremia stop free water orders updated failed wean, extra Mg 03/22 Subjective ROS Limited/Unobtainable: Yes Objective Objective Last 24 Hour Vital Signs Date Time Temp Pulse Resp B/P (MAP) Pulse Ox O2 Delivery O2 Flow Rate FiO2 03/23/19 19:00 99 21 111/59 (76) 91 03/23/19 18:00 92 25 99/49 (66) 100 03/23/19 17:00 95 24 92/45 (61) 100 03/23/19 17:00 93 16 30 03/23/19 16:17 96 03/23/19 16:00 30 03/23/19 16:00 98.5 96 17 94/44 (61) 99 03/23/19 16:00 Mechanical Ventilator Mechanical Ventilator Mechanical Ventilator 03/23/19 15:08 95 17 30 03/23/19 15:00 96 17 111/83 (92) 99 03/23/19 14:00 96 20 115/85 (95) 98 03/23/19 13:00 98.7 99 19 89/57 (68) 97 03/23/19 12:32 99 19 30 03/23/19 12:00 96 19 95/49 (64) 98 03/23/19 12:00 Mechanical Ventilator Mechanical Ventilator Mechanical Ventilator 03/23/19 12:00 30 03/23/19 12:00 97 03/23/19 11:00 97 19 119/69 (86) 97 03/23/19 10:59 97 24 30 03/23/19 10:07 30 03/23/19 10:00 97 19 103/56 (72) 100 03/23/19 09:01 101 23 30 03/23/19 09:01 100 03/23/19 09:00 98.6 99 20 106/58 (74) 100 03/23/19 08:58 107 40 30 03/23/19 08:00 96 18 89/52 (64) 100 03/23/19 08:00 Mechanical Ventilator Mechanical Ventilator Mechanical Ventilator 03/23/19 08:00 94 03/23/19 07:00 89 17 88/46 (60) 100 03/23/19 06:34 89 17 30 03/23/19 06:32 98/47 03/23/19 06:00 90 18 82/42 (55) 99 03/23/19 05:15 93 17 30 03/23/19 05:00 94 20 100/52 (68) 100 03/23/19 04:00 30 03/23/19 04:00 88 03/23/19 04:00 Mechanical Ventilator Mechanical Ventilator Mechanical Ventilator 03/23/19 04:00 98.8 88 17 92/41 (58) 100 03/23/19 03:17 89 17 30 03/23/19 03:00 90 17 93/44 (60) 99 03/23/19 02:00 90 17 92/46 (61) 99 03/23/19 01:13 94 19 30 03/23/19 01:00 92 17 93/46 (62) 99 03/23/19 00:00 93 03/23/19 00:00 98.9 93 20 96/49 (65) 99 03/23/19 00:00 Mechanical Ventilator Mechanical Ventilator Mechanical Ventilator 03/23/19 00:00 30 03/22/19 23:05 93 18 30 03/22/19 23:00 94 21 95/50 (65) 100 03/22/19 22:00 92/46 03/22/19 22:00 91 17 92/46 (61) 100 Intake and Output 03/22/19 03/23/19 19:00 07:00 Intake Total 1835.000 ml 2205 ml Output Total 1300 ml 1110 ml Balance 535.000 ml 1095 ml Intake Free Water 120 ml 150 ml IV Total 1295.000 ml 1335 ml Tube Feeding 420 ml 720 ml Output Urine Total 1250 ml 910 ml Stool Total 50 ml 200 ml Laboratory Tests 03/23/19 05:35: White Blood Count 5.1, Red Blood Count 2.41L, Hemoglobin 7.4L, Hematocrit 22.8L , Mean Corpuscular Volume 94, Mean Corpuscular Hemoglobin 30.8, Mean Corpuscular Hemoglobin Concent 32.6, Red Cell Distribution Width 16.9H, Platelet Count 372, Mean Platelet Volume 5.3L, Neutrophils (%) (Auto) , Lymphocytes (%) (Auto) , Monocytes (%) (Auto) , Eosinophils (%) (Auto) , Basophils (%) (Auto) , Differential Total Cells Counted 100, Neutrophils % ( Manual) 69, Lymphocytes % (Manual) 18L, Monocytes % (Manual) 8, Eosinophils % ( Manual) 4H, Basophils % (Manual) 1, Band Neutrophils 0, Platelet Estimate Adequate, Platelet Morphology Normal, Hypochromasia 3+, Anisocytosis 1+, Spherocytes 1+, Sodium Level 129L, Potassium Level 3.6, Chloride Level 97L, Carbon Dioxide Level 27, Anion Gap 5, Blood Urea Nitrogen 5L, Creatinine 0.7, Estimat Glomerular Filtration Rate , Glucose Level 110H, Calcium Level 7.8L Height (Feet): 6 Height (Inches): 2.00 Weight (Pounds): 206 General Appearance: mild distress EENT: other - intubated Neck: normal alignment Cardiovascular: regular rhythm Respiratory/Chest: rhonchi - bilaterally Abdomen: no organomegaly Extremities: moderate edema 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
--- NOTE | 2019-03-24 03:30 | Progress Note ---
DATE: 03/23/2019 CARDIOLOGY PROGRESS NOTE SUBJECTIVE: The patient has been off pressors for 48 hours. His blood pressure parameters are marginal, but remain in the range of 90 systolic. Monitored rhythm is sinus. He was unable to tolerate any weaning today due to tachycardia. OBJECTIVE: HEENT: Orally intubated. LUNGS: Bilateral breath sounds. Scattered rhonchi. HEART: Regular rhythm and rate. Normal S1, S2. ABDOMEN: Soft. EXTREMITIES: Dependent edema. IMPRESSION: 1. Sepsis. 2. Recovering shock. 3. Respiratory failure. 4. Severe protein-calorie malnutrition. 5. Paroxysmal atrial fibrillation. 6. Aortic valve stenosis. PLAN: 1. Weaning as tolerated. 2. Ventilator support. 3. Full anticoagulation with Eliquis. 4. Monitor hemoglobin. 5. Nutritional support and protein supplement by NG tube. 6. Remains high risk. 7. Critical and guarded. Mejia Mckinney M.D. DR: NATALY JOB#: [id number] CC:
--- NOTE | 2019-03-24 03:45 | Progress Note ---
DATE: 03/22/2019 CARDIOLOGY PROGRESS NOTE Late entry for 03/22/2019. SUBJECTIVE: The patient is now off pressors. Blood pressure remains marginal, but adequate, to avoid resuming pressors, fluids ____ by IV route. The patient remains in the Intensive Care Unit with critical condition and guarded prognosis. He is orally intubated and mechanically ventilated. He tolerated about an hour of wean today. OBJECTIVE: VITAL SIGNS: Blood pressure 90/40, pulse 91, respiratory rate 20, and afebrile. LUNGS: With rhonchi. CARDIAC: Regular rhythm and rate. Normal S1 and S2 with no murmur. ABDOMEN: Soft. EXTREMITIES: With dependent edema. LABORATORY DATA: Reviewed. IMPRESSION: 1. Sepsis with shock recovering. 2. Respiratory failure. 3. Decubitus, status post debridement. 4. Aortic valve stenosis. 5. Paroxysmal atrial fibrillation. 6. Exogenous anticoagulation. PLAN: 1. Volume support. 2. Antimicrobial. 3. Skin care. 4. Full anticoagulation. 5. Ventilator support with weaning as tolerated. Mejia Mckinney M.D. DR: VINNIE JOB#: [id number] CC:
--- NOTE | 2019-03-24 13:39 | Discharge Summary ---
Discharge Summary Discharge Summary _ DATE OF ADMISSION: 03/05/2019 DATE OF DISCHARGE: 03/23/2019 DISCHARGED BY: Dr. Cedric Perez CONSULTANTS: Dr. Mejia Gilliland [facility] HOSPITAL COURSE: Patient is an 83-year-old gentleman, who was admitted from longterm due to respiratory distress, altered mental status, hypotension and shock. Patient was nonverbal and was unable to provide history. He has medical history significant for aortic valve stenosis, hypertension, constipation, and atrial fibrillation on Eliquis. On arrival to ED, patient was on nonrebreather mask. While receiving IV hydration, patient was noted to have have a change in mental status and became less responsive. He was noted to have agonal respirations. CODE BLUE was called and CPR was initiated. He was orally intubated. Patient was noted to be in V. fib. The patient did regain pulses and was hooked on mechanical vent. Blood work showed WBC elevated to 59. Hemoglobin 11.5, hematocrit 36. BUN 26, creatinine was elevated to 3.1. Lactic acid was 10.7. Troponin 0 0.272. proBNP was greater than 35,000. Urinalysis showed evidence of UTI. Central line was inserted to the right femoral. He was admitted to ICU for septic shock and cardiopulmonary arrest. He required initiation of IV pressors. He was continued on vent support. He was given volume resuscitation. He was placed on DVT and stress ulcer prophylaxis. ID was consulted, he was given vancomycin, amikacin and meropenem. Kidney function was monitored. IV fluid was increased. He came in with stage IV infected sacral decubitus ulcer. Surgeon was consulted. He was medically optimized prior to surgery. He was eventually tapered off IV pressors. Acute kidney injury was improving. He was planned for debridement of the wound, however plans were canceled as patient was restarted back on IV pressors. Blood culture showed growth of Enterobacter and enterococcus. Urine culture with Enterobacter. Sputum culture showed growth of molds. He was given vancomycin, ciprofloxacin and Flagyl. Patient condition remained critical and guarded. He was unable to discontinue IV pressors completely due to dose of hypotension. Weaning was limited. Condition deteriorated. Requirement for Levophed increased. He was eventually started on dopamine support. Cortisol level 6. Midodrine was eventually added. Sputum culture with mold showed growth of aspergillus. He was started on voriconazole. Patient continued to require IV pressors. Condition had improved and patient was stable for procedure, however, anesthesiologist felt the patient was not stable for operating room, so decision was made to perform debridement in ICU. On 03/16/2019, patient underwent debridement of the infected decubitus ulcer Dr. Gilliland. He remained on ventilator support and IV pressors. On 03/19/2019, patient self extubated. ER physician was called to re- intubate. Chest x-ray on 03/20/2019 showed showed increased pleural fluid and airspace disease on the right as well as persistent edema and left pleural effusion. On 03/22/2019, he underwent sound guided left thoracentesis noting 400 mL of pleural fluid. Surveillance blood cultures did not isolate any growth. Urine culture with no growth. Repeat sputum culture with MRSA. Pleural fluid culture with no growth. AFB smear negative; culture still pending. He was continued on vancomycin, ciprofloxacin, Flagyl and voriconazole. He was eventually taken off IV pressors. Pressure remains marginal but adequate. He was continued on weaning protocol. Patient was not tolerating weaning with IMV/CPAP. He was eventually transferred to [facility]. 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 I have been assigned to complete a discharge summary on this account, I was not involved with the patient's management.--CIRA Garcia Jacqueline Robles NP Mar 24, 2019 13:39
[2020-03-05] MEDS ORDERED: Etomidate 40mg/20ml Inj IV ONE (09:00)
== END 2019-03-23 19:57 | disposition short-term general hospital (02) | DRG 853 ==
LOC: EDBD 23:53 → EMR 03-05 00:10 → ICU 03-05 01:55 → EDBEDREQ 03-05 03:02
PROC: 06HM33Z Insertion of Infusion Device into Right Femoral Vein, Percutaneous Approach (ICD-10-PCS; principal; 2019-03-05)
PROC: 5A1955Z Respiratory Ventilation, Greater than 96 Consecutive Hours (ICD-10-PCS; principal; 2019-03-05)
PROC: 0BH17EZ Insertion of Endotracheal Airway into Trachea, Via Natural or Artificial Opening (ICD-10-PCS; principal; 2019-03-05)
PROC: 02HV33Z Insertion of Infusion Device into Superior Vena Cava, Percutaneous Approach (ICD-10-PCS; 2019-03-13)
PROC: B548ZZA Ultrasonography of Superior Vena Cava, Guidance (ICD-10-PCS; 2019-03-13)
PROC: 0JB70ZZ Excision of Back Subcutaneous Tissue and Fascia, Open Approach (ICD-10-PCS; 2019-03-16)
PROC: 0W9B3ZZ Drainage of Left Pleural Cavity, Percutaneous Approach (ICD-10-PCS; 2019-03-21)
DX: A41.81 Sepsis due to Enterococcus (principal); L89.154 Pressure ulcer of sacral region, stage 4; R65.21 Severe sepsis with septic shock; I21.4 Non-ST elevation (NSTEMI) myocardial infarction; J96.00 Acute respiratory failure, unspecified whether with hypoxia or hypercapnia; J69.0 Pneumonitis due to inhalation of food and vomit; K72.00 Acute and subacute hepatic failure without coma; I50.33 Acute on chronic diastolic (congestive) heart failure; E43 Unspecified severe protein-calorie malnutrition; I49.01 Ventricular fibrillation; N39.0 Urinary tract infection, site not specified; N17.9 Acute kidney failure, unspecified; B44.1 Other pulmonary aspergillosis; Z99.11 Dependence on respirator [ventilator] status; I13.0 Hypertensive heart and chronic kidney disease with heart failure and stage 1 through stage 4 chronic kidney disease, or unspecified chronic kidney disease; J90 Pleural effusion, not elsewhere classified; E87.1 Hypo-osmolality and hyponatremia; A40.9 Streptococcal sepsis, unspecified; N18.9 Chronic kidney disease, unspecified; I48.0 Paroxysmal atrial fibrillation; Z79.01 Long term (current) use of anticoagulants; Z68.26 Body mass index [BMI] 26.0-26.9, adult; R19.7 Diarrhea, unspecified; I35.0 Nonrheumatic aortic (valve) stenosis; D64.9 Anemia, unspecified; E86.0 Dehydration; I25.10 Atherosclerotic heart disease of native coronary artery without angina pectoris; E87.6 Hypokalemia; E83.42 Hypomagnesemia; E83.39 Other disorders of phosphorus metabolism
CPT/HCPCS: 36415; 36569; 36600; 71045; 74018; 74176; 76937; 76942; 80048; 80053; 80150; 80202; 81003; 82270; 82533; 82550; 82553; 82570; 82803; 83036; 83605; 83690; 83735; 83880; 83986; 84100; 84300; 84484; 85007; 85025; 85610; 85730; 87040; 87070; 87081; 87086; 87116; 87181; 87205; 87324; 89051; 93005; 93306; 93970; 94002; 94003; 94664; 96361; 96365; 96366; 96368; 96375; 99291; J0171; J0282; J8499